=== PATIENT | female | born 1945 | race Caucasian/White ===

== ENCOUNTER → 2020-04-29 09:41 | Outpatient (BNVA) | payer MEDICARE, SELFPAY | PROVIDERS: PCP Internal Medicine; Visit Provider Internal Medicine Cardiovascular Disease | DX: I11.0 Hypertensive heart disease with heart failure (principal); I50.30 Unspecified diastolic (congestive) heart failure; J44.9 Chronic obstructive pulmonary disease, unspecified | CPT/HCPCS: 99212 ==

== ENCOUNTER → 2020-05-20 09:39 | Outpatient (REF) | payer MEDICARE, SELFPAY ==
--- NOTE | 2020-05-20 09:42 | CA_ITS ---
Transthoracic Echocardiogram Patient (Last, First, Middle): Mary Miramontes, Gender: Female Date of : 1945 Age: 74 Procedure Date: 05/20/2020 Procedure Type: Transthoracic Echocardiogram Location: OP Height: 160.02 cm Weight: 95.26 kg BSA: 1.97 m2 Heart Rate: bpm BP: 198 / 90 mmHg Supervisor Crack Off: Referring MD: Asher Amezquita MD Symptoms: I50.30 - Unspecified diastolic (congestive) heart failure Study Quality: Good ECG Rhythm: Sinus, PACs Conclusions: - The left ventricular systolic function is low normal. The visually estimated ejection fraction is between 50-55%. - No obvious valvular pathology seen on this study. Findings Left Ventricle Normal left ventricular cavity size. There is mildly increased left ventricular wall thickness. The left ventricular systolic function is low normal. The visually estimated ejection fraction is between 50-55%. E/E prime ratio is between 8 and 15 consistent with indeterminate filling pressures. Evidence suggests grade I (mild) diastolic dysfunction. Right Ventricle Normal right ventricular cavity size and systolic function. Atria Both atria are normal in size. Aortic Valve There is a normal trileaflet aortic valve. There is no aortic valve stenosis. There is no aortic valve regurgitation. Mitral Valve The mitral valve appears normal. There is trace mitral valve regurgitation. There is no mitral valve stenosis. Pulmonic Valve The pulmonic valve was not well visualized. Tricuspid Valve Normal tricuspid valve structure. There is trace tricuspid valve regurgitation. The pulmonary artery systolic pressure is normal. Great Vessels The aortic annulus, sinuses of valsalva, asc aorta, and aortic arch are normal in size. Venous The inferior vena cava is normal in size and collapses greater than 50% with inspiration. Pericardium/Pleural There is no evidence of pericardial effusion. Prior Study Comparison No significant change compared to prior study dated: 03/28/2017. Recommendations, Care & Conclusions No obvious valvular pathology seen on this study. Measurements 2D Linear Measurements RVIDd: 3.24 RVIDd Index: 1.64 IVSd: 1.15 0.6-0.9/0.6-1.0 cm LVIDd: 4.67 3.9-5.3/4.2-5.9 cm LVIDd Index: 2.37 2.4-3.2/2.2-3.1 cm/m2 LVIDs: 3.18 2.0-3.6 cm LVPWd: 1.09 0.7-1.1 cm Ao Root: 3.00 2.1-3.5 cm LA Diam: 3.90 2.7-3.8/3.0-4.0 cm LAIDs Index: 1.98 1.5-2.3 cm/m2 LV Mass: 237.22 67-162/88-224 g LV Mass Index: 120.41 43-95/49-115 g/m2 LVOT Diam: 2.00 3.0+(-)1.3 cm 2D Systolic Function EF 4C: 50.50 >55% EF 2C: 67.10 >55% Mitral Valve MV Pk E: 0.68 MV PK A: 1.02 MV Decel Time: 328.00 E/A: 0.70 E'Lateral: 7.29 E'Medial: 4.68 E/E' Med: 14.50 E/E' Lat: 9.30 Aortic Valve AoV Pk Bernardo: 1.81 AoV Mn Bernardo: 1.31 AoV VTI: 0.36 AoV Pk Grad: 13.00 Aov Mn Grad: 8.00 TRINH Cont.VTI: 2.37 LVOT LVOT Pk Bernardo: 1.22 LVOT Mn Bernardo: 0.90 LVOT VTI: 0.27 LVOT Pk Grad: 6.00 LVOT Mn Grad: 4.00 LVOT Diam: 2.00 LVOT Area: 3.14 Diastolic Function MV Pk E: 0.68 MV Pk A: 1.02 E/A: 0.70 E'Medial: 4.68 E/E' Med: 14.50 E' Laterial: 7.29 E/E' Lat: 9.30 Tricuspid Valve TR Pk Bernardo: 2.50 TR Pk Grad: 25.00 RA Press: 3.00 RVSP: 28.00 Great Vessels Aorta Ao Root-2D: 3.00 2.0-3.7 cm Ao Asc: 3.60 2.1-3.4 cm Ao Arch: 2.40 Updated in Other Vendor System with Status of Final Hernando Mari MD electronically signed on 05/22/2020 11:15:41 AM with status of Final
== END ==
LOC: HO.CARD 09:39
PROVIDERS: Visit Provider Internal Medicine Cardiovascular Disease
DX: I50.30 Unspecified diastolic (congestive) heart failure (principal); I11.0 Hypertensive heart disease with heart failure
CPT/HCPCS: 93306

== ENCOUNTER 2020-06-21 13:20 | Emergency (ER) | payer MEDICARE, SELFPAY ==
[2020-06-21 13:35] VITALS: BP 116/88; PULSE 80; RESP 16; TEMP 36.3; O2SAT 96; BMI 34.3
--- NOTE | 2020-06-21 15:01 | XR_ITS ---
EXAMINATION: XR CHEST CLINICAL INFORMATION: Patient with history of CHF and lower extremity swelling COMPARISON: Chest radiograph from 05/30/2016 TECHNIQUE: 2 views of the chest were obtained. FINDINGS: There is no focal consolidation. There is no pneumothorax. The trachea is midline. The cardiac mediastinal silhouette is stable. The aorta is tortuous with atherosclerotic calcifications. There is no pleural effusion. Osseous structures are intact. Soft tissues are unremarkable. XR/XR chest 2V IMPRESSION: No acute cardiopulmonary process.
--- NOTE | 2020-06-21 17:09 | ED_ITS ---
HPI - Extremity Problem General Chief complaint: Extremity Problem Stated complaint: swollen leg and foot lt Time Seen by Provider: 06/21/20 15:01 Source: patient Mode of arrival: ambulatory History of Present Illness HPI Narrative: 74-year-old female with a past medical history of COPD, diabetes, hyperlipidemia, hypertension, CHF w/EF of 50-55% presenting to the ED complaining of exertional SOB and worsening lower extremity edema >LLE x3 days. Admits to recent admission at [facility] for CHF exacerbation. Admits chronic erythema to the left lower extremity. Also reports incomplete bladder emptying times today. Denies fever, chills, travel, chest pain, abdominal pain, nausea/vomiting. Reports compliance with home medications MD Complaint: extremity pain and extremity swelling Related Data Home Medications Medication Instructions Recorded Confirmed atorvastatin 10 mg tablet 10 mg PO DAILY 04/17/20 04/29/20 cholecalciferol (vitamin D3) 25 25 mcg PO DAILY 04/17/20 04/29/20 mcg (1,000 unit) chewable tablet metformin 500 mg tablet,extended 500 mg PO DAILY 04/17/20 04/29/20 release 24 hr tjqrzrcw-vbkeztj-taxx-lutein tablet tab PO 04/17/20 04/29/20 omega-3 fatty acids-fish oil 360 1 cap PO DAILY 04/17/20 04/29/20 mg-1,200 mg capsule Previous Rx's Medication Instructions Recorded fluticasone 250 mcg-salmeterol 50 1 ea PO BID #180 cap 03/31/20 mcg/dose blistr powdr for inhalation furosemide 20 mg tablet 20 mg PO DAILY #90 tab 04/23/20 losartan 100 mg tablet 100 mg PO DAILY #90 tab 05/29/20 cephalexin [Keflex] 500 mg PO Q6H 7 Days #28 cap 06/21/20 Allergies Allergy/AdvReac Type Severity Reaction Status Date / Time Sulfa (Sulfonamide Allergy Unknown itching Verified 04/29/20 09:55 Antibiotics) sulfamethoxazole AdvReac Severe PT STATES Verified 04/29/20 09:55 [From BACTRIM] WHOLE BODY SHUT DOWN trimethoprim [From BACTRIM] AdvReac Severe PT STATES Verified 04/29/20 09:55 WHOLE BODY SHUT DOWN Review of Systems Review of Systems: Constitutional: No Weight loss, No Fever, No Chills Cardiovascular: No Chest Pain, + SOB, +Dyspnea on Exertion, No Orthopnea, +Edema, No Palpitations Respiratory: No Cough, No Sputum Gastrointestinal: No Nausea, No Vomiting, No Diarrhea, No Constipation, No Abdominal pain Genitourinary: No Dysuria, +urinary hesitancy, No Hematuria Musculoskeletal: No joint pain, No Myalgias, No Joint Swelling Skin: No Skin Lesions, +LLE redness Neuro: No Weakness, No Numbness, No Paresthesias Yes all other systems are reviewed and are negative [facility] Past Medical History Attestation statement: The following information was validated with the patient. Medical History (HFpEF) heart failure with preserved ejection fraction COPD (chronic obstructive pulmonary disease) Diabetes mellitus with microalbuminuria, without long-term current use of insulin Dyslipidemia Essential hypertension Menopause Surgical History History of cerebral aneurysm repair History of lumpectomy of right breast Family History Family History Father Myocardial infarction CVD (cardiovascular disease) Mother Diabetes mellitus Brother HTN (hypertension) Brother HTN (hypertension) Brother No problems noted. Son No problems noted. Social History Social History Alcohol intake: never Smoking Status: Former smoker Advance Directives: No Advance Directives Information Provided: No Physical Exam Vital Signs: Vital Signs: Last Vital Signs Temp 97.8 F 06/21/20 17:30 Pulse 62 06/21/20 17:30 Resp 19 06/21/20 17:30 BP 178/71 H 06/21/20 17:30 Pulse Ox 95 06/21/20 17:30 Body Mass Index 34.3 Const: General: cooperative and no acute distress Orientation/consciousness: patient oriented x3 Limitations: no limitations HENMT: Head: Yes normal to inspection Ears: hearing grossly normal bilaterally General nose exam: Normal external nose present Face and sinus: Yes normal facial exam Eyes: General: appearance normal, both eyes and all related structures EOM: EOMs intact bilaterally Neck: Neck: Yes normal visual inspection Resp: Effort & Inspection: normal respiratory effort Auscultation: clear to auscultation bilaterally, no crackles, no rhonchi and no wheezes Cardio: Rate: regular rate Heart sounds: S1 normal heart sound present and S2 normal heart sound present GI: Inspection: Yes normal to inspection Palpation (GI): Soft to palpation, nontender, no guarding and not rigid Skin: General skin exam: erythema (Noted to left lower extremity with warmth) Neuro: General: patient oriented x3 Extrem: Other: + bilateral lower extremity pitting edema Course Course Course Narrative: * CXR unremarkable Obtained records from [facility] patient was admitted on 03/25 for ACS rule out and noted to be in COPD exacerbation, hypoxic requiring oxygen, discharged with Medrol pack, with COVID-19 negative. Had negative ultrasound Dopplers of her legs and negative CTA. * Labs unremarkable, BNP 54, lactic negative >given 1st dose Keflex in the ED for LLE cellulitis * UA infected >> Keflex should cover Results discussed with patient including worrisome signs and symptoms and strict return precautions. She verbalized understanding and feels safe for discharge home. Discussion she needs to follow-up with her PCP in 2 days. She is agreeable with plan MDM - Extremity (Nontraumatic) MDM Narrative Medical decision making narrative: 74-year-old female with a past medical history of COPD, diabetes, hyperlipidemia, hypertension, CHF w/EF of 50-55% presenting to the ED complaining of exertional SOB and worsening lower extremity edema >LLE x3 days. On exam VSS, NAD/nontoxic appearing, lungs CTA, bilateral lower extremity pitting edema noted with left lower extremity cellulitis/warmt to touch. Concern for CHF exacerbation vs cellulitis vs ?DVT. Low concern for PE. No wheezing on exam low concern for COPD exacerbation at this time Plan: EKG, labs, CXR, venous duplex, reassess Lab Data Result diagrams: 06/21/20 17:46 06/21/20 17:46 Labs: Lab Results 06/21/20 06/21/20 06/21/20 Range/Units 17:46 17:46 17:46 WBC 9.1 (4.8-10.8) X10*3/uL RBC 4.77 (4.20-5.50) X10*6/uL Hgb 15.0 (12.0-16.0) g/dl Hct 46.8 (37-47) % MCV 98.1 H (80-98) fL MCH 31.4 (27.0-33.0) pg MCHC 32.1 (31.0-35.0) g/dl RDW 12.6 (11.0-16.0) % Plt Count 227 (160-400) X10*3/uL MPV 11.2 (9.4-12.3) fL Immature Gran % (Auto) 0.3 (0.0-0.4) % Neut % (Auto) 67.3 (45-73) % Lymph % (Auto) 22.8 (20-40) % [place] % (Auto) 7.0 (2-11) % Eos % (Auto) 2.3 (0-4) % Baso % (Auto) 0.3 (0-2) % Lymph # (Auto) 2.1 (1.2-4.9) X10*3/uL [place] # (Auto) 0.6 (0.1-1.2) X10*3/uL Eos # (Auto) 0.2 (0.0-0.4) X10*3/uL Baso # (Auto) 0.0 (0.0-0.2) X10*3/uL Abs Immat Gran (auto) 0.03 (0.00-0.03) X10*3/uL Absolute Neuts (auto) 6.1 (2.0-8.3) X10*3/uL Absolute Nucleated RBC 0.000 (0.0-0.012) X10*3/uL Nucleated RBC % (auto) 0.0 (0.0-0.2) /100WBC Sodium 145 (135-145) mmol/L Potassium 4.1 (3.3-5.1) mmol/l Chloride 104 (96-108) mmol/L Carbon Dioxide 31 H (22-29) mmol/L Anion Gap 14 (12-20) BUN 18 H (9-16) mg/dL Creatinine 0.77 (0.5-1.4) mg/dL Estim Creat Clear Calc 67.7 Estimated GFR > 60 Random Glucose 103 (60-115) mg/dL Lactic Acid (0.5-2.0) mmol/L Calcium 9.4 (8.4-10.2) mg/dL Magnesium 2.4 (1.6-2.6) mg/dL Total Bilirubin 0.6 (0.0-1.0) mg/dL Direct Bilirubin 0.3 (0.0-0.5) mg/dL AST 20 (5-31) U/L ALT 21 (0-31) U/L Alkaline Phosphatase 103 (39-117) U/L B-Natriuretic Peptide 54 (<100) pg/mL Total Protein 6.9 (6.5-8.0) g/dL Albumin 4.2 (3.5-5.0) g/dL Urine Color Urine Appearance Urine pH (5.0-8.0) Ur Specific [place] (1.005-1.025) Urine Protein (NEG-TRACE) MG/DL Urine Glucose (UA) (NEG) MG/DL Urine Ketones (NEG) MG/DL Urine Blood (NEG) Urine Nitrite (NEG) Ur Leukocyte Esterase (NEG) Urine RBC (0) /HPF Urine WBC (0-4) /HPF Ur Squamous Epith Cells /LPF Urine Bacteria /LPF 06/21/20 06/21/20 Range/Units 17:46 19:53 WBC (4.8-10.8) X10*3/uL RBC (4.20-5.50) X10*6/uL Hgb (12.0-16.0) g/dl Hct (37-47) % MCV (80-98) fL MCH (27.0-33.0) pg MCHC (31.0-35.0) g/dl RDW (11.0-16.0) % Plt Count (160-400) X10*3/uL MPV (9.4-12.3) fL Immature Gran % (Auto) (0.0-0.4) % Neut % (Auto) (45-73) % Lymph % (Auto) (20-40) % [place] % (Auto) (2-11) % Eos % (Auto) (0-4) % Baso % (Auto) (0-2) % Lymph # (Auto) (1.2-4.9) X10*3/uL [place] # (Auto) (0.1-1.2) X10*3/uL Eos # (Auto) (0.0-0.4) X10*3/uL Baso # (Auto) (0.0-0.2) X10*3/uL Abs Immat Gran (auto) (0.00-0.03) X10*3/uL Absolute Neuts (auto) (2.0-8.3) X10*3/uL Absolute Nucleated RBC (0.0-0.012) X10*3/uL Nucleated RBC % (auto) (0.0-0.2) /100WBC Sodium (135-145) mmol/L Potassium (3.3-5.1) mmol/l Chloride (96-108) mmol/L Carbon Dioxide (22-29) mmol/L Anion Gap (12-20) BUN (9-16) mg/dL Creatinine (0.5-1.4) mg/dL Estim Creat Clear Calc Estimated GFR Random Glucose (60-115) mg/dL Lactic Acid 1.3 (0.5-2.0) mmol/L Calcium (8.4-10.2) mg/dL Magnesium (1.6-2.6) mg/dL Total Bilirubin (0.0-1.0) mg/dL Direct Bilirubin (0.0-0.5) mg/dL AST (5-31) U/L ALT (0-31) U/L Alkaline Phosphatase (39-117) U/L B-Natriuretic Peptide (<100) pg/mL Total Protein (6.5-8.0) g/dL Albumin (3.5-5.0) g/dL Urine Color YELLOW Urine Appearance HAZY Urine pH 7.0 (5.0-8.0) Ur Specific [place] 1.015 (1.005-1.025) Urine Protein NEG (NEG-TRACE) MG/DL Urine Glucose (UA) NEG (NEG) MG/DL Urine Ketones NEG (NEG) MG/DL Urine Blood NEG (NEG) Urine Nitrite POS H (NEG) Ur Leukocyte Esterase TRACE H (NEG) Urine RBC 0 (0) /HPF Urine WBC 0-2 (0-4) /HPF Ur Squamous Epith Cells 2+ /LPF Urine Bacteria 3+ /LPF Discharge Plan Discharge Clinical Impression: Acute UTI Cellulitis Qualifiers: Site of cellulitis: extremity Site of cellulitis of extremity: lower extremity Laterality: left Qualified Code(s): L03.116 - Cellulitis of left lower limb Patient Disposition: Home, Self-Care Instructions: Cellulitis (ED), Urinary Tract Infection in Older Adults (ED) Additional Instructions: YOU HAVE A SKIN INFECTION/CELLULITIS OF YOUR LEFT LOWER LEG YOU ALSO HAVE A URINARY TRACT INFECTION KEFLEX AN ANTIBIOTIC WHICH SHOULD TAKE CARE BOTH OF THESE INFECTIONS YOU NEED TO FOLLOW-UP WITH HER PRIMARY CARE DOCTOR IN 2 DAYS FOR RE-EVALUATION IF THE REDNESS IN HER LEG IS PASSING THE LINE CREATED IN THE ED RETURN TO THE ED SOONER IF YOU HAVE FEVER, RED STREAKING, BLOOD IN YOUR URINE, ABDOMINAL PAIN, VOMITING, OR UNABLE TO EAT OR DRINK RETURN TO THE ED Prescriptions: New cephalexin [Keflex] 500 mg capsule 500 mg PO Q6H 7 Days Qty: 28 RF: 0 No Action fluticasone propion-salmeterol [Wixela Inhub] 250-50 mcg/dose blister with device 1 ea PO BID Qty: 180 RF: 1 furosemide 20 mg tablet 20 mg PO DAILY Qty: 90 RF: 1 losartan 100 mg tablet 100 mg PO DAILY Qty: 90 RF: 1 atorvastatin 10 mg tablet 10 mg PO DAILY RF: 0 metformin 500 mg tablet extended release 24 hr 500 mg PO DAILY RF: 0 omega-3 fatty acids-fish oil [Fish Oil] 360-1,200 mg capsule 1 cap PO DAILY RF: 0 zsejaywx-hdapcyy-nqrb-lutein Tablet PO RF: 0 cholecalciferol (vitamin D3) 25 mcg (1,000 unit) tablet,chewable 25 mcg PO DAILY RF: 0 Referrals: Kaitlyn Soto MD [Primary Care Provider] - 2 days
--- NOTE | 2020-06-21 17:18 | ECG_ITS ---
Test Reason : SWOLLEN LEGS Blood Pressure : / mmHG Vent. Rate : 064 BPM Atrial Rate : 064 BPM P-R Int : 168 ms QRS Dur : 126 ms QT Int : 448 ms P-R-T Axes : 064 -57 046 degrees QTc Int : 462 ms Sinus rhythm with Premature atrial complexes Left anterior fascicular block Abnormal ECG When compared with ECG of 30-MAY-2016 19:56, Premature atrial complexes are now Present Referred By: Lanny Erazo Electronically Signed By:HAROLDO VOGT MD
[2020-06-21 17:30] VITALS: BP 178/71; PULSE 62; RESP 19; TEMP 36.6; O2SAT 95
--- NOTE | 2020-06-21 17:44 | US_ITS ---
EXAMINATION: US VENOUS ULTRASOUND WITH DOPPLER LOWER EXTREMITY, BILATERAL CLINICAL INFORMATION: Rule out DVT. Leg swelling. COMPARISON: None TECHNIQUE: Ultrasound of the deep veins is performed from the hip to the calf with compression sonography and color and pulse Doppler assessment. Spectral analysis with color-flow imaging is performed. FINDINGS: RIGHT: There is normal venous compression and respiratory variation and augmented flow. The visualized common femoral vein, superficial femoral vein, profunda femoral vein, popliteal vein, and the trifurcation region shows no evidence of deep venous thrombosis. There is no significant popliteal fossa cyst. LEFT: There is normal venous compression and respiratory variation and augmented flow. The visualized common femoral vein, superficial femoral vein, profunda femoral vein, popliteal vein, and the trifurcation region shows no evidence of deep venous thrombosis. There is no significant popliteal fossa cyst. If the patient's symptoms persist, followup ultrasound in 5 days 7 days might be of value to exclude proximal propagation from a non-visualized calf vein. US/US venous duplex LE BI IMPRESSION: No DVT demonstrated in the bilateral lower extremity.
[2020-06-21 17:54] LABS: Basophils Percent Auto 0.3 % (0-2); Eosinophils Absolute Auto 0.2 X10*3/uL (0.0-0.4); Eosinophils Percent Auto 2.3 % (0-4); Hematocrit 46.8 % (37-47); Imm Gran Abs Auto 0.03 X10*3/uL (0.00-0.03); Imm Gran Pct Auto 0.3 % (0.0-0.4); Lymphocytes Absolute Auto 2.1 X10*3/uL (1.2-4.9); Lymphocytes Percent Auto 22.8 % (20-40); MANUAL DIFF FLAG NO; Mean Corpuscular HGB Conc 32.1 g/dl (31.0-35.0); Mean Corpuscular Hemoglobin 31.4 pg (27.0-33.0); Mean Corpuscular Volume 98.1 fL (80-98); Mean Platelet Volume 11.2 fL (9.4-12.3); Monocytes Absolute Auto 0.6 X10*3/uL (0.1-1.2); Neutrophils Absolute Auto 6.1 X10*3/uL (2.0-8.3); Neutrophils Percent Auto 67.3 % (45-73); Platelet Count 227 X10*3/uL (160-400); Red Blood Count 4.77 X10*6/uL (4.20-5.50); Red Cell Distribution Width 12.6 % (11.0-16.0); White Blood Count 9.1 X10*3/uL (4.8-10.8)
[2020-06-21 18:36] LABS: Lactic Acid 1.3 mmol/L (0.5-2.0)
[2020-06-21 18:42] LABS: Alanine Aminotransferase 21 U/L (0-31); Albumin Level 4.2 g/dL (3.5-5.0); Alkaline Phosphatase 103 U/L (39-117); Anion Gap 14 (12-20); Aspartate Amino Transferase 20 U/L (5-31); Bilirubin Direct 0.3 mg/dL (0.0-0.5); Bilirubin Total 0.6 mg/dL (0.0-1.0); Blood Urea Nitrogen 18 mg/dL (9-16); Calcium 9.4 mg/dL (8.4-10.2); Carbon Dioxide 31 mmol/L (22-29); Chloride 104 mmol/L (96-108); Creatinine Clr Calc Pharmacy 67.7; Estimated Glomerular Filt Rate > 60; Glucose Random 103 mg/dL (60-115); Magnesium 2.4 mg/dL (1.6-2.6); Potassium 4.1 mmol/l (3.3-5.1); Sodium 145 mmol/L (135-145); Total Protein 6.9 g/dL (6.5-8.0)
[2020-06-21 18:47] LABS: B Type Natriuretic Peptide 54 pg/mL (<100)
[2020-06-21 19:59] LABS: Glucose Urine UA NEG (NEG); Leukocyte Esterase Urine TRACE (NEG); Nitrite Urine POS (NEG); Specific Gravity - Urine 1.015 (1.005-1.025); Urine Blood NEG (NEG); Urine Ketones NEG (NEG); Urine Protein NEG (NEG-TRACE)
[2020-06-21 20:00] LABS: Appearance Urine HAZY; Color Urine YELLOW
[2020-06-21 20:10] LABS: Bacteria Urine 3+ /LPF; RBC Urine 0 /HPF (0); Squamous Epithelial Cell Urine 2+ /LPF; WBC Urine 0-2 /HPF (0-4)
[2020-06-21] MEDS: cephALEXin 500 MG CAPSULE PO (20:50)
== END 2020-06-21 20:56 | disposition home or self-care (01) ==
PROVIDERS: Physician Assistant; Emergency Provider Emergency Medicine; PCP Internal Medicine
DX: L03.116 Cellulitis of left lower limb (principal); R60.0 Localized edema; N39.0 Urinary tract infection, site not specified; Z79.899 Other long term (current) drug therapy
CPT/HCPCS: 36415; 51798; 71046; 80048; 80076; 81001; 83605; 83735; 83880; 85025; 87040; 87086; 87088; 87186; 93005; 93970; 99284

== ENCOUNTER 2020-07-15 10:26 | Outpatient (REF) | payer MEDICARE, SELFPAY ==
--- NOTE | 2020-07-15 10:31 | MM_ITS ---
EXAMINATION: MM SCREENING DIGITAL BREAST TOMOSYNTHESIS, BILATERAL CLINICAL INFORMATION: Screening. Asymptomatic. Status post right lumpectomy. COMPARISON: Mammography: November 19, 2018 and studies dating back to April 18, 2011 TECHNIQUE: Digital breast tomosynthesis is performed in both the craniocaudal and mediolateral oblique views along with computer-aided detection (CAD). Synthesized 2D images are generated from the tomosynthesis. FINDINGS: There are scattered areas of fibroglandular density (ACR BI-RADS breast composition Category b). There is right breast architecture distortion related to previous lumpectomy. There is multiplicity and bilaterality of stable calcifications. No new abnormal dominant mass or suspicious grouping of microcalcifications identified. MM/MM tomosynthesis screening BI IMPRESSION: There are no significant changes from prior study. ASSESSMENT: BI-RADS 2: Benign RECOMMENDATION: Routine annual mammography screening. This patient's information was entered into a reminder system with a target due date for their next mammogram.
== END 2020-07-15 10:27 | disposition home or self-care (01) ==
LOC: HO.MAMMO 10:26
PROVIDERS: PCP Internal Medicine; Visit Provider Internal Medicine
DX: Z12.31 Encounter for screening mammogram for malignant neoplasm of breast (principal)
CPT/HCPCS: 77063; 77067

== ENCOUNTER 2020-07-16 08:14 | Outpatient (REF) | payer MEDICARE, SELFPAY ==
[2020-07-16 11:10] LABS: MANUAL DIFF FLAG NO
[2020-07-16 11:17] LABS: Basophils Percent Auto 0.3 % (0-2); Eosinophils Absolute Auto 0.3 X10*3/uL (0.0-0.4); Eosinophils Percent Auto 2.9 % (0-4); Hemoglobin 15.4 g/dl (12.0-16.0); Imm Gran Abs Auto 0.03 X10*3/uL (0.00-0.03); Imm Gran Pct Auto 0.3 % (0.0-0.4); Lymphocytes Absolute Auto 2.5 X10*3/uL (1.2-4.9); Mean Corpuscular HGB Conc 30.8 g/dl (31.0-35.0); Mean Corpuscular Hemoglobin 30.9 pg (27.0-33.0); Mean Corpuscular Volume 100.4 fL (80-98); Mean Platelet Volume 11.7 fL (9.4-12.3); Monocytes Absolute Auto 0.8 X10*3/uL (0.1-1.2); Monocytes Percent Auto 8.7 % (2-11); Neutrophils Absolute Auto 5.2 X10*3/uL (2.0-8.3); Neutrophils Percent Auto 58.8 % (45-73); Platelet Count 220 X10*3/uL (160-400); Red Blood Count 4.98 X10*6/uL (4.20-5.50); Red Cell Distribution Width 12.5 % (11.0-16.0); White Blood Count 8.8 X10*3/uL (4.8-10.8)
[2020-07-16 11:40] LABS: Alanine Aminotransferase 16 U/L (0-31); Anion Gap 11 (12-20); Aspartate Amino Transferase 21 U/L (5-31); Blood Urea Nitrogen 23 mg/dL (9-16); Carbon Dioxide 33 mmol/L (22-29); Chloride 106 mmol/L (96-108); Cholesterol 139 mg/dL; Estimated Glomerular Filt Rate > 60; Glucose Fasting 118 mg/dL (60-99); HDL Cholesterol 61 mg/dL; LDL Cholesterol Calculated 61 mg/dl; Potassium 4.3 mmol/L (3.3-5.1); Sodium 146 mmol/L (135-145); Triglycerides 87 mg/dL
[2020-07-16 11:50] LABS: Estimated Average Glucose 134 mg/dL; Hemoglobin A1c % 6.3 %
[2020-07-16 11:58] LABS: Creatinine Urine 15.14 mg/dL
[2020-07-16 12:02] LABS: Vitamin D 25-OH Total 45.6 ng/mL (>30)
== END 2020-07-16 08:15 | disposition home or self-care (01) ==
LOC: HO.HMGCLDS 08:14
PROVIDERS: PCP Internal Medicine; Visit Provider Internal Medicine
DX: E78.5 Hyperlipidemia, unspecified (principal); I10 Essential (primary) hypertension; J44.9 Chronic obstructive pulmonary disease, unspecified; E11.29 Type 2 diabetes mellitus with other diabetic kidney complication; R80.9 Proteinuria, unspecified; Z78.0 Asymptomatic menopausal state
CPT/HCPCS: 36415; 80048; 80061; 82043; 82306; 83036; 84450; 84460; 85025

== ENCOUNTER 2020-10-20 10:21 | Outpatient (REF) | payer MEDICARE, SELFPAY ==
[2020-10-20 11:38] LABS: Estimated Average Glucose 146 mg/dL; Hemoglobin A1c % 6.7 %
[2020-10-20 11:47] LABS: Alanine Aminotransferase 18 U/L (0-31); Albumin Level 4.2 g/dL (3.5-5.0); Alkaline Phosphatase 94 U/L (39-117); Anion Gap 14 (12-20); Aspartate Amino Transferase 20 U/L (5-31); Bilirubin Total 1.4 mg/dL (0.0-1.0); Blood Urea Nitrogen 19 mg/dL (9-16); Calcium 9.6 mg/dL (8.4-10.2); Carbon Dioxide 30 mmol/L (22-29); Chloride 104 mmol/L (96-108); Cholesterol 142 mg/dL; Creatinine Clr Calc Pharmacy 67.1; Estimated Glomerular Filt Rate > 60; Glucose Fasting 118 mg/dL (60-99); HDL Cholesterol 58 mg/dL; LDL Cholesterol Calculated 62 mg/dl; Potassium 4.1 mmol/L (3.3-5.1); Sodium 144 mmol/L (135-145); Total Protein 6.8 g/dL (6.5-8.0); Triglycerides 113 mg/dL
[2020-10-20 12:10] LABS: Vitamin D 25-OH Total 40.3 ng/mL (>30)
[2020-10-20 12:27] LABS: Folate > 20.0 ng/mL (> or = 4.0); Vitamin B12 523 pg/mL (200-900)
== END 2020-10-20 10:22 | disposition home or self-care (01) ==
LOC: HO.HMGCLDS 10:21
PROVIDERS: PCP Internal Medicine; Visit Provider Internal Medicine
DX: I10 Essential (primary) hypertension (principal); E78.5 Hyperlipidemia, unspecified; E11.29 Type 2 diabetes mellitus with other diabetic kidney complication; R80.9 Proteinuria, unspecified; Z78.0 Asymptomatic menopausal state; Z12.11 Encounter for screening for malignant neoplasm of colon; Z12.12 Encounter for screening for malignant neoplasm of rectum
CPT/HCPCS: 36415; 80053; 80061; 82306; 82607; 82746; 83036

== ENCOUNTER → 2020-11-12 14:11 | Outpatient (BNVA) | payer MEDICARE, SELFPAY | PROVIDERS: PCP Internal Medicine; Referring Provider Internal Medicine; Visit Provider Internal Medicine Cardiovascular Disease | DX: I11.0 Hypertensive heart disease with heart failure (principal); I50.30 Unspecified diastolic (congestive) heart failure | CPT/HCPCS: 99212 ==

== ENCOUNTER 2020-11-13 14:22 | Outpatient (REF) | payer MEDICARE, SELFPAY ==
[2020-11-13 15:15] LABS: FIT1 NEGATIVE (NEGATIVE)
[2020-11-13 15:16] LABS: FIT Int Ctl YES; FIT2 POSITIVE (NEGATIVE)
== END 2020-11-13 14:23 | disposition home or self-care (01) ==
LOC: HO.LNP 14:22
PROVIDERS: Visit Provider Internal Medicine
DX: Z12.11 Encounter for screening for malignant neoplasm of colon (principal)
CPT/HCPCS: 82274

== ENCOUNTER 2021-04-26 08:18 | Outpatient (REF) | payer MEDICARE, SELFPAY ==
--- NOTE | ~2021-04-26 | US_ITS ---
EXAMINATION: US ABDOMEN COMPLETE CLINICAL INFORMATION: Epigastric pain. COMPARISON: CT abdomen and pelvis with intravenous contrast only dated 07/11/2015. TECHNIQUE: Real-time imaging of the abdominal viscera. FINDINGS: PANCREAS: The head and body the pancreas are normal. The tail is not well visualized due to bowel gas. ABDOMINAL AORTA: The proximal, mid, and distal segments are normal in caliber. INFERIOR VENA CAVA: Visualized portions are normal. LIVER: Liver echotexture is increased. There are 2 hypoechoic lesions in the left lobe of the liver, question representing complex cysts. These measure 1.8 x 1.7 x 2 cm and 0.8 x 0.5 x 0.7 cm. These are not appreciated on previous CT from 2015. No other liver lesion is seen. There is no intrahepatic biliary duct dilatation seen. GALLBLADDER: Normal. The gallbladder is physiologically distended without evidence of stones, sludge, polyps, wall thickening or pericholecystic fluid. COMMON BILE DUCT: Normal in caliber measuring 0.23 cm in diameter. RIGHT KIDNEY: Normal. No hydronephrosis. No renal calculi or focal parenchymal lesions. The kidney measures 10.7 cm in maximum dimension. LEFT KIDNEY: Normal. No hydronephrosis. No renal calculi or focal parenchymal lesions. The kidney measures 10.4 cm in maximum dimension. SPLEEN: Normal. The spleen measures 8.0 cm in maximum dimension. FREE FLUID: None. US/US abdomen complete IMPRESSION: Echogenic liver probably representing fatty infiltration. 2 hypoechoic lesions in the left lobe of the liver, question representing complex cysts. These are not seen on previous CT June 2015. Depending on level of clinical concern, this could be further evaluated with liver MRI with contrast. Limited visualization of the tail the pancreas. Otherwise unremarkable exam.
== END 2021-04-26 08:19 | disposition home or self-care (01) ==
LOC: HO.HMGCX 08:18
PROVIDERS: PCP Internal Medicine; Visit Provider Internal Medicine
DX: R10.13 Epigastric pain (principal)
CPT/HCPCS: 76700

== ENCOUNTER 2021-05-12 13:13 | Outpatient (REF) | payer MEDICARE, SELFPAY ==
--- NOTE | ~2021-05-12 | MR_ITS ---
EXAMINATION: MR ABDOMEN WITHOUT AND WITH CONTRAST CLINICAL INFORMATION: Liver cyst and pain COMPARISON: Previous ultrasound of the abdomen April [address] of the abdomen and pelvis June 2015 TECHNIQUE: MR abdomen was performed without and with use of 10 mL intravenous Gadavist gadolinium contrast. Postcontrast images are performed in multiphase dynamic sequences. Imaging was performed in 3 planes. FINDINGS: LUNG BASES: The visualized lung bases are unremarkable. LIVER, GALLBLADDER, AND BILIARY TREE: There is fatty infiltration of the liver. There are 2 lesions seen. These are slightly low signal on T1 weighted sequences and high signal on T2-weighted sequences. These demonstrate peripheral enhancement. These measure 1 x 1.3 cm high in the dome of the right lobe for example axial image 17 post contrast and 0.8 x 1.3 cm in the right lobe axial image 41 post contrast. These do not demonstrate early arterial phase enhancement, these are worrisome for metastatic disease. There is question of a third smaller peripheral lesion in the right lobe measuring 5 mm axial image 41 post contrast. There is question of adenomyomatosis of the gallbladder fundus. The gallbladder is otherwise unremarkable. There is no biliary duct dilatation. PANCREAS: There is a 3 x 3.7 cm mass in the tail of the pancreas. This is low signal on T1 and T2-weighted sequences and demonstrates homogeneous enhancement following contrast. There is a duodenal diverticulum adjacent to the head of the pancreas. The pancreas is otherwise unremarkable. The main pancreatic duct does not appear dilated. SPLEEN: Normal. ADRENAL GLANDS: Normal. KIDNEYS AND URETERS: There is a 1 cm cyst in the upper pole of the left kidney. Kidneys are otherwise unremarkable. GASTROINTESTINAL TRACT: No bowel obstruction. No ascites or fluid collection. ABDOMINAL WALL: No significant hernia is appreciated. LYMPH NODES: No lymphadenopathy. VASCULAR: Unremarkable. OSSEOUS STRUCTURES: Marrow signal normal. There are degenerative changes of the spine. MR/MR abdomen wo/w con IMPRESSION: 3 x 3.7 cm enhancing mass in the tail the pancreas. 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 Liver lesions in the right lobe of the liver suggestive of metastatic disease. 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 Fatty liver. Small left renal cyst.
[2021-05-12 13:19] LABS: Blood Urea Nitrogen 19 mg/dL (9-16); Estimated Glomerular Filt Rate > 60
[2021-05-14 12:57] LABS: Alpha Fetoprotein 3.3 ng/mL
== END 2021-05-12 13:14 | disposition home or self-care (01) ==
LOC: HO.MRI 13:13
PROVIDERS: PCP Internal Medicine; Visit Provider Internal Medicine
DX: R93.2 Abnormal findings on diagnostic imaging of liver and biliary tract (principal); K76.89 Other specified diseases of liver
CPT/HCPCS: 36415; 74183; 82105; 82378; 82565; 84520

== ENCOUNTER 2021-05-17 07:14 | Day surgery (SDC) | payer MEDICARE, SELFPAY ==
[2021-05-10 13:29] VITALS: BMI 32.5
--- NOTE | 2021-05-14 10:42 | P.CONAN_ITS ---
Documented by User: Melissa Abdullahi NP 05/14/21 10:45 HPI - Anesthesia Eval Consult details Narrative: 75yo F for Upper Endoscopy and Colonoscopy Stable at routine cardiac visit 11/2020 [facility] Active Problems Active Problems: All Active Problems (Updated 05/10/21 @ 13:29 by Michelle Fabian RN) Dyspepsia (Acute) Irritable bowel syndrome with constipation (Acute) Positive FIT (fecal immunochemical test) (Acute) Class 1 obesity due to excess calories with body mass index (BMI) of 33.0 to 33.9 in adult (Acute) Chronic obstructive pulmonary disease, unspecified (Acute) (HFpEF) heart failure with preserved ejection fraction (Acute) Essential hypertension (Acute) Menopause (Acute) Dyslipidemia (Acute) Diabetes mellitus with microalbuminuria, without long-term current use of insulin (Acute) Past Medical History Medical History (Updated 05/10/21 @ 13:29 by Michelle Fabian RN) (HFpEF) heart failure with preserved ejection fraction Chronic obstructive pulmonary disease, unspecified Class 1 obesity due to excess calories with body mass index (BMI) of 33.0 to 33.9 in adult COVID-19 vaccine series completed Diabetes mellitus with microalbuminuria, without long-term current use of insulin Dyslipidemia Dyspepsia Essential hypertension Irritable bowel syndrome with constipation Menopause Positive FIT (fecal immunochemical test) Family History Family History Father Myocardial infarction CVD (cardiovascular disease) Mother Diabetes mellitus Brother HTN (hypertension) Brother HTN (hypertension) Brother No problems noted. Son No problems noted. Surgical History Surgical History (Updated 05/10/21 @ 13:13 by Michelle Fabian RN) History of cerebral aneurysm repair History of lumpectomy of right breast Hx of tubal ligation Social History Social History Household Members Other:: son Housing: House Are you a primary palliative care specialist to a significant other at home: No Do you presently have visiting nurse or other home services: No Alcohol intake: never Patient Tobacco Use Status: Former Tobacco user Quit Date: 2006 Tobacco use type: Cigarette Years Smoked: 50 yrs e-Cigarette/Vaping Use: Never Used Use of substances other than those prescribed or required for medical reasons: No Have you been hit, kicked, punched, or otherwise hurt by someone within the past year? If so, by whom?: No Are you DNR?: No Advance Directives Information Provided: Yes (informational brochure mailed) Advance Directives on File: No Recently lost weight without trying: No Eating poorly because of decreased appetite: No Nutrition Risks: Surgical patient >75years service: No Current occupational status: disabled Meds Allergies Allergy/AdvReac Type Severity Reaction Status Date / Time Sulfa (Sulfonamide Allergy Intermediate itching Verified 05/10/21 13:32 Antibiotics) sulfamethoxazole Allergy Intermediate Stomach Verified 05/17/21 08:18 [From Bactrim] Upset trimethoprim [From Bactrim] Allergy Intermediate Stomach Verified 05/17/21 08:18 Upset Home Medications Medication Instructions Recorded Confirmed Last Taken Type cholecalciferol (vitamin D3) 25 25 mcg PO DAILY 04/17/20 05/10/21 Unknown History mcg (1,000 unit) chewable tablet gojrruvr-qrudtkj-upqk-lutein tablet 1 tab PO DAILY 04/17/20 05/10/21 Unknown History omega-3 fatty acids-fish oil 360 1 cap PO DAILY 04/17/20 05/10/21 Unknown History mg-1,200 mg capsule (Fish Oil) ibuprofen 200 mg tablet 200 mg PO Q6H PRN 07/24/20 05/10/21 Unknown History Exam Exam Date and Time: May 14, 2021 1042 Height,Weight and Vital Signs: Height 5 ft 4 in Weight 86.183 kg Pertinent Lab Results Pertinent Lab Results: Laboratory Tests 07/16/20 10/20/20 05/12/21 08:20 10:34 12:52 WBC 8.8 Hgb 15.4 Hct 50.0 H Plt Count 220 Sodium 144 Potassium 4.1 Chloride 104 Carbon Dioxide 30 H BUN 19 H Creatinine 0.83 Narrative Narrative: EKG 06/2020 Vent. Rate : 064 BPM ? ? Atrial Rate : 064 BPM ?? P-R Int : 168 ms? QRS Dur : 126 ms ? ? QT Int : 448 ms ? ? ? P-R-T Axes : 064 -57 046 degrees ?? QTc Int : 462 ms ? Sinus rhythm with Premature atrial complexes Left anterior fascicular block Abnormal ECG When compared with ECG of 30-MAY-2016 19:56, Premature atrial complexes are now Present ECHO 11/2020 Conclusions: - The left ventricular systolic function is low normal.? The ? ? visually estimated ejection fraction is between 50-55%.? - No obvious valvular pathology seen on this study.? Assessment and Plan Assessment Anesthesia Assessment: Chart Reviewed Documented by User: Kartik Del Rio 05/17/21 08:45 PMFSH Past Medical History Medical History (Updated 05/10/21 @ 13:29 by Michelle Fabian RN) (HFpEF) heart failure with preserved ejection fraction Chronic obstructive pulmonary disease, unspecified Class 1 obesity due to excess calories with body mass index (BMI) of 33.0 to 33.9 in adult COVID-19 vaccine series completed Diabetes mellitus with microalbuminuria, without long-term current use of insulin Dyslipidemia Dyspepsia Essential hypertension Irritable bowel syndrome with constipation Menopause Positive FIT (fecal immunochemical test) Family History Family History Father Myocardial infarction CVD (cardiovascular disease) Mother Diabetes mellitus Brother HTN (hypertension) Brother HTN (hypertension) Brother No problems noted. Son No problems noted. Family history of problems with anesthesia: No Surgical History Surgical History (Updated 05/10/21 @ 13:13 by Michelle Fabian RN) History of cerebral aneurysm repair History of lumpectomy of right breast Hx of tubal ligation History of Problems with Anesthesia: No Social History Social History Household Members Other:: son Housing: House Are you a primary palliative care specialist to a significant other at home: No Do you presently have visiting nurse or other home services: No Alcohol intake: never Patient Tobacco Use Status: Former Tobacco user Quit Date: 2006 Tobacco use type: Cigarette Years Smoked: 50 yrs e-Cigarette/Vaping Use: Never Used Use of substances other than those prescribed or required for medical reasons: No Have you been hit, kicked, punched, or otherwise hurt by someone within the past year? If so, by whom?: No Are you DNR?: No Advance Directives Information Provided: Yes (informational brochure mailed) Advance Directives on File: No Recently lost weight without trying: No Eating poorly because of decreased appetite: No Nutrition Risks: Surgical patient >75years service: No Current occupational status: disabled Meds Allergies Allergy/AdvReac Type Severity Reaction Status Date / Time Sulfa (Sulfonamide Allergy Intermediate itching Verified 05/10/21 13:32 Antibiotics) sulfamethoxazole Allergy Intermediate Stomach Verified 05/17/21 08:18 [From Bactrim] Upset trimethoprim [From Bactrim] Allergy Intermediate Stomach Verified 05/17/21 08:18 Upset Home Medications Medication Instructions Recorded Confirmed Last Taken Type cholecalciferol (vitamin D3) 25 25 mcg PO DAILY 04/17/20 05/10/21 Unknown History mcg (1,000 unit) chewable tablet anwyulzh-dtzfwjm-pina-lutein tablet 1 tab PO DAILY 04/17/20 05/10/21 Unknown History omega-3 fatty acids-fish oil 360 1 cap PO DAILY 04/17/20 05/10/21 Unknown History mg-1,200 mg capsule (Fish Oil) ibuprofen 200 mg tablet 200 mg PO Q6H PRN 07/24/20 05/10/21 Unknown History Exam Airway Mallampati Class: II Denture: Upper and Lower Loose/Missing/Broken Teeth: Yes Heart: rrr Lungs: bl breath sounds Assessment and Plan Final Anesthetic Review Family History of Problems with Anesthesia: No History of Problems with Anesthesia: No NPO: Yes ASA Class: III Final Preanesthetic Review: Meds/Allgs Chart Reviewed and Anes Risks/Benef Reviewed Patient Risk: Intermediate Procedure Risk: Intermediate Anesthetic Plan Anesthetic Plan: MAC: Disposition: Standard PACU
[2021-05-17 08:16] VITALS: BP 160/75; PULSE 54; RESP 18; TEMP 36.1; O2SAT 94
[2021-05-17] MEDS: Lactated Ringers 1,000 ML 50 ML IVCONT (08:17)
[2021-05-17 08:22] LABS: Glucose, Whole Blood 131 mg/dL (60-115)
[2021-05-17 09:49] VITALS: BP 113/57; PULSE 55; RESP 15; TEMP 36.1; O2SAT 98
--- NOTE | 2021-05-17 09:53 | P.BOP_ITS ---
Brief Operative Note Date of Service: 05/17/21 Pre-op diagnosis: Abd pain, Heme + stool Post-op diagnosis: other (Gastric and Duodenal ulcers, Esophagitis, Gastritis/Duodenitis, Colon polyp) Procedure: EGD with bx's, Colonoscopy to cecum with biopsy Surgeon: Tayo Kitchen Anesthesia: MAC Was an Storage Battery [employer] And Tester used for this Procedure?: No Estimated blood loss (mL): 2.0 Pathology: other (A. Gastric antral ulcer B. Gastric antrum C. EG Junction at 38cm D. Cecal polyp) Condition: stable Disposition: PACU
[2021-05-17 10:04] VITALS: BP 125/59; PULSE 56; RESP 18; TEMP 36.2; O2SAT 94
--- NOTE | 2021-05-17 11:24 | OP_ITS ---
SURGEON: Tayo Kitchen MD INDICATIONS: The patient presents for evaluation of abdominal pain and heme-positive stool. Full consent was obtained from her for this, including risks of bleeding and perforation. PREOPERATIVE DIAGNOSIS: POSTOPERATIVE DIAGNOSIS: PROCEDURE PERFORMED: Esophagogastroduodenoscopy with biopsies, and colonoscopy to the cecum with biopsy and removal of polyp. ESTIMATED BLOOD LOSS: COMPLICATIONS: ANESTHESIA: Monitored anesthesia care. ASSISTANTS: SPECIMENS: PREOPERATIVE DIAGNOSES: Abdominal pain and heme-positive stool. POSTOPERATIVE DIAGNOSES: Abdominal pain and heme-positive stool, esophagitis, hiatal hernia, gastric ulcer and gastritis, duodenal ulcers and duodenitis, colon polyp, diverticulosis and internal hemorrhoids. DESCRIPTION OF PROCEDURE: The patient was placed in the left lateral decubitus position. The Olympus video gastroscope was passed in the posterior oropharynx and upper esophagus under direct vision. The scope was passed slowly into the distal esophagus. The gastroesophageal junction appeared at 38 cm. There was evidence of some esophagitis at this level, but no definitive evidence of Collado's mucosa. There was no mass. The scope entered into the stomach and was advanced to the pylorus. The duodenum was cannulated to the descending portion. The second and third portions of duodenum appeared normal. The duodenal bulb was notable for multiple shallow ulcers between 5 and 10 mm as well as some surrounding duodenitis. There was no sign of any visible vessel nor bleeding. The scope was withdrawn back to the stomach. The gastric antrum was notable for erosive gastritis as well as an approximately 10 mm ulcer on the posterior gastric wall. There was no sign of bleeding and it appeared benign. There was good peristalsis. Biopsies were obtained from the margins of the ulcer as well as from the gastric antrum. The scope was retroflexed visualizing the proximal stomach carefully, which appeared normal, without any sign of mass or ulceration. The scope was straightened and withdrawn back to the esophagus. Biopsies were obtained at the EG junction at 38 cm. Proximal to that, the esophageal mucosa appeared normal. The scope was withdrawn from the patient. She was turned around for the colonoscopy. The digital rectal exam revealed no abnormalities. The Olympus video pediatric colonoscope was entered into the rectum and advanced easily to the cecum. Once in the cecum, I did identify cecal pouch with appendiceal orifice. There was transillumination of light deep in the right lower quadrant. There was some residual vegetable debris in the cecum, which was moved away as best as possible. In the vicinity of the appendiceal orifice, there was an approximately 5 mm probable hyperplastic polyp, which was biopsied and completely removed with a cold biopsy forceps. The remainder of the cecum appeared normal. The scope was then slowly withdrawn assessing all mucosal surfaces carefully. Preparation was excellent other than the sigmoid colon, which had some residual liquid and food matter, which was all irrigated and washed away as best as possible. I did not visualize any other polyps, colitis, nor angiodysplasia. There was a mild amount of sigmoid diverticulosis. In the rectum, scope was retroflexed visualizing internal hemorrhoids, but no other pathology. The rectal mucosa appeared normal. The scope was straightened out and withdrawn from the patient. She tolerated the procedures well and was returned to recovery area in stable condition. IMPRESSION: 1. Gastric and duodenal ulcers. 2. Gastritis. 3. Duodenitis. 4. Esophagitis. 5. Small hiatal hernia. 6. Colon polyp. 7. Diverticulosis. 8. Internal hemorrhoids. PLAN: The results of biopsies will be checked. I do not think she will need any further screening colonoscopies. I shall make sure she is on omeprazole and she has again been advised to avoid all aspirin and NSAIDs. She does have a pending MRI that will need to be checked in regard to some questionable lesions on a liver ultrasound. She will see me in several months for a followup office visit as well. MD GINI Christensen/TOSHA / [id number] MTDD
== END 2021-05-17 10:52 | disposition home or self-care (01) ==
PROVIDERS: PCP Internal Medicine; Visit Provider Internal Medicine
PROC: (CPT 45380; principal; 2021-05-17 08:20)
DX: R19.5 Other fecal abnormalities (principal); K63.5 Polyp of colon; K57.30 Diverticulosis of large intestine without perforation or abscess without bleeding; K64.8 Other hemorrhoids; Z80.0 Family history of malignant neoplasm of digestive organs; K25.9 Gastric ulcer, unspecified as acute or chronic, without hemorrhage or perforation; K26.9 Duodenal ulcer, unspecified as acute or chronic, without hemorrhage or perforation; K29.50 Unspecified chronic gastritis without bleeding; K29.80 Duodenitis without bleeding; K20.90 Esophagitis, unspecified without bleeding; K44.9 Diaphragmatic hernia without obstruction or gangrene; E11.9 Type 2 diabetes mellitus without complications; I11.0 Hypertensive heart disease with heart failure; I50.9 Heart failure, unspecified; E78.5 Hyperlipidemia, unspecified; J44.9 Chronic obstructive pulmonary disease, unspecified; Z79.51 Long term (current) use of inhaled steroids; Z79.84 Long term (current) use of oral hypoglycemic drugs; Z79.899 Other long term (current) drug therapy; Z85.3 Personal history of malignant neoplasm of breast; Z87.891 Personal history of nicotine dependence
CPT/HCPCS: 45380; 43239; 82947; 88305; 88342; J2370

== ENCOUNTER 2021-05-26 15:04 | Outpatient (REF) | payer MEDICARE, SELFPAY ==
[2021-05-26 16:38] LABS: MANUAL DIFF FLAG NO
[2021-05-26 16:42] LABS: Basophils Percent Auto 0.4 % (0-2); Eosinophils Absolute Auto 0.3 X10*3/uL (0.0-0.4); Eosinophils Percent Auto 2.7 % (0-4); Hematocrit 45.9 % (37.0-47.0); Hemoglobin 14.9 g/dl (12.0-16.0); Imm Gran Abs Auto 0.04 X10*3/uL (0.00-0.03); Imm Gran Pct Auto 0.4 % (0.0-0.4); Lymphocytes Absolute Auto 2.2 X10*3/uL (1.2-4.9); Lymphocytes Percent Auto 22.3 % (20-40); Mean Corpuscular HGB Conc 32.5 g/dl (31.0-35.0); Mean Corpuscular Hemoglobin 31.2 pg (27.0-33.0); Mean Corpuscular Volume 96.2 fL (80.0-98.0); Mean Platelet Volume 11.5 fL (9.4-12.3); Monocytes Absolute Auto 0.8 X10*3/uL (0.1-1.2); Monocytes Percent Auto 7.8 % (2-11); Neutrophils Absolute Auto 6.5 x10*3/uL (2.0-8.3); Neutrophils Percent Auto 66.4 % (45-73); Platelet Count 226 X10*3/uL (160-400); Red Blood Count 4.77 X10*6/uL (4.20-5.50); Red Cell Distribution Width 12.1 % (11.0-16.0); White Blood Count 9.7 X10*3/uL (4.8-10.8)
[2021-05-26 16:53] LABS: Partial Thromboplastin Time 32.5 SEC (24.1-38.0)
[2021-06-01 09:05] LABS: Carbohydrate Antigen 19-9 3 U/mL (<34)
== END 2021-05-26 15:05 | disposition home or self-care (01) ==
LOC: HO.HMGCLDS 15:04
PROVIDERS: PCP Internal Medicine; Visit Provider Internal Medicine
DX: R16.0 Hepatomegaly, not elsewhere classified (principal); K86.89 Other specified diseases of pancreas
CPT/HCPCS: 36415; 85025; 85610; 85730; 86301

== ENCOUNTER 2021-05-31 07:10 | Day surgery (SDC) | payer MEDICARE, SELFPAY ==
[2021-05-31] VITALS (9 sets, daily range): BP systolic 151–186; BP diastolic 50–88; PULSE 48–68; RESP 16–18; TEMP 36.3–36.6; O2SAT 93–95; BMI 32.5
--- NOTE | ~2021-05-31 | US_ITS ---
EXAMINATION: ULTRASOUND-GUIDED LIVER BIOPSY CLINICAL INFORMATION: Pancreas and liver lesions. COMPARISON: Previous ultrasound April 2021 and MR of the abdomen May 2021. TECHNIQUE: Procedure and risks and benefits including bleeding and infection were discussed with the patient and informed consent was obtained. Patient was positioned in the left decubitus position. The right upper quadrant was prepped and draped in the usual sterile fashion. The skin and soft tissues were anesthetized with 1% lidocaine plain. Using ultrasound guidance and a coaxial system, access to the 1 cm complex cystic lesion in the right lobe of the liver was obtained. Six 20-gauge core biopsies were obtained. There is no complication. The patient received Versed 2 mg and fentanyl 100 mcg intravenously during the procedure. Total sedation time was 20 minutes. FINDINGS: There is a hypoechoic complex cystic lesion in the right lobe of the liver measuring 1.7 x 1.2 x 1.6 cm that was targeted for fine-needle aspiration. US/US biopsy liver IMPRESSION: Ultrasound-guided right liver lesion biopsy.
[2021-05-31 07:33] LABS: Glucose, Whole Blood 130 mg/dL (60-115)
[2021-05-31 07:38] LABS: MANUAL DIFF FLAG NO
[2021-05-31 07:56] LABS: Anion Gap 11 (12-20); Blood Urea Nitrogen 23 mg/dL (9-16); Carbon Dioxide 25 mmol/L (22-29); Chloride 113 mmol/L (96-108); INTERNATIONAL NORM RATIO 0.9 (0.9-1.1); Potassium 4.3 mmol/L (3.3-5.1); Prothrombin Time 10.7 SEC (9.9-13.0); Sodium 145 mmol/L (135-145)
[2021-05-31 07:59] LABS: Partial Thromboplastin Time 35.1 SEC (24.1-38.0)
[2021-05-31 08:43] LABS: Basophils Percent Auto 0.2 % (0-2); Eosinophils Absolute Auto 0.1 X10*3/uL (0.0-0.4); Eosinophils Percent Auto 1.7 % (0-4); Hematocrit 45.7 % (37.0-47.0); Hemoglobin 14.9 g/dl (12.0-16.0); Imm Gran Abs Auto 0.03 X10*3/uL (0.00-0.03); Imm Gran Pct Auto 0.4 % (0.0-0.4); Lymphocytes Percent Auto 24.3 % (20-40); Mean Corpuscular HGB Conc 32.6 g/dl (31.0-35.0); Mean Corpuscular Hemoglobin 31.2 pg (27.0-33.0); Mean Corpuscular Volume 95.6 fL (80.0-98.0); Mean Platelet Volume 11.7 fL (9.4-12.3); Monocytes Absolute Auto 0.7 X10*3/uL (0.1-1.2); Monocytes Percent Auto 8.7 % (2-11); Neutrophils Absolute Auto 5.4 x10*3/uL (2.0-8.3); Neutrophils Percent Auto 64.7 % (45-73); Platelet Count 231 X10*3/uL (160-400); Red Blood Count 4.78 X10*6/uL (4.20-5.50); White Blood Count 8.4 X10*3/uL (4.8-10.8)
--- NOTE | 2021-05-31 10:27 | HO.RADPN ---
RADIOLOGY Narrative Narrative: Right lobe liver biopsy using coaxial system. 6 20 g core biopsies obtained. no complication.
[2021-05-31] MEDS: Lidocaine HCl 1 % MPF 5 ML VIAL 6 ML SUBCUT (10:45)
== END 2021-05-31 13:20 | disposition home or self-care (01) ==
PROVIDERS: Radiology Diagnostic Radiology; PCP Internal Medicine; Visit Provider Internal Medicine
DX: K86.89 Other specified diseases of pancreas (principal); C7B.02 Secondary carcinoid tumors of liver; R10.10 Upper abdominal pain, unspecified; R19.5 Other fecal abnormalities; Z85.3 Personal history of malignant neoplasm of breast; Z80.0 Family history of malignant neoplasm of digestive organs; J44.9 Chronic obstructive pulmonary disease, unspecified; I11.0 Hypertensive heart disease with heart failure; I50.30 Unspecified diastolic (congestive) heart failure; E11.9 Type 2 diabetes mellitus without complications; Z79.84 Long term (current) use of oral hypoglycemic drugs; Z79.51 Long term (current) use of inhaled steroids; Z79.899 Other long term (current) drug therapy; Z87.891 Personal history of nicotine dependence
CPT/HCPCS: 36415; 47000; 76942; 80051; 82947; 84520; 85025; 85610; 85730; 88307; 88341; 88342; 88360; 99152; 99153; J2250; J3010

== ENCOUNTER 2021-06-15 08:38 | Outpatient (REF) | payer MEDICARE, SELFPAY ==
[2021-06-15 11:53] LABS: Estimated Average Glucose 137 mg/dL; Hemoglobin A1c % 6.4 %
[2021-06-15 12:16] LABS: Anion Gap 10 (12-20); Aspartate Amino Transferase 17 U/L (5-31); Blood Urea Nitrogen 18 mg/dL (9-16); Calcium 9.3 mg/dL (8.4-10.2); Carbon Dioxide 28 mmol/L (22-29); Chloride 110 mmol/L (96-108); Cholesterol 138 mg/dL; Estimated Glomerular Filt Rate > 60; Glucose Fasting 111 mg/dL (60-99); HDL Cholesterol 55 mg/dL; LDL Cholesterol Calculated 67 mg/dl; Potassium 4.4 mmol/L (3.3-5.1); Sodium 144 mmol/L (135-145); Triglycerides 84 mg/dL
[2021-06-15 12:17] LABS: Creatinine Urine 104.22 mg/dL; Microalbum/Creatinine Ratio Ur 78.6 ug/mg cr
[2021-06-15 12:24] LABS: Vitamin D 25-OH Total 41.1 ng/mL (>30)
[2021-06-19 15:46] LABS: Gastrin 21 pg/mL (<=100)
== END 2021-06-15 08:39 | disposition home or self-care (01) ==
LOC: HO.HMGCLDS 08:38
PROVIDERS: PCP Internal Medicine; Visit Provider Internal Medicine
DX: E11.29 Type 2 diabetes mellitus with other diabetic kidney complication (principal); I10 Essential (primary) hypertension; E78.5 Hyperlipidemia, unspecified; E66.09 Other obesity due to excess calories; R80.9 Proteinuria, unspecified; C7B.8 Other secondary neuroendocrine tumors; K26.9 Duodenal ulcer, unspecified as acute or chronic, without hemorrhage or perforation; K25.3 Acute gastric ulcer without hemorrhage or perforation; Z68.33 Body mass index [BMI] 33.0-33.9, adult; Z78.0 Asymptomatic menopausal state
CPT/HCPCS: 36415; 80048; 80061; 82043; 82306; 82941; 83036; 84450

== ENCOUNTER → 2021-06-17 08:38 | Outpatient (BNV) | payer MEDICARE, MEDICAID, SELFPAY | PROVIDERS: Visit Provider Internal Medicine Medical Oncology | DX: C25.2 Malignant neoplasm of tail of pancreas (principal); C78.7 Secondary malignant neoplasm of liver and intrahepatic bile duct; Z85.3 Personal history of malignant neoplasm of breast | CPT/HCPCS: 99213; 99214 ==

== ENCOUNTER 2021-12-18 19:51 | Emergency (ER) | payer MEDICARE, MEDICAID, SELFPAY ==
--- NOTE | ~2021-12-18 | US_ITS ---
EXAMINATION: US VENOUS ULTRASOUND WITH DOPPLER LOWER EXTREMITY, RIGHT CLINICAL INFORMATION: Swelling COMPARISON: 06/21/2020 TECHNIQUE: Ultrasound of the deep veins is performed from the hip to the calf with compression sonography and color and pulse Doppler assessment. Spectral analysis with color-flow imaging is performed. FINDINGS: There is normal venous compression and respiratory variation and augmented flow. The visualized common femoral vein, superficial femoral vein, profunda femoral vein, popliteal vein, and the trifurcation region shows no evidence of deep venous thrombosis. There is no significant popliteal fossa cyst. If the patient's symptoms persist, followup ultrasound in 5 days 7 days might be of value to exclude proximal propagation from a non-visualized calf vein. US/US venous duplex LE RT IMPRESSION: No DVT demonstrated in the right lower extremity.
[2021-12-18 19:56] VITALS: BP 177/84; PULSE 63; RESP 20; TEMP 36.1; O2SAT 92; BMI 36.0
[2021-12-18 20:15] LABS: MANUAL DIFF FLAG NO
[2021-12-18 20:16] LABS: Basophils Percent Auto 0.2 % (0-2); Eosinophils Absolute Auto 0.2 X10*3/uL (0.0-0.4); Eosinophils Percent Auto 1.7 % (0-4); Hematocrit 45.8 % (37.0-47.0); Hemoglobin 14.7 g/dl (12.0-16.0); Imm Gran Abs Auto 0.02 X10*3/uL (0.00-0.03); Imm Gran Pct Auto 0.2 % (0.0-0.4); Lymphocytes Absolute Auto 1.9 X10*3/uL (1.2-4.9); Lymphocytes Percent Auto 21.4 % (20-40); Mean Corpuscular HGB Conc 32.1 g/dl (31.0-35.0); Mean Corpuscular Hemoglobin 30.6 pg (27.0-33.0); Mean Corpuscular Volume 95.4 fL (80.0-98.0); Monocytes Absolute Auto 0.7 X10*3/uL (0.1-1.2); Monocytes Percent Auto 7.8 % (2-11); Neutrophils Absolute Auto 6.1 x10*3/uL (2.0-8.3); Neutrophils Percent Auto 68.7 % (45-73); Platelet Count 205 X10*3/uL (160-400); Red Cell Distribution Width 12.2 % (11.0-16.0); White Blood Count 8.9 X10*3/uL (4.8-10.8)
[2021-12-18 20:23] LABS: INTERNATIONAL NORM RATIO 0.9 (0.9-1.1); Prothrombin Time 10.3 SEC (10.0-13.1)
[2021-12-18 20:38] LABS: B Type Natriuretic Peptide 34 pg/mL (<100)
[2021-12-18 20:41] LABS: Alanine Aminotransferase 17 U/L (0-31); Albumin Level 3.9 g/dL (3.5-5.0); Alkaline Phosphatase 98 U/L (39-117); Anion Gap 12 (12-20); Aspartate Amino Transferase 16 U/L (5-31); Bilirubin Total 0.5 mg/dL (0.0-1.0); Blood Urea Nitrogen 25 mg/dL (9-16); Calcium 9.2 mg/dL (8.4-10.2); Carbon Dioxide 26 mmol/L (22-29); Chloride 112 mmol/L (96-108); Estimated Glomerular Filt Rate > 60; Glucose Random 244 mg/dL (60-115); Potassium 3.9 mmol/L (3.3-5.1); Sodium 146 mmol/L (135-145); Total Protein 6.6 g/dL (6.5-8.0)
[2021-12-18 21:02] LABS: D Dimer High Sensitivity 239 NG/ML
[2021-12-18 22:00] VITALS: RESP 16
--- NOTE | 2021-12-18 22:02 | ED_ITS ---
HPI - Extremity Problem General Chief complaint: Extremity Problem Stated complaint: right leg swollen Time Seen by Provider: 12/18/21 20:54 Source: patient Mode of arrival: ambulatory Limitations: no limitations History of Present Illness HPI Narrative: Patient presents emergency department for evaluation of swelling to the right lower extremity. Onset 2 days ago. Associated pain while weight-bearing. Denies any wounds or lesions. Reports having similar appearance on her left leg last year for which she required treatment with antibiotics. Denies fevers, chills, dizziness, lightheadedness, chest pain, palpitations, shortness of breath, difficulty breathing, nausea, vomiting, abdominal pain, numbness or tingling of the extremities, no weakness.. Related Data Home Medications Medication Instructions Recorded Confirmed cholecalciferol (vitamin D3) 25 25 mcg PO DAILY 04/17/20 10/07/21 mcg (1,000 unit) chewable tablet epbsbsys-ecopubu-lyhg-lutein tablet 1 tab PO DAILY 04/17/20 10/07/21 omega-3 fatty acids-fish oil 360 1 cap PO DAILY 04/17/20 10/07/21 mg-1,200 mg capsule (Fish Oil) Vitamin C 1 tab PO DAILY 06/17/21 10/07/21 omeprazole 20 mg capsule,delayed 1 cap PO DAILY 08/26/21 10/07/21 release Previous Rx's Medication Instructions Recorded atorvastatin 10 mg tablet 10 mg PO DAILY #90 tabs 06/15/21 famotidine 40 mg tablet 40 mg PO QAM #30 tabs 07/13/21 fluticasone 250 mcg-salmeterol 50 1 ea inhalation BID #180 caps 09/09/21 mcg/dose blistr powdr for inhalation (Wixela Inhub) dicyclomine 20 mg tablet 20 mg PO QID #360 tabs 09/16/21 losartan 100 mg tablet 100 mg PO DAILY #90 tabs 10/18/21 metformin 500 mg tablet,extended 500 mg PO BEDTIME #90 tabs 10/18/21 release 24 hr furosemide 20 mg tablet 20 mg PO DAILY #90 tabs 11/12/21 doxycycline hyclate 100 mg tablet 100 mg PO BID 7 days #14 tabs 12/18/21 Allergies Allergy/AdvReac Type Severity Reaction Status Date / Time Sulfa (Sulfonamide Allergy Intermediate itching Verified 10/07/21 14:09 Antibiotics) sulfamethoxazole Allergy Intermediate Stomach Verified 10/07/21 14:09 [From Bactrim] Upset trimethoprim [From Bactrim] Allergy Intermediate Stomach Verified 10/07/21 14:09 Upset Review of Systems Review of Systems: Constitutional: No fever, chills, weakness or fatigue. Skin: No rash or itching. Cardiovascular: No chest pain, chest pressure or chest discomfort. No palpitations Respiratory: No shortness of breath, cough or sputum production. Gastrointestinal: No nausea, vomiting or diarrhea. No abdominal pain Genitourinary: No burning micturition. No urinary frequency or incontinence. Musculoskeletal: No muscle pain, back pain, joint pain or stiffness. Positive right lower extremity swelling Psychiatric: No depression or anxiety. Yes all other systems are reviewed and are negative [facility] Past Medical History Attestation statement: The following information was validated with the patient. Source: old records reviewed Medical History (HFpEF) heart failure with preserved ejection fraction Chronic obstructive pulmonary disease, unspecified Class 1 obesity due to excess calories with body mass index (BMI) of 33.0 to 33.9 in adult COVID-19 vaccine series completed Diabetes mellitus with microalbuminuria, without long-term current use of insulin Dyslipidemia Dyspepsia Essential hypertension Irritable bowel syndrome with constipation Menopause Positive FIT (fecal immunochemical test) Surgical History History of cerebral aneurysm repair History of colonoscopy History of lumpectomy of right breast Hx of tubal ligation Family History Family History Father Myocardial infarction CVD (cardiovascular disease) Mother Diabetes mellitus Brother HTN (hypertension) Brother HTN (hypertension) Brother No problems noted. Son No problems noted. Social History Social History Household Members: None Household Members Other:: son Housing: House Are you a primary care attendant to a significant other at home: No Do you presently have visiting nurse or other home services: No Alcohol intake: never Patient Tobacco Use Status: Former Tobacco user Quit Date: 2006 Tobacco use type: Cigarette Years Smoked: 50 yrs e-Cigarette/Vaping Use: Never Used Advance Directives: No Advance Directives Information Provided: No service: No Current occupational status: disabled Physical Exam Vital Signs: Vital Signs: Last Vital Signs Temp 96.9 F 12/18/21 19:56 Pulse 63 12/18/21 19:56 Resp 20 12/18/21 19:56 BP 177/84 H 12/18/21 19:56 Pulse Ox 92 12/18/21 19:56 O2 Del Method 12/18/21 19:56 BMI result Body Mass Index 36.0 Vital signs have been reviewed as normal and appeared to be correct. Blood pressure normal.? Heart rate normal.? Respiration rate normal. Temperature normal.? Oxygen saturation normal. Appearance: Alert.?Oriented to person, place and time. No acute distress.?Normal affect. Eyes: Pupils equal, round and reactive to light.? ENT: Pharynx normal.?? Neck: Normal inspection.? Neck supple.?? CVS: Heart sounds normal. Normal heart rate and rhythm.? Pulses normal.?? Respiratory: No respiratory distress.? Lung sounds clear to auscultation bilaterally?? Abdomen: Soft and non-tender. Normoactive bowel sounds. ?? Skin: Skin warm and dry.? Normal skin color.? Extremities: No calf ttp. right lower extremity with mild swelling, superior to the ankle and below the calf, nearly circumferential, mildly warm to touch. DP/PT pulse 2 +bilaterally. No wounds or lesions noted to the right lower extremity. Neuro: Moves all extremities spontaneously. Sensation intact bilaterally. CN II- XII intact. No focal neuro deficits. Ambulates with normal steady gait. Course Course Course Narrative: Patient is a 76-year-old female with a past medical history of neuroendocrine tumor pancreas, history of breast cancer, irritable bowel syndrome, COPD, heart failure with preserved EF, hypertension, dyslipidemia, type 2 diabetes. She is being evaluated for swelling and erythema to the right lower extremity. Concern ing for cellulitis versus DVT. Ultrasound pending at this time. Neurovascularly intact distally. CBC is normal, CMP overall unremarkable. D- dimer 239, minimally above the cutoff. Reevaluation(s) Reevaluation #1: Ultrasound the right lower extremity reveals no DVT. History and physical exam most consistent with cellulitis at this time, discussed these findings with patient. She is ambulatory with a steady gait. Discussed plan of care for treatment with antibiotics, discussed worrisome signs and symptoms to return back to the emergency department for, advised outpatient follow-up with primary care provider within 3-5 days. All questions were answered, patient was discharged home in stable condition. Time: 22:38 MDM - Extremity (Nontraumatic) Medical Records Attestation: I reviewed the patient's medical records. Lab Data Attestation: I reviewed the patient's lab results. Result diagrams: 12/18/21 20:10 12/18/21 20:10 Labs: Lab Results 12/18/21 12/18/21 12/18/21 Range/Units 20:10 20:10 20:10 WBC 8.9 (4.8-10.8) X10*3/uL RBC 4.80 (4.20-5.50) X10*6/uL Hgb 14.7 (12.0-16.0) g/dl Hct 45.8 (37.0-47.0) % MCV 95.4 (80.0-98.0) fL MCH 30.6 (27.0-33.0) pg MCHC 32.1 (31.0-35.0) g/dl RDW 12.2 (11.0-16.0) % Plt Count 205 (160-400) X10*3/uL MPV 11.0 (9.4-12.3) fL Immature Gran % (Auto) 0.2 (0.0-0.4) % Neut % (Auto) 68.7 (45-73) % Lymph % (Auto) 21.4 (20-40) % [place] % (Auto) 7.8 (2-11) % Eos % (Auto) 1.7 (0-4) % Baso % (Auto) 0.2 (0-2) % Lymph # (Auto) 1.9 (1.2-4.9) X10*3/uL [place] # (Auto) 0.7 (0.1-1.2) X10*3/uL Eos # (Auto) 0.2 (0.0-0.4) X10*3/uL Baso # (Auto) 0.0 (0.0-0.2) X10*3/uL Abs Immat Gran (auto) 0.02 (0.00-0.03) X10*3/uL Absolute Neuts (auto) 6.1 (2.0-8.3) x10*3/uL Absolute Nucleated RBC 0.000 (0.0-0.012) X10*3/uL Nucleated RBC % (auto) 0.0 (0.0-0.2) /100WBC PT (10.0-13.1) SEC INR (0.9-1.1) D-Dimer High Sensitivty NG/ML Sodium 146 H (135-145) mmol/L Potassium 3.9 (3.3-5.1) mmol/L Chloride 112 H (96-108) mmol/L Carbon Dioxide 26 (22-29) mmol/L Anion Gap 12 (12-20) BUN 25 H (9-16) mg/dL Creatinine 0.85 (0.5-1.4) mg/dL Estim Creat Clear Calc 61.0 Estimated GFR > 60 Random Glucose 244 H (60-115) mg/dL Calcium 9.2 D (8.4-10.2) mg/dL Total Bilirubin 0.5 (0.0-1.0) mg/dL AST 16 (5-31) U/L ALT 17 (0-31) U/L Alkaline Phosphatase 98 (39-117) U/L B-Natriuretic Peptide 34 (<100) pg/mL Total Protein 6.6 (6.5-8.0) g/dL Albumin 3.9 (3.5-5.0) g/dL /03/03 Range/Units 20:10 WBC (4.8-10.8) X10*3/uL RBC (4.20-5.50) X10*6/uL Hgb (12.0-16.0) g/dl Hct (37.0-47.0) % MCV (80.0-98.0) fL MCH (27.0-33.0) pg MCHC (31.0-35.0) g/dl RDW (11.0-16.0) % Plt Count (160-400) X10*3/uL MPV (9.4-12.3) fL Immature Gran % (Auto) (0.0-0.4) % Neut % (Auto) (45-73) % Lymph % (Auto) (20-40) % [place] % (Auto) (2-11) % Eos % (Auto) (0-4) % Baso % (Auto) (0-2) % Lymph # (Auto) (1.2-4.9) X10*3/uL [place] # (Auto) (0.1-1.2) X10*3/uL Eos # (Auto) (0.0-0.4) X10*3/uL Baso # (Auto) (0.0-0.2) X10*3/uL Abs Immat Gran (auto) (0.00-0.03) X10*3/uL Absolute Neuts (auto) (2.0-8.3) x10*3/uL Absolute Nucleated RBC (0.0-0.012) X10*3/uL Nucleated RBC % (auto) (0.0-0.2) /100WBC PT 10.3 (10.0-13.1) SEC INR 0.9 (0.9-1.1) D-Dimer High Sensitivty 239 NG/ML Sodium (135-145) mmol/L Potassium (3.3-5.1) mmol/L Chloride (96-108) mmol/L Carbon Dioxide (22-29) mmol/L Anion Gap (12-20) BUN (9-16) mg/dL Creatinine (0.5-1.4) mg/dL Estim Creat Clear Calc Estimated GFR Random Glucose (60-115) mg/dL Calcium (8.4-10.2) mg/dL Total Bilirubin (0.0-1.0) mg/dL AST (5-31) U/L ALT (0-31) U/L Alkaline Phosphatase (39-117) U/L B-Natriuretic Peptide (<100) pg/mL Total Protein (6.5-8.0) g/dL Albumin (3.5-5.0) g/dL Imaging Data Venous US: Radiologist's impression: US/US venous duplex LE RT IMPRESSION: No DVT demonstrated in the right lower extremity. Discharge Plan Discharge Clinical Impression: Cellulitis Patient Disposition: Home, Self-Care Instructions: Cellulitis (ED) Additional Instructions: You have been given a course of antibiotics please complete this entire course. Contact your primary care provider to schedule follow-up visit within 3-5 days. Please return to the emergency department as needed for any new or worsening symptoms or concerns. Prescriptions: New doxycycline hyclate 100 mg tablet 100 mg PO BID 7 Days Qty: 14 0RF No Action atorvastatin 10 mg tablet 10 mg PO DAILY Qty: 90 2RF famotidine 40 mg tablet 40 mg PO QAM Qty: 30 1RF fluticasone propion-salmeterol [Wixela Inhub] 250-50 mcg/dose blister with device 1 ea inhalation BID Qty: 180 1RF dicyclomine 20 mg tablet 20 mg PO QID Qty: 360 1RF metformin 500 mg tablet extended release 24 hr 500 mg PO BEDTIME Qty: 90 3RF losartan 100 mg tablet 100 mg PO DAILY Qty: 90 3RF furosemide 20 mg tablet 20 mg PO DAILY Qty: 90 0RF Rx Instructions: call to schedule PCP appt for more refills Vitamin C tablet 1 tab PO DAILY omeprazole 20 mg capsule,delayed release(DR/EC) 1 cap PO DAILY omega-3 fatty acids-fish oil [Fish Oil] 360-1,200 mg capsule 1 cap PO DAILY pozlwmjk-ijahzbx-gloa-lutein Tablet 1 tab PO DAILY cholecalciferol (vitamin D3) 25 mcg (1,000 unit) tablet,chewable 25 mcg PO DAILY
--- NOTE | 2021-12-18 23:27 | PC.NURSE ---
pt ambulatory out of ER upon discharge
== END 2021-12-18 23:30 | disposition home or self-care (01) ==
PROVIDERS: Student in an Organized Health Care Education/Training Program; Emergency Provider Emergency Medicine; PCP Internal Medicine
DX: L03.115 Cellulitis of right lower limb (principal); M79.661 Pain in right lower leg; E11.9 Type 2 diabetes mellitus without complications; E78.5 Hyperlipidemia, unspecified; I10 Essential (primary) hypertension; Z79.02 Long term (current) use of antithrombotics/antiplatelets
CPT/HCPCS: 36415; 80053; 83880; 85025; 85379; 85610; 93971; 99283; 99284

== ENCOUNTER 2022-05-11 14:36 | Outpatient (REF) | payer MEDICARE, MEDICAID, SELFPAY ==
--- NOTE | ~2022-05-11 | CT_ITS ---
EXAMINATION: CT ABDOMEN AND PELVIS WITH CONTRAST CLINICAL INFORMATION: Follow up neuroendocrine tumor of the pancreas. COMPARISON: MRI abdomen 05/12/2021. CT abdomen pelvis 07/11/2015. TECHNIQUE: Multidetector volumetric images were obtained from the superior aspect of the liver through the pubic symphysis following administration 100 mL of Omnipaque 350 intravenous contrast. Sagittal and coronal reformatted images were obtained on the technologist's workstation. Oral contrast: No This CT examination was performed using dose optimization techniques as appropriate, variously including the following: *Automated exposure control *Adjustment of mA and/or kV according to patient size (this includes techniques or standardized protocols for targeted exams where dose is matched to indication/reason for exam; i.e. extremities or head) *Use of iterative reconstruction technique DLP: 539 mGy-cm FINDINGS: LUNG BASES: There are mild hyperinflated lung bases without acute process. The heart size is borderline enlarged. LIVER, GALLBLADDER, AND BILIARY TREE: The liver is normal in size, shape, and diffusely hypoattenuated. No focal hepatic lesion or biliary ductal dilatation is present. MRI visualized right hepatic lobe lesions are not seen on this contrast-enhanced CT abdomen exam. The gallbladder is unremarkable with no evidence of radiopaque gallstones, gallbladder wall thickening, or obvious pericholecystic inflammatory changes. PANCREAS: There is a moderate size mass in the distal body/tail of the pancreas which appears enlarged and measures 4.0 x 3.0 x 2.7 cm. It appears lobulated and solid on previous MRI it measured 3.0 x 3.7 cm.. The peripancreatic fat borders around the tumor and the pancreas itself appear preserved. There is adjacent normal-size pancreatic head and body. The tail is not visualized likely atrophic or small. SPLEEN: Unremarkable. ADRENAL GLANDS: Bilateral adrenal glands are symmetrical and unremarkable. KIDNEYS AND URETERS: The kidneys are normal in size, shape, and attenuation. No hydronephrosis, hydroureter, or calculi seen. No perinephric stranding. There is a 1 cm exophytic cyst upper pole left kidney. BLADDER: Unremarkable. GASTROINTESTINAL TRACT: There is scattered stool and gas seen throughout the colon without distention. Oral contrast opacified small-bowel loops are normal caliber. There is a small duodenal diverticulum along the mid C-loop. Appendix is not seen. The stomach is nondistended and appears unremarkable. ABDOMINAL WALL: No significant hernia is appreciated. LYMPH NODES: Normal. VASCULAR: There is atherosclerotic calcification of abdominal aorta without aneurysmal dilatation. PELVIC VISCERA: Unremarkable. Previous CT abdomen exam 07/01/2015 it measured 7.4 x 5.7 cm and stable. Intrauterine hypodense mass seen previously is visualized in but is normal in homogeneous and measures 2.8 x 1.7 cm on axial plane 67/3 and 68/3. Previously it measured 4.6 x 4.7 cm. OSSEOUS STRUCTURES: There is no aggressive lytic or sclerotic process. There are degenerative disc changes and spondylosis lower dorsal spine and at the L4-L5 disc level. CT/CT abdomen pelvis w IV con IMPRESSION: 1. Moderate-size solid mass in the distal body/tail of the pancreas. The size of the pancreatic mass is almost similar in size to the previous MRI abdomen exam. Rest of the pancreas appears unremarkable. 2. There is no abnormal retroperitoneal or mesenteric lymph nodes. 3. There is a large left adnexal mass, stable. 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 4. Mild constipation. 5. Diffuse hepatic steatosis without focal lesion. 6. Small exophytic cyst upper pole left kidney. Fleischner guidelines were followed.
[2022-05-11] MEDS: iohexoL 350 MG/ML 100 ML INFUS..BTL IV (17:20)
[2022-05-11] MEDS: Barium Sulfate Oral (Vanilla) 450 ML ORAL.SUSP PO (17:21)
== END 2022-05-11 14:37 | disposition home or self-care (01) ==
LOC: HO.CT 14:36
PROVIDERS: PCP Internal Medicine; Visit Provider Internal Medicine Medical Oncology
DX: D3A.8 Other benign neuroendocrine tumors (principal)
CPT/HCPCS: 74177; Q9967

== ENCOUNTER 2022-05-26 15:22 | Inpatient (IN) | payer MEDICARE, MEDICAID, SELFPAY ==
--- NOTE | ~2022-05-26 | XR_ITS ---
EXAMINATION: XR CHEST CLINICAL INFORMATION: Cough COMPARISON: 06/21/2020 TECHNIQUE: Frontal view of the chest was obtained. FINDINGS: Heart size upper limits of normal. No infiltrates, pleural effusions or lung masses are seen. XR/XR chest 1V IMPRESSION: No acute intrathoracic
[2022-05-26 15:26] VITALS: BP 211/79; PULSE 37; RESP 18; TEMP 37.1; O2SAT 94; BMI 31.1
[2022-05-26] MEDS: Nitroglycerin 2 % Oint 1 GM Packet 0.5 INCH TRANSDERMA (15:56)
--- NOTE | 2022-05-26 16:03 | ED_ITS ---
HPI - Arrhythmia/Palpitations General Chief Complaint: Arrhythmia/Palpitations Stated Complaint: sent from oncology Time Seen by Provider: 05/26/22 15:29 Source: patient Mode of arrival: ambulatory History of Present Illness HPI narrative: 76-year-old female with known neuroendocrine tumor with metastasis is sent in by Oncology for sinus bradycardia. Patient states that she has felt short of breath for the past 1-2 weeks but denies any associated chest pain, fever, chills, GI or symptoms. I spoke with Dr. Guzman and oncologist who reports that patient is on octreotide and received a dose 1 month ago for her condition. She noted prior to injection today the patient's heart rate was slower. Related Data Home Medications Medication Instructions Recorded Confirmed cholecalciferol (vitamin D3) 25 25 mcg PO DAILY 04/17/20 04/14/22 mcg (1,000 unit) chewable tablet ooytpycg-jyylkls-rien-lutein tablet 1 tab PO DAILY 04/17/20 04/14/22 omega-3 fatty acids-fish oil 360 1 cap PO DAILY 04/17/20 04/14/22 mg-1,200 mg capsule (Fish Oil) Vitamin C 1 tab PO DAILY 06/17/21 04/14/22 omeprazole 20 mg capsule,delayed 1 cap PO DAILY 08/26/21 04/14/22 release Previous Rx's Medication Instructions Recorded fluticasone 250 mcg-salmeterol 50 1 ea inhalation BID #180 caps 09/09/21 mcg/dose blistr powdr for inhalation (Belen Inhronnie) losartan 100 mg tablet 100 mg PO DAILY #90 tabs 10/18/21 metformin 500 mg tablet,extended 500 mg PO BEDTIME #90 tabs 10/18/21 release 24 hr atorvastatin 10 mg tablet 10 mg PO DAILY #90 tabs 01/17/22 dicyclomine 20 mg tablet 20 mg PO QID #360 tabs 01/17/22 furosemide 20 mg tablet 20 mg PO DAILY #90 tabs 01/17/22 famotidine 40 mg tablet 40 mg PO QAM #90 tabs 01/28/22 Allergies Allergy/AdvReac Type Severity Reaction Status Date / Time Sulfa (Sulfonamide Allergy Intermediate itching Verified 04/14/22 13:33 Antibiotics) sulfamethoxazole Allergy Intermediate Stomach Verified 04/14/22 13:33 [From Bactrim] Upset trimethoprim [From Bactrim] Allergy Intermediate Stomach Verified 04/14/22 13:33 Upset Review of Systems Review of Systems: Pertinent positives and negatives as stated in HPI 10 point review of systems otherwise negative. PMFSH Past Medical History Source: nursing notes reviewed Medical History (HFpEF) heart failure with preserved ejection fraction Chronic obstructive pulmonary disease, unspecified Class 1 obesity due to excess calories with body mass index (BMI) of 33.0 to 33.9 in adult COVID-19 vaccine series completed Diabetes mellitus with microalbuminuria, without long-term current use of insulin Dyslipidemia Dyspepsia Essential hypertension Irritable bowel syndrome with constipation Menopause Positive FIT (fecal immunochemical test) Surgical History History of cerebral aneurysm repair History of colonoscopy History of lumpectomy of right breast Hx of tubal ligation Family History Family History Father Myocardial infarction CVD (cardiovascular disease) Mother Diabetes mellitus Brother HTN (hypertension) Brother HTN (hypertension) Brother No problems noted. Son No problems noted. Social History Social History Household Members: None Household Members Other:: son Housing: House Are you a primary associate director career services to a significant other at home: No Do you presently have visiting nurse or other home services: No Alcohol intake: never Patient Tobacco Use Status: Former Tobacco user Quit Date: 2006 Tobacco use type: Cigarette Years Smoked: 50 yrs e-Cigarette/Vaping Use: Never Used Advance Directives: Yes Advance Directives Information Provided: No Advance Directives on File: No service: No Current occupational status: disabled Physical Exam Vital Signs: Vital Signs: Last Vital Signs Temp 98.8 F 05/26/22 15:26 Pulse 34 L 05/26/22 17:14 Resp 13 05/26/22 17:14 BP 228/91 H 05/26/22 17:14 Pulse Ox 94 05/26/22 17:14 O2 Del Method 05/26/22 17:14 BMI result Body Mass Index 31.1 VITAL SIGNS: Reviewed. GENERAL: Well developed, well nourished, in no acute distress. HEAD: Normocephalic/atraumatic EYES: PERRLA, EOMI EARS: Ext canals without abnormality NOSE: Nares patent bilateral OROPHARYNX: no oral lesions noted, posterior pharynx clear NECK: Supple, no adenopathy LUNGS: Good inspiratory effort, mild rales bibasilar no tachypnea and no rhonchi or crackles. SpO2<94> CARDIOVASCULAR: Regular rate and rhythm without noted murmurs, no JVD or lower extremity edema. ABDOMEN: Soft, non-tender, non-distended with bowel sounds. MUSCULOSKELETAL: No tenderness, deformities, or effusions noted on gross inspection. EXTREMITIES: No cyanosis, clubbing or edema. SKIN: Inspection of the skin reveals no rashes NEUROLOGIC: Alert and oriented x 4. Strength and sensation to light touch were grossly intact x 4. Course Course Course Narrative: 76-year-old female otherwise well appearing states that she has been having some shortness of breath, will evaluate for possible CHF, but on evaluation of EKG for the bradycardia it is sinus in nature no evidence AV block, blood pressure is significantly elevated with a systolic greater than 200 which may partially explain patient's heart rate if it is compensatory in nature. However, there is documentation of octreotide leading to bradycardia and potentially in combination with the hypertension causing a reflex bradycardia these may be acting together. Will obtain basic labs to include troponin and chest x-ray. 1/2 inch of nitropaste was placed for blood pressure control. Review of all investigations consistent with likely CHF exacerbation/pulmonary edema from hypertensive episode. Patient has received a total of 0.5 in ni tropaste, 10 mg of hydralazine as well as 20 mg of Lasix. Blood pressure and heart rate have improved there is no evidence to suggest AV lucia blockade and I discussed the case with the inpatient hospitalist who will communicate the admission of this patient. Reevaluation(s) Reevaluation #1: Discussing oncology concerns regarding sick sinus syndrome with Dr Mari who informs me that patient has low-marciano HR at baseline. Time: 17:07 Medications Administered Discontinued Medications Generic Name Dose Route Start Last Admin Trade Name Freq PRN Reason Stop Dose Admin Hydralazine HCl 10 mg 05/26/22 17:04 05/26/22 17:15 Hydralazine Hcl 20 Mg/Ml Vial IVPUSH 05/26/22 17:05 10 mg ONCE ONE Administration Protocol Nitroglycerin 0.5 inch 05/26/22 15:44 05/26/22 15:56 Nitroglycerin 2 % Oint 1 Gm Packet TRANSDERMA 05/26/22 15:45 0.5 inch ONCE ONE Administration Medical Decision Making Lab Data Result Diagrams: 05/26/22 16:37 05/26/22 16:37 Labs: Lab Results 05/26/22 05/26/22 05/26/22 Range/Units 16:37 16:37 16:37 WBC 8.2 (4.8-10.8) X10*3/uL RBC 4.57 (4.20-5.50) X10*6/uL Hgb 14.1 (12.0-16.0) g/dl Hct 44.2 (37.0-47.0) % MCV 96.7 (80.0-98.0) fL MCH 30.9 (27.0-33.0) pg MCHC 31.9 (31.0-35.0) g/dl RDW 12.7 (11.0-16.0) % Plt Count 157 L (160-400) X10*3/uL MPV 11.4 (9.4-12.3) fL Immature Gran % (Auto) 0.2 (0.0-0.4) % Neut % (Auto) 63.2 (45-73) % Lymph % (Auto) 25.1 (20-40) % [place] % (Auto) 8.2 (2-11) % Eos % (Auto) 2.9 (0-4) % Baso % (Auto) 0.4 (0-2) % Lymph # (Auto) 2.1 (1.2-4.9) X10*3/uL [place] # (Auto) 0.7 (0.1-1.2) X10*3/uL Eos # (Auto) 0.2 (0.0-0.4) X10*3/uL Baso # (Auto) 0.0 (0.0-0.2) X10*3/uL Abs Immat Gran (auto) 0.02 (0.00-0.03) X10*3/uL Absolute Neuts (auto) 5.2 (2.0-8.3) x10*3/uL Absolute Nucleated RBC 0.000 (0.0-0.012) X10*3/uL Nucleated RBC % (auto) 0.0 (0.0-0.2) /100WBC PT 11.2 (10.0-13.1) SEC INR 1.0 (0.9-1.1) Sodium (135-145) mmol/L Potassium (3.3-5.1) mmol/L Chloride (96-108) mmol/L Carbon Dioxide (22-29) mmol/L Anion Gap (12-20) BUN (9-16) mg/dL Creatinine (0.5-1.4) mg/dL Estim Creat Clear Calc Estimated GFR Random Glucose (60-115) mg/dL Calcium (8.4-10.2) mg/dL Magnesium (1.6-2.6) mg/dL Total Bilirubin (0.0-1.0) mg/dL AST (5-31) U/L ALT (0-31) U/L Alkaline Phosphatase (39-117) U/L Troponin I High Sens (<3.5-17.0) ng/L B-Natriuretic Peptide 149 H (<100) pg/mL Total Protein (6.5-8.0) g/dL Albumin (3.5-5.0) g/dL 05/26/22 05/26/22 Range/Units 16:37 16:37 WBC (4.8-10.8) X10*3/uL RBC (4.20-5.50) X10*6/uL Hgb (12.0-16.0) g/dl Hct (37.0-47.0) % MCV (80.0-98.0) fL MCH (27.0-33.0) pg MCHC (31.0-35.0) g/dl RDW (11.0-16.0) % Plt Count (160-400) X10*3/uL MPV (9.4-12.3) fL Immature Gran % (Auto) (0.0-0.4) % Neut % (Auto) (45-73) % Lymph % (Auto) (20-40) % [place] % (Auto) (2-11) % Eos % (Auto) (0-4) % Baso % (Auto) (0-2) % Lymph # (Auto) (1.2-4.9) X10*3/uL [place] # (Auto) (0.1-1.2) X10*3/uL Eos # (Auto) (0.0-0.4) X10*3/uL Baso # (Auto) (0.0-0.2) X10*3/uL Abs Immat Gran (auto) (0.00-0.03) X10*3/uL Absolute Neuts (auto) (2.0-8.3) x10*3/uL Absolute Nucleated RBC (0.0-0.012) X10*3/uL Nucleated RBC % (auto) (0.0-0.2) /100WBC PT (10.0-13.1) SEC INR (0.9-1.1) Sodium 146 H (135-145) mmol/L Potassium 4.4 (3.3-5.1) mmol/L Chloride 110 H (96-108) mmol/L Carbon Dioxide 30 H (22-29) mmol/L Anion Gap 10 L (12-20) BUN 17 H (9-16) mg/dL Creatinine 0.80 (0.5-1.4) mg/dL Estim Creat Clear Calc 66.8 Estimated GFR > 60 Random Glucose 166 H (60-115) mg/dL Calcium 8.8 (8.4-10.2) mg/dL Magnesium 2.3 (1.6-2.6) mg/dL Total Bilirubin 0.5 (0.0-1.0) mg/dL AST 18 (5-31) U/L ALT 20 (0-31) U/L Alkaline Phosphatase 98 (39-117) U/L Troponin I High Sens 8.5 (<3.5-17.0) ng/L B-Natriuretic Peptide (<100) pg/mL Total Protein 6.1 L (6.5-8.0) g/dL Albumin 3.7 (3.5-5.0) g/dL Independent Interpretation I performed an independent interpretation of an: EKG Interpretation: Sinus bradycardia, HR-39, no STEMI, AL within normal limits QTC within normal limits, QRS mildly prolonged Critical Care Time Critical Care Time Critical Care Time: Yes Total Critical Care Time: 60 Attestation: I personally attest to this time spent taking care of the patient. Discharge Plan Discharge Clinical Impression: Hypertensive crisis, Pulmonary edema, Bradycardia, sinus Patient Disposition: Admitted As Inpatient
--- NOTE | 2022-05-26 16:17 | PC.NURSE ---
patient alert, denies CP or palpitations. will continue to monitor HR and BP. able to make needs known. call alvarez within reach
[2022-05-26 16:21] VITALS: PULSE 34
[2022-05-26 16:23] VITALS: BP 197/71; PULSE 33; O2SAT 94
[2022-05-26 16:42] LABS: MANUAL DIFF FLAG NO
[2022-05-26 16:45] LABS: Basophils Percent Auto 0.4 % (0-2); Eosinophils Absolute Auto 0.2 X10*3/uL (0.0-0.4); Eosinophils Percent Auto 2.9 % (0-4); Hematocrit 44.2 % (37.0-47.0); Hemoglobin 14.1 g/dl (12.0-16.0); Imm Gran Abs Auto 0.02 X10*3/uL (0.00-0.03); Imm Gran Pct Auto 0.2 % (0.0-0.4); Lymphocytes Absolute Auto 2.1 X10*3/uL (1.2-4.9); Lymphocytes Percent Auto 25.1 % (20-40); Mean Corpuscular HGB Conc 31.9 g/dl (31.0-35.0); Mean Corpuscular Hemoglobin 30.9 pg (27.0-33.0); Mean Corpuscular Volume 96.7 fL (80.0-98.0); Mean Platelet Volume 11.4 fL (9.4-12.3); Monocytes Absolute Auto 0.7 X10*3/uL (0.1-1.2); Monocytes Percent Auto 8.2 % (2-11); Neutrophils Absolute Auto 5.2 x10*3/uL (2.0-8.3); Neutrophils Percent Auto 63.2 % (45-73); Platelet Count 157 X10*3/uL (160-400); Red Blood Count 4.57 X10*6/uL (4.20-5.50); Red Cell Distribution Width 12.7 % (11.0-16.0); White Blood Count 8.2 X10*3/uL (4.8-10.8)
[2022-05-26 16:52] LABS: Prothrombin Time 11.2 SEC (10.0-13.1)
[2022-05-26 16:59] LABS: Alanine Aminotransferase 20 U/L (0-31); Albumin Level 3.7 g/dL (3.5-5.0); Alkaline Phosphatase 98 U/L (39-117); Anion Gap 10 (12-20); Aspartate Amino Transferase 18 U/L (5-31); Bilirubin Total 0.5 mg/dL (0.0-1.0); Blood Urea Nitrogen 17 mg/dL (9-16); Calcium 8.8 mg/dL (8.4-10.2); Carbon Dioxide 30 mmol/L (22-29); Chloride 110 mmol/L (96-108); Creatinine Clr Calc Pharmacy 66.8; Estimated Glomerular Filt Rate > 60; Glucose Random 166 mg/dL (60-115); Magnesium 2.3 mg/dL (1.6-2.6); Potassium 4.4 mmol/L (3.3-5.1); Sodium 146 mmol/L (135-145); Total Protein 6.1 g/dL (6.5-8.0)
[2022-05-26 17:05] LABS: B Type Natriuretic Peptide 149 pg/mL (<100); Troponin-I High Sensitivity 8.5 ng/L (<3.5-17.0)
[2022-05-26 17:14] VITALS: BP 228/91; PULSE 34; RESP 13; O2SAT 94
[2022-05-26] MEDS: hydrALAZINE HCl 20 MG/ML VIAL 10 MG IVPUSH (17:15)
[2022-05-26] MEDS: Furosemide 20 MG/2 ML VIAL IVPUSH (18:28)
--- NOTE | 2022-05-26 18:37 | PHA.MEDREC ---
Pharmacy Consult ? Medication Reconciliation Pharmacy has completed the medication reconciliation. Patient had list with her at bedside.
[2022-05-26 19:46] VITALS: BP 193/68; PULSE 54; RESP 12; TEMP 36.6; O2SAT 93
--- NOTE | 2022-05-26 19:49 | MHC.EDTECH ---
Pt setup on [employer] system. Pericare given. Bed pads changed. Pt given warm blanket and call alvarez placed in reach
--- NOTE | 2022-05-26 20:17 | PM.IMHP ---
History of Present Illness Date of Service: 05/26/22 Chief Complaint: slow heart rate 76-year-old female with past medical history of heart failure with preserved ejection fraction, COPD, diabetes, dyslipidemia, HTN, IBS, neuroendocrine cancer, who comes into the hospital after being seen at her oncologist's office and found to have a slow heart rate. Patient herself denies any dizziness, reports chronic shortness of breath with no worsening shortness of breath, reports no palpitations, denies having any chest pain, no headache or change in vision. denies any chest pain, no abdominal pain, no nausea or vomiting, no urinary symptoms and no lower extremity edema. Denies any orthopnea or PND. On arrival to the ED patient found to have a heart rate in the 30s, blood pressure of 211/79, reports compliance with her antihypertensives Labs are significant for sodium of 146, chloride of 110, BNP of 149, troponin negative, UA negative, viral serology negative Chest x-ray shows no acute intrathoracic abnormality EKG shows sinus bradycardia Case was discussed with Cardiology, patient will be admitted for further management Review of Systems Review of Systems: Yes all other systems are reviewed and are negative [facility] Medical History (HFpEF) heart failure with preserved ejection fraction Chronic obstructive pulmonary disease, unspecified Class 1 obesity due to excess calories with body mass index (BMI) of 33.0 to 33.9 in adult COVID-19 vaccine series completed Diabetes mellitus with microalbuminuria, without long-term current use of insulin Dyslipidemia Dyspepsia Essential hypertension Irritable bowel syndrome with constipation Menopause Positive FIT (fecal immunochemical test) Family History Father Myocardial infarction CVD (cardiovascular disease) Mother Diabetes mellitus Brother HTN (hypertension) Brother HTN (hypertension) Brother No problems noted. Son No problems noted. Surgical History History of cerebral aneurysm repair History of colonoscopy History of lumpectomy of right breast Hx of tubal ligation Social History Household Members: None Household Members Other:: son visits often Housing: Apartment Are you a primary personal caregiver to a significant other at home: No Do you presently have visiting nurse or other home services: No Alcohol intake: never Patient Tobacco Use Status: Former Tobacco user Quit Date: 2006 Tobacco use type: Cigarette Years Smoked: 50 yrs e-Cigarette/Vaping Use: Former Use Use of substances other than those prescribed or required for medical reasons: No Have you been hit, kicked, punched, or otherwise hurt by someone within the past year? If so, by whom?: No Do you feel safe in your current relationship?: No Current Relationship Is there a partner from a previous relationship who is making you feel unsafe now?: No Advance Directives: Yes Advance Directives Information Provided: No Advance Directives on File: No Advance Directives Date on File: 05/27/22 Do you have thoughts of harming others: None Do you have a plan to hurt others: No Plan Recently lost weight without trying: Yes Eating poorly because of decreased appetite: No Nutrition Risks: No Nutritional Risk Patient : No : No Poor oral hygiene: No service: No Current occupational status: disabled Meds Allergies Allergy/AdvReac Type Severity Reaction Status Date / Time Sulfa (Sulfonamide Allergy Intermediate itching Verified 04/14/22 13:33 Antibiotics) sulfamethoxazole Allergy Intermediate Stomach Verified 04/14/22 13:33 [From Bactrim] Upset trimethoprim [From Bactrim] Allergy Intermediate Stomach Verified 04/14/22 13:33 Upset Home Medications Medication Instructions Recorded Confirmed Last Taken Type cholecalciferol (vitamin D3) 25 25 mcg PO DAILY 04/17/20 05/26/22 Unknown History mcg (1,000 unit) chewable tablet fzewxtmo-lkyovlj-kijb-lutein tablet 1 tab PO DAILY 04/17/20 05/26/22 Unknown History omega-3 fatty acids-fish oil 360 1 cap PO DAILY 04/17/20 05/26/22 Unknown History mg-1,200 mg capsule (Fish Oil) omeprazole 20 mg capsule,delayed 1 cap PO DAILY 08/26/21 05/26/22 Unknown History release Physical Exam Vital Signs and Narrative: Vital Signs: Last Vital Signs Temp 98 F 05/26/22 19:46 Pulse 54 05/26/22 19:46 Resp 12 05/26/22 19:46 BP 193/68 H 05/26/22 19:46 Pulse Ox 93 05/26/22 19:46 O2 Del Method 05/26/22 19:46 BMI result Body Mass Index 31.1 Const: General: cooperative and no acute distress Orientation/consciousness: patient oriented x3 Eyes: General: appearance normal, both eyes and all related structures Resp: Effort & Inspection: normal respiratory effort Auscultation: clear to auscultation bilaterally Cardio: Other: bradycardic Rhythm: regular rhythm GI: Palpation (GI): Soft to palpation Auscultation: normal bowel sounds Skin: General skin exam: no rashes or lesions noted Neuro: General: patient oriented x3 Cognition (Neuro): normal cognition Extrem: General: Yes normal to inspection and Yes no pedal edema Results Labs CBC and Chem 7: 05/26/22 16:37 05/26/22 16:37 Labs: Laboratory Results - last 24 hr 05/26/22 05/26/22 05/26/22 16:37 16:37 16:37 MCV 96.7 MCH 30.9 MCHC 31.9 RDW 12.7 Plt Count 157 L MPV 11.4 Immature Gran % (Auto) 0.2 Neut % (Auto) 63.2 Lymph % (Auto) 25.1 [place] % (Auto) 8.2 Eos % (Auto) 2.9 Baso % (Auto) 0.4 Lymph # (Auto) 2.1 [place] # (Auto) 0.7 Eos # (Auto) 0.2 Baso # (Auto) 0.0 Abs Immat Gran (auto) 0.02 Absolute Neuts (auto) 5.2 Absolute Nucleated RBC 0.000 Nucleated RBC % (auto) 0.0 PT 11.2 INR 1.0 Anion Gap Estim Creat Clear Calc Estimated GFR Random Glucose Calcium Magnesium Total Bilirubin AST ALT Alkaline Phosphatase Troponin I High Sens B-Natriuretic Peptide 149 H Total Protein Albumin 05/26/22 05/26/22 16:37 16:37 MCV MCH MCHC RDW Plt Count MPV Immature Gran % (Auto) Neut % (Auto) Lymph % (Auto) [place] % (Auto) Eos % (Auto) Baso % (Auto) Lymph # (Auto) [place] # (Auto) Eos # (Auto) Baso # (Auto) Abs Immat Gran (auto) Absolute Neuts (auto) Absolute Nucleated RBC Nucleated RBC % (auto) PT INR Anion Gap 10 L Estim Creat Clear Calc 66.8 Estimated GFR > 60 Random Glucose 166 H Calcium 8.8 Magnesium 2.3 Total Bilirubin 0.5 AST 18 ALT 20 Alkaline Phosphatase 98 Troponin I High Sens 8.5 B-Natriuretic Peptide Total Protein 6.1 L Albumin 3.7 Imaging Radiologist's Impressions: Impressions Chest X-Ray 05/26/22 16:15 IMPRESSION: No acute intrathoracic Assessment and Plan (1) Hypertensive crisis: Status: Acute (2) Bradycardia, sinus: Status: Acute Plan 76-year-old female with past medical history of neuroendocrine tumor, hypertension, CHFpEF, diabetes presents to the hospital with bradycardia # bradycardia - unclear if there is sick sinus syndrome, patient asymptomatic at this time - cardiology consulted - avoid lucia blocking agents - admit to telemetry - will obtain TSH # hypertensive crisis - blood pressure systolic in the 200s - patient asymptomatic - resume home medications - received multiple IV medications in the ED with improvement in her BP - vitals q.4 hours # diabetes - low-dose sliding scale insulin - diabetic diet # CHFpEF - no exacerbation - continue home Lasix DVT prophylaxis: Heparin subQ given patient's need for further evaluation by Cardiology patient require minimum 2 night inpatient hospital stay for further monitoring and possible pacemaker placement Time Spent With Patient Time: Total time managing care of this patient today ____ minutes. Quality Stroke Does the patient have a stroke diagnosis?: No VTE Prior VTE?: No VTE Risk Level:: Medical - moderate - high VTE Device Contraindication: Treatment Not Indicated VTE Drug Contraindication: N/A - Med Ordered
[2022-05-26 20:48] LABS: Glucose, Whole Blood 107 mg/dL (60-115)
[2022-05-26] MEDS: Losartan Potassium 50 MG TABLET 100 MG PO (20:53)
[2022-05-26] MEDS: Famotidine 20 MG TABLET 40 MG PO (20:53)
[2022-05-26] MEDS: Heparin Sodium,Porcine 5,000 UNIT/ML VIAL 5000 UNIT SUBCUT (20:54)
[2022-05-26] MEDS: Dicyclomine HCl 10 MG CAPSULE 20 MG PO (20:54)
[2022-05-26 21:16] LABS: Influenza A PCR NEGATIVE (Negative); Influenza B PCR NEGATIVE (Negative); Resp Syncy Virus RNA Qual PCR NEGATIVE (Negative); SARS COV2 PCR INHOUSE NEGATIVE (Negative)
[2022-05-26 21:45] VITALS: BP 190/74; PULSE 49; RESP 22; TEMP 36.5; O2SAT 94
[2022-05-26 22:06] LABS: Thyroid Stimulating Hormone 0.64 uIU/mL (0.32-4.0)
[2022-05-26] MEDS: 0.9 % Sodium Chloride Flush 3 ML SYRINGE IVFLUSH (23:55)
[2022-05-27] VITALS (12 sets, daily range): BP systolic 160–210; BP diastolic 70–105; PULSE 54–76; RESP 16–18; TEMP 36.3–36.6; O2SAT 92–95
--- NOTE | 2022-05-27 00:14 | PC.NURSE ---
Atempted to call report at 00:15. RN will call back.
[2022-05-27 00:49] LABS: Appearance Urine Clear; Color Urine Yellow; Glucose Urine UA Negative (Negative); Leukocyte Esterase Urine Negative (Negative); Nitrite Urine Negative (Negative); Urine Blood Negative (Negative); Urine Ketones Negative (Negative); Urine Protein Negative (Neg-Trace)
[2022-05-27 01:14] LABS: Glucose, Whole Blood 175 mg/dL (60-115)
[2022-05-27] MEDS: hydrALAZINE HCl 20 MG/ML VIAL 10 MG IVPUSH (04:49)
[2022-05-27 06:54] LABS: MANUAL DIFF FLAG NO
[2022-05-27 06:59] LABS: Basophils Percent Auto 0.3 % (0-2); Eosinophils Absolute Auto 0.2 X10*3/uL (0.0-0.4); Eosinophils Percent Auto 2.5 % (0-4); Hematocrit 48.6 % (37.0-47.0); Hemoglobin 15.6 g/dl (12.0-16.0); Imm Gran Abs Auto 0.03 X10*3/uL (0.00-0.03); Imm Gran Pct Auto 0.3 % (0.0-0.4); Lymphocytes Absolute Auto 2.2 X10*3/uL (1.2-4.9); Mean Corpuscular HGB Conc 32.1 g/dl (31.0-35.0); Mean Corpuscular Hemoglobin 30.8 pg (27.0-33.0); Mean Corpuscular Volume 95.9 fL (80.0-98.0); Mean Platelet Volume 11.6 fL (9.4-12.3); Monocytes Absolute Auto 0.8 X10*3/uL (0.1-1.2); Monocytes Percent Auto 8.8 % (2-11); Neutrophils Absolute Auto 5.5 x10*3/uL (2.0-8.3); Neutrophils Percent Auto 63.1 % (45-73); Platelet Count 169 X10*3/uL (160-400); Red Blood Count 5.07 X10*6/uL (4.20-5.50); Red Cell Distribution Width 12.9 % (11.0-16.0); White Blood Count 8.7 X10*3/uL (4.8-10.8)
[2022-05-27 07:13] LABS: Anion Gap 12 (12-20); Blood Urea Nitrogen 15 mg/dL (9-16); Calcium 9.4 mg/dL (8.4-10.2); Carbon Dioxide 31 mmol/L (22-29); Chloride 106 mmol/L (96-108); Creatinine Clr Calc Pharmacy 74.2; Estimated Glomerular Filt Rate > 60; Glucose Random 128 mg/dL (60-115); Potassium 4.2 mmol/L (3.3-5.1); Sodium 145 mmol/L (135-145)
[2022-05-27 07:37] LABS: Glucose, Whole Blood 131 mg/dL (60-115)
[2022-05-27] MEDS: Losartan Potassium 50 MG TABLET 100 MG PO (07:37)
[2022-05-27] MEDS: Omeprazole 20 MG CAPSULE.DR PO (08:07)
[2022-05-27] MEDS: Famotidine 20 MG TABLET 40 MG PO (08:07)
[2022-05-27] MEDS: Furosemide 20 MG TABLET PO (08:08)
[2022-05-27] MEDS: Cholecalciferol (Vitamin D3) 25 MCG TABLET PO (08:08)
[2022-05-27] MEDS: Dicyclomine HCl 10 MG CAPSULE 20 MG PO ×4 (08:08→20:30)
[2022-05-27] MEDS: Multivitamin TABLET 1 TAB PO (08:08)
[2022-05-27] MEDS: Atorvastatin Calcium 10 MG TABLET PO (08:09)
[2022-05-27] MEDS: Heparin Sodium,Porcine 5,000 UNIT/ML VIAL 5000 UNIT SUBCUT ×2 (08:09→20:30)
[2022-05-27] MEDS: 0.9 % Sodium Chloride Flush 3 ML SYRINGE IVFLUSH ×3 (08:09→20:30)
[2022-05-27] MEDS: amLODIPine Besylate 5 MG TABLET PO ×2 (08:42→10:26)
--- NOTE | 2022-05-27 09:39 | MHC.CM.PN ---
pt lives with son,had no services does not expect to need services when dcd pt is covid vax x 5 has own ride home
--- NOTE | 2022-05-27 09:57 | PM.CNCAR ---
History of Present Illness History of Present Illness Date of Service: 05/27/22 Chief complaint: hypertensive crisis, bradycardia Narrative: This is a cardiology consultation regarding slow heart rate and high blood pressure. Patient was apparently sent from the oncology office due to slow heart rate. Also blood pressures in the 200s. Multiple medical comorbidities including heart failure preserved ejection fraction, COPD, diabetes, hypertension, IBS, neuroendocrine cancer, sent to ER with abnormal vitals of slow heart rate in high blood pressure. Patient herself has absolutely no symptoms. She denies any clear-cut symptoms like palpitations, chest pain or dizziness/syncope type symptoms. Some shortness of breath at baseline probably from her COPD and heart failure and preserved ejection fraction. Otherwise, she has seems to be doing okay. Review of Systems Review of Systems: Yes all other systems are reviewed and are negative Constitutional: Constitutional: Reports as per HPI Eyes: Eyes: Reports as per HPI ENT: Reports as per HPI Cardiovascular: Cardiovascular: Reports as per HPI, Denies acrocyanosis, Denies cool extremities, Denies chest pain, Denies leg edema, Denies lightheadedness, Denies palpitations and Denies dyspnea Respiratory: Respiratory: Reports as per HPI, Reports no additional respiratory complaints and Denies dyspnea Gastrointestinal: Gastrointestinal: Reports as per HPI and Reports no additional gastrointestinal complaints Genitourinary: Genitourinary: Reports as per HPI Musculoskeletal: Musculoskeletal: Reports no additional musculoskeletal complaints and Reports as per HPI Integumentary/Breasts: Skin/Breast: Reports system reviewed and no additional complaints, except as docu Neurologic: Reports system reviewed and no additional complaints, except as documented and Reports as per HPI Psychiatric: Psychiatric: Reports no additional psychiatric complaints and Reports as per HPI Endocrine: Endocrine: Reports no additional endocrine complaints, Reports as per HPI and Denies palpitations Hematologic/Lymphatic: Hematologic/Lymphatic: Reports no additional hematologic/lymphatic complaints and Reports as per HPI Allergic/Immunologic: Allergic/Immunologic: Reports no additional allergic/immunologic complaints and Reports as per HPI PMFSH Past Medical History Medical History (HFpEF) heart failure with preserved ejection fraction Chronic obstructive pulmonary disease, unspecified Class 1 obesity due to excess calories with body mass index (BMI) of 33.0 to 33.9 in adult COVID-19 vaccine series completed Diabetes mellitus with microalbuminuria, without long-term current use of insulin Dyslipidemia Dyspepsia Essential hypertension Irritable bowel syndrome with constipation Menopause Positive FIT (fecal immunochemical test) Family History Family History Father Myocardial infarction CVD (cardiovascular disease) Mother Diabetes mellitus Brother HTN (hypertension) Brother HTN (hypertension) Brother No problems noted. Son No problems noted. Surgical History Surgical History History of cerebral aneurysm repair History of colonoscopy History of lumpectomy of right breast Hx of tubal ligation Social History Social History Household Members: None Household Members Other:: son visits often Housing: Apartment Are you a primary director of career services to a significant other at home: No Do you presently have visiting nurse or other home services: No Alcohol intake: never Patient Tobacco Use Status: Former Tobacco user Quit Date: 2006 Tobacco use type: Cigarette Years Smoked: 50 yrs e-Cigarette/Vaping Use: Former Use Use of substances other than those prescribed or required for medical reasons: No Currently Displaying Signs/Symptoms of Drug Intoxication Withdrawal: No Have you been hit, kicked, punched, or otherwise hurt by someone within the past year? If so, by whom?: No Do you feel safe in your current relationship?: No Current Relationship Is there a partner from a previous relationship who is making you feel unsafe now?: No Advance Directives: Yes Advance Directives Information Provided: No Advance Directives on File: No Advance Directives Date on File: 05/27/22 Do you have thoughts of harming others: None Do you have a plan to hurt others: No Plan Recently lost weight without trying: Yes Eating poorly because of decreased appetite: No Nutrition Risks: No Nutritional Risk Patient : No : No Poor oral hygiene: No service: No Current occupational status: disabled Meds Allergies Allergy/AdvReac Type Severity Reaction Status Date / Time Sulfa (Sulfonamide Allergy Intermediate itching Verified 04/14/22 13:33 Antibiotics) sulfamethoxazole Allergy Intermediate Stomach Verified 04/14/22 13:33 [From Bactrim] Upset trimethoprim [From Bactrim] Allergy Intermediate Stomach Verified 04/14/22 13:33 Upset Active Medications: Current Medications Acetaminophen (Acetaminophen 325 Mg Tablet) 650 mg PO Q6H PRN PRN Reason: Pain, Mild (Pain Scale 1-3) Albuterol/Ipratropium (Albuterol/Iprat 2.5/0.5mg 3 Ml Ampul.Neb) 3 ml INHALE RQ6H PRN PRN Reason: shortness of breath/wheezing Amlodipine Besylate (Amlodipine Besylate 5 Mg Tablet) 5 mg PO DAILY [facility]; Protocol Last Admin: 05/27/22 08:42 Dose: 5 mg Atorvastatin Calcium (Atorvastatin Calcium 10 Mg Tablet) 10 mg PO DAILY [facility] Last Admin: 05/27/22 08:09 Dose: 10 mg Dextrose (Dextrose 50 % 25 Gm/50 Ml Syringe) 25 gm IVPUSH Q15M PRN; Protocol PRN Reason: per Hypoglycemia Standing Ord. Dicyclomine HCl (Dicyclomine Hcl 10 Mg Capsule) 20 mg PO QID [facility] Last Admin: 05/27/22 08:08 Dose: 20 mg Docusate Sodium (Docusate Sodium 100 Mg Capsule) 100 mg PO DAILY PRN PRN Reason: Constipation Famotidine (Famotidine 20 Mg Tablet) 40 mg PO DAILY [facility] Last Admin: 05/27/22 08:07 Dose: 40 mg Furosemide (Furosemide 20 Mg Tablet) 20 mg PO DAILY [facility]; Protocol Last Admin: 05/27/22 08:08 Dose: 20 mg Glucose (Glucose Gel 15 Gm Gel..Gram.) 15 gm PO Q15M PRN; Protocol PRN Reason: per Hypoglycemia Standing Ord. Heparin Sodium (Porcine) (Heparin Sodium,Porcine 5,000 Unit/Ml Vial) 5,000 unit SUBCUT Q12H [facility] Last Admin: 05/27/22 08:09 Dose: 5,000 unit Insulin Human Lispro (Insulin Lispro 100 Unit/Ml 3 Ml Vial) 0 unit SUBCUT QIDACHS [facility]; Protocol Last Admin: 05/27/22 07:43 Dose: Not Given Losartan Potassium (Losartan Potassium 50 Mg Tablet) 100 mg PO DAILY [facility]; Protocol Last Admin: 05/27/22 07:37 Dose: 100 mg Multivitamins/Vitamin C (Multivitamin Tablet) 1 tab PO DAILY [facility] Last Admin: 05/27/22 08:08 Dose: 1 tab Omeprazole (Omeprazole 20 Mg Capsule.Dr) 20 mg PO DAILY@0630 [facility] Last Admin: 05/27/22 08:07 Dose: 20 mg Ondansetron HCl (Ondansetron Hcl 4 Mg/2 Ml Vial) 4 mg IVPUSH Q8H PRN PRN Reason: Nausea and Vomiting Sodium Chloride (0.9 % Sodium Chloride Flush 3 Ml Syringe) 3 ml IVFLUSH QSHIFT [facility] Last Admin: 05/27/22 08:09 Dose: 3 ml Vitamin D (Cholecalciferol (Vitamin D3) 25 Mcg Tablet) 25 mcg PO DAILY [facility] Last Admin: 05/27/22 08:08 Dose: 25 mcg Home Medications Medication Instructions Recorded Confirmed Last Taken Type cholecalciferol (vitamin D3) 25 25 mcg PO DAILY 04/17/20 05/26/22 Unknown History mcg (1,000 unit) chewable tablet ytvgdrog-tvbxrnv-albp-lutein tablet 1 tab PO DAILY 04/17/20 05/26/22 Unknown History omega-3 fatty acids-fish oil 360 1 cap PO DAILY 04/17/20 05/26/22 Unknown History mg-1,200 mg capsule (Fish Oil) omeprazole 20 mg capsule,delayed 1 cap PO DAILY 08/26/21 05/26/22 Unknown History release Physical Exam Vital Signs: Vital Signs: Last Vital Signs Temp 97.6 F 05/27/22 07:19 Pulse 76 05/27/22 07:19 Resp 18 05/27/22 07:19 BP 193/98 H 05/27/22 08:18 Pulse Ox 92 05/27/22 07:19 O2 Del Method 05/27/22 07:19 BMI result Body Mass Index 31.1 Const: General: comfortable and no acute distress Orientation/consciousness: patient oriented x3 HEENT: Other: Unremarkable Head: Yes normal to inspection Neck: Neck: Yes normal visual inspection Chest: Chest palpation & inspection: normal inspection of the chest Resp: Auscultation: wheezes Cardio: Palpation: normal PMI Heart sounds: S1 normal heart sound present, S2 normal heart sound present, no gallops, no murmurs and no rubs GI: Palpation (GI): Soft to palpation Back/Spine/Pelvis: Other: unremarkable Skin: General skin exam: no rashes or lesions noted Neuro: General: patient oriented x3 Extrem: General: Yes normal to inspection Psych: Mental Status: mental status grossly normal Objective Labs and Meds Result diagrams: 05/27/22 06:27 05/27/22 06:27 Lab results: Laboratory Results - last 24 hr 05/26/22 05/26/22 05/26/22 16:37 16:37 16:37 WBC 8.2 RBC 4.57 Hgb 14.1 Hct 44.2 MCV 96.7 MCH 30.9 MCHC 31.9 RDW 12.7 Plt Count 157 L MPV 11.4 Immature Gran % (Auto) 0.2 Neut % (Auto) 63.2 Lymph % (Auto) 25.1 [place] % (Auto) 8.2 Eos % (Auto) 2.9 Baso % (Auto) 0.4 Lymph # (Auto) 2.1 [place] # (Auto) 0.7 Eos # (Auto) 0.2 Baso # (Auto) 0.0 Abs Immat Gran (auto) 0.02 Absolute Neuts (auto) 5.2 Absolute Nucleated RBC 0.000 Nucleated RBC % (auto) 0.0 PT 11.2 INR 1.0 Sodium Potassium Chloride Carbon Dioxide Anion Gap BUN Creatinine Estim Creat Clear Calc Estimated GFR POC Glucose Random Glucose Calcium Magnesium Total Bilirubin AST ALT Alkaline Phosphatase Troponin I High Sens B-Natriuretic Peptide 149 H Total Protein Albumin TSH Urine Color Urine Appearance Urine pH Ur Specific [place] Urine Protein Urine Glucose (UA) Urine Ketones Urine Blood Urine Nitrite Ur Leukocyte Esterase Influenza Type A (PCR) Influenza Type B (PCR) RSV RNA Qual (PCR) SARS-CoV-2 RNA (RT-PCR) 05/26/22 05/26/22 05/26/22 16:37 16:37 20:17 WBC RBC Hgb Hct MCV MCH MCHC RDW Plt Count MPV Immature Gran % (Auto) Neut % (Auto) Lymph % (Auto) [place] % (Auto) Eos % (Auto) Baso % (Auto) Lymph # (Auto) [place] # (Auto) Eos # (Auto) Baso # (Auto) Abs Immat Gran (auto) Absolute Neuts (auto) Absolute Nucleated RBC Nucleated RBC % (auto) PT INR Sodium 146 H Potassium 4.4 Chloride 110 H Carbon Dioxide 30 H Anion Gap 10 L BUN 17 H Creatinine 0.80 Estim Creat Clear Calc 66.8 Estimated GFR > 60 POC Glucose Random Glucose 166 H Calcium 8.8 Magnesium 2.3 Total Bilirubin 0.5 AST 18 ALT 20 Alkaline Phosphatase 98 Troponin I High Sens 8.5 B-Natriuretic Peptide Total Protein 6.1 L Albumin 3.7 TSH 0.64 Urine Color Urine Appearance Urine pH Ur Specific [place] Urine Protein Urine Glucose (UA) Urine Ketones Urine Blood Urine Nitrite Ur Leukocyte Esterase Influenza Type A (PCR) NEGATIVE Influenza Type B (PCR) NEGATIVE RSV RNA Qual (PCR) NEGATIVE SARS-CoV-2 RNA (RT-PCR) NEGATIVE 05/26/22 05/27/22 05/27/22 20:41 00:41 00:57 WBC RBC Hgb Hct MCV MCH MCHC RDW Plt Count MPV Immature Gran % (Auto) Neut % (Auto) Lymph % (Auto) [place] % (Auto) Eos % (Auto) Baso % (Auto) Lymph # (Auto) [place] # (Auto) Eos # (Auto) Baso # (Auto) Abs Immat Gran (auto) Absolute Neuts (auto) Absolute Nucleated RBC Nucleated RBC % (auto) PT INR Sodium Potassium Chloride Carbon Dioxide Anion Gap BUN Creatinine Estim Creat Clear Calc Estimated GFR POC Glucose 107 175 H Random Glucose Calcium Magnesium Total Bilirubin AST ALT Alkaline Phosphatase Troponin I High Sens B-Natriuretic Peptide Total Protein Albumin TSH Urine Color Yellow Urine Appearance Clear Urine pH 7.0 Ur Specific [place] 1.010 Urine Protein Negative Urine Glucose (UA) Negative Urine Ketones Negative Urine Blood Negative Urine Nitrite Negative Ur Leukocyte Esterase Negative Influenza Type A (PCR) Influenza Type B (PCR) RSV RNA Qual (PCR) SARS-CoV-2 RNA (RT-PCR) 05/27/22 05/27/22 05/27/22 06:27 06:27 07:17 WBC 8.7 RBC 5.07 Hgb 15.6 Hct 48.6 H MCV 95.9 MCH 30.8 MCHC 32.1 RDW 12.9 Plt Count 169 MPV 11.6 Immature Gran % (Auto) 0.3 Neut % (Auto) 63.1 Lymph % (Auto) 25.0 [place] % (Auto) 8.8 Eos % (Auto) 2.5 Baso % (Auto) 0.3 Lymph # (Auto) 2.2 [place] # (Auto) 0.8 Eos # (Auto) 0.2 Baso # (Auto) 0.0 Abs Immat Gran (auto) 0.03 Absolute Neuts (auto) 5.5 Absolute Nucleated RBC 0.000 Nucleated RBC % (auto) 0.0 PT INR Sodium 145 Potassium 4.2 Chloride 106 Carbon Dioxide 31 H Anion Gap 12 BUN 15 Creatinine 0.72 Estim Creat Clear Calc 74.2 Estimated GFR > 60 POC Glucose 131 H Random Glucose 128 H Calcium 9.4 D Magnesium Total Bilirubin AST ALT Alkaline Phosphatase Troponin I High Sens B-Natriuretic Peptide Total Protein Albumin TSH Urine Color Urine Appearance Urine pH Ur Specific [place] Urine Protein Urine Glucose (UA) Urine Ketones Urine Blood Urine Nitrite Ur Leukocyte Esterase Influenza Type A (PCR) Influenza Type B (PCR) RSV RNA Qual (PCR) SARS-CoV-2 RNA (RT-PCR) ECG Interpretation: EKG with sinus bradycardia, 39/Min; nonspecific interventricular conduction defect; what is ready for LVH; T wave changes likely from LVH unless likely ischemia. Compared to prior EKG, heart rate is slightly slower but otherwise unchanged. Telemetry with heart rates in the 60s. Imaging Radiologist's impression: Impressions Chest X-Ray 05/26/22 16:15 IMPRESSION: No acute intrathoracic Assessment and Plan (1) Bradycardia, sinus: Status: Acute She had sinus bradycardia upon arrival but currently heart rate in the 60s. She has got absolutely no symptoms like dizziness or presyncope. Hence no specific management for this. No indication for pacemaker in this setting. In the future, if any profound, symptomatic bradycardia, then will need reassessment for pacemaker. (2) Hypertensive urgency: Status: Acute Blood pressures seem uncontrolled. When she 1st arrived it was as much as 228/91 mm Hg. Currently still 193/90 8 mm Hg. Several blood pressures in the last few weeks overall high. Such high blood pressures and uncontrolled can lead to myocardial infarction or stroke and several other cardiovascular issues. Home meds listed to be only losartan 100 mg daily. Now on amlodipine 5 mg daily and we can go up to 10 mg daily. Can't add beta-blockers due to low heart rates. Next choice could be spironolactone or hydralazine in some combination. (3) (HFpEF) heart failure with preserved ejection fraction: Status: Acute Continue Lasix. Plan Discussed with hospitalist. Time Spent With Patient Time: Total time managing care of this patient today 70 minutes. Procedures Date of Service Date of Service: 05/27/22
[2022-05-27] MEDS: Spironolactone 25 MG TABLET PO (10:27)
[2022-05-27 11:40] LABS: Glucose, Whole Blood 165 mg/dL (60-115)
--- NOTE | 2022-05-27 11:58 | P.PNIM_ITS ---
Subjective Subjective Date of Service: 05/27/22 Interval History: seen and examined this morning follow up for elevated blood pressure blood pressure remains elevated, the patient denies chest pain, palpitations she reports intermittent shortness of breath with exertion, denies orthopnea, PND Review of Systems Review of Systems: Yes all other systems are reviewed and are negative Constitutional Constitutional: Denies chills and Denies fever(s) Cardiovascular Cardiovascular: Denies chest pain, Denies palpitations and Denies dyspnea Respiratory Respiratory: Denies cough and Denies dyspnea Gastrointestinal Gastrointestinal: Denies abdominal pain, Denies nausea and Denies vomiting Endocrine Endocrine: Denies palpitations Physical Exam Vital Signs: Vital Signs: Last Vital Signs Temp 97.4 F 05/27/22 11:40 Pulse 60 05/27/22 11:40 Resp 18 05/27/22 11:40 BP 185/94 H 05/27/22 11:40 Pulse Ox 94 05/27/22 11:40 O2 Del Method 05/27/22 11:40 BMI result Body Mass Index 31.1 Const: General: cooperative, comfortable, alert and awake Nutritional Appearance: overweight Orientation/consciousness: patient oriented x3 Resp: Other: expiratory wheezing Effort & Inspection: normal respiratory effort and able to speak in complete sentences Cardio: Rate: regular rate Heart sounds: S1 normal heart sound present and S2 normal heart sound present GI: Inspection: No distended Palpation (GI): Soft to palpation and nontender Neuro: General: patient oriented x3 and CN's II-XI intact bilaterally Extrem: General: Yes no pedal edema Objective Data Active Medications Acetaminophen (Acetaminophen 325 Mg Tablet) 650 mg PO Q6H PRN PRN Reason: Pain, Mild (Pain Scale 1-3) Albuterol/Ipratropium (Albuterol/Iprat 2.5/0.5mg 3 Ml Ampul.Neb) 3 ml INHALE RQ6H PRN PRN Reason: shortness of breath/wheezing Amlodipine Besylate (Amlodipine Besylate 5 Mg Tablet) 5 mg PO DAILY [facility]; Protocol Last Admin: 05/27/22 08:42 Dose: 5 mg Documented By: WARD Atorvastatin Calcium (Atorvastatin Calcium 10 Mg Tablet) 10 mg PO DAILY [facility] Last Admin: 05/27/22 08:09 Dose: 10 mg Documented By: WARD Dextrose (Dextrose 50 % 25 Gm/50 Ml Syringe) 25 gm IVPUSH Q15M PRN; Protocol PRN Reason: per Hypoglycemia Standing Ord. Dicyclomine HCl (Dicyclomine Hcl 10 Mg Capsule) 20 mg PO QID [facility] Last Admin: 05/27/22 08:08 Dose: 20 mg Documented By: WARD Docusate Sodium (Docusate Sodium 100 Mg Capsule) 100 mg PO DAILY PRN PRN Reason: Constipation Famotidine (Famotidine 20 Mg Tablet) 40 mg PO DAILY [facility] Last Admin: 05/27/22 08:07 Dose: 40 mg Documented By: WARD Furosemide (Furosemide 20 Mg Tablet) 20 mg PO DAILY [facility]; Protocol Last Admin: 05/27/22 08:08 Dose: 20 mg Documented By: WARD Glucose (Glucose Gel 15 Gm Gel..Gram.) 15 gm PO Q15M PRN; Protocol PRN Reason: per Hypoglycemia Standing Ord. Heparin Sodium (Porcine) (Heparin Sodium,Porcine 5,000 Unit/Ml Vial) 5,000 unit SUBCUT Q12H [facility] Last Admin: 05/27/22 08:09 Dose: 5,000 unit Documented By: WARD Insulin Human Lispro (Insulin Lispro 100 Unit/Ml 3 Ml Vial) 0 unit SUBCUT QIDACHS [facility]; Protocol Last Admin: 05/27/22 07:43 Dose: Not Given Documented By: WARD Non-Admin Reason: No Insulin Coverage Losartan Potassium (Losartan Potassium 50 Mg Tablet) 100 mg PO DAILY [facility]; Protocol Last Admin: 05/27/22 07:37 Dose: 100 mg Documented By: WARD Multivitamins/Vitamin C (Multivitamin Tablet) 1 tab PO DAILY [facility] Last Admin: 05/27/22 08:08 Dose: 1 tab Documented By: WARD Omeprazole (Omeprazole 20 Mg Capsule.) 20 mg PO DAILY@0630 [facility] Last Admin: 05/27/22 08:07 Dose: 20 mg Documented By: WARD Ondansetron HCl (Ondansetron Hcl 4 Mg/2 Ml Vial) 4 mg IVPUSH Q8H PRN PRN Reason: Nausea and Vomiting Sodium Chloride (0.9 % Sodium Chloride Flush 3 Ml Syringe) 3 ml IVFLUSH QSHIFT [facility] Last Admin: 05/27/22 08:09 Dose: 3 ml Documented By: WARD Spironolactone (Spironolactone 25 Mg Tablet) 25 mg PO DAILY [facility]; Protocol Last Admin: 05/27/22 10:27 Dose: 25 mg Documented By: WARD Vitamin D (Cholecalciferol (Vitamin D3) 25 Mcg Tablet) 25 mcg PO DAILY [facility] Last Admin: 05/27/22 08:08 Dose: 25 mcg Documented By: WARD Labs CBC & Chem 7: 05/27/22 06:27 05/27/22 06:27 Labs: Laboratory Results - last 24 hr 05/26/22 05/26/22 05/26/22 16:37 16:37 16:37 MCV 96.7 MCH 30.9 MCHC 31.9 RDW 12.7 Plt Count 157 L MPV 11.4 Immature Gran % (Auto) 0.2 Neut % (Auto) 63.2 Lymph % (Auto) 25.1 Mchenry % (Auto) 8.2 Eos % (Auto) 2.9 Baso % (Auto) 0.4 Lymph # (Auto) 2.1 Mchenry # (Auto) 0.7 Eos # (Auto) 0.2 Baso # (Auto) 0.0 Abs Immat Gran (auto) 0.02 Absolute Neuts (auto) 5.2 Absolute Nucleated RBC 0.000 Nucleated RBC % (auto) 0.0 PT 11.2 INR 1.0 Anion Gap Estim Creat Clear Calc Estimated GFR POC Glucose Random Glucose Calcium Magnesium Total Bilirubin AST ALT Alkaline Phosphatase Troponin I High Sens B-Natriuretic Peptide 149 H Total Protein Albumin TSH Urine Color Urine Appearance Urine pH Ur Specific Humble Urine Protein Urine Glucose (UA) Urine Ketones Urine Blood Urine Nitrite Ur Leukocyte Esterase Influenza Type A (PCR) Influenza Type B (PCR) RSV RNA Qual (PCR) SARS-CoV-2 RNA (RT-PCR) 05/26/22 05/26/22 05/26/22 16:37 16:37 20:17 MCV MCH MCHC RDW Plt Count MPV Immature Gran % (Auto) Neut % (Auto) Lymph % (Auto) Mchenry % (Auto) Eos % (Auto) Baso % (Auto) Lymph # (Auto) Mchenry # (Auto) Eos # (Auto) Baso # (Auto) Abs Immat Gran (auto) Absolute Neuts (auto) Absolute Nucleated RBC Nucleated RBC % (auto) PT INR Anion Gap 10 L Estim Creat Clear Calc 66.8 Estimated GFR > 60 POC Glucose Random Glucose 166 H Calcium 8.8 Magnesium 2.3 Total Bilirubin 0.5 AST 18 ALT 20 Alkaline Phosphatase 98 Troponin I High Sens 8.5 B-Natriuretic Peptide Total Protein 6.1 L Albumin 3.7 TSH 0.64 Urine Color Urine Appearance Urine pH Ur Specific Humble Urine Protein Urine Glucose (UA) Urine Ketones Urine Blood Urine Nitrite Ur Leukocyte Esterase Influenza Type A (PCR) NEGATIVE Influenza Type B (PCR) NEGATIVE RSV RNA Qual (PCR) NEGATIVE SARS-CoV-2 RNA (RT-PCR) NEGATIVE 05/26/22 05/27/22 05/27/22 20:41 00:41 00:57 MCV MCH MCHC RDW Plt Count MPV Immature Gran % (Auto) Neut % (Auto) Lymph % (Auto) Mchenry % (Auto) Eos % (Auto) Baso % (Auto) Lymph # (Auto) Mchenry # (Auto) Eos # (Auto) Baso # (Auto) Abs Immat Gran (auto) Absolute Neuts (auto) Absolute Nucleated RBC Nucleated RBC % (auto) PT INR Anion Gap Estim Creat Clear Calc Estimated GFR POC Glucose 107 175 H Random Glucose Calcium Magnesium Total Bilirubin AST ALT Alkaline Phosphatase Troponin I High Sens B-Natriuretic Peptide Total Protein Albumin TSH Urine Color Yellow Urine Appearance Clear Urine pH 7.0 Ur Specific Humble 1.010 Urine Protein Negative Urine Glucose (UA) Negative Urine Ketones Negative Urine Blood Negative Urine Nitrite Negative Ur Leukocyte Esterase Negative Influenza Type A (PCR) Influenza Type B (PCR) RSV RNA Qual (PCR) SARS-CoV-2 RNA (RT-PCR) 05/27/22 05/27/22 05/27/22 06:27 06:27 07:17 MCV 95.9 MCH 30.8 MCHC 32.1 RDW 12.9 Plt Count 169 MPV 11.6 Immature Gran % (Auto) 0.3 Neut % (Auto) 63.1 Lymph % (Auto) 25.0 Mchenry % (Auto) 8.8 Eos % (Auto) 2.5 Baso % (Auto) 0.3 Lymph # (Auto) 2.2 Mchenry # (Auto) 0.8 Eos # (Auto) 0.2 Baso # (Auto) 0.0 Abs Immat Gran (auto) 0.03 Absolute Neuts (auto) 5.5 Absolute Nucleated RBC 0.000 Nucleated RBC % (auto) 0.0 PT INR Anion Gap 12 Estim Creat Clear Calc 74.2 Estimated GFR > 60 POC Glucose 131 H Random Glucose 128 H Calcium 9.4 D Magnesium Total Bilirubin AST ALT Alkaline Phosphatase Troponin I High Sens B-Natriuretic Peptide Total Protein Albumin TSH Urine Color Urine Appearance Urine pH Ur Specific Humble Urine Protein Urine Glucose (UA) Urine Ketones Urine Blood Urine Nitrite Ur Leukocyte Esterase Influenza Type A (PCR) Influenza Type B (PCR) RSV RNA Qual (PCR) SARS-CoV-2 RNA (RT-PCR) 05/27/22 11:37 MCV MCH MCHC RDW Plt Count MPV Immature Gran % (Auto) Neut % (Auto) Lymph % (Auto) Mchenry % (Auto) Eos % (Auto) Baso % (Auto) Lymph # (Auto) Mchenry # (Auto) Eos # (Auto) Baso # (Auto) Abs Immat Gran (auto) Absolute Neuts (auto) Absolute Nucleated RBC Nucleated RBC % (auto) PT INR Anion Gap Estim Creat Clear Calc Estimated GFR POC Glucose 165 H Random Glucose Calcium Magnesium Total Bilirubin AST ALT Alkaline Phosphatase Troponin I High Sens B-Natriuretic Peptide Total Protein Albumin TSH Urine Color Urine Appearance Urine pH Ur Specific Humble Urine Protein Urine Glucose (UA) Urine Ketones Urine Blood Urine Nitrite Ur Leukocyte Esterase Influenza Type A (PCR) Influenza Type B (PCR) RSV RNA Qual (PCR) SARS-CoV-2 RNA (RT-PCR) Assessment and Plan (1) Hypertensive urgency: Status: Acute (2) Bradycardia, sinus: Status: Acute Plan 76-year-old female with past medical history of neuroendocrine tumor, hypertension, CHFpEF, diabetes presents to the hospital with bradycardia bradycardia asymptomatic HR improved. seen by cardiology - no specific treatment at this time avoid rate lowering medications hypertensive urgency no evidence of end organ damage, asymptomatic home losartan resumed will add norvasc 10 mg and aldactone 25 mg monitor BP closely diabetes sliding scale insulin diabetic diet CHFpEF no exacerbation continue home Lasix HLD continue statin neuroendorine pancreatic cancer with liver mets followed by dr. walker DVT prophylaxis: Heparin subQ attending - dr. raymundo requires ongoing inpatient hospitalization for management of uncontrolled hype rtension Time Spent With Patient Time: Total time managing care of this patient today ____ minutes. Quality Stroke Does the patient have a stroke diagnosis?: No VTE Prior VTE?: No VTE Risk Level:: Medical - moderate - high VTE Device Contraindication: Treatment Not Indicated VTE Drug Contraindication: N/A - Med Ordered
[2022-05-27] MEDS: Insulin Lispro 100 UNIT/ML 3 ML VIAL SUBCUT (12:10)
[2022-05-27 16:27] LABS: Glucose, Whole Blood 119 mg/dL (60-115)
[2022-05-27 19:23] LABS: Glucose, Whole Blood 127 mg/dL (60-115)
[2022-05-28] VITALS: BP 192/80; PULSE 71; RESP 18; TEMP 36.2; O2SAT 91
[2022-05-28 02:27] LABS: Anion Gap 15 (12-20); Blood Urea Nitrogen 15 mg/dL (9-16); Calcium 9.1 mg/dL (8.4-10.2); Carbon Dioxide 26 mmol/L (22-29); Chloride 106 mmol/L (96-108); Estimated Glomerular Filt Rate > 60; Glucose Random 154 mg/dL (60-115); Magnesium 2.1 mg/dL (1.6-2.6); Sodium 143 mmol/L (135-145)
[2022-05-28 04:00] VITALS: BP 196/91; PULSE 72; RESP 18; TEMP 36.1; O2SAT 97
[2022-05-28] MEDS: Omeprazole 20 MG CAPSULE.DR PO (06:02)
[2022-05-28 07:22] VITALS: BP 182/88; PULSE 61; RESP 20; TEMP 36.3; O2SAT 92
[2022-05-28 07:22] LABS: Glucose, Whole Blood 152 mg/dL (60-115)
[2022-05-28] MEDS: amLODIPine Besylate 10 MG TABLET PO (07:45)
[2022-05-28] MEDS: Famotidine 20 MG TABLET 40 MG PO (07:45)
[2022-05-28] MEDS: Cholecalciferol (Vitamin D3) 25 MCG TABLET PO (07:45)
[2022-05-28] MEDS: 0.9 % Sodium Chloride Flush 3 ML SYRINGE IVFLUSH ×3 (07:45→21:06)
[2022-05-28] MEDS: Spironolactone 25 MG TABLET PO (07:45)
[2022-05-28] MEDS: Insulin Lispro 100 UNIT/ML 3 ML VIAL SUBCUT ×3 (07:45→21:02)
[2022-05-28] MEDS: Atorvastatin Calcium 10 MG TABLET PO (07:46)
[2022-05-28] MEDS: Dicyclomine HCl 10 MG CAPSULE 20 MG PO ×4 (07:46→20:57)
[2022-05-28] MEDS: Multivitamin TABLET 1 TAB PO (07:46)
[2022-05-28] MEDS: Losartan Potassium 50 MG TABLET 100 MG PO (07:46)
[2022-05-28] MEDS: Heparin Sodium,Porcine 5,000 UNIT/ML VIAL 5000 UNIT SUBCUT ×2 (07:46→21:02)
[2022-05-28] MEDS: Furosemide 20 MG TABLET PO (07:47)
[2022-05-28 11:00] VITALS: BP 160/72; PULSE 54; RESP 20; TEMP 36.9; O2SAT 91
[2022-05-28 11:01] LABS: Glucose, Whole Blood 189 mg/dL (60-115)
--- NOTE | 2022-05-28 14:21 | P.PNIM_ITS ---
Subjective Subjective Date of Service: 05/28/22 Interval History: seen and examined this morning Follow-up for hypertension Blood pressure still elevated but improving No chest pain, shortness of breath Review of Systems Review of Systems: Yes all other systems are reviewed and are negative Constitutional Constitutional: Denies chills and Denies fever(s) ENT Ears, Nose, Mouth, and Throat: Denies dizziness Cardiovascular Cardiovascular: Denies chest pain, Denies palpitations and Denies dyspnea Respiratory Respiratory: Denies cough and Denies dyspnea Gastrointestinal Gastrointestinal: Denies abdominal pain, Denies nausea and Denies vomiting Neurologic Neurologic: Denies dizziness Endocrine Endocrine: Denies palpitations Physical Exam Vital Signs: Vital Signs: Last Vital Signs Temp 98.4 F 05/28/22 11:00 Pulse 54 05/28/22 11:00 Resp 20 05/28/22 11:00 BP 160/72 H 05/28/22 11:00 Pulse Ox 91 L 05/28/22 11:00 O2 Del Method 05/28/22 11:00 BMI result Body Mass Index 31.1 Const: General: cooperative, comfortable, alert and awake Nutritional Appearance: overweight Orientation/consciousness: patient oriented x3 Resp: Other: scattered expiratory wheezing Effort & Inspection: normal respiratory effort and able to speak in complete sentences Cardio: Rate: regular rate Heart sounds: S1 normal heart sound present and S2 normal heart sound present GI: Inspection: No distended Palpation (GI): Soft to palpation and nontender Neuro: General: patient oriented x3 and CN's II-XI intact bilaterally Extrem: General: Yes no pedal edema Objective Data Active Medications Acetaminophen (Acetaminophen 325 Mg Tablet) 650 mg PO Q6H PRN PRN Reason: Pain, Mild (Pain Scale 1-3) Albuterol/Ipratropium (Albuterol/Iprat 2.5/0.5mg 3 Ml Ampul.Neb) 3 ml INHALE RQ6H PRN PRN Reason: shortness of breath/wheezing Amlodipine Besylate (Amlodipine Besylate 10 Mg Tablet) 10 mg PO DAILY [facility]; Protocol Last Admin: 05/28/22 07:45 Dose: 10 mg Documented By: TAYLER Atorvastatin Calcium (Atorvastatin Calcium 10 Mg Tablet) 10 mg PO DAILY [facility] Last Admin: 05/28/22 07:46 Dose: 10 mg Documented By: TAYLER Dextrose (Dextrose 50 % 25 Gm/50 Ml Syringe) 25 gm IVPUSH Q15M PRN; Protocol PRN Reason: per Hypoglycemia Standing Ord. Dicyclomine HCl (Dicyclomine Hcl 10 Mg Capsule) 20 mg PO QID [facility] Last Admin: 05/28/22 11:55 Dose: 20 mg Documented By: TAYLER Docusate Sodium (Docusate Sodium 100 Mg Capsule) 100 mg PO DAILY PRN PRN Reason: Constipation Famotidine (Famotidine 20 Mg Tablet) 40 mg PO DAILY [facility] Last Admin: 05/28/22 07:45 Dose: 40 mg Documented By: TAYLER Furosemide (Furosemide 20 Mg Tablet) 20 mg PO DAILY [facility]; Protocol Last Admin: 05/28/22 07:47 Dose: 20 mg Documented By: TAYLER Glucose (Glucose Gel 15 Gm Gel..Gram.) 15 gm PO Q15M PRN; Protocol PRN Reason: per Hypoglycemia Standing Ord. Heparin Sodium (Porcine) (Heparin Sodium,Porcine 5,000 Unit/Ml Vial) 5,000 unit SUBCUT Q12H [facility] Last Admin: 05/28/22 07:46 Dose: 5,000 unit Documented By: TAYLER Insulin Human Lispro (Insulin Lispro 100 Unit/Ml 3 Ml Vial) 0 unit SUBCUT QIDACHS [facility]; Protocol Last Admin: 05/28/22 11:55 Dose: 2 unit Documented By: TAYLER Losartan Potassium (Losartan Potassium 50 Mg Tablet) 100 mg PO DAILY [facility]; Protocol Last Admin: 05/28/22 07:46 Dose: 100 mg Documented By: TAYLER Multivitamins/Vitamin C (Multivitamin Tablet) 1 tab PO DAILY [facility] Last Admin: 05/28/22 07:46 Dose: 1 tab Documented By: TAYLER Omeprazole (Omeprazole 20 Mg Capsule.Dr) 20 mg PO DAILY@0630 [facility] Last Admin: 05/28/22 06:02 Dose: 20 mg Documented By: ABELARDO Ondansetron HCl (Ondansetron Hcl 4 Mg/2 Ml Vial) 4 mg IVPUSH Q8H PRN PRN Reason: Nausea and Vomiting Sodium Chloride (0.9 % Sodium Chloride Flush 3 Ml Syringe) 3 ml IVFLUSH QSHIFT [facility] Last Admin: 05/28/22 07:45 Dose: 3 ml Documented By: TAYLER Spironolactone (Spironolactone 25 Mg Tablet) 25 mg PO DAILY [facility]; Protocol Last Admin: 05/28/22 07:45 Dose: 25 mg Documented By: TAYLER Vitamin D (Cholecalciferol (Vitamin D3) 25 Mcg Tablet) 25 mcg PO DAILY [facility] Last Admin: 05/28/22 07:45 Dose: 25 mcg Documented By: TAYLER Labs CBC & Chem 7: 05/27/22 06:27 05/28/22 01:33 Labs: Laboratory Results - last 24 hr 05/27/22 05/27/22 05/28/22 16:20 19:12 01:33 Anion Gap 15 Estim Creat Clear Calc 66.0 Estimated GFR > 60 POC Glucose 119 H 127 H Random Glucose 154 H Calcium 9.1 Magnesium 2.1 05/28/22 05/28/22 07:14 10:56 Anion Gap Estim Creat Clear Calc Estimated GFR POC Glucose 152 H 189 H Random Glucose Calcium Magnesium Assessment and Plan (1) Hypertensive urgency: Status: Acute Plan 76-year-old female with past medical history of neuroendocrine tumor, hypertension, CHFpEF, diabetes presents to the hospital with bradycardia bradycardia asymptomatic HR improved. seen by cardiology - no specific treatment at this time avoid rate lowering medications hypertensive urgency. improving no evidence of end organ damage, asymptomatic home losartan resumed continue norvasc 10 mg, aldactone 25 mg added on this admission monitor BP closely diabetes sliding scale insulin diabetic diet CHFpEF no exacerbation continue home Lasix HLD continue statin neuroendorine pancreatic cancer with liver mets followed by dr. walker COPD prn randi DVT prophylaxis: Heparin subQ attending - dr. bojorquez requires ongoing inpatient hospitalization for management of uncontrolled hypertension Time Spent With Patient Time: Total time managing care of this patient today ____ minutes. Quality Stroke Does the patient have a stroke diagnosis?: No VTE Prior VTE?: No VTE Risk Level:: Medical - moderate - high VTE Device Contraindication: Treatment Not Indicated VTE Drug Contraindication: N/A - Med Ordered
[2022-05-28 15:17] VITALS: BP 133/66; PULSE 61; RESP 16; TEMP 36.2; O2SAT 92
[2022-05-28 16:06] LABS: Glucose, Whole Blood 129 mg/dL (60-115)
[2022-05-28 18:54] VITALS: BP 140/65; PULSE 86; RESP 16; TEMP 36.8; O2SAT 91
[2022-05-28 20:40] LABS: Glucose, Whole Blood 201 mg/dL (60-115)
[2022-05-29] VITALS: BP 138/64; PULSE 43; RESP 20; TEMP 36.8; O2SAT 92
[2022-05-29 04:00] VITALS: BP 140/68; PULSE 45; RESP 18; TEMP 36.8; O2SAT 92
[2022-05-29] MEDS: Omeprazole 20 MG CAPSULE.DR PO (06:17)
[2022-05-29 07:28] LABS: Glucose, Whole Blood 148 mg/dL (60-115)
[2022-05-29 07:36] VITALS: BP 176/80; PULSE 48; RESP 20; TEMP 36.8; O2SAT 91
[2022-05-29] MEDS: Famotidine 20 MG TABLET 40 MG PO (08:09)
[2022-05-29] MEDS: amLODIPine Besylate 10 MG TABLET PO (08:09)
[2022-05-29] MEDS: Furosemide 20 MG TABLET PO (08:09)
[2022-05-29] MEDS: Atorvastatin Calcium 10 MG TABLET PO (08:09)
[2022-05-29] MEDS: Heparin Sodium,Porcine 5,000 UNIT/ML VIAL 5000 UNIT SUBCUT ×3 (08:09→20:30)
[2022-05-29] MEDS: Losartan Potassium 50 MG TABLET 100 MG PO (08:09)
[2022-05-29] MEDS: Dicyclomine HCl 10 MG CAPSULE 20 MG PO ×5 (08:09→20:30)
[2022-05-29] MEDS: Cholecalciferol (Vitamin D3) 25 MCG TABLET PO (08:09)
[2022-05-29] MEDS: Multivitamin TABLET 1 TAB PO (08:09)
[2022-05-29] MEDS: Spironolactone 25 MG TABLET PO (08:09)
[2022-05-29] MEDS: 0.9 % Sodium Chloride Flush 3 ML SYRINGE IVFLUSH ×2 (08:10→16:05)
--- NOTE | 2022-05-29 08:22 | P.PNIM_ITS ---
Subjective Subjective Date of Service: 05/29/22 Interval History: seen and examined this morning Follow-up for hypertension Blood pressure still elevated No chest pain, shortness of breath Review of Systems no chest pain, no sob Physical Exam Vital Signs: Vital Signs: Last Vital Signs Temp 98.3 F 05/29/22 07:36 Pulse 48 L 05/29/22 07:36 Resp 20 05/29/22 07:36 BP 176/80 H 05/29/22 07:36 Pulse Ox 91 L 05/29/22 07:36 O2 Del Method 05/29/22 07:36 BMI result Body Mass Index 31.1 Const: Other: General: AO X 3, no acute distress Resp: CTA bilateral CVS: S1,S2,RRR GI: +BS, NT, no distention Skin: No rash Neuro: motor grossly intact Psych: appropriate affect Objective Data Active Medications Acetaminophen (Acetaminophen 325 Mg Tablet) 650 mg PO Q6H PRN PRN Reason: Pain, Mild (Pain Scale 1-3) Albuterol/Ipratropium (Albuterol/Iprat 2.5/0.5mg 3 Ml Ampul.Neb) 3 ml INHALE RQ6H PRN PRN Reason: shortness of breath/wheezing Amlodipine Besylate (Amlodipine Besylate 10 Mg Tablet) 10 mg PO DAILY [facility]; Protocol Last Admin: 05/29/22 08:09 Dose: 10 mg Documented By: TAYLER Atorvastatin Calcium (Atorvastatin Calcium 10 Mg Tablet) 10 mg PO DAILY [facility] Last Admin: 05/29/22 08:09 Dose: 10 mg Documented By: TAYLER Dextrose (Dextrose 50 % 25 Gm/50 Ml Syringe) 25 gm IVPUSH Q15M PRN; Protocol PRN Reason: per Hypoglycemia Standing Ord. Dicyclomine HCl (Dicyclomine Hcl 10 Mg Capsule) 20 mg PO QID [facility] Last Admin: 05/29/22 08:09 Dose: 20 mg Documented By: TAYLER Docusate Sodium (Docusate Sodium 100 Mg Capsule) 100 mg PO DAILY PRN PRN Reason: Constipation Famotidine (Famotidine 20 Mg Tablet) 40 mg PO DAILY [facility] Last Admin: 05/29/22 08:09 Dose: 40 mg Documented By: TAYLER Furosemide (Furosemide 20 Mg Tablet) 20 mg PO DAILY [facility]; Protocol Last Admin: 05/29/22 08:09 Dose: 20 mg Documented By: TAYLER Glucose (Glucose Gel 15 Gm Gel..Gram.) 15 gm PO Q15M PRN; Protocol PRN Reason: per Hypoglycemia Standing Ord. Heparin Sodium (Porcine) (Heparin Sodium,Porcine 5,000 Unit/Ml Vial) 5,000 unit SUBCUT Q12H [facility] Last Admin: 05/29/22 08:09 Dose: 5,000 unit Documented By: TAYLER Insulin Human Lispro (Insulin Lispro 100 Unit/Ml 3 Ml Vial) 0 unit SUBCUT QIDACHS [facility]; Protocol Last Admin: 05/29/22 07:32 Dose: Not Given Documented By: TAYLER Non-Admin Reason: No Insulin Coverage Losartan Potassium (Losartan Potassium 50 Mg Tablet) 100 mg PO DAILY [facility]; Protocol Last Admin: 05/29/22 08:09 Dose: 100 mg Documented By: TAYLER Multivitamins/Vitamin C (Multivitamin Tablet) 1 tab PO DAILY [facility] Last Admin: 05/29/22 08:09 Dose: 1 tab Documented By: TAYLER Omeprazole (Omeprazole 20 Mg Capsule.Dr) 20 mg PO DAILY@0630 [facility] Last Admin: 05/29/22 06:17 Dose: 20 mg Documented By: ABELARDO Ondansetron HCl (Ondansetron Hcl 4 Mg/2 Ml Vial) 4 mg IVPUSH Q8H PRN PRN Reason: Nausea and Vomiting Sodium Chloride (0.9 % Sodium Chloride Flush 3 Ml Syringe) 3 ml IVFLUSH QSHIFT [facility] Last Admin: 05/29/22 08:10 Dose: 3 ml Documented By: TAYLER Spironolactone (Spironolactone 25 Mg Tablet) 25 mg PO DAILY [facility]; Protocol Last Admin: 05/29/22 08:09 Dose: 25 mg Documented By: TAYLER Vitamin D (Cholecalciferol (Vitamin D3) 25 Mcg Tablet) 25 mcg PO DAILY [facility] Last Admin: 05/29/22 08:09 Dose: 25 mcg Documented By: TAYLER Labs CBC & Chem 7: 05/27/22 06:27 05/28/22 01:33 Labs: Laboratory Results - last 24 hr 05/28/22 05/28/22 05/28/22 10:56 15:20 18:57 POC Glucose 189 H 129 H 201 H 05/29/22 07:22 POC Glucose 148 H Assessment and Plan (1) Hypertensive urgency: Status: Acute (2) Bradycardia, sinus: Status: Acute Plan 76-year-old female with past medical history of neuroendocrine tumor, hypertension, CHFpEF, diabetes presents to the hospital with bradycardia bradycardia asymptomatic HR improved to 60 to 80 even and now back in40s seen by cardiology - no specific treatment at this time avoid rate lowering medications hypertensive urgency. improving no evidence of end organ damage, asymptomatic home losartan resumed continue norvasc 10 mg, aldactone 25 mg added on this admission , adding Hydralazine 25 tid today monitor BP closely diabetes sliding scale insulin diabetic diet CHFpEF no exacerbation continue home Lasix HLD continue statin neuroendorine pancreatic cancer with liver mets followed by dr. walker COPD prn randi DVT prophylaxis: Heparin subQ requires ongoing inpatient hospitalization for management of uncontrolled hypertension Time Spent With Patient Time: Total time managing care of this patient today ____ minutes. Quality Stroke Does the patient have a stroke diagnosis?: No VTE Prior VTE?: No VTE Risk Level:: Medical - moderate - high VTE Device Contraindication: Treatment Not Indicated VTE Drug Contraindication: N/A - Med Ordered
--- NOTE | 2022-05-29 10:29 | PM.PNCARD ---
Subjective Subjective Date of Service: 05/29/22 Interval history: She states she feels okay. No specific cardiac complaints. Review of Systems Review of Systems Yes all other systems are reviewed and are negative Constitutional: Reports as per HPI Eyes: Reports as per HPI Reports as per HPI Cardiovascular: Reports as per HPI, Denies acrocyanosis, Denies cool extremities, Denies chest pain, Denies leg edema, Denies lightheadedness, Denies palpitations and Denies dyspnea Respiratory: Reports as per HPI, Reports no additional respiratory complaints and Denies dyspnea Gastrointestinal: Reports as per HPI and Reports no additional gastrointestinal complaints Genitourinary: Reports as per HPI Musculoskeletal: Reports no additional musculoskeletal complaints and Reports as per HPI Skin/Breast: Reports system reviewed and no additional complaints, except as docu Reports system reviewed and no additional complaints, except as documented and Reports as per HPI Psychiatric: Reports no additional psychiatric complaints and Reports as per HPI Endocrine: Reports no additional endocrine complaints, Reports as per HPI and Denies palpitations Hematologic/Lymphatic: Reports no additional hematologic/lymphatic complaints and Reports as per HPI Allergic/Immunologic: Reports no additional allergic/immunologic complaints and Reports as per HPI Physical Exam Vital Signs: Last Vital Signs Temp 98.3 F 05/29/22 07:36 Pulse 48 L 05/29/22 07:36 Resp 20 05/29/22 07:36 BP 176/80 H 05/29/22 07:36 Pulse Ox 91 L 05/29/22 07:36 O2 Del Method 05/29/22 07:36 BMI result Body Mass Index 31.1 Const General: comfortable and no acute distress Orientation/consciousness: patient oriented x3 HEENT Other: Unremarkable Head: Yes normal to inspection Neck Neck: Yes normal visual inspection Chest Chest palpation & inspection: normal inspection of the chest Resp Other: Scattered wheeze. Cardio Palpation: normal PMI Heart sounds: S1 normal heart sound present, S2 normal heart sound present, no gallops, no murmurs and no rubs GI Palpation (GI): Soft to palpation Back/Spine/Pelvis Other: unremarkable Skin General skin exam: no rashes or lesions noted Neuro General: patient oriented x3 Extrem General: Yes normal to inspection Psych Mental Status: mental status grossly normal Objective Labs and Meds Result diagrams: 05/27/22 06:27 05/28/22 01:33 Lab results: Laboratory Results - last 24 hr 1205/28/22 05/28/22 10:56 15:20 18:57 POC Glucose 189 H 129 H 201 H 05/29/22 07:22 POC Glucose 148 H Progress Note: A&P Assessment and plan (1) Bradycardia, sinus: Status: Acute Assessment and Plan: Mild sinus bradycardia with heart rate in the upper 40s on telemetry. During nighttime, somewhat slower. She has no dizziness or presyncopal type symptoms. Not on any rate slowing agents. Can be monitored as an outpatient but no need for pacemaker at this time. (2) Hypertensive urgency: Status: Acute Assessment and Plan: Blood pressures are still high. S today's pressures are in the 160s, 180s, someone 90s. Overnight, seem improved. Today it is again the 170s. Currently on amlodipine, losartan at full dose. Also was started on spironolactone. Next step would be to add hydralazine. (3) (HFpEF) heart failure with preserved ejection fraction: Status: Acute Assessment and Plan: No clinical volume overload. Continue Lasix. Plan Discussed with Dr. Farley. Time Spent With Patient Time: Total time managing care of this patient today 35 minutes. Progress Note: Quality Stroke Does the patient have a stroke diagnosis?: No Procedures Date of Service Date of Service: 05/29/22
[2022-05-29 11:09] LABS: Glucose, Whole Blood 254 mg/dL (60-115)
[2022-05-29] MEDS: Insulin Lispro 100 UNIT/ML 3 ML VIAL SUBCUT ×2 (11:15→20:41)
[2022-05-29 11:56] VITALS: BP 154/78; PULSE 52; RESP 20; TEMP 37.1; O2SAT 93
[2022-05-29] MEDS: hydrALAZINE HCl 25 MG TABLET PO ×3 (12:06→20:30)
[2022-05-29 15:49] VITALS: BP 137/70; PULSE 60; RESP 16; TEMP 36.2; O2SAT 92
[2022-05-29 15:56] LABS: Glucose, Whole Blood 121 mg/dL (60-115)
[2022-05-29 20:00] VITALS: BP 148/62; PULSE 39; RESP 18; TEMP 36.3; O2SAT 92
[2022-05-29 20:44] LABS: Glucose, Whole Blood 243 mg/dL (60-115)
[2022-05-30] VITALS (7 sets, daily range): BP systolic 122–174; BP diastolic 58–85; PULSE 43–69; RESP 16–20; TEMP 36.3–37.1; O2SAT 90–95
[2022-05-30] MEDS: 0.9 % Sodium Chloride Flush 3 ML SYRINGE IVFLUSH ×4 (02:10→20:32)
[2022-05-30] MEDS: Omeprazole 20 MG CAPSULE.DR PO (05:12)
[2022-05-30 07:46] LABS: Glucose, Whole Blood 112 mg/dL (60-115)
[2022-05-30] MEDS: Famotidine 20 MG TABLET 40 MG PO (07:58)
[2022-05-30] MEDS: Losartan Potassium 50 MG TABLET 100 MG PO (07:58)
[2022-05-30] MEDS: Furosemide 20 MG TABLET PO (07:58)
[2022-05-30] MEDS: amLODIPine Besylate 10 MG TABLET PO (07:58)
[2022-05-30] MEDS: Cholecalciferol (Vitamin D3) 25 MCG TABLET PO (07:58)
[2022-05-30] MEDS: Dicyclomine HCl 10 MG CAPSULE 20 MG PO ×4 (07:58→20:31)
[2022-05-30] MEDS: hydrALAZINE HCl 25 MG TABLET PO ×3 (07:58→20:30)
[2022-05-30] MEDS: Spironolactone 25 MG TABLET PO (07:59)
[2022-05-30] MEDS: Atorvastatin Calcium 10 MG TABLET PO (07:59)
[2022-05-30] MEDS: Multivitamin TABLET 1 TAB PO (07:59)
[2022-05-30] MEDS: Heparin Sodium,Porcine 5,000 UNIT/ML VIAL 5000 UNIT SUBCUT ×2 (08:03→20:31)
--- NOTE | 2022-05-30 08:40 | HO.PM.IMPN ---
Subjective Subjective Date of Service: 05/30/22 Interval History: seen and examined this morning Follow-up for hypertension Blood pressure still elevated No chest pain, shortness of breath Review of Systems no chest pain, no sob Physical Exam Vital Signs: Vital Signs: Last Vital Signs Temp 98.4 F 05/30/22 07:51 Pulse 48 L 05/30/22 07:51 Resp 18 05/30/22 07:51 BP 174/85 H 05/30/22 07:51 Pulse Ox 93 05/30/22 07:51 O2 Del Method 05/30/22 07:51 BMI result Body Mass Index 31.1 Const: Other: General: AO X 3, no acute distress Resp: CTA bilateral CVS: S1,S2,RRR GI: +BS, NT, no distention Skin: No rash Neuro: motor grossly intact Psych: appropriate affect Objective Data Active Medications Acetaminophen (Acetaminophen 325 Mg Tablet) 650 mg PO Q6H PRN PRN Reason: Pain, Mild (Pain Scale 1-3) Albuterol/Ipratropium (Albuterol/Iprat 2.5/0.5mg 3 Ml Ampul.Neb) 3 ml INHALE RQ6H PRN PRN Reason: shortness of breath/wheezing Amlodipine Besylate (Amlodipine Besylate 10 Mg Tablet) 10 mg PO DAILY [facility]; Protocol Last Admin: 05/30/22 07:58 Dose: 10 mg Documented By: TAYLER Atorvastatin Calcium (Atorvastatin Calcium 10 Mg Tablet) 10 mg PO DAILY [facility] Last Admin: 05/30/22 07:59 Dose: 10 mg Documented By: TAYLER Dextrose (Dextrose 50 % 25 Gm/50 Ml Syringe) 25 gm IVPUSH Q15M PRN; Protocol PRN Reason: per Hypoglycemia Standing Ord. Dicyclomine HCl (Dicyclomine Hcl 10 Mg Capsule) 20 mg PO QID [facility] Last Admin: 05/30/22 07:58 Dose: 20 mg Documented By: TAYLER Docusate Sodium (Docusate Sodium 100 Mg Capsule) 100 mg PO DAILY PRN PRN Reason: Constipation Famotidine (Famotidine 20 Mg Tablet) 40 mg PO DAILY [facility] Last Admin: 05/30/22 07:58 Dose: 40 mg Documented By: TAYLER Furosemide (Furosemide 20 Mg Tablet) 20 mg PO DAILY [facility]; Protocol Last Admin: 05/30/22 07:58 Dose: 20 mg Documented By: TAYLER Glucose (Glucose Gel 15 Gm Gel..Gram.) 15 gm PO Q15M PRN; Protocol PRN Reason: per Hypoglycemia Standing Ord. Heparin Sodium (Porcine) (Heparin Sodium,Porcine 5,000 Unit/Ml Vial) 5,000 unit SUBCUT Q12H [facility] Last Admin: 05/30/22 08:03 Dose: 5,000 unit Documented By: TAYLER Hydralazine HCl (Hydralazine Hcl 25 Mg Tablet) 25 mg PO TID [facility]; Protocol Last Admin: 05/30/22 07:58 Dose: 25 mg Documented By: TAYLER Insulin Human Lispro (Insulin Lispro 100 Unit/Ml 3 Ml Vial) 0 unit SUBCUT QIDACHS [facility]; Protocol Last Admin: 05/30/22 07:46 Dose: Not Given Documented By: TAYLER Non-Admin Reason: No Insulin Coverage Losartan Potassium (Losartan Potassium 50 Mg Tablet) 100 mg PO DAILY [facility]; Protocol Last Admin: 05/30/22 07:58 Dose: 100 mg Documented By: TAYLER Multivitamins/Vitamin C (Multivitamin Tablet) 1 tab PO DAILY [facility] Last Admin: 05/30/22 07:59 Dose: 1 tab Documented By: TAYLER Omeprazole (Omeprazole 20 Mg Capsule.Dr) 20 mg PO DAILY@0630 [facility] Last Admin: 05/30/22 05:12 Dose: 20 mg Documented By: JANIA Ondansetron HCl (Ondansetron Hcl 4 Mg/2 Ml Vial) 4 mg IVPUSH Q8H PRN PRN Reason: Nausea and Vomiting Sodium Chloride (0.9 % Sodium Chloride Flush 3 Ml Syringe) 3 ml IVFLUSH QSHIFT [facility] Last Admin: 05/30/22 07:58 Dose: 3 ml Documented By: TAYLER Spironolactone (Spironolactone 25 Mg Tablet) 25 mg PO DAILY [facility]; Protocol Last Admin: 05/30/22 07:59 Dose: 25 mg Documented By: TAYLER Vitamin D (Cholecalciferol (Vitamin D3) 25 Mcg Tablet) 25 mcg PO DAILY [facility] Last Admin: 05/30/22 07:58 Dose: 25 mcg Documented By: TAYLER Labs CBC & Chem 7: 05/27/22 06:27 05/28/22 01:33 Labs: Laboratory Results - last 24 hr 05/29/22 05/29/22 05/29/22 11:04 15:52 20:39 POC Glucose 254 H 121 H 243 H 05/30/22 07:38 POC Glucose 112 Assessment and Plan (1) Hypertensive urgency: Status: Acute (2) Bradycardia, sinus: Status: Acute Plan 76-year-old female with past medical history of neuroendocrine tumor, hypertension, CHFpEF, diabetes presents to the hospital with bradycardia bradycardia asymptomatic HR improved to 60 to 80 even and now back in40s seen by cardiology - no indication for pacemaker at this time avoid rate lowering medications hypertensive urgency. improving no evidence of end organ damage, asymptomatic home losartan resumed continue norvasc 10 mg, aldactone 25 mg added on this admission , adding Hydralazine 25 tid today, if persitently high increase hydralazine monitor BP closely diabetes sliding scale insulin diabetic diet CHFpEF no exacerbation continue home Lasix HLD continue statin neuroendorine pancreatic cancer with liver mets followed by dr. walker COPD prn randi DVT prophylaxis: Heparin subQ requires ongoing inpatient hospitalization for management of uncontrolled hypertension Time Spent With Patient Time: Total time managing care of this patient today ____ minutes. Quality Stroke Does the patient have a stroke diagnosis?: No VTE Prior VTE?: No VTE Risk Level:: Medical - moderate - high VTE Device Contraindication: Treatment Not Indicated VTE Drug Contraindication: N/A - Med Ordered
[2022-05-30 12:18] LABS: Glucose, Whole Blood 187 mg/dL (60-115)
[2022-05-30] MEDS: Insulin Lispro 100 UNIT/ML 3 ML VIAL SUBCUT ×2 (12:54→20:40)
--- NOTE | 2022-05-30 15:05 | PM.PNCARD ---
Subjective Subjective Date of Service: 05/30/22 Interval history: Seen and examined at bedside. Continues to have bradycardia but she is asymptomatic. Blood pressure has been elevated and she was started on hydralazine today with improvement in blood pressure. She has been wheezing. Physical Exam Vital Signs: Last Vital Signs Temp 97.3 F 05/30/22 11:43 Pulse 52 05/30/22 11:43 Resp 16 05/30/22 11:43 BP 132/68 05/30/22 12:18 Pulse Ox 90 L 05/30/22 11:43 O2 Del Method 05/30/22 11:43 BMI result Body Mass Index 31.1 GENERAL APPEARANCE: in no acute distress, pleasant. NECK: no carotid bruit, no jugular venous distention. SKIN: no suspicious lesions, warm and dry. HEART: no murmurs, regular rate and rhythm. LUNGS: Bilateral expiratory wheezes. ABDOMEN: soft, nontender. EXTREMITIES: no edema. PERIPHERAL PULSES: equal. NEUROLOGIC: No gross deficits, AAO X 3 Objective Labs and Meds Result diagrams: 05/27/22 06:27 05/28/22 01:33 Lab results: Laboratory Results - last 24 hr 05/29/22 05/29/22 05/30/22 15:52 20:39 07:38 POC Glucose 121 H 243 H 112 05/30/22 11:26 POC Glucose 187 H Progress Note: A&P Assessment and plan (1) Bradycardia, sinus: Status: Acute (2) Essential hypertension: Status: Acute Plan 76-year-old female presenting with asymptomatic sinus bradycardia. Heart rates between 40s to 50s. At time transiently has been noticed to be in 30s. Completely asymptomatic. Blood pressure is elevated and we have been titrating medications. She has been started on hydralazine 25 mg 3 times a day and overall blood pressure control today is better than before. Stop the famotidine. H2 blockers can sometimes lead to bradycardia. Omeprazole can be use alternatively. She is wheezing on examination. Difficult to say whether this is heart failure versus COPD/asthma. Does not look significantly volume overloaded. Consider chest x-ray to see if there is any changes consistent with CHF. Please walk the hallways with RN or PCT to see how the heart rate response to exercise. If with activity heart rate improves and goes up then that is a great sign and she does not require any further inpatient workup. Thank you for allowing me to participate in the care of your patient. Please feel free to contact me if you have any questions. Time Spent With Patient Time: Total time managing care of this patient today ____ minutes. Progress Note: Quality Stroke Does the patient have a stroke diagnosis?: No Procedures Date of Service Date of Service: 05/30/22
[2022-05-30 16:28] LABS: Glucose, Whole Blood 91 mg/dL (60-115)
--- NOTE | 2022-05-30 19:23 | PC.NURSE ---
Pt ambulated in hallway with this RN, heart rate went up to 75 upon ambulation. Prior to ambulation heart rate in the 50s.
[2022-05-30 20:41] LABS: Glucose, Whole Blood 196 mg/dL (60-115)
[2022-05-31] VITALS: BP 180/82; PULSE 35; RESP 16; TEMP 35.9; O2SAT 93
[2022-05-31 03:18] VITALS: BP 170/76; PULSE 31; RESP 20; TEMP 36.1; O2SAT 92
[2022-05-31] MEDS: Omeprazole 20 MG CAPSULE.DR PO (05:35)
[2022-05-31 07:29] VITALS: BP 202/78; PULSE 45; RESP 20; TEMP 36.2; O2SAT 95
[2022-05-31] MEDS: 0.9 % Sodium Chloride Flush 3 ML SYRINGE IVFLUSH (07:55)
[2022-05-31] MEDS: Spironolactone 25 MG TABLET PO (07:56)
[2022-05-31] MEDS: Cholecalciferol (Vitamin D3) 25 MCG TABLET PO (07:56)
[2022-05-31] MEDS: Losartan Potassium 50 MG TABLET 100 MG PO (07:56)
[2022-05-31] MEDS: amLODIPine Besylate 10 MG TABLET PO (07:56)
[2022-05-31] MEDS: Furosemide 20 MG TABLET PO (07:56)
[2022-05-31] MEDS: Multivitamin TABLET 1 TAB PO (07:56)
[2022-05-31] MEDS: Dicyclomine HCl 10 MG CAPSULE 20 MG PO ×2 (07:57→14:38)
[2022-05-31] MEDS: hydrALAZINE HCl 25 MG TABLET PO (07:57)
[2022-05-31] MEDS: Atorvastatin Calcium 10 MG TABLET PO (07:57)
[2022-05-31] MEDS: Heparin Sodium,Porcine 5,000 UNIT/ML VIAL 5000 UNIT SUBCUT (07:57)
[2022-05-31 07:58] LABS: Glucose, Whole Blood 144 mg/dL (60-115)
[2022-05-31 10:00] VITALS: BP 150/60; PULSE 47; RESP 16
--- NOTE | 2022-05-31 10:10 | PC.NURSE ---
IVP HYDRALAZINE ORDERED FOR SBP > 200, REASSESSED MANUALLY - 150/60. DR DEJESUS MADE AWARE - HYDRALAZINE HELD.
--- NOTE | 2022-05-31 11:15 | HO.PM.IMPN ---
Subjective Subjective Date of Service: 05/31/22 Interval History: seen and examined this morning Follow-up for hypertension Blood pressure still elevated No chest pain, shortness of breath Review of Systems no chest pain, no sob Physical Exam Vital Signs: Vital Signs: Last Vital Signs Temp 97.1 F 05/31/22 07:29 Pulse 47 L 05/31/22 10:00 Resp 16 05/31/22 10:00 BP 150/60 H 05/31/22 10:00 Pulse Ox 95 05/31/22 07:29 O2 Del Method 05/31/22 07:29 BMI result Body Mass Index 31.1 Const: Other: General: AO X 3, no acute distress Resp: CTA bilateral CVS: S1,S2,RRR GI: +BS, NT, no distention Skin: No rash Neuro: motor grossly intact Psych: appropriate affect Objective Data Active Medications Acetaminophen (Acetaminophen 325 Mg Tablet) 650 mg PO Q6H PRN PRN Reason: Pain, Mild (Pain Scale 1-3) Albuterol/Ipratropium (Albuterol/Iprat 2.5/0.5mg 3 Ml Ampul.Neb) 3 ml INHALE RQ6H PRN PRN Reason: shortness of breath/wheezing Amlodipine Besylate (Amlodipine Besylate 10 Mg Tablet) 10 mg PO DAILY [facility]; Protocol Last Admin: 05/31/22 07:56 Dose: 10 mg Documented By: KIARA Atorvastatin Calcium (Atorvastatin Calcium 10 Mg Tablet) 10 mg PO DAILY [facility] Last Admin: 05/31/22 07:57 Dose: 10 mg Documented By: KIARA Dextrose (Dextrose 50 % 25 Gm/50 Ml Syringe) 25 gm IVPUSH Q15M PRN; Protocol PRN Reason: per Hypoglycemia Standing Ord. Dicyclomine HCl (Dicyclomine Hcl 10 Mg Capsule) 20 mg PO QID [facility] Last Admin: 05/31/22 07:57 Dose: 20 mg Documented By: KIARA Docusate Sodium (Docusate Sodium 100 Mg Capsule) 100 mg PO DAILY PRN PRN Reason: Constipation Furosemide (Furosemide 20 Mg Tablet) 20 mg PO DAILY [facility]; Protocol Last Admin: 05/31/22 07:56 Dose: 20 mg Documented By: KIARA Glucose (Glucose Gel 15 Gm Gel..Gram.) 15 gm PO Q15M PRN; Protocol PRN Reason: per Hypoglycemia Standing Ord. Heparin Sodium (Porcine) (Heparin Sodium,Porcine 5,000 Unit/Ml Vial) 5,000 unit SUBCUT Q12H [facility] Last Admin: 05/31/22 07:57 Dose: 5,000 unit Documented By: KAIRA Hydralazine HCl (Hydralazine Hcl 25 Mg Tablet) 25 mg PO TID [facility]; Protocol Last Admin: 05/31/22 07:57 Dose: 25 mg Documented By: KIARA Insulin Human Lispro (Insulin Lispro 100 Unit/Ml 3 Ml Vial) 0 unit SUBCUT QIDACHS [facility]; Protocol Last Admin: 05/31/22 08:09 Dose: Not Given Documented By: KIARA Non-Admin Reason: No Insulin Coverage Losartan Potassium (Losartan Potassium 50 Mg Tablet) 100 mg PO DAILY [facility]; Protocol Last Admin: 05/31/22 07:56 Dose: 100 mg Documented By: KIARA Multivitamins/Vitamin C (Multivitamin Tablet) 1 tab PO DAILY [facility] Last Admin: 05/31/22 07:56 Dose: 1 tab Documented By: KIARA Omeprazole (Omeprazole 20 Mg Capsule.Dr) 20 mg PO DAILY@0630 [facility] Last Admin: 05/31/22 05:35 Dose: 20 mg Documented By: JANIA Ondansetron HCl (Ondansetron Hcl 4 Mg/2 Ml Vial) 4 mg IVPUSH Q8H PRN PRN Reason: Nausea and Vomiting Sodium Chloride (0.9 % Sodium Chloride Flush 3 Ml Syringe) 3 ml IVFLUSH QSHIFT [facility] Last Admin: 05/31/22 07:55 Dose: 3 ml Documented By: KIARA Spironolactone (Spironolactone 25 Mg Tablet) 25 mg PO DAILY [facility]; Protocol Last Admin: 05/31/22 07:56 Dose: 25 mg Documented By: KIARA Vitamin D (Cholecalciferol (Vitamin D3) 25 Mcg Tablet) 25 mcg PO DAILY [facility] Last Admin: 05/31/22 07:56 Dose: 25 mcg Documented By: KIARA Labs CBC & Chem 7: 05/27/22 06:27 05/28/22 01:33 Labs: Laboratory Results - last 24 hr 05/30/22 05/30/22 05/30/22 11:26 15:22 20:37 POC Glucose 187 H 91 196 H 05/31/22 07:30 POC Glucose 144 H Assessment and Plan (1) Hypertensive urgency: Status: Acute (2) Bradycardia, sinus: Status: Acute Plan 76-year-old female with past medical history of neuroendocrine tumor, hypertension, CHFpEF, diabetes presents to the hospital with bradycardia bradycardia asymptomatic HR improved to 60 to 80 even and now back in40s, definately goes up with ambulation into 70s seen by cardiology - no indication for pacemaker at this time avoid rate lowering medications hypertensive urgency, improved BP 150/60 accepatable no evidence of end organ damage, asymptomatic home losartan resumed continue norvasc 10 mg, aldactone 25 mg added on this admission , adding Hydralazine 25 tid today, if persitently high increase hydralazine monitor BP closely diabetes sliding scale insulin diabetic diet CHFpEF no exacerbation continue home Lasix HLD continue statin neuroendorine pancreatic cancer with liver mets followed by dr. walker COPD prn randi DVT prophylaxis: Heparin subQ requires ongoing inpatient hospitalization for management of uncontrolled hypertension possibly home today Time Spent With Patient Time: Total time managing care of this patient today ____ minutes. Quality Stroke Does the patient have a stroke diagnosis?: No VTE Prior VTE?: No VTE Risk Level:: Medical - moderate - high VTE Device Contraindication: Treatment Not Indicated VTE Drug Contraindication: N/A - Med Ordered
[2022-05-31 11:30] VITALS: BP 129/76; PULSE 45; RESP 20; TEMP 36.2; O2SAT 91
[2022-05-31 11:45] LABS: Glucose, Whole Blood 144 mg/dL (60-115)
--- NOTE | 2022-05-31 14:26 | P.DS_ITS ---
DS: Providers Provider Date of Service: 05/31/22 Date of admission: 05/26/22 20:13 Primary care physician: Kaitlyn Soto MD Consults: 05/26/22 20:12 Consult to Cardiology Routine Consulting Provider: Hernando Mari Reason for consultation: bradycardia Has provider been notified: Yes DS: Diagnosis Discharge Diagnosis (1) Hypertensive urgency: Status: Resolved (2) Bradycardia, sinus: Status: Acute DS: Summary Hospital Course Hospital Course: Chief Complaint:? slow heart rate ?76-year-old female with past medical history of heart failure with preserved ejection fraction, COPD, diabetes, dyslipidemia, HTN, IBS, neuroendocrine cancer, who comes into the hospital after being seen at her oncologist's office and found to have a slow heart rate.? Patient herself denies any dizziness, reports chronic shortness of breath with no worsening shortness of breath, reports no palpitations, denies having any chest pain, no headache or change in vision.? denies any chest pain, no abdominal pain,? no nausea or vomiting, no urinary symptoms and no lower extremity edema.? Denies any orthopnea or PND.? On arrival to the ED patient found to have a heart rate in the 30s, blood pressure of 211/79, reports compliance with her antihypertensives Labs are significant for? sodium of 146, chloride of 110, BNP of 149, troponin negative, UA negative, viral? serology negative Chest x-ray shows no acute intrathoracic abnormality ?EKG shows sinus bradycardia Case was discussed with Cardiology, patient will be admitted for further m anagement Hospital course: Patient was seen in oncology follow up and found to have slow HR but assymptomatic and was sent to the ED and also noted to have accelerated HTN with BP 210 over 95. She has no sinus pause, upon admission was on continous cardiac monitoring with persistent bradycardia but no pauses HR usually in 40s and goes up to 70s upon activity. She has been evluated by cardiology and given no symptoms and no pauses and good respond with exertion no pace maker selin be inserted at this time and will likely need more monitoring on outpatient basis. Cardiology will arrange this. As for blood pressure, she was on Losartan 100 mg daily and additional meds have been added to finally achieve good BP control. We added Aldactone 25 mg daily, Norvasc 10 mg daily and Hydralazine 25 mg 3 times a day and also to continue usual dose of lasix. to continue all other home meds. Final diagnoses Hypertensive crisis Sinus bradycardia Chronic diastolic heart failure Diabetes HLD Time Spent with Patient Time attestation: Total time managing care of this patient today ____ minutes. Discharge coordination time: Greater than 30 minutes Quality: Safe Use of Opioids Does Pt have an Active Cancer Diagnosis on the Problem List?: Yes Opioid Measure Date for [facility] Report: 06/01/22 Opioid Measure Time for [facility] Report: 08:12 Quality: Stroke Does the patient have a stroke diagnosis?: No Physical Exam Vital Signs: Vital Signs: Last Vital Signs Temp 97.1 F 05/31/22 11:30 Pulse 45 L 05/31/22 11:30 Resp 20 05/31/22 11:30 BP 129/76 05/31/22 11:30 Pulse Ox 91 L 05/31/22 11:30 O2 Del Method 05/31/22 11:30 BMI result Body Mass Index 31.1 Const: Other: General: AO X 3, no acute distress Resp: CTA bilateral CVS: S1,S2,RRR GI: +BS, NT, no distention Skin: No rash Neuro: motor grossly intact Psych: appropriate affect DS: Data Data Completed and Pending Labs on day of discharge: Laboratory Results - last 24 hr 05/30/22 05/30/22 05/31/22 15:22 20:37 07:30 POC Glucose 91 196 H 144 H 05/31/22 11:33 POC Glucose 144 H Discharge Plan Discharge Anticipated Discharge Date/Time: 05/31/22 14:14 Patient Disposition: Home Health Service Discharge Diagnosis: Hypertension crisis, Bradycardia, Referrals: marcie [Other] - 1 Week Kaitlyn Soto MD [Primary Care Provider] - 1 Week Discharge Medications: New spironolactone 25 mg Tablet 25 mg PO DAILY Qty: 30 0RF Protocol: Hold for SBP< HOLD for SBP < : 90 Continued omeprazole 20 mg capsule,delayed release(DR/EC) 1 cap PO DAILY omega-3 fatty acids-fish oil [Fish Oil] 360-1,200 mg capsule 1 cap PO DAILY [id number] Tablet 1 tab PO DAILY cholecalciferol (vitamin D3) 25 mcg (1,000 unit) tablet,chewable 25 mcg PO DAILY No Action furosemide 20 mg tablet 20 mg PO DAILY Qty: 30 0RF hydralazine 25 mg tablet 25 mg PO TID Qty: 90 0RF Protocol: Hold for SBP< HOLD for SBP < : 90 amlodipine 10 mg tablet 10 mg PO DAILY Qty: 30 0RF Protocol: Hold for SBP< HOLD for SBP < : 90 fluticasone propion-salmeterol [Wixela Inhub] 250-50 mcg/dose blister with device 1 inh inhalation BID Qty: 60 5RF Discharge Orders: Discharge Order (Routine); Ordered 05/31/22 Ordered By: Mil Farley Diet: Advance to usual diet Activity on Discharge: As tolerated Stand Alone Forms: Patient Portal Discharge page Care Plan Goals: Control of blood pressure and heart rate Health Concerns: Uncontrolled blood pressure low Heart rate Plan of Treatment: Take all medication as prescribed New medication include: Norvasc 10 mg daily, Hydralazine 25 mg 3 times day,Aldactone 25 mg daily and continue Losartan and Lasix Visiting nurse will assess you at home go see your own Doctor in 1 week Assessment: As above Discharge Date/Time: 05/31/22 17:10
--- NOTE | 2022-05-31 14:40 | W.MHC.F2F ---
Service Date Service Date: 05/31/22 Encounter Date of encounter: 05/31/22 Reasons for Services Signs and symptoms assessed: Bradycardia Reason for custodial: medication management, medication treatment and teach disease management Homebound: Leaving the home is medically contraindicated at this time without the asist of a device and/or another person due th the listed conditions above and below. Reason homebound: fall risk related to blood pressure changes Certification: Based on the above findings, I certify that this patient is confined to the home and needs intermittent custodial care, physical therapy and/or speech therapy, or continues to need occupational therapy. The patient is under my care, and I have initiated the establishment of the plan of care. The patient will be followed by a physician who will periodically review the plan of care. Time Spent With Patient Time: Total time managing care of this patient today ____ minutes.
--- NOTE | 2022-05-31 14:52 | PM.PNCARD ---
Subjective Subjective Date of Service: 05/31/22 Interval history: Seen examined at bedside. Doing well. Blood pressure was high in the morning since she received her medication blood pressure is improving. Continues to be bradycardic but with ambulation heart rate increased to 70s yesterday. No dizziness or syncope. Physical Exam Vital Signs: Last Vital Signs Temp 97.1 F 05/31/22 11:30 Pulse 45 L 05/31/22 11:30 Resp 20 05/31/22 11:30 BP 129/76 05/31/22 11:30 Pulse Ox 91 L 05/31/22 11:30 O2 Del Method 05/31/22 11:30 BMI result Body Mass Index 31.1 GENERAL APPEARANCE: in no acute distress, pleasant. NECK: no carotid bruit, no jugular venous distention. SKIN: no suspicious lesions, warm and dry. HEART: no murmurs, regular rate and rhythm. LUNGS: Mild end expiratory wheezes. ABDOMEN: soft, nontender. EXTREMITIES: no edema. PERIPHERAL PULSES: equal. NEUROLOGIC: No gross deficits, AAO X 3 Objective Labs and Meds Result diagrams: 05/27/22 06:27 05/28/22 01:33 Lab results: Laboratory Results - last 24 hr 05/30/22 05/30/22 05/31/22 15:22 20:37 07:30 POC Glucose 91 196 H 144 H 05/31/22 11:33 POC Glucose 144 H Progress Note: A&P Assessment and plan (1) Essential hypertension: Status: Acute (2) Bradycardia, sinus: Status: Acute Plan 76-year-old female who has sinus bradycardia and is asymptomatic. She has high blood pressure and with titration medication blood pressure is improving. Overall no obvious indication for pacemaker has been identified. Also with ambulation her heart rate rises and even ambulating in the hallways her heart rate was in 70s. I think she does not require pacemaker currently. We will continue to monitor as outpatient and will arrange a Holter monitor for her. Otherwise clinically improving and can go home. She will follow-up with Dr. Amezquita. Thank you for allowing me to participate in the care of your patient. Please feel free to contact me if you have any questions. Time Spent With Patient Time: Total time managing care of this patient today ____ minutes. Progress Note: Quality Stroke Does the patient have a stroke diagnosis?: No Procedures Date of Service Date of Service: 05/31/22
== END 2022-05-31 17:10 | disposition home health service (06) | DRG 305 ==
LOC: HO.ED 18:00 → HO.EDOVER 20:28 → HO.IMC 05-27 00:05
PROVIDERS: Physician Assistant Medical; Admitting Provider Internal Medicine; Emergency Provider Student in an Organized Health Care Education/Training Program; PCP Internal Medicine; Visit Provider Internal Medicine
DX: I16.9 Hypertensive crisis, unspecified (principal); I50.32 Chronic diastolic (congestive) heart failure; C7A.8 Other malignant neuroendocrine tumors; C7B.8 Other secondary neuroendocrine tumors; J81.1 Chronic pulmonary edema; I11.0 Hypertensive heart disease with heart failure; J44.9 Chronic obstructive pulmonary disease, unspecified; E11.9 Type 2 diabetes mellitus without complications; R00.1 Bradycardia, unspecified; E78.5 Hyperlipidemia, unspecified; T47.0X5A Adverse effect of histamine H2-receptor blockers, initial encounter; Z20.822 Contact with and (suspected) exposure to COVID-19; Z87.891 Personal history of nicotine dependence; Z88.2 Allergy status to sulfonamides; Z79.84 Long term (current) use of oral hypoglycemic drugs; Z79.899 Other long term (current) drug therapy
CPT/HCPCS: 0241U; 36415; 71045; 80048; 80053; 81003; 82947; 83735; 83880; 84443; 84484; 85025; 85610; 99285; J1940

== ENCOUNTER → 2022-06-23 11:54 | Outpatient (REF) | payer MEDICARE, MEDICAID, SELFPAY ==
--- NOTE | 2022-06-23 13:39 | HM_ITS ---
Conclusion: 1. Patient was hooked up to monitoring for 7 days but only 13 hours of data could be analyzed due to artifact 2. During the observed. Patient's underlying rhythm is sinus rhythm with frequent sinus bradycardia 56% of time with heart rate below 60 beats per minute 3. Significant pauses during sleep hours with multiple pauses with longest pause greater than 3 seconds at 01:48 4. Frequent PACs accounting for 1.4% of total beats 5. Patient reported symptoms correlated with artifact MTDD
== END ==
LOC: HO.CARD 11:54
PROVIDERS: PCP Internal Medicine; Visit Provider Internal Medicine
DX: R00.1 Bradycardia, unspecified (principal)
CPT/HCPCS: 93242

== ENCOUNTER 2022-07-02 10:01 | Outpatient (REF) | payer MEDICARE, SELFPAY ==
[2022-07-02 13:57] LABS: Appearance Urine Turbid; Color Urine Yellow; Glucose Urine UA Negative (Negative); Leukocyte Esterase Urine Moderate (2+) (Negative); Nitrite Urine Negative (Negative); Specific Gravity - Urine 1.015 (1.005-1.025); UMIC TRIGGER UACC YES; Urine Blood Negative (Negative); Urine Ketones Trace mg/dL (Negative); Urine Protein Negative (Neg-Trace)
[2022-07-02 14:22] LABS: Bacteria Urine None Seen (None Seen); Calcium Oxalate Crystals Urine Present; Other Crystals Urine Present; RBC Urine 0-2 /HPF (0-2); UACC Culture Trigger YES
== END 2022-07-02 10:02 | disposition home or self-care (01) ==
LOC: HO.LAB 10:01
PROVIDERS: Visit Provider Nurse Practitioner Acute Care
DX: R10.31 Right lower quadrant pain (principal)
CPT/HCPCS: 81001; 87086

== ENCOUNTER 2022-07-11 08:54 | Outpatient (AMB) | payer MEDICARE, MEDICAID, SELFPAY ==
--- NOTE | 2022-07-11 09:12 | A.OFFPC_ITS ---
Vital Signs 07/11/22 09:14 Height 5 ft 4 in Weight 173 lb BMI 29.7 BP 112/60 Blood Pressure Location Lt brachial Position Sitting Pulse 45 L Pulse Source Pulse Oximeter Pulse Oximetry (%) 95 Oxygen Delivery Method Room Air Intake Visit Reasons: f/u low HDL Intake Note: Pt is here today to f/u low HDL Allergies Sulfa (Sulfonamide Antibiotics) Allergy (Intermediate, Verified 10/04/23 00:09) itching sulfamethoxazole [From Bactrim] Allergy (Intermediate, Verified 10/04/23 00:09) Stomach Upset trimethoprim [From Bactrim] Allergy (Intermediate, Verified 10/04/23 00:09) Stomach Upset Medication List - Last Reconciled 10/04/23 by Kaitlyn Soto MD Advair HFA 115-21 mcg/actuation (fluticasone propion-salmeterol) 2 puffs inhalation Q12H NS amlodipine 10 mg See Protocol PO DAILY apixaban (Eliquis) 5 mg PO BID cholecalciferol (vitamin D3) 25 mcg PO DAILY hydralazine 25 mg See Protocol PO TID losartan 100 mg PO DAILY metformin ER 500 mg PO BEDTIME metoprolol succinate ER 25 mg PO DAILY whpyedel-fdrwlza-xaus-lutein 1 tab PO DAILY omega-3 fatty acids-vitamin E 1,000 mg 1,000 caps PO DAILY omeprazole 1 cap PO DAILY tramadol 50 mg PO Q8H PRN Tobacco use date assessed: 07/11/22 Fall risk assessment: No Falls in past year Last assessed Fall Risk: 07/11/22 HPI f/u low HDL HPI Details 78-year-old lady with history of hyperte nsion, hyperlipidemia, diabetes mellitus, IBS, and neuroendocrine tumor pancreas currently controlled, here today follow-up. She was noted to be severely bradycardic but was asymptomatic on recent admission. Seven day Holter month her ordered showed the following: underlying rhythm is sinus rhythm with frequent sinus bradycardia 56% of time with heart rate below 60 beats per minute 3. Significant pauses during sleep hours with multiple pauses with longest pause greater than 3 seconds at 01:48 4. Frequent PACs accounting for 1.4% of total beats 5. Patient reported symptoms correlated with artifact She has no chest pain, no lightheadedness but does get short of breath on exertion. [facility] Medical History History of esophagitis Bradycardia, sinus History of breast cancer in female (~2013) Neuroendocrine tumor of pancreas COVID-19 vaccine series completed Irritable bowel syndrome with constipation Positive FIT (fecal immunochemical test) Chronic obstructive pulmonary disease, unspecified (HFpEF) heart failure with preserved ejection fraction Menopause Dyslipidemia Essential hypertension Diabetes mellitus with microalbuminuria, without long-term current use of insulin Surgical History History of pacemaker History of breast biopsy History of tubal ligation History of colonoscopy History of cerebral aneurysm repair History of lumpectomy of right breast Family History Father Myocardial infarction CVD (cardiovascular disease) Mother Diabetes mellitus Brother HTN (hypertension) Brother HTN (hypertension) Brother No problems noted. Son No problems noted. Social History Household Members: Family Household Members Other:: son visits often Housing: Apartment Are you a primary care tech to a significant other at home: No Do you presently have visiting nurse or other home services: Yes Alcohol intake: never Patient Tobacco Use Status: Former Tobacco user Quit Date: 2006 Tobacco use type: Cigarette Years Smoked: 50 yrs e-Cigarette/Vaping Use: Former Use Advance Directives Date on File: 07/11/22 service: No Current occupational status: disabled Cognitive needs: No Hearing needs: No Vision needs: Yes Questionnaire PHQ-9 Over the last 2 weeks, how often have you been bothered by any of the following problems? 1. Little interest or pleasure in doing things: not at all 2. Feeling down, depressed, or hopeless: not at all 3. Trouble falling or staying asleep, or sleeping too much: not at all 4. Feeling tired or having little energy: not at all 5. Poor appetite or overeating: not at all 6. Feeling bad about yourself - or that you are a failure or have let yourself or your family down: not at all 7. Trouble concentrating on things, such as reading the newspaper or watching television: not at all 8. Moving or speaking so slowly that other people could have noticed. Or the opposite - being so fidgety or restless that you have been moving around a lot more than usual: not at all 9. Thoughts that you would be better off or of hurting yourself in some way: not at all Total score: 0 Depression Screening Interpretation: Negative 45344 - PHQ-9 Billing: Yes Source: Developed by Drs. Tayo Calle, Shefali Hwang, Jerrod Barros and colleagues, with an educational karsten from [employer]. Thrive Questionnaire Date Thrive assessed: 07/11/22 I am a: Patient What is your living situation today?: I have a steady place to live Within the past 12 months, did the food you bought not last and you didn't have the money to get more?: Never true Within the past 12 months, did you worry whether your food would run out before you got money to buy more?: Never true Do you have trouble paying for medicines?: No Do you have trouble getting transportation to medical appointments?: No Do you have trouble paying your heating and electricity bill?: No Do you have trouble taking care of your child, family member or friend?: No Do you have trouble with day-to-day activities such as bathing, preparing meals, shopping, managing finances, etc.?: No Are you currently unemployed and looking for a job?: No Are you interested in more education?: No PAM-7 AMB Questionnaire PAM-7 Date PAM - 7 assessed: 07/11/22 Feeling nervous, anxious, or on edge: 0 = Not at all Not being able to stop or control worryin = Not at all Worrying too much about different things: 0 = Not at all Trouble relaxin = Several days Being so restless that it is hard to sit still: 1 = Several days Becoming easily annoyed or irritable: 1 = Several days Feeling afraid as if something awful might happen: 0 = Not at all Total PAM-7 score (0-4 normal; 5-9 mild; 10-14 moderate; 15-21 severe): 3 Source: Developed by Drs. Tayo Calle, Shefali Hwang, Jerrod Barros and colleagues, with an educational karsten from [employer]. PAM-7 Assessment Billing PAM-7 Assessment Tool: PAM-7 Assessment 95401 Review of Systems Const Reports as per HPI Eyes Denies change in vision ENT Denies dizziness Card Denies chest pain, Denies chest pain with activity, Denies rapid heart rate, Denies pedal edema, Denies lightheadedness and Denies palpitations Resp Reports as per HPI and Denies cough GI Denies change in stool character Reports no additional complaints Musc Denies abnormal gait, Denies limited range of motion, Denies muscle cramps, Denies muscle weakness, Denies numbness, Denies radiating pain into limb, Reports stiffness and Denies tingling Neuro Denies abnormal gait, Denies dizziness, Denies numbness and Denies tingling Psych Reports no additional complaints Endo Denies palpitations Jasson/Lymph Denies easy bleeding and Denies easy bruising Aller/Immun Reports no additional complaints Physical exam (Primary Care) Vital Signs: Last Vital Signs Pulse 45 L 07/11/22 09:14 BP 112/60 07/11/22 09:14 Pulse Ox 95 07/11/22 09:14 Oxygen Delivery Method Room Air 07/11/22 09:14 BMI result Body Mass Index 29.7 Tobacco/Smoking Status: Tobacco use Status Tobacco use date assessed 07/11/22 07/11/22 09:22 Patient Tobacco Use Status Former Tobacco user 07/11/22 09:22 Tobacco use type Cigarette 07/11/22 09:22 e-Cigarette/Vaping Use Former Use 07/11/22 09:22 PHQ-9: PHQ-9 Score PHQ-9: Total score 0 10/04/23 00:10 Depression Screening Interpretation: Negative Thrive Assessment: Date of Thrive Assessment Date Thrive assessed 07/11/22 07/11/22 09:53 Const General: cooperative, comfortable and no acute distress Orientation/consciousness: patient oriented x3 Limitations: no limitations Eyes General: appearance normal, both eyes and all related structures Neck Neck: Yes full ROM, Yes no lymphadenopathy and Yes supple Resp Effort & Inspection: normal respiratory effort and able to speak in complete sentences Auscultation: clear to auscultation bilaterally Cardio Rate: bradycardic Heart sounds: S1 normal heart sound present and S2 normal heart sound present GI Inspection: Yes normal to inspection Palpation (GI): Soft to palpation, nontender and no masses Auscultation: normal bowel sounds Neuro General: patient oriented x3 Extrem General: Yes no pedal edema Results AMB Hemoglobin A1c AMB Hemoglobin A1c 6.4 % Last Edit by Willa Fitzpatrick CMA on 07/11/22 09:59 Results Reviewed Results Reviewed: Laboratory Last Values Hgb A1c (Clinic) 6.4 % (4.0-6.0) H 07/11/22 09:46 ENTERED: 06/23/[address] [facility] [address]: Kaitlyn Soto MD ORDERED: CBC Auto Diff Test Result Flag Reference Site WBC 8.4 4.8-10.8 X10*3/uL RBC 4.46 4.20-5.50 X10*6/uL HGB 13.9 12.0-16.0 g/dl HCT 43.0 37.0-47.0 % MCV 96.4 80.0-98.0 fL MCH 31.2 27.0-33.0 pg MCHC 32.3 31.0-35.0 g/dl RDW 13.1 11.0-16.0 % PLT 215 # 160-400 X10*3/uL ENTERED: 06/23/[address] [facility] [address]: Kaitlyn Soto MD ORDERED: CMP Test Result Flag Reference Site Sodium 141 135-145 mmol/L Potassium 4.9 # 3.3-5.1 mmol/L CL 111 H 96-108 mmol/L CO2 22 22-29 mmol/L Gap 13 12-20 BUN 39 H 9-16 mg/dL Creat 1.14 0.5-1.4 mg/dL Estimated CrCl 42.2 Provided height and weight: 162.56 cm, 82.6 kg. eGFR (calculated from the MDRD study equation) and eCr Cl (calculated from the Cockcroft-Gault equation) are based on different parameters and may not yield comparable results. If eCrCl result is absurd, please check patient's height/weight. EGFR 46 NOTE: For -[place] individuals, multiply the result by 1.210. Chronic Kidney Disease: Estimated GFR < 60 mL/min/1.73m2 Severe Kidney Disease: Estimated GFR < 15 mL/min/1.73m2 Glucose, Random 141 H 60-115 mg/dL CA 9.5 8.4-10.2 mg/dL Total Bili 1.4 H 0.0-1.0 mg/dL AST (GOT) 21 5-31 U/L ALT (GPT) 19 0-31 U/L Protein, Total 7.0 6.5-8.0 g/dL Alb 4.3 3.5-5.0 g/dL Alk Phos 90 39-117 U/L Assessment and Plan Assessment & Plan (1) Bradycardia, sinus: Code(s): R00.1 - Bradycardia, unspecified Plan: Holter monitor showed underlying rhythm is sinus rhythm with frequent sinus bradycardia 56% of time with heart rate below 60 beats per minute, with significant pauses during sleep hours with multiple pauses with longest pause greater than 3 seconds at 01:48. Referred to cardiology for further evaluation management as patient has been having dyspnea on exertion but no chest pain (2) Diabetes mellitus with microalbuminuria, without long-term current use of insulin: Code(s): E11.29 - Type 2 diabetes mellitus with other diabetic kidney complication; R80.9 - Proteinuria, unspecified Qualifiers: Diabetes mellitus type: type 2 Qualified Code(s): E11.29 - Type 2 diabetes mellitus with other diabetic kidney complication; R80.9 - Proteinuria, unspecified Plan: Continued on metformin ER 500 mg at night with supper (3) Advanced directives, counseling/discussion: Code(s): Z71.89 - Other specified counseling Plan: Initiated the conversation about Advanced Directives. Advanced Directives help patients prepare for current and future decisions about their medical treatment and place of care. Discussed with patient that it is a process where a patients current condition and prognosis are reviewed, their wishes for information regarding their illness are elicited, and likely medical dilemmas are presented and options discussed. Healthcare proxy form and MOLST forms were completed today. These forms can be amended as needed, reviewed yearly and make changes as needed Orders: Orders AMB Hemoglobin A1c 07/11/22 Z13.9 - Encounter for screening, unspecified Lipid Panel 11/10/22 E78.5 - Hyperlipidemia, unspecified, E11.29 - Type 2 diabetes mellitus with other diabetic kidney complication, R80.9 - Proteinuria, unspecified, I10 - Essential (primary) hypertension Vitamin D 25-OH Total 11/10/22 E78.5 - Hyperlipidemia, unspecified, E11.29 - Type 2 diabetes mellitus with other diabetic kidney complication, R80.9 - Proteinuria, unspecified, I10 - Essential (primary) hypertension Aspartate Amino Transferase 11/10/22 E78.5 - Hyperlipidemia, unspecified, E11.29 - Type 2 diabetes mellitus with other diabetic kidney complication, R80.9 - Proteinuria, unspecified, I10 - Essential (primary) hypertension Alanine Aminotransferase 11/10/22 E78.5 - Hyperlipidemia, unspecified, E11.29 - Type 2 diabetes mellitus with other diabetic kidney complication, R80.9 - Proteinuria, unspecified, I10 - Essential (primary) hypertension Hemoglobin A1c 11/10/22 E78.5 - Hyperlipidemia, unspecified, E11.29 - Type 2 diabetes mellitus with other diabetic kidney complication, R80.9 - Proteinuria, unspecified, I10 - Essential (primary) hypertension Basic Metabolic Panel Fasting 11/10/22 E78.5 - Hyperlipidemia, unspecified, E11.29 - Type 2 diabetes mellitus with other diabetic kidney complication, R80.9 - Proteinuria, unspecified, I10 - Essential (primary) hypertension Coding Level of Care Code Est Pt Level 4 (38125) Diagnoses Bradycardia, sinus R00.1 Type 2 diabetes mellitus with microalbuminuria, without long-term current use of insulin E11.29; R80.9 Diabetes mellitus type: type 2 Advanced directives, counseling/discussion Z71.89 Additional Codes PAM-7 Assessment Billing - PAM-7 Assessment Tool: PAM-7 Assessment 17241 ([id number])
[2022-07-11 09:14] VITALS: BP 112/60; PULSE 45; O2SAT 95; BMI 29.7
== END 2022-07-11 10:48 | disposition home or self-care (01) ==
LOC: HO.HMGC 08:54
PROVIDERS: PCP Internal Medicine; Visit Provider Internal Medicine
DX: R00.1 Bradycardia, unspecified (principal); E11.29 Type 2 diabetes mellitus with other diabetic kidney complication; R80.9 Proteinuria, unspecified; Z71.89 Other specified counseling
CPT/HCPCS: 83036; 99499

== ENCOUNTER → 2022-07-21 13:31 | Outpatient (BNVA) | payer MEDICARE, MEDICAID, SELFPAY | PROVIDERS: PCP Internal Medicine; Visit Provider Internal Medicine Cardiovascular Disease | DX: I11.0 Hypertensive heart disease with heart failure (principal); I50.30 Unspecified diastolic (congestive) heart failure; I49.5 Sick sinus syndrome | CPT/HCPCS: 93005; 99212 ==

== ENCOUNTER → 2022-07-22 09:57 | Outpatient (BNVA) | payer MEDICARE, MEDICAID, SELFPAY | PROVIDERS: PCP Internal Medicine; Visit Provider Surgery | DX: I49.5 Sick sinus syndrome (principal); I11.0 Hypertensive heart disease with heart failure; I50.30 Unspecified diastolic (congestive) heart failure; E11.9 Type 2 diabetes mellitus without complications; R80.9 Proteinuria, unspecified; Z79.4 Long term (current) use of insulin | CPT/HCPCS: 99202 ==

== ENCOUNTER 2022-07-27 09:03 | Inpatient (IN) | payer MEDICARE, SELFPAY ==
[2022-07-27] VITALS (16 sets, daily range): BP systolic 148–182; BP diastolic 56–83; PULSE 36–67; RESP 17–18; TEMP 36.2–36.8; O2SAT 93–97; BMI 30.9
--- NOTE | ~2022-07-27 | FL_ITS ---
EXAMINATION: XR FLUOROSCOPY WITH IMAGES CLINICAL INFORMATION: Insertion of dual chamber pacemaker. COMPARISON: None. TECHNIQUE: Fluoroscopy Supervised By: Dr. Tiffany Jackson. Fluoroscopy Time: 239.3 seconds. Cumulative Dose: 62.27 mGy-cm Images: 0. FINDINGS: No imaging for review. FL/FL guidance in OR IMPRESSION: Fluoroscopy for intraoperative procedure.
--- NOTE | ~2022-07-27 | XR_ITS ---
EXAMINATION: XR CHEST CLINICAL INFORMATION: Pacemaker COMPARISON: 05/26/2022 TECHNIQUE: Frontal view of the chest was obtained. FINDINGS: Since the prior study, a left chest wall dual-lead pacemaker has been placed with its leads in good position. There is mild cardiac enlargement. Minimal bibasilar atelectasis is seen. No pleural effusions or consolidations. There is no evidence of CHF. No pneumothorax. XR/XR chest 1V IMPRESSION: New left chest wall pacemaker in good position. No acute intrathoracic disease.
[2022-07-27 06:50] LABS: COVID-19 Test Negative (Negative); IDNOW Serial# BCCEAD1C
--- NOTE | 2022-07-27 06:54 | PC.NURSE ---
pt took no meds today. unsure of meds and no med list phone number for dr. siegel obtained and call placed with request for med list. and contact number of [facility] who adminsters meds @ [phone]
--- NOTE | 2022-07-27 07:16 | P.CONAN_ITS ---
HPI - Anesthesia Eval Consult details Narrative: Dual chamber pm placement for bradycardia PMFSH Active Problems Active Problems: All Active Problems (Updated 07/25/22 @ 13:29 by Sabiha Haynes [facility]) Neuroendocrine cancer (Acute) Neuroendocrine tumor of pancreas (Acute) History of breast cancer in female (Acute ~2013) Sick sinus syndrome (Acute) Bradycardia, sinus (Acute) (HFpEF) heart failure with preserved ejection fraction (Acute) Essential hypertension (Acute) Dyslipidemia (Acute) Diabetes mellitus with microalbuminuria, without long-term current use of insulin (Acute) Chronic obstructive pulmonary disease, unspecified (Acute) Irritable bowel syndrome with constipation (Acute) Positive FIT (fecal immunochemical test) (Acute) RLQ abdominal pain (Acute) Dyspepsia (Acute) Pain of muscle of abdomen (Acute) Menopause (Acute) Past Medical History Medical History (HFpEF) heart failure with preserved ejection fraction Bradycardia, sinus Chronic obstructive pulmonary disease, unspecified COVID-19 vaccine series completed Diabetes mellitus with microalbuminuria, without long-term current use of insulin Dyslipidemia Dyspepsia Essential hypertension Essential hypertension History of breast cancer in female (~2012) History of Holter monitoring Irritable bowel syndrome with constipation Menopause Neuroendocrine tumor of pancreas Positive FIT (fecal immunochemical test) Family History Family History Father Myocardial infarction CVD (cardiovascular disease) Mother Diabetes mellitus Brother HTN (hypertension) Brother HTN (hypertension) Brother No problems noted. Son No problems noted. Family history of problems with anesthesia: No Surgical History Surgical History History of breast biopsy History of cerebral aneurysm repair History of colonoscopy History of lumpectomy of right breast History of tubal ligation History of Problems with Anesthesia: No Social History Social History Household Members: None Household Members Other:: son visits often Housing: Apartment Are you a primary menagerie caretaker to a significant other at home: No Do you presently have visiting nurse or other home services: No Alcohol intake: never Patient Tobacco Use Status: Former Tobacco user Quit Date: 2006 Tobacco use type: Cigarette Years Smoked: 50 yrs e-Cigarette/Vaping Use: Former Use Use of substances other than those prescribed or required for medical reasons: No Advance Directives: Yes Advance Directives on File: Yes Advance Directives Date on File: 05/27/22 service: No Current occupational status: disabled Cognitive needs: No Hearing needs: No Vision needs: Yes Meds Allergies Allergy/AdvReac Type Severity Reaction Status Date / Time Sulfa (Sulfonamide Allergy Intermediate itching Verified 07/22/22 09:59 Antibiotics) sulfamethoxazole Allergy Intermediate Stomach Verified 07/22/22 09:59 [From Bactrim] Upset trimethoprim [From Bactrim] Allergy Intermediate Stomach Verified 07/22/22 09:59 Upset Home Medications Medication Instructions Recorded Confirmed Last Taken Type cholecalciferol (vitamin D3) 25 25 mcg PO DAILY 04/17/20 07/22/22 Unknown History mcg (1,000 unit) chewable tablet enazmwds-etmnsxn-qsyu-lutein tablet 1 tab PO DAILY 04/17/20 07/22/22 Unknown History omega-3 fatty acids-fish oil 360 1 cap PO DAILY 04/17/20 07/22/22 Unknown History mg-1,200 mg capsule (Fish Oil) omeprazole 20 mg capsule,delayed 1 cap PO DAILY 08/26/21 07/22/22 Unknown History release apixaban 2.5 mg tablet (Eliquis) 2.5 mg PO BID 07/21/22 07/22/22 Unknown History losartan 100 mg tablet 100 mg PO DAILY 07/21/22 07/22/22 Unknown History metformin 500 mg tablet,extended 500 mg PO BEDTIME 07/21/22 07/22/22 Unknown History release 24 hr Exam Exam Date and Time: July 27, 2022 0716 Height,Weight and Vital Signs: Height 5 ft 4 in Weight 81.647 kg Last Vital Signs Temp 97.2 F 07/27/22 06:31 Pulse 36 L 07/27/22 06:31 Resp 18 07/27/22 06:31 BP 148/56 H 07/27/22 06:31 Pulse Ox 96 07/27/22 06:31 O2 Del Method 07/27/22 06:31 Pertinent Lab Results Pertinent Lab Results: Laboratory Tests 07/27/22 06:20 COVID-19 (IFEOMA) Negative COVID-19 Clin Com See Note Airway Mallampati Class: II TM Dist: >3cm Neck ROM: Limited Heart: rrr esperanza Lungs: cta Assessment and Plan Assessment Anesthesia Assessment: Anesthesia Plan Discussed and Chart Reviewed Final Anesthetic Review Family History of Problems with Anesthesia: No History of Problems with Anesthesia: No NPO: No ASA Class: IV Final Preanesthetic Review: No Changes in Pt Med Stat, Meds/Allgs Chart Review ed, Consent Obtained/Reviewed and Anes Risks/Benef Reviewed Patient Risk: High Procedure Risk: Intermediate Anesthetic Plan Anesthetic Plan: MAC: and Agree w/ Assess. and Plan Disposition: Standard PACU
--- NOTE | 2022-07-27 07:25 | P.HPSUR_ITS ---
Pre-Procedural Eval Section A Date of Service: 07/27/22 The patient is an INPATIENT: No The History & Physical has been completed within 30 days and I have reviewed it.: Yes Section B Chief Complaint: Sick sinus syndrome, Bradycardia, unspecified Allergies: Allergies Allergy/AdvReac Type Severity Reaction Status Date / Time Sulfa (Sulfonamide Allergy Intermediate itching Verified 07/22/22 09:59 Antibiotics) sulfamethoxazole Allergy Intermediate Stomach Verified 07/22/22 09:59 [From Bactrim] Upset trimethoprim [From Bactrim] Allergy Intermediate Stomach Verified 07/22/22 09:59 Upset Plan I have reviewed the history and physical and performed a pertinent physical examination on my patient. No changes have occurred unless specified.76-year-old woman with sinus bradycardia and left fascicular block and nighttime pauses of about 3 seconds that are somewhat frequent based on the Holter monitor. I do agree with dual-chamber permanent pacemaker as a modality of treatment for this. I discussed with her the procedure of pacemaker placement which she seemed understand. I also discussed the risks, benefits, and alterna tives which she understood and agreed to proceed. The risks discussed include but are not limited to infection, bleeding, collapsed lung, arrhythmia, and . Plan will be for dual-chamber permanent pacemakerToday. Time Spent With Patient Time: Total time managing care of this patient today ____ minutes.
[2022-07-27] MEDS: ceFAZolin Sodium/Dextrose,Iso 2 GM/50 ML PIGGYBACK IV (07:47)
[2022-07-27 08:51] LABS: Glucose, Whole Blood 136 mg/dL (60-115)
--- NOTE | 2022-07-27 09:01 | W.PM.OPN ---
Operative Note Operative Note Date of Service: 07/27/22 Narrative: Preoperative diagnosis: Sick sinus syndrome Postoperative diagnosis: Same Operation: Placement of dual-chamber permanent pacemaker with fluoroscopic guidance Surgeon: Tiffany Jackson MD Specimens: None EBL: 5 cc Operative findings: The pacemaker placed was a Medtronic serial [id number]. The atrial lead was a Medtronic serial [id number]. The ventricular lead was a Medtronic serial [id number]. Parameters in the right atrial lead threshold was 0.5 at 0.4 milliseconds, impedance is 513 Ohms, and P-wave was 2.8 mV. In the ventricular lead threshold was 0.75 at 0.4 milliseconds, impedance 589 Ohms, and R-wave was 4.9 mV. Patient tolerated procedure well. Operation in detail: The patient was brought to the operating room, placed supine on the operating room table, anesthesia moderate of ices were placed, and the patient was gently sedated. A time-out was performed confirming the correct patient site and procedure. After injection of local anesthetic, a 3 cm incision was made in the left infraclavicular region and carried down to the pectoralis fascia with electrocautery. The patient was then placed in Trendelenburg and an 18 gauge needle was used to access subclavian vein on the 1st take. And a wire was placed into the right atrium under fluoroscopic guidance. A 2nd 18 gauge needle was then used to access the subclavian vein again on the ache and a wire was placed under fluoroscopic guidance and parked in the right atrium. The patient was then taken out of Trendelenburg and a pocket was formed using blunt and electrocautery dissection. The 1st 6 Salvadorean sheath was then placed over wire and the wire and dilator were removed. The ventricular lead was then placed through the sheath and parked in the right atrium and the peel-away sheath was removed. After several attempts using a curved stylet we were eventually able to access the right ventricle and the tip of the lead was positioned at the right ventricular apex. The endocardial screw was deployed and the lead was tested with excellent parameters above. This lead was then secured with silk sutures to the pectoralis fascia. The 2nd 6 Salvadorean sheath was then placed over the 2nd wire and a wire dilator removed. The atrial lead was then placed and parked in the right atrium. AJ stylet was used to position this in the right atrial appendage. The endocardial screws deployed and the lead was tested with excellent parameters above. This lead was also secured with silk sutures to the pectoralis fascia. The pocket was then copiously irrigated with antibiotic solution. The leads were then placed in their appropriate receptacles and the pacemaker was tested again with excellent parameters. The generator and excess lead was then placed into the pocket. The wound was then closed with a deep running 3-0 Vicryl suture followed by running 3-0 Vicryl suture and Dermabond glue in the skin. The patient was then brought back to the PACU in stable condition.
--- OUTSIDE RECORDS SUMMARY | 2022-07-27 09:19 | XMS_ITS ---
:1945 Author Organization [facility] Address [address] [place] [address] Care Team Providers Name Role Phone Tyao Kitchen Unavailable Unavailable PROBLEMS Type Condition ICD9-CM [id number] Onset Condition SNOMED Cod e Code Code Dates Status Problem Preprocedural Z01.818 Active 732546 [id number] examination Problem Long-term use of Z79.899 Active 710 585340 high-risk medication Problem Epigastric pain R10.13 Active 7992 2009 Problem Duodenal ulcer K26.9 Active 14123 009 Problem Diverticulosis of K57.30 Active 73 8799522 colon Problem Acute gastric K25.3 Active 463685 08 ulcer without hemorrhage or perforation Problem Heme + stool R19.5 Active 1057596 07 Problem Metastatic C7B.8 Active 462296640 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 Problem Encounter for Z12.11 Active 689040 004 screening for malignant neoplasm of colon Problem Liver cyst K76.89 Active 35031831 Problem Abnormal liver R93.2 Active 82170 7008 ultrasound Problem Mass of pancreas K86.89 Active 425 740527 Problem Liver mass R16.0 Active 352088309 ALLERGIES Substance Reaction Event Type Date Status Bactrim Unknown Drug Allergy October, Active ENCOUNTERS Encounter Location Date Diagnosis [address] October, [facility] [address] [place] [address] [address] Aug, [facility] [address] [place] [address] May, [facility] [address] [place] [address] liver C7B.8 ; Du odenal ulcer K26.9 and Acute gastric ulcer wi thout hemorrhage or pe rforation K25.[address] [place] [address] May, Liver balwinder ss R16.0 [facility] [place] [facility] [address] [place] of pancrea s K86.89 [address] [facility] May, Colon polyp K63 .5 ; [place] [id number] Diverticul osis of colon K57.30 ; Interna l hemorrhoids K64. 8 ; Heme + stool R19.5 ; Du odenal ulcer K26.9 and Esophagitis K20.[address] [place] [address] Apr, Abnormal liver ultrasound [facility] [address] [place] R93.2 and Liver cyst K76.89 [address] [place] [address] Apr, [facility] [address] [place] [address] [place] [address] Apr, Epigastr ic pain R10.13 and [facility] [address] [place] Heme + sto ol R19.5 [address] [place] [address] Mar, [facility] [address] [place] [address] [place] [address] Jan, [facility] [address] [place] [address] [place] [address] October, Long-ter m use of high-risk [facility] [address] [place] medication Z79.899 ; [address] Encounter for sc reening for malignant neopla sm of colon Z12.11 and Prepr ocedural examination Z01. 818 IMMUNIZATIONS Vaccine Route Administration Date Status Influenza Unknown Mar 12, 2021 Administered Influenza Unknown Mar 12, 2021 Administered Influenza Unknown Apr 12, 2017 Administered SOCIAL HISTORY Qualifiers Date Former Smoker REASON FOR REFERRAL FUNCTIONAL STATUS PLAN OF CARE Activity Details Follow Up prn Reason: Pending Test Gastrin Pending Test CBC w DIFF Pending Test PROTHROMBIN TIME (PT, INR) Pending Test PARTIAL THROMBOPLASTIN TIME (PTT) Pending Test CA 19-9 Pending Test US BIOPSY NEEDLE GUIDE Pending Test BUN Pending Test CREATININE Pending Test CEA Pending Test ALPHA-FETOPROTEIN,TUMOR MARVIN ER Pending Test MRI ABD W&WO CONTRAST Pending Test LIVER PROFILE Pending Test AMYLASE Pending Test LIPASE Pending Test CBC w DIFF Pending Test US ABD Future/Pending Procedure COLONOSCOPY 20210414 Future/Pending Procedure UPPER GI ENDOSCOPY 20210414 Future/Pending Procedure COLONOSCOPY [id number] VITAL SIGNS Weight 195 lbs 2021-10-12 Weight 191 lbs 2021-04-14 Weight 206 lbs 2017-11-02 Height 64 in 2021-10-12 Height 64 in 2021-04-14 Height 64 in 2017-11-02 BMI 33.47 kg/m2 2021-10-12 BMI 32.78 kg/m2 2021-04-14 BMI 35.36 kg/m2 2017-11-02 Heart Rate 72 /min 2017-11-02 Temperature 97.7 degrees Fahrenheit 2021-10-12 Temperature 98.2 degrees Fahrenheit 2021-04-14 Blood pressure systolic 000 mm Hg 2021-10-12 Blood pressure diastolic 00 mm Hg 2021-10-12 MEDICATIONS Medication Instructions Dosage Frequency Start End Duration Statu s Date Date Meloxicam 15 MG TAKE 1 30 Active TABLET BY MOUTH ONCE A DAY NEEDED Losartan TAKE 1 90 Active Potassium 50 MG TABLET BY MOUTH EVERY DAY Centrum Silver - Active Omeprazole 20 MG TAKE 1 90 Active CAPSULE BY MOUTH EVERY DAY IN THE MORNING Symbicort TAKE 2 28 Active 160-4.5 MCG/ACT PUFFS BY MOUTH TWICE A DAY Omeprazole Active Furosemide 20 MG TAKE 1 90 Active TABLET BY MOUTH EVERY MORNING Atorvastatin TAKE 1 90 Active Calcium 10 MG TABLET BY MOUTH EVERY DAY Wixela Inhub Active Fish Oil 1000 MG Orally Once a 1 capsule 24h Active day Famotidine 40 MG Orally Once a 1 tablet at 24h 30 da y(s) Active day bedtime Dicyclomine HCl Orally Three 1 tablet 8h 30 day(s) Active 20 MG times a day metFORMIN HCl ER TAKE 1 90 Active 500 MG TABLET BY MOUTH EVERY DAY WITH THE EVENING MEAL PROCEDURES Procedure Date Ordered Result Body Site BP SCR NOT PRFRM REC REASON NOS Apr 14, 2021 TOBACCO NON-USER Apr 14, 2021 BP SCR NOT PRFRM REC REASON NOS October 12, 2021 TOBACCO NON-USER October 12, 2021 UPPER GI ENDOSCOPY, BIOPSY May 17, 2021 DOC MEDS VERIFIED W/PT OR RE Apr 14, 2021 DOC MEDS VERIFIED W/PT OR RE October 12, 2021 COLONOSCOPY AND BIOPSY May 17, 2021 RESULTS Name Result Date Reference Range Basic Metabolic Panel Fasting 2021-06-15 Sodium 144 135-145 Potassium 4.4 3.3-5.1 Chloride 110 96-108 Carbon Dioxide 28 22-29 Anion Gap 10 12-20 Blood Urea Nitrogen 18 9-16 Creatinine 0.78 0.5-1.4 Estimated Glomerular Filt Rate > 60 Glucose Fasting 111 60-99 Calcium 9.3 8.4-10.2 Aspartate Amino Transferase 2021-06-15 Aspartate Amino Transferase 17 5-31 Lipid Panel 2021-06-15 Triglycerides 84 Cholesterol 138 LDL Cholesterol Calculated 67 HDL Cholesterol 55 Vitamin D 25-OH Total 2021-06-15 Vitamin D 25-OH Total 41.1 >30 Gastrin 2021-06-15 Gastrin 21 <=100 Microalbumin, Random 2021-06-15 Creatinine Urine 104.22 Microalbumin Urine 82.0 Microalbum Creatinine Ratio Ur 78.6 Hemoglobin A1c 2021-06-15 Hemoglobin A1c % 6.4 Estimated Average Glucose 137 Glucose, Whole Blood 2021-05-31 Glucose, Whole Blood 130 60-115 US biopsy liver 2021-05-31 Complete Blood Count Auto Diff 2021-05-26 White Blood Count 9.7 4.8-10.8 Red Blood Count 4.77 4.20-5.50 Hemoglobin 14.9 12.0-16.0 Hematocrit 45.9 37.0-47.0 Mean Corpuscular Volume 96.2 80.0-98. 0 Mean Corpuscular Hemoglobin 31.2 27.0 -33.0 Mean Corpuscular HGB Conc 32.5 31.0-3 5.0 Red Cell Distribution Width 12.1 11.0 -16.0 Platelet Count 226 160-400 Mean Platelet Volume 11.5 9.4-12.3 Neutrophils Percent Auto 66.4 45-73 Imm Gran Pct Auto 0.4 0.0-0.4 Lymphocytes Percent Auto 22.3 20-40 Monocytes Percent Auto 7.8 2-11 Eosinophils Percent Auto 2.7 0-4 Basophils Percent Auto 0.4 0-2 NRBC Pct Auto 0.0 0.0-0.2 Neutrophils Absolute Auto 6.5 2.0-8. 3 Imm Gran Abs Auto 0.04 0.00-0.03 Lymphocytes Absolute Auto 2.2 1.2-4. 9 Monocytes Absolute Auto 0.8 0.1-1.2 Eosinophils Absolute Auto 0.3 0.0-0. 4 Basophils Absolute Auto 0.0 0.0-0.2 NRBC Abs Auto 0.000 0.0-0.012 Prothrombin Time INR 2021-05-26 Prothrombin Time 11.0 9.9-13.0 INTERNATIONAL NORM RATIO 1.0 0.9-1.1 Partial Thromboplastin Time 2021-05-26 Partial Thromboplastin Time 32.5 24.1 -38.0 Carbohydrate Antigen 19-9 2021-05-26 Carbohydrate Antigen 19-9 3 <34 Glucose, Whole Blood 2021-05-17 Glucose, Whole Blood 131 60-115 Pathology 2021-05-17 Blood Urea Nitrogen 2021-05-12 Blood Urea Nitrogen 19 9-16 Creatinine 2021-05-12 Creatinine 0.83 0.5-1.4 Estimated Glomerular Filt Rate > 60 Carcinoembryonic Antigen 2021-05-12 Carcinoembryonic Antigen 3.30 Alpha Fetoprotein 2021-05-12 Alpha Fetoprotein 3.3 MR abdomen wo/w con 2021-05-12 US abdomen complete 2021-04-26 REASON FOR VISIT Patient presents today for f/u from liver cancer, Patient presents today for liver cancer, Consult, MRI results, heme postive stools,epigastric pain, , screening colonoscopy, cancelling procedure 04/09, colon screening, screening colonoscopy, r/s procedure february 05, screening colonoscopy Insurance Providers [facility]ly [facility] Health Member Patient Patient Patient Patient Patient Subscriber Subscriber Subscriber Group Insurance Plan Plan Plan Plan ID Relationship Address Phone Name Date of ID Name Date of No Type Insurance Insurance Insurance Coverage to Subscriber Address Phone Name Dates HEALTH NEW ONE [phone] HEALTH NEW self [place] [id number] [address] [address] [place] [address] MEDICAID [id number] MEDICAID self [place] [id number] [id number] [facility] [address]
[2022-07-27] MEDS: hydrALAZINE HCl 25 MG TABLET PO ×2 (15:13→20:25)
[2022-07-27] MEDS: 0.9 % Sodium Chloride Flush 3 ML SYRINGE IVFLUSH (15:13)
[2022-07-27] MEDS: Heparin Sodium,Porcine 5,000 UNIT/ML VIAL 5000 UNIT SUBCUT (15:13)
--- NOTE | 2022-07-27 15:17 | MHC.CM.PN ---
CM met with Patient at bedside and addressed IMM with her, providing her with the original and placing a copy on the chart. Patient lives in an apartment with her Son and she uses both a cane and a walker to assist with mobility. Patient receives MOWs from [facility] and is active with [facility]. Home/resume said services is the goal and CM has initiated and will follow for dc planning. Patient has received Pfizer/Covid vax x4 and her PCP is Dr. Kaitlyn Soto.
[2022-07-27 15:39] LABS: Glucose, Whole Blood 145 mg/dL (60-115)
[2022-07-27 19:51] LABS: Glucose, Whole Blood 119 mg/dL (60-115)
[2022-07-27] MEDS: Docusate Sodium 100 MG CAPSULE PO (20:25)
[2022-07-27] MEDS: metFORMIN HCl ER 500 MG TAB.ER.24H PO (20:25)
[2022-07-28] MEDS: Heparin Sodium,Porcine 5,000 UNIT/ML VIAL 5000 UNIT SUBCUT ×2 (00:47→09:24)
[2022-07-28] MEDS: 0.9 % Sodium Chloride Flush 3 ML SYRINGE IVFLUSH ×2 (00:48→09:25)
[2022-07-28 04:00] VITALS: BP 152/72; PULSE 61; RESP 18; TEMP 37.1; O2SAT 98
[2022-07-28 06:00] VITALS: BMI 30.4
[2022-07-28 06:43] LABS: Basophils Percent Auto 0.3 % (0-2); Eosinophils Absolute Auto 0.2 X10*3/uL (0.0-0.4); Eosinophils Percent Auto 2.4 % (0-4); Hematocrit 44.7 % (37.0-47.0); Hemoglobin 14.5 g/dl (12.0-16.0); Imm Gran Abs Auto 0.02 X10*3/uL (0.00-0.03); Imm Gran Pct Auto 0.3 % (0.0-0.4); Lymphocytes Absolute Auto 1.5 X10*3/uL (1.2-4.9); Lymphocytes Percent Auto 20.9 % (20-40); MANUAL DIFF FLAG SCAN; Mean Corpuscular HGB Conc 32.4 g/dl (31.0-35.0); Mean Corpuscular Volume 95.7 fL (80.0-98.0); Monocytes Absolute Auto 0.7 X10*3/uL (0.1-1.2); Monocytes Percent Auto 9.6 % (2-11); Neutrophils Absolute Auto 4.6 x10*3/uL (2.0-8.3); Neutrophils Percent Auto 66.5 % (45-73); PLT CLUMP 1; Red Blood Count 4.67 X10*6/uL (4.20-5.50); Red Cell Distribution Width 12.9 % (11.0-16.0); SCAN SMEAR FLAG 1
[2022-07-28 07:05] LABS: Anion Gap 15 (12-20); Blood Urea Nitrogen 16 mg/dL (9-16); Carbon Dioxide 19 mmol/L (22-29); Chloride 114 mmol/L (96-108); Creatinine Clr Calc Pharmacy 65.1; Estimated Glomerular Filt Rate > 60; Glucose Random 132 mg/dL (60-115); Magnesium 1.9 mg/dL (1.6-2.6); Potassium 4.2 mmol/L (3.3-5.1); Sodium 144 mmol/L (135-145)
[2022-07-28 07:11] LABS: Glucose, Whole Blood 128 mg/dL (60-115)
[2022-07-28 07:30] VITALS: BP 142/80; PULSE 62; RESP 16; TEMP 36.7; O2SAT 94
[2022-07-28 07:33] LABS: Platelet Count 85 X10*3/uL (160-400); SLIDE REVIEW VERIFIED
[2022-07-28] MEDS: Fluticasone/Vilanterol 100/25 BLST.W.DEV 1 PUFF INHALE (07:40)
[2022-07-28 07:41] VITALS: PULSE 81; RESP 18; O2SAT 94
[2022-07-28 08:37] VITALS: BP 140/60; PULSE 54; RESP 12; TEMP 36.5; O2SAT 93
[2022-07-28] MEDS: Docusate Sodium 100 MG CAPSULE PO (09:24)
[2022-07-28] MEDS: Losartan Potassium 50 MG TABLET 100 MG PO (09:24)
[2022-07-28] MEDS: Multivitamin TABLET 1 TAB PO (09:24)
[2022-07-28] MEDS: amLODIPine Besylate 10 MG TABLET PO (09:24)
[2022-07-28] MEDS: Cholecalciferol (Vitamin D3) 25 MCG TABLET PO (09:24)
[2022-07-28] MEDS: Omeprazole 20 MG CAPSULE.DR PO (09:24)
[2022-07-28] MEDS: hydrALAZINE HCl 25 MG TABLET PO ×2 (09:24→14:45)
[2022-07-28] MEDS: Furosemide 20 MG TABLET PO (09:25)
[2022-07-28 11:21] LABS: Glucose, Whole Blood 99 mg/dL (60-115)
[2022-07-28 11:34] VITALS: BP 145/65; PULSE 60; RESP 20; TEMP 36.3; O2SAT 96
--- NOTE | 2022-07-28 13:57 | MHC.CM.PN ---
Patient has been medically cleared for dc to home today. Patient was active with [facility], who has been notified of today's dc. IMM was addressed yesterday.
--- NOTE | 2022-07-28 14:34 | PM.DS ---
DS: Providers Provider Date of Service: 07/27/22 Date of admission: 07/27/22 09:03 Date of discharge: 07/28/22 Primary care physician: Kaitlyn Soto MD Admitting clinician: Tiffany Jackson DS: Diagnosis Discharge Diagnosis (1) Sick sinus syndrome: Status: Acute DS: Summary Hospital Course Hospital Course: Per Dr. Jackson's note Patient is a 76-year-old woman with sinus bradycardia and left fascicular block and nighttime pauses of about 3 seconds that are somewhat frequent based on the Holter monitor. I do agree with dual-chamber permanent pacemaker as a modality of treatment for this. I discussed with her the procedure of pacemaker placement which she seemed understand.. Plan will be for dual-chamber permanent pacemakerToday. Patient had tolerated the procedure well and was extubated in the OR. She was transferred to PACU where she continued to do well and was then [place] [facility] [place] In the morning her dual-chamber permanent pacemaker was interrogated and shown to be working properly. She denies any concerning symptoms such as shortness of breath at rest or with exertion, dizziness, lightheadedness and her left arm remains in a sling. Her surgical incision is clean dry and intact with no evidence of infection such as drainage, erythema or increased temp to palpation. She was discharged back to her assisted living facility with instructions to follow-up in the thoracic surgical department for postop appointment in 2 weeks. Review of Systems Constitutional: Denies: Chills, Fatigue, Fever Eyes: Denies: Blurred Vision, Diplopia Head and Neck: Denies: Headache Cardiovascular: Denies: Chest Pain, Edema, Palpitations Respiratory: Denies: Cough, SOB or Hemoptysis Gastrointestinal: Denies: Abdominal Distention, Abdominal Pain, Constipation, Diarrhea Genitourinary: Voiding Freely Neurological: Denies: Focal Weakness, Numbness, Paresthesia Physical Exam: General: Awake, alert and oriented x 3, Head : normocephalic with no signs of trauma. Eyes: PERRL, extra ocular movements intact. Ears: Normal shape and symmetry with no signs of trauma. Nose: Neg for epistaxis and non traumatic Throat: Trachea midline with no subcutaneous air present. Cardiac: RRR with normal S1 S2 and no rubs murmurs or gallops Thoracic: Left mid clavicular incision is clean dry and intact. Respiratory: Breath sounds clear with equal chest rise, no adventitious sounds such as wheezes or rhonchi. GI: abdomen non distended, soft and non-tender, Musculoskeletal: neg muscle weakness, or peripheral edema . Lymphatic: Neg cervical or clavicular lymphadenopathy. Time Spent with Patient Time attestation: Total time managing care of this patient today ____ minutes. Discharge coordination time: Less than 30 minutes Quality: Safe Use of Opioids Does Pt have an Active Cancer Diagnosis on the Problem List?: No Quality: Stroke Does the patient have a stroke diagnosis?: No Physical Exam Vital Signs: Vital Signs: Last Vital Signs Temp 97.3 F 07/28/22 11:34 Pulse 60 07/28/22 11:34 Resp 20 07/28/22 11:34 BP 145/65 H 07/28/22 11:34 Pulse Ox 96 07/28/22 11:34 O2 Del Method 07/28/22 11:34 BMI result Body Mass Index 30.4 DS: Data Data Completed and Pending Labs on day of discharge: Laboratory Results - last 24 hr 07/27/22 07/27/22 07/28/22 15:01 19:35 06:34 WBC 7.0 RBC 4.67 Hgb 14.5 Hct 44.7 MCV 95.7 MCH 31.0 MCHC 32.4 RDW 12.9 Plt Count 85 L D MPV Not Reportable Immature Gran % (Auto) 0.3 Neut % (Auto) 66.5 Lymph % (Auto) 20.9 [place] % (Auto) 9.6 Eos % (Auto) 2.4 Baso % (Auto) 0.3 Lymph # (Auto) 1.5 [place] # (Auto) 0.7 Eos # (Auto) 0.2 Baso # (Auto) 0.0 Abs Immat Gran (auto) 0.02 Absolute Neuts (auto) 4.6 Absolute Nucleated RBC 0.000 Nucleated RBC % (auto) 0.0 Smear Tech's Comments VERIFIED Sodium Potassium Chloride Carbon Dioxide Anion Gap BUN Creatinine Estim Creat Clear Calc Estimated GFR POC Glucose 145 H 119 H Random Glucose Calcium Magnesium 07/28/22 07/28/22 07/28/22 06:34 06:34 07:08 WBC RBC Hgb Hct MCV MCH MCHC RDW Plt Count MPV Immature Gran % (Auto) Neut % (Auto) Lymph % (Auto) [place] % (Auto) Eos % (Auto) Baso % (Auto) Lymph # (Auto) [place] # (Auto) Eos # (Auto) Baso # (Auto) Abs Immat Gran (auto) Absolute Neuts (auto) Absolute Nucleated RBC Nucleated RBC % (auto) Smear Tech's Comments Sodium Cancelled 144 Potassium Cancelled 4.2 Chloride Cancelled 114 H Carbon Dioxide Cancelled 19 L Anion Gap Cancelled 15 BUN Cancelled 16 Creatinine Cancelled 0.73 Estim Creat Clear Calc Cancelled 65.1 Estimated GFR Cancelled > 60 POC Glucose 128 H Random Glucose Cancelled 132 H Calcium Cancelled 9.0 Magnesium 1.9 07/28/22 11:12 WBC RBC Hgb Hct MCV MCH MCHC RDW Plt Count MPV Immature Gran % (Auto) Neut % (Auto) Lymph % (Auto) [place] % (Auto) Eos % (Auto) Baso % (Auto) Lymph # (Auto) [place] # (Auto) Eos # (Auto) Baso # (Auto) Abs Immat Gran (auto) Absolute Neuts (auto) Absolute Nucleated RBC Nucleated RBC % (auto) Smear Tech's Comments Sodium Potassium Chloride Carbon Dioxide Anion Gap BUN Creatinine Estim Creat Clear Calc Estimated GFR POC Glucose 99 Random Glucose Calcium Magnesium Discharge Plan Discharge Anticipated Discharge Date/Time: 07/28/22 13:38 Patient Disposition: Home Health Service Discharge Diagnosis: sick sinus syndrome Referrals: Marine Santos [Outside] - 1 Week Kaitlyn Soto MD [Primary Care Provider] - 1 Week Discharge Medications: Continued furosemide 20 mg tablet 20 mg PO DAILY Qty: 30 0RF hydralazine 25 mg tablet 25 mg PO TID Qty: 90 1RF Protocol: Hold for SBP< HOLD for SBP < : 90 amlodipine 10 mg tablet 10 mg PO DAILY Qty: 90 0RF Protocol: Hold for SBP< HOLD for SBP < : 90 omeprazole 20 mg capsule,delayed release(DR/EC) 1 cap PO DAILY rcjbkowb-hygfodf-zglq-lutein Tablet 1 tab PO DAILY cholecalciferol (vitamin D3) 25 mcg (1,000 unit) tablet,chewable 25 mcg PO DAILY fluticasone propion-salmeterol [Wixela Inhub] 250-50 mcg/dose blister with device 1 inh inhalation BID Qty: 60 5RF ibuprofen 600 mg tablet 600 mg PO Q8H PRN (Reason: pain) Qty: 14 0RF metformin 500 mg tablet extended release 24 hr 500 mg PO BEDTIME losartan 100 mg tablet 100 mg PO DAILY Discharge Orders: Discharge Order (Routine); Ordered 07/28/22 Ordered By: Bari Martinez Diet: Diabetic diet Activity on Discharge: As tolerated Stand Alone Forms: Patient Portal Discharge page Activity Restrictions/Additional Instructions: ACTIVITY: ARM MOVEMENT RESTRICTIONS: No lifting your left arm over your head or behind your back, no pushing/pulling/lifting anything >10lb with your left arm for 6-8 weeks. This ensures the pacemaker wires stay in place and do not get pulled out accidentally. Make sure you are doing gentle range of motion exercises with the left arm (such as pendulum exercise) to make sure your elbow and shoulder do not get frozen up. ARM SLING: Keep the sling on until tomorrow. You may then take the sling off and leave it off. HOWEVER, if you are noticing a difficulty limiting your left arm movement (as outline above) then wear your sling during the day to make sure you are adhering to the restrictions above. Ask your doctor when you can expect to return to work. You can still exercise. It is good for your body and your heart. Talk with your doctor about an exercise plan. INCISION CARE: You may shower starting on 07/29/2022 tomorrow,. Sponge bathe only until then. Do not submerge yourself in water (baths, pools, etc.) for 2 weeks. Monitor the incision for increased redness, swelling, bruising, pain, open area, or drainage. OTHER PRECAUTIONS: Before you receive any treatment, tell all healthcare providers (including your dentist) that you have a pacemaker. You will be given an ID card that contains information about your pacemaker. Always carry this card with you. You can show this card if your pacemaker sets off a metal detector. You should also show it to avoid screening with a hand-held security wand. Keep your cell phone away from your pacemaker. Do not carry the phone in your shirt pocket, even it if is turned off. Avoid strong magnets. Examples are those used in MRI's or in hand-held security wands. Avoid strong electrical alvarez. Examples are those made by radio transmitting towers, [employer]deem radios, and heavy-duty electrical equipment. Avoid leaning over the open renae of a running car. A running engine creates an electrical field. Most household and yard appliances will not cause any problems. If you use any large power tools, such as an industrial research methods instructor, talk with your doctor. WHEN TO CALL YOUR DOCTOR: Call your doctor immediately if you have any of the following: ? Dizziness ? Chest pain ? Lack of energy ? Fainting spells ? Twitching chest muscles ? Rapid pule or pounding heartbeat ? Shortness of breath ? Pain around your pacemaker ? Fever above 100.4 F (38 C) or other signs of infection (redness, swelling, drainage, or warmth at the incision site). ? Hiccups that will not stop FOLLOWUP APPOINTMENTS: Call Dr. Jackson's office (Thoracic Surgery) as soon as you get home to schedule a followup appointment for 2 weeks from now. The office number is . Call your appliance counselor to make an appointment for the next couple weeks. Make regular follow-up appointments with your doctor. He or she will check the pacemaker to make sure it is working properly. Care Plan Goals: Return to previous function Health Concerns: None Plan of Treatment: Patient to follow up with thoracic surgery in 2 weeks for post op follow up and also she follow up with her cardioloogist Assessment: Per Dr. Jackson's note Patient is a 76-year-old woman with sinus bradycardia and left fascicular block and nighttime pauses of about 3 seconds that are somewhat frequent based on the Holter monitor. I do agree with dual-chamber permanent pacemaker as a modality of treatment for this. I discussed with her the procedure of pacemaker placement which she seemed understand.. Plan will be for dual-chamber permanent pacemakerToday. Patient had tolerated the procedure well and was extubated in the OR. She was transferred to PACU where she continued to do well and was then [place] [facility] [place]. In the morning her dual-chamber permanent pacemaker was interrogated and shown to be working properly. She denies any concerning symptoms such as shortness of breath at rest or with exertion, dizziness, lightheadedness and her left arm remains in a sling. Her surgical incision is clean dry and intact with no evidence of infection such as drainage, erythema or increased temp to palpation. She was discharged home to self-care with instructions to follow-up in the thoracic surgical department for postop appointment in 2 weeks. Review of Systems Constitutional: Denies: Chills, Fatigue, Fever Eyes: Denies: Blurred Vision, Diplopia Head and Neck: Denies: Headache Cardiovascular: Denies: Chest Pain, Edema, Palpitations Respiratory: Denies: Cough, SOB or Hemoptysis Gastrointestinal: Denies: Abdominal Distention, Abdominal Pain, Constipation, Diarrhea Genitourinary: Voiding Freely Neurological: Denies: Focal Weakness, Numbness, Paresthesia Physical Exam: General: Awake, alert and oriented x 3, Head : normocephalic with no signs of trauma. Eyes: PERRL, extra ocular movements intact. Ears: Normal shape and symmetry with no signs of trauma. Nose: Neg for epistaxis and non traumatic Throat: Trachea midline with no subcutaneous air present. Cardiac: RRR with normal S1 S2 and no rubs murmurs or gallops Thoracic: Left mid clavicular incision is clean dry and intact. Respiratory: Breath sounds clear with equal chest rise, no adventitious sounds such as wheezes or rhonchi. GI: abdomen non distended, soft and non-tender, Musculoskeletal: neg muscle weakness, or peripheral edema . Lymphatic: Neg cervical or clavicular lymphadenopathy.
--- NOTE | 2022-07-28 15:24 | HO.POSTANES ---
Post Anesthesia Evaluation Post Anesthesia Evaluation Vital Signs: Vital Signs Temp Pulse Resp BP Pulse Ox O2 Del Method 07/28/22 11:34 97.3 F 60 20 145/65 H 96 Room Air 07/28/22 08:37 97.7 F 54 12 140/60 H 93 Room Air 07/28/22 07:41 81 18 07/28/22 07:30 98.1 F 62 16 142/80 H 94 Room Air 07/28/22 04:00 98.7 F 61 18 152/72 H 98 Room Air Anesthesia: Monitored Mental Status: Awake Pain Control: Satisfactory Nausea/Vomiting: None Hydration: Adequate Anesthesia-Related Issues: No Anes. Related Issues
== END 2022-07-28 15:37 | disposition home health service (06) | DRG 244 ==
LOC: HO.SSSA 09:18 → HO.IMC 14:11
PROVIDERS: Physician Assistant; Admitting Provider Surgery; PCP Internal Medicine; Visit Provider Surgery
PROC: 0JH606Z Insertion of Pacemaker, Dual Chamber into Chest Subcutaneous Tissue and Fascia, Open Approach (ICD-10-PCS; principal; 2022-07-27 07:30)
DX: I49.5 Sick sinus syndrome (principal); E78.5 Hyperlipidemia, unspecified; Z20.822 Contact with and (suspected) exposure to COVID-19; Z87.891 Personal history of nicotine dependence; Z88.2 Allergy status to sulfonamides; Z79.51 Long term (current) use of inhaled steroids; Z79.84 Long term (current) use of oral hypoglycemic drugs; Z79.899 Other long term (current) drug therapy
CPT/HCPCS: 36415; 71045; 80048; 82947; 83735; 85025; 86850; 86900; 86901; 87635; 94640; 96372; C1785; C1892; C1898; J0690; J1643; J2795; J3010; J3370

== ENCOUNTER → 2022-08-19 11:07 | Outpatient (BNVA) | payer MEDICARE, SELFPAY | PROVIDERS: PCP Internal Medicine; Visit Provider Surgery | DX: Z95.0 Presence of cardiac pacemaker (principal) ==

== ENCOUNTER 2022-09-22 13:35 | Outpatient (REF) | payer MEDICARE, MEDICAID, SELFPAY ==
--- NOTE | ~2022-09-22 | MM_ITS ---
EXAMINATION: MM SCREENING DIGITAL BREAST TOMOSYNTHESIS, BILATERAL CLINICAL INFORMATION: Screening. Asymptomatic. Remote right lumpectomy for breast cancer, 2012. COMPARISON: Mammography: 07/15/2020, 11/19/2018, 09/14/2017 TECHNIQUE: Digital breast tomosynthesis is performed in both the craniocaudal and mediolateral oblique views along with computer-aided detection (CAD). Synthesized 2D images are generated from the tomosynthesis. Additional left CC and left MLO views are provided. FINDINGS: There are scattered areas of fibroglandular density (ACR BI-RADS breast composition Category b). Post therapy changes right breast are similar to prior studies with reduced breast size and stable scarring, right breast surgical clips, and some benign dystrophic calcification. Biopsy clip markers again seen central and anterior left breast. Bilateral parenchymal pattern is similar to prior studies. No significant mass or interval architectural abnormality or developing density. No abnormal calcifications. Pacemaker generator partially overlying posterior upper left axilla on MLO view. MM/MM tomosynthesis screening BI IMPRESSION: -No mammographic evidence of malignancy. -Post therapy changes right breast. ASSESSMENT: BI-RADS 2: Benign RECOMMENDATION: Routine annual mammography screening. This patient's information was entered into a reminder system with a target due date for their next mammogram.
== END 2022-09-22 13:36 | disposition home or self-care (01) ==
LOC: HO.MAMMO 13:35
PROVIDERS: PCP Internal Medicine; Visit Provider Internal Medicine
DX: Z12.31 Encounter for screening mammogram for malignant neoplasm of breast (principal); Z85.3 Personal history of malignant neoplasm of breast; I50.30 Unspecified diastolic (congestive) heart failure; Z86.79 Personal history of other diseases of the circulatory system; Z45.018 Encounter for adjustment and management of other part of cardiac pacemaker
CPT/HCPCS: 77063; 77067; 93280; 99212

== ENCOUNTER 2022-10-11 13:09 | Outpatient (REF) | payer MEDICARE, MEDICAID, SELFPAY ==
--- NOTE | ~2022-10-11 | CT_ITS ---
EXAMINATION: CT ABDOMEN AND PELVIS WITH CONTRAST CLINICAL INFORMATION: Neuroendocrine tumor of the pancreas. COMPARISON: CT abdomen and pelvis 05/11/2022. TECHNIQUE: Multidetector volumetric images were obtained from the superior aspect of the liver through the pubic symphysis following administration 85 mL of Omnipaque 350 intravenous contrast. Sagittal and coronal reformatted images were obtained on the technologist's workstation. Oral contrast: No This CT examination was performed using dose optimization techniques as appropriate, variously including the following: *Automated exposure control *Adjustment of mA and/or kV according to patient size (this includes techniques or standardized protocols for targeted exams where dose is matched to indication/reason for exam; i.e. extremities or head) *Use of iterative reconstruction technique DLP: 501 mGy-cm FINDINGS: LUNG BASES: The visualized lung bases are unremarkable. LIVER, GALLBLADDER, AND BILIARY TREE: The liver is normal in size, shape, and attenuation. There are several new hypodense lesions largest in the left hepatic lobe measures 2.5 cm, right hepatic lobe measuring 1.7 cm in the anterior and posterior segments on axial image 18/3 and 10/3. There are several additional smaller hypodense lesions in the right hepatic lobe. No intrahepatic ductal dilatation. The gallbladder is unremarkable with no evidence of radiopaque gallstones, gallbladder wall thickening, or obvious pericholecystic inflammatory changes. PANCREAS: Again visualized is a moderate size mass in the distal body/tail of pancreas measuring 4.3 x 3.4 cm on axial image 19/3. Previously it measured 4.0 x 3.0 x 2.7 cm. There is minimal increase in the size. Rest of the pancreas unremarkable. SPLEEN: Unremarkable. ADRENAL GLANDS: Bilateral adrenal glands are unremarkable. KIDNEYS AND URETERS: The kidneys are normal in size, shape, and attenuation. No hydronephrosis, hydroureter, or calculi seen. No perinephric stranding. There is 1.1 cm exophytic cyst upper pole left kidney. BLADDER: Unremarkable. GASTROINTESTINAL TRACT: There is scattered stool and gas seen throughout the colon without significant distention. There is oral contrast opacified small bowel loops and proximal colon, which appears unremarkable. Appendix is not visualized. There is trace diverticulum in the second segment of duodenum as noted before. The stomach is nondistended. ABDOMINAL WALL: No significant hernia is appreciated. LYMPH NODES: Normal. VASCULAR: There is atherosclerotic calcification of abdominal aorta and common iliac arteries without any aneurysmal dilatation. PELVIC VISCERA: There is triangular shaped solid mass in the left adnexa measuring 6.5 x 5.3 cm and adherent to the left uterus. Previously it measured almost same size. Intrauterine necrotic mass seen previously 1.1 x 1.0 x 1.4 cm. . It has significantly improved when compared to 07/11/2015 exam. OSSEOUS STRUCTURES: There are degenerative disc changes at T11-T12, T12/L1 and L1-L2 disc levels with mild ventral spondylosis. No aggressive lytic or sclerotic process seen. CT/CT abdomen pelvis w IV con IMPRESSION: 1. Multiple new liver lesions suspicious for metastatic disease. 2. The mass in the distal body/tail of pancreas is minimally larger. 3. Left adnexal mass is stable. The intrauterine necrotic mass has significantly decreased in size from 2016. 4. No abnormal retroperitoneal or mesenteric lymph nodes seen. 5. Small exophytic cyst upper pole left kidney. Fleischner guidelines were followed.
[2022-10-11] MEDS: iohexoL 350 MG/ML 100 ML INFUS..BTL IV (16:29)
[2022-10-11] MEDS: Barium Sulfate Oral (Berry) 450 ML ORAL.SUSP 900 ML PO (16:30)
== END 2022-10-11 13:10 | disposition home or self-care (01) ==
LOC: HO.CT 13:09
PROVIDERS: PCP Internal Medicine; Visit Provider Internal Medicine Medical Oncology
DX: D3A.8 Other benign neuroendocrine tumors (principal)
CPT/HCPCS: 74177; Q9967

== ENCOUNTER 2022-11-30 12:12 | Day surgery (SDC) | payer MEDICARE, MEDICAID, SELFPAY ==
--- NOTE | ~2022-11-30 | US_ITS ---
EXAMINATION: Ultrasound-guided liver biopsy CLINICAL INFORMATION: Liver lesions. History of neuroendocrine pancreas and breast cancer COMPARISON: Previous CT of the abdomen and pelvis October 2022 TECHNIQUE: Procedure and risks and benefits including bleeding, and infection were discussed with the patient and informed consent was obtained. Patient was positioned in the supine position. The upper midline abdomen was prepped and draped in the usual sterile fashion. The skin and soft tissues were anesthetized with 1% lidocaine plain. Using a coaxial system, access to the proximally 2 cm heterogeneous lesion high in the lateral segment of the left lobe was obtained. 3 22-gauge FNA specimens were obtained there is no complication. The patient received Versed 1 mg and fentanyl 50 mcg intravenously during the procedure. Total sedation time was 20 minutes. Conscious sedation was provided by registered nurse under my direct supervision with continuous hemodynamic monitoring. Total dvxy-ro-pard contact patient time was 20 minutes. FINDINGS: There is a 2.3 x 1.7 x 2.5 cm heterogeneous partially hyperechoic partially hypoechoic lesion high in the lateral segment of the left lobe of the liver that was targeted for fine-needle aspiration. Lesions in the right lobe of the liver seen by CT could not be well identified by ultrasound. FNA was performed as opposed to core biopsy due to proximity of the heart. US/US guided fine needle asp IMPRESSION: Ultrasound guided liver fine needle aspiration.
--- NOTE | ~2022-11-30 | US_ITS ---
EXAMINATION: Ultrasound-guided liver biopsy CLINICAL INFORMATION: Liver lesions. History of neuroendocrine pancreas and breast cancer COMPARISON: Previous CT of the abdomen and pelvis October 2022 TECHNIQUE: Procedure and risks and benefits including bleeding, and infection were discussed with the patient and informed consent was obtained. Patient was positioned in the supine position. The upper midline abdomen was prepped and draped in the usual sterile fashion. The skin and soft tissues were anesthetized with 1% lidocaine plain. Using a coaxial system, access to the proximally 2 cm heterogeneous lesion high in the lateral segment of the left lobe was obtained. 3 22-gauge FNA specimens were obtained there is no complication. The patient received Versed 1 mg and fentanyl 50 mcg intravenously during the procedure. Total sedation time was 20 minutes. Conscious sedation was provided by registered nurse under my direct supervision with continuous hemodynamic monitoring. Total adza-dz-fsld contact patient time was 20 minutes. FINDINGS: There is a 2.3 x 1.7 x 2.5 cm heterogeneous partially hyperechoic partially hypoechoic lesion high in the lateral segment of the left lobe of the liver that was targeted for fine-needle aspiration. Lesions in the right lobe of the liver seen by CT could not be well identified by ultrasound. FNA was performed as opposed to core biopsy due to proximity of the heart. US/US biopsy liver IMPRESSION: Ultrasound guided liver fine needle aspiration.
[2022-11-30 12:26] VITALS: BMI 28.8
[2022-11-30 12:48] LABS: Glucose, Whole Blood 115 mg/dL (60-115)
[2022-11-30 12:48] LABS: MANUAL DIFF FLAG NO
[2022-11-30 12:53] LABS: Basophils Percent Auto 0.5 % (0-2); Eosinophils Absolute Auto 0.2 X10*3/uL (0.0-0.4); Eosinophils Percent Auto 2.1 % (0-4); Hematocrit 44.9 % (37.0-47.0); Hemoglobin 14.5 g/dl (12.0-16.0); Imm Gran Abs Auto 0.01 X10*3/uL (0.00-0.03); Imm Gran Pct Auto 0.1 % (0.0-0.4); Lymphocytes Percent Auto 23.8 % (20-40); Mean Corpuscular HGB Conc 32.3 g/dl (31.0-35.0); Mean Corpuscular Hemoglobin 30.5 pg (27.0-33.0); Mean Corpuscular Volume 94.5 fL (80.0-98.0); Mean Platelet Volume 11.5 fL (9.4-12.3); Monocytes Absolute Auto 0.6 X10*3/uL (0.1-1.2); Monocytes Percent Auto 7.1 % (2-11); Neutrophils Absolute Auto 5.7 x10*3/uL (2.0-8.3); Neutrophils Percent Auto 66.4 % (45-73); Platelet Count 175 X10*3/uL (160-400); Red Blood Count 4.75 X10*6/uL (4.20-5.50); Red Cell Distribution Width 13.2 % (11.0-16.0); White Blood Count 8.6 X10*3/uL (4.8-10.8)
[2022-11-30 13:01] LABS: INTERNATIONAL NORM RATIO 0.9 (0.9-1.1); Prothrombin Time 10.4 SEC (10.0-13.1)
[2022-11-30 13:04] LABS: Partial Thromboplastin Time 31.2 SEC (26.0-36.4)
[2022-11-30] MEDS: Lidocaine HCl 1 % MPF 5 ML VIAL SUBCUT (14:45)
[2022-11-30 14:53] VITALS: BP 140/74; PULSE 60; RESP 16; TEMP 36.6; O2SAT 93
[2022-11-30 15:08] VITALS: BP 155/77; PULSE 60; RESP 16; O2SAT 95
[2022-11-30 15:23] VITALS: BP 146/77; PULSE 60; RESP 16; O2SAT 95
[2022-11-30 15:38] VITALS: BP 123/84; PULSE 60; RESP 16; O2SAT 95
[2022-11-30 15:53] VITALS: BP 134/80; PULSE 60; RESP 16; O2SAT 95
[2022-11-30 16:23] VITALS: BP 130/79; PULSE 60; RESP 16; TEMP 36.5; O2SAT 95
== END 2022-11-30 17:05 | disposition home or self-care (01) ==
PROVIDERS: Radiology Diagnostic Radiology; PCP Internal Medicine; Visit Provider Internal Medicine Medical Oncology
DX: C78.7 Secondary malignant neoplasm of liver and intrahepatic bile duct (principal); C7A.8 Other malignant neuroendocrine tumors; Z85.07 Personal history of malignant neoplasm of pancreas; Z85.3 Personal history of malignant neoplasm of breast; I10 Essential (primary) hypertension; E11.9 Type 2 diabetes mellitus without complications; R80.9 Proteinuria, unspecified; Z88.2 Allergy status to sulfonamides; Z87.891 Personal history of nicotine dependence; Z79.51 Long term (current) use of inhaled steroids; Z79.84 Long term (current) use of oral hypoglycemic drugs; Z79.899 Other long term (current) drug therapy
CPT/HCPCS: 10005; 36415; 47000; 76942; 82947; 85025; 85610; 85730; 88173; 88305; 88341; 88342; 88360; 99152; 99153; J2250; J3010

== ENCOUNTER → 2022-11-30 13:01 | Outpatient (BNV) | payer MEDICARE, MEDICAID, SELFPAY | PROVIDERS: PCP Internal Medicine; Visit Provider Radiology Diagnostic Radiology | DX: C7A.8 Other malignant neuroendocrine tumors (principal) | CPT/HCPCS: 10005 ==

== ENCOUNTER 2022-12-02 20:27 | Emergency (ER) | payer MEDICARE, MEDICAID, SELFPAY ==
[2022-12-02 20:40] VITALS: BP 170/69; PULSE 62; RESP 18; TEMP 36.8; O2SAT 93; BMI 28.0
--- NOTE | 2022-12-02 20:43 | ED.GENADULT ---
HPI - General Adult General Chief complaint: General Medical Stated complaint: ?Wart on R knuckle Time Seen by Provider: 12/02/22 20:45 Source: patient Mode of arrival: ambulatory Limitations: no limitations History of Present Illness HPI narrative: Patient is a 77 year old assigned female at with a history of HTN and COPD presenting to the emergency department today with a right hand wart. Patient states that a wart has been growing on her right index knuckle for 6 months and she would like it to be removed. Patient denies any dizziness, lightheadedness, abdominal pain, nausea, vomiting, fever, chills, blurry vision, double vision, loss of vision, chest pain, difficulty breathing, shortness of breath, back pain, night sweats, pain with urination, increased urinary frequency, increased urinary urgency, blood in her urine or stool, syncope or a near syncopal episode, recent trauma or falls, bowel incontinence, bladder incontinence, bowel retention, bladder retention, or any other complaints at this time. Onset (ago): month(s) (6) Location: right and upper extremity Radiation: non-radiation Severity: mild Severity scale (1-10): 3 Relieving factors: none Exacerbating factors: none Associated symptoms: denies other symptoms Treatments prior to arrival: none Related Data Home Medications Medication Instructions Recorded Confirmed cholecalciferol (vitamin D3) 25 25 mcg PO DAILY 04/17/20 10/14/22 mcg (1,000 unit) chewable tablet vkgplyav-ohigysk-nekm-lutein tablet 1 tab PO DAILY 04/17/20 10/14/22 omeprazole 20 mg capsule,delayed 1 cap PO DAILY 08/26/21 10/14/22 release omega-3 fatty acids-vitamin E 1,000 cap PO DAILY 09/16/22 10/14/22 1,000 mg capsule Previous Rx's Medication Instructions Recorded fluticasone 250 mcg-salmeterol 50 1 inh inhalation BID #60 ea 06/16/22 mcg/dose blistr powdr for inhalation (Wixela Inhub) ibuprofen 600 mg tablet 600 mg PO Q8H PRN pain #14 tabs 07/02/22 furosemide 20 mg tablet 20 mg PO DAILY #30 tabs 07/19/22 amlodipine 10 mg tablet 10 mg PO DAILY #90 tabs 08/31/22 hydralazine 25 mg tablet 25 mg PO TID #90 tabs 09/23/22 losartan 100 mg tablet 100 mg PO DAILY #90 tabs 10/12/22 metformin 500 mg tablet,extended 500 mg PO BEDTIME #90 tabs 10/12/22 release 24 hr Allergies Allergy/AdvReac Type Severity Reaction Status Date / Time Sulfa (Sulfonamide Allergy Intermediate itching Verified 11/30/22 12:36 Antibiotics) sulfamethoxazole Allergy Intermediate Stomach Verified 11/30/22 12:36 [From Bactrim] Upset trimethoprim [From Bactrim] Allergy Intermediate Stomach Verified 11/30/22 12:36 Upset Review of Systems Constitutional: Constitutional: Reports no additional constitutional complaints, Denies chills, Denies fever(s) and Denies night sweats Eyes: Eyes: Reports no additional eye complaints, Denies blurry vision, Denies change in vision, Denies diplopia, Denies eye discharge, Denies loss of vision and Denies eye pain ENT: Denies dizziness Cardiovascular: Cardiovascular: Reports no additional cardiovascular complaints, Denies chest pain, Denies lightheadedness, Denies Loss of Consciousness and Denies dyspnea Respiratory: Respiratory: Reports no additional respiratory complaints and Denies dyspnea Gastrointestinal: Gastrointestinal: Reports no additional gastrointestinal complaints, Denies abdominal pain, Denies melena, Denies hematochezia, Denies change in bowel habits and Denies change in stool character Genitourinary: Genitourinary: Denies hematuria, Denies urinary frequency, Denies dysuria, Denies urinary incontinence, Denies urinary hesitancy and Denies urinary urgency Musculoskeletal: Musculoskeletal: Reports no additional musculoskeletal complaints, Denies numbness and Denies tingling Comments: wart on the right index knuckle Neurologic: Denies dizziness, Denies loss of vision, Denies numbness and Denies tingling Psychiatric: Psychiatric: Reports no additional psychiatric complaints Endocrine: Endocrine: Reports no additional endocrine complaints Hematologic/Lymphatic: Hematologic/Lymphatic: Reports no additional hematologic/lymphatic complaints Allergic/Immunologic: Allergic/Immunologic: Reports no additional allergic/immunologic complaints PMFSH Past Medical History Attestation statement: The following information was validated with the patient. Source: old records reviewed and nursing notes reviewed Medical History (HFpEF) heart failure with preserved ejection fraction Bradycardia, sinus Chronic obstructive pulmonary disease, unspecified COVID-19 vaccine series completed Diabetes mellitus with microalbuminuria, without long-term current use of insulin Dyslipidemia Dyspepsia Essential hypertension History of breast cancer in female (~2012) Irritable bowel syndrome with constipation Menopause Neuroendocrine tumor of pancreas Positive FIT (fecal immunochemical test) Surgical History History of breast biopsy History of cerebral aneurysm repair History of colonoscopy History of lumpectomy of right breast History of pacemaker History of tubal ligation Family History Family History Father Myocardial infarction CVD (cardiovascular disease) Mother Diabetes mellitus Brother HTN (hypertension) Brother HTN (hypertension) Brother No problems noted. Son No problems noted. Social History Social History Household Members: Family Household Members Other:: son visits often Housing: Apartment Are you a primary child daycare worker to a significant other at home: No Do you presently have visiting nurse or other home services: Yes Alcohol intake: never Patient Tobacco Use Status: Former Tobacco user Quit Date: 2006 Tobacco use type: Cigarette Years Smoked: 50 yrs e-Cigarette/Vaping Use: Former Use Advance Directives Date on File: 07/11/22 service: No Current occupational status: disabled Cognitive needs: No Hearing needs: No Vision needs: Yes Physical Exam ED Vital Signs: Vital Signs - 24 hr 12/02/22 20:40 Temperature 98.2 F Pulse Rate 62 Respiratory Rate 18 Blood Pressure 170/69 H Pulse Oximetry 93 Oxygen Delivery Method Room Air BMI result Body Mass Index 28.0 Const General: cooperative, no acute distress, alert and awake Nutritional Appearance: well nourished Orientation/consciousness: patient oriented x3 Limitations: no limitations HENMT Head: Yes normal to inspection and Yes atraumatic Ears: hearing grossly normal bilaterally and external ears normal General nose exam: Normal external nose present, no nasal discharge noted and no epistaxis Face and sinus: Yes normal facial exam, No abrasion and No laceration Mouth: Normal oral and palatal mucosa present, no drooling and no muffled voice Eyes General: appearance normal, both eyes and all related structures Periorbital: periorbital findings normal Eyelids: Yes eyelids normal Conjunctivae: conjunctivae normal Pupils: Equal, round and reactive pupils present EOM: EOMs intact bilaterally Neck Neck: Yes normal visual inspection, Yes full ROM and Yes no lymphadenopathy Chest Chest palpation & inspection: normal inspection of the chest Resp Effort & Inspection: normal respiratory effort and able to speak in complete sentences GI Inspection: Yes normal to inspection Neuro General: patient oriented x3 and moves all extremities Cranial nerves: Yes Equal, round and reactive pupils present Cognition (Neuro): normal cognition Motor exam (neuro): 5/5 motor strength present throughout Sensory Exam: Normal double simultaneous stimulation for sensation Coordination: vrslii-qj-nufk test normal Extrem General: Yes full ROM and Yes capillary refill normal Hand/finger images: 1. small wart Psych Appearance: grossly normal Mental Status: mental status grossly normal Affect: normal affect Attitude: cooperative Thought process: Normal thought process present Thought content: Normal thought content present Insight: Good insight present (Psych) Medical Decision Making Medical Decision Making MDM Narrative: Patient is a 77 year old assigned female at with a history of HTN and COPD presenting to the emergency department today with a wart on her right index knuckle. Patient's physical exam was as noted in the physical exam portion of this chart. I explained my physical exam findings to the patient. I answered all questions asked by the patient. I explained to the patient that removing a wart in the emergency department is inappropriate. I stressed the importance of the patient taking her medication as prescribed. I stressed the importance of the patient following up with her primary care provider and a pre sales technical engineer. I stressed the importance of the patient returning to the emergency department immediately if her symptoms were to worsen or if she were to develop any dizziness, shortness of breath, difficulty breathing, chest pain, blurry vision, loss of vision, nausea, vomiting, abdominal pain, fever, chills, back pain, or any other complaints. Patient verbalized agreement and understanding with this treatment plan and discharge. Differential Diagnosis Differential Diagnoses: The differential diagnosis associated with the presentation includes wart, skin lesion, skin growth Chronic Conditions Patient?s care impacted by: Hypertension Discharge Plan Discharge Clinical Impression: Wart of hand Patient Disposition: Home, Self-Care Instructions: Common Wart (ED) Additional Instructions: Follow up with your primary care provider and a pre sales technical engineer. Return to the emergency department immediately if your symptoms worsen or if you develop any dizziness, shortness of breath, difficulty breathing, chest pain, blurry vision, loss of vision, nausea, vomiting, abdominal pain, fever, chills, back pain, or any other complaints. Prescriptions: No Action furosemide 20 mg tablet 20 mg PO DAILY Qty: 30 0RF amlodipine 10 mg tablet 10 mg PO DAILY Qty: 90 1RF Protocol: Hold for SBP< HOLD for SBP < : 90 hydralazine 25 mg tablet 25 mg PO TID Qty: 90 5RF Protocol: Hold for SBP< HOLD for SBP < : 90 metformin 500 mg tablet extended release 24 hr 500 mg PO BEDTIME Qty: 90 1RF losartan 100 mg tablet 100 mg PO DAILY Qty: 90 3RF omeprazole 20 mg capsule,delayed release(DR/EC) 1 cap PO DAILY Fish Oil 1,000 mg Capsule 1,000 cap PO DAILY qdolxgzo-jkfpeow-grrp-lutein Tablet 1 tab PO DAILY cholecalciferol (vitamin D3) 25 mcg (1,000 unit) tablet,chewable 25 mcg PO DAILY fluticasone propion-salmeterol [Wixela Inhub] 250-50 mcg/dose blister with device 1 inh inhalation BID Qty: 60 5RF ibuprofen 600 mg tablet 600 mg PO Q8H PRN (Reason: pain) Qty: 14 0RF Referrals: [facility] [Provider Group] (Call to establish and follow up with a pre sales technical engineer (asset recovery specialist).) Kaitlyn Soto MD [Primary Care Provider] - Print Language: Yoruba
== END 2022-12-02 20:57 | disposition home or self-care (01) ==
PROVIDERS: Emergency Provider Internal Medicine; PCP Internal Medicine
DX: B07.9 Viral wart, unspecified (principal)
CPT/HCPCS: 99282

== ENCOUNTER → 2023-01-03 23:59 | Outpatient (BNV) | payer MEDICARE, MEDICAID, SELFPAY ==
--- NOTE | 2023-01-11 14:48 | A.OFFVIS_ITS ---
Intake Intake Visit Reasons: Remote Device Check- [employer] Allergies Sulfa (Sulfonamide Antibiotics) Allergy (Intermediate, Verified 01/06/23 14:03) itching sulfamethoxazole [From Bactrim] Allergy (Intermediate, Verified 01/06/23 14:03) Stomach Upset trimethoprim [From Bactrim] Allergy (Intermediate, Verified 01/06/23 14:03) Stomach Upset PFSH Medical History (HFpEF) heart failure with preserved ejection fraction Bradycardia, sinus Chronic obstructive pulmonary disease, unspecified COVID-19 vaccine series completed Diabetes mellitus with microalbuminuria, without long-term current use of insulin Dyslipidemia Dyspepsia Essential hypertension History of breast cancer in female (~2012) Irritable bowel syndrome with constipation Menopause Neuroendocrine tumor of pancreas Positive FIT (fecal immunochemical test) Surgical History History of breast biopsy History of cerebral aneurysm repair History of colonoscopy History of lumpectomy of right breast History of pacemaker History of tubal ligation Family History Father Myocardial infarction CVD (cardiovascular disease) Mother Diabetes mellitus Brother HTN (hypertension) Brother HTN (hypertension) Brother No problems noted. Son No problems noted. Social History Household Members: Family Household Members Other:: son visits often Housing: Apartment Are you a primary family day care worker to a significant other at home: No Do you presently have visiting nurse or other home services: Yes Alcohol intake: never Patient Tobacco Use Status: Former Tobacco user Quit Date: 2006 Tobacco use type: Cigarette Years Smoked: 50 yrs e-Cigarette/Vaping Use: Former Use Use of substances other than those prescribed or required for medical reasons: No Have you been hit, kicked, punched, or otherwise hurt by someone within the past year? If so, by whom?: No Advance Directives Date on File: 07/11/22 Do you have thoughts of harming others: None Do you have a plan to hurt others: No Plan Do you have the means to hurt others: No Recently lost weight without trying: No Patient : No service: No Current occupational status: disabled Cognitive needs: No Hearing needs: No Vision needs: Yes Office Procedures Cardiac Device Check Cardiac Device Check Details: Remote pacemaker report generated 01/03/2023. Pacemaker function is adequate. [id number] Cardiac Device Interrogation, pacemaker Procedure code (CPT) selection complete Coding Level of Care Code Procedure Only Diagnoses CPT Codes Cardiac Device Check - Cardiac Device 12: [id number] Cardiac Device Interrogation, pacemaker ([id number])
== END ==
PROVIDERS: PCP Internal Medicine; Visit Provider Internal Medicine Cardiovascular Disease
DX: I49.5 Sick sinus syndrome (principal); Z95.0 Presence of cardiac pacemaker
CPT/HCPCS: 93294

== ENCOUNTER 2023-01-12 13:41 | Outpatient (AMB) | payer MEDICARE, MEDICAID, SELFPAY ==
--- NOTE | 2023-01-12 13:44 | MHC.PC.OV ---
Vital Signs 01/12/23 13:46 Height 5 ft 4 in Weight 159 lb BMI 27.3 BP 132/66 Blood Pressure Location Rt brachial Position Sitting Pulse 68 Pulse Source Pulse Oximeter Pulse Oximetry (%) 95 Oxygen Delivery Method Room Air Intake Visit Reasons: follow up labs Intake Note: Pt is here today to f/u labs Allergies Sulfa (Sulfonamide Antibiotics) Allergy (Intermediate, Verified 01/12/23 14:34) itching sulfamethoxazole [From Bactrim] Allergy (Intermediate, Verified 01/12/23 14:34) Stomach Upset trimethoprim [From Bactrim] Allergy (Intermediate, Verified 01/12/23 14:34) Stomach Upset Medication List - Last Reconciled 01/12/23 by Kaitlyn Soto MD amlodipine 10 mg See Protocol PO DAILY apixaban (Eliquis) 5 mg PO BID cholecalciferol (vitamin D3) 25 mcg PO DAILY fluticasone propion-salmeterol 250-50 mcg/dose (Wixela Inhub) 1 inh inhalation BID hydralazine 25 mg See Protocol PO TID losartan 100 mg PO DAILY metformin ER 500 mg PO BEDTIME jvqgrtos-naqfdmu-vbqv-lutein 1 tab PO DAILY omega-3 fatty acids-vitamin E 1,000 mg 1,000 caps PO DAILY omeprazole 1 cap PO DAILY Tobacco use date assessed: 01/12/23 Last assessed Fall Risk: 01/12/23 Dental Screening Dental Screen Date: 01/12/23 Did you have a dental visit in the last 12 months?: No Was dental information given to patient?: Patient declined HPI follow up labs HPI Details 77-year-old lady with hypertension, diabetes mellitus, dyslipidemia, with history of heart failure with preserved ejection fraction underwent dual-chamber pacemaker placement for sick sinus syndrome, and 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 Diabetes is well controlled with hemoglobin A1c at 5.8%, her renal function electrolytes, liver enzymes are all within normal limits. Patient has been feeling well, with no complaints of any headache, no lightheadedness, no chest pain or shortness of breath. [facility] Medical History (HFpEF) heart failure with preserved ejection fraction Bradycardia, sinus Chronic obstructive pulmonary disease, unspecified COVID-19 vaccine series completed Diabetes mellitus with microalbuminuria, without long-term current use of insulin Dyslipidemia Dyspepsia Essential hypertension History of breast cancer in female (~2012) Irritable bowel syndrome with constipation Menopause Neuroendocrine tumor of pancreas Positive FIT (fecal immunochemical test) Surgical History History of breast biopsy History of cerebral aneurysm repair History of colonoscopy History of lumpectomy of right breast History of pacemaker History of tubal ligation Family History Father Myocardial infarction CVD (cardiovascular disease) Mother Diabetes mellitus Brother HTN (hypertension) Brother HTN (hypertension) Brother No problems noted. Son No problems noted. Social History Household Members: Family Household Members Other:: son visits often Housing: Apartment Are you a primary pediatric critical care nurse to a significant other at home: No Do you presently have visiting nurse or other home services: Yes Alcohol intake: never Patient Tobacco Use Status: Former Tobacco user Quit Date: 2006 Tobacco use type: Cigarette Years Smoked: 50 yrs e-Cigarette/Vaping Use: Former Use Advance Directives Date on File: 07/11/22 service: No Current occupational status: disabled Cognitive needs: No Hearing needs: No Vision needs: Yes Questionnaire Thrive Questionnaire Date Thrive assessed: 07/11/22 PAM-7 AMB Questionnaire PAM-7 Date PAM - 7 assessed: 07/11/22 Source: Developed by Drs. Tayo Calle, Shefali Hwang, Jerrod Barros and colleagues, with an educational karsten from [employer]. Review of Systems Const Denies body aches, Denies chills, Denies fatigue, Denies fever(s), Denies frequent falls, Denies headache(s), Denies lethargy and Denies weakness Eyes Denies change in vision ENT Denies dizziness, Denies headache(s) and Denies disequilibrium Card Denies chest pain, Denies leg edema, Denies lightheadedness, Denies palpitations, Denies dyspnea, Denies dyspnea on exertion and Denies orthopnea Resp Denies cough, Denies dyspnea and Denies dyspnea on exertion GI Denies hematochezia and Denies change in stool character Reports no additional complaints Musc Denies abnormal gait, Denies muscle weakness, Denies numbness, Denies radiating pain into limb and Denies tingling Skin/Breast Denies breast swelling, Denies breast skin changes, Denies breast pain and Denies breast mass Neuro Denies abnormal gait, Denies dizziness, Denies frequent falls, Denies headache(s), Denies focal weakness, Denies numbness, Denies tingling, Denies paresthesias, Denies disequilibrium and Denies weakness Psych Reports no additional complaints Endo Denies fatigue, Denies polyphagia, Denies polydipsia and Denies palpitations Jasson/Lymph Denies easy bleeding and Denies easy bruising Aller/Immun Reports no additional complaints Physical exam (Primary Care) Vital Signs: Last Vital Signs Pulse 68 01/12/23 13:46 BP 132/66 01/12/23 13:46 Pulse Ox 95 01/12/23 13:46 Oxygen Delivery Method Room Air 01/12/23 13:46 BMI result Body Mass Index 27.3 Tobacco/Smoking Status: Tobacco use Status Tobacco use date assessed 01/12/23 01/12/23 13:53 Patient Tobacco Use Status Former Tobacco user 01/12/23 13:53 Tobacco use type Cigarette 01/12/23 13:53 e-Cigarette/Vaping Use Former Use 01/12/23 13:53 Thrive Assessment: Date of Thrive Assessment Date Thrive assessed 07/11/22 01/12/23 13:53 Const General: cooperative, comfortable and no acute distress Orientation/consciousness: patient oriented x3 Limitations: no limitations [facility] Head: Yes normocephalic Ears: external ears normal, TM's normal bilaterally and EAC's normal General nose exam: Normal external nose present Face and sinus: Yes face symmetric Mouth: Normal oral and palatal mucosa present, oropharynx normal and moist mucous membranes Teeth and gingiva: edentulous Eyes General: appearance normal, both eyes and all related structures Neck Neck: Yes full ROM, Yes no lymphadenopathy and Yes supple Resp Effort & Inspection: normal respiratory effort and able to speak in complete sentences Auscultation: clear to auscultation bilaterally Cardio Rate: bradycardic Heart sounds: S1 normal heart sound present and S2 normal heart sound present GI Inspection: Yes normal to inspection Palpation (GI): Soft to palpation, nontender and no masses Auscultation: normal bowel sounds General: Yes no CVA tenderness Back/Spine/Pelvis Back: no CVA tenderness and No back tenderness Skin General skin exam: no rashes or lesions noted Neuro General: patient oriented x3 Extrem General: Yes no pedal edema Results AMB Hemoglobin A1c AMB Hemoglobin A1c 5.8 % Last Edit by Willa Fitzpatrick CMA on 01/12/23 14:55 Results Reviewed Results Reviewed: Laboratory Last Values Hgb A1c (Clinic) 5.8 % (4.0-6.0) 01/12/23 14:50 ENTERED: 01/06/[address] [facility] [address]: Kaitlyn Soto MD ORDERED: CBC Auto Diff Test Result Flag Reference Site WBC 8.2 4.8-10.8 X10*3/uL RBC 4.47 4.20-5.50 X10*6/uL HGB 13.8 12.0-16.0 g/dl HCT 43.4 37.0-47.0 % MCV 97.1 80.0-98.0 fL MCH 30.9 27.0-33.0 pg MCHC 31.8 31.0-35.0 g/dl RDW 13.2 11.0-16.0 % PLT 191 160-400 X10*3/uL ENTERED: 01/06/[address] [facility] [address]: Kaitlyn Soto MD ORDERED: CMP Test Result Flag Reference Site Sodium 142 135-145 mmol/L Potassium 4.5 3.3-5.1 mmol/L CL 111 H 96-108 mmol/L CO2 20 L 22-29 mmol/L Gap 16 12-20 BUN 22 H 9-16 mg/dL Creat 0.74 0.5-1.4 mg/dL Estimated CrCl 59.8 Provided height and weight: 162.56 cm, 71.8 kg. eGFR (calculated from the MDRD study equation) and eCrCl (calculated from the Cockcroft-Gault equation) are based on different parameters and may not yield comparable results. If eCrCl result is absurd, please check patient's height/weight. EGFR > 60 NOTE: For -[place]iqu[place] individuals, multiply the result by 1.210. Chronic Kidney Disease: Estimated GFR < 60 mL/min/1.73m2 Severe Kidney Disease: Estimated GFR < 15 mL/min/1.73m2 Glucose, Random 103 60-115 mg/dL CA 9.3 8.4-10.2 mg/dL Total Bili 0.8 0.0-1.0 mg/dL AST (GOT) 16 5-31 U/L ALT (GPT) 15 0-31 U/L Protein, Total 6.9 6.5-8.0 g/dL Alb 4.0 3.5-5.0 g/dL Alk Phos 91 39-117 U/L Laboratory Tests 01/12/23 14:50 Hgb A1c (Clinic) 5.8 Assessment and Plan Assessment & Plan (1) Neuroendocrine tumor of pancreas: Code(s): D3A.8 - Other benign neuroendocrine tumors Plan: Currently being followed by Dr. Guzman, and referred to [facility] (2) Essential hypertension: Code(s): I10 - Essential (primary) hypertension Plan: Blood pressure at goal of less than 130/80. Continue with amlodipine 10 mg daily and hydralazine 25 mg daily, losartan 100 mg daily. Reinforced importance of following a low sodium diet, getting regular exercise, and lowering stress levels. (3) Diabetes mellitus with microalbuminuria, without long-term current use of insulin: Code(s): E11.29 - Type 2 diabetes mellitus with other diabetic kidney complication; R80.9 - Proteinuria, unspecified Qualifiers: Diabetes mellitus type: type 2 Qualified Code(s): E11.29 - Type 2 diabetes mellitus with other diabetic kidney complication; R80.9 - Proteinuria, unspecified Plan: Recent lab results reviewed with patient, with sugar and hemoglobin A1c stable and at goal . Continue with metformin ER 500 mg 1 tablet at night with supper. Reinforced diabetic diet and regular exercise with patient. Counseled regarding importance of yearly diabetes retinopathy screening. Patient advised to inspect feet daily, for any signs of injury, callus or infection. Compliance with diet and regular exercise again stressed. Blood pressure goal is less than 130/80, goal LDL is less than 100 and goal hemoglobin A1c is less than 7% follow-up appointment made in--3-months, after fasting labs done. (4) Chronic obstructive pulmonary disease, unspecified: Code(s): J44.9 - Chronic obstructive pulmonary disease, unspecified Qualifiers: COPD type: unspecified COPD Qualified Code(s): J44.9 - Chronic obstructive pulmonary disease, unspecified Plan: COPD stable controlled on Wixela 1 inhalation twice a day, currently up-to-date with her pneumococcal vaccinations, advised to get yearly flu shot and reminded to get her COVID booster. Orders: Orders Alanine Aminotransferase 3 Months . - Type 2 diabetes mellitus with other diabetic kidney complication, E78.5 - Hyperlipidemia, unspecified, I10 - Essential (primary) hypertension, R80.9 - Proteinuria, unspecified, Z78.0 - Asymptomatic menopausal state Aspartate Amino Transferase 3 Months . - Type 2 diabetes mellitus with other diabetic kidney complication, E78.5 - Hyperlipidemia, unspecified, I10 - Essential (primary) hypertension, R80.9 - Proteinuria, unspecified, Z78.0 - Asymptomatic menopausal state Basic Metabolic Panel Fasting 3 Months . - Type 2 diabetes mellitus with other diabetic kidney complication, E78.5 - Hyperlipidemia, unspecified, I10 - Essential (primary) hypertension, R80.9 - Proteinuria, unspecified, Z78.0 - Asymptomatic menopausal state Hemoglobin A1c 3 Months . - Type 2 diabetes mellitus with other diabetic kidney complication, E78.5 - Hyperlipidemia, unspecified, I10 - Essential (primary) hypertension, R80.9 - Proteinuria, unspecified, Z78.0 - Asymptomatic menopausal state Lipid Panel 3 Months . - Type 2 diabetes mellitus with other diabetic kidney complication, E78.5 - Hyperlipidemia, unspecified, I10 - Essential (primary) hypertension, R80.9 - Proteinuria, unspecified, Z78.0 - Asymptomatic menopausal state Microalbumin, Random (w Creat) 3 Months . - Type 2 diabetes mellitus with other diabetic kidney complication, E78.5 - Hyperlipidemia, unspecified, I10 - Essential (primary) hypertension, R80.9 - Proteinuria, unspecified, Z78.0 - Asymptomatic menopausal state AMB Hemoglobin A1c 01/12/23. - Type 2 diabetes mellitus with other diabetic kidney complication, R80.9 - Proteinuria, unspecified Coding Level of Care Code Est Pt Level 4 (54330) Diagnoses Neuroendocrine tumor of pancreas D3A.8 Essential hypertension I10 Diabetes mellitus with microalbuminuria, without long-term current use of insulin ; R80.9 Diabetes mellitus type: type 2 Chronic obstructive pulmonary disease, unspecified J44.9 COPD type: unspecified COPD
[2023-01-12 13:46] VITALS: BP 132/66; PULSE 68; O2SAT 95; BMI 27.3
== END 2023-01-12 15:11 | disposition home or self-care (01) ==
PROVIDERS: PCP Internal Medicine; Visit Provider Internal Medicine
DX: I10 Essential (primary) hypertension (principal); E11.29 Type 2 diabetes mellitus with other diabetic kidney complication; J44.9 Chronic obstructive pulmonary disease, unspecified; D3A.8 Other benign neuroendocrine tumors; R80.9 Proteinuria, unspecified
CPT/HCPCS: 83036; 99214

== ENCOUNTER → 2023-02-21 23:59 | Outpatient (BNV) | payer MEDICARE, MEDICAID, SELFPAY ==
--- NOTE | 2023-02-22 12:50 | A.OFFVIS_ITS ---
Intake Intake Visit Reasons: Remote Device Check- Medtronic Allergies Sulfa (Sulfonamide Antibiotics) Allergy (Intermediate, Verified 02/10/23 13:08) itching sulfamethoxazole [From Bactrim] Allergy (Intermediate, Verified 02/10/23 13:08) Stomach Upset trimethoprim [From Bactrim] Allergy (Intermediate, Verified 02/10/23 13:08) Stomach Upset PFSH Medical History (HFpEF) heart failure with preserved ejection fraction Bradycardia, sinus Chronic obstructive pulmonary disease, unspecified COVID-19 vaccine series completed Diabetes mellitus with microalbuminuria, without long-term current use of insulin Dyslipidemia Dyspepsia Essential hypertension History of breast cancer in female (~2012) Irritable bowel syndrome with constipation Menopause Neuroendocrine tumor of pancreas Positive FIT (fecal immunochemical test) Surgical History History of breast biopsy History of cerebral aneurysm repair History of colonoscopy History of lumpectomy of right breast History of pacemaker History of tubal ligation Family History Father Myocardial infarction CVD (cardiovascular disease) Mother Diabetes mellitus Brother HTN (hypertension) Brother HTN (hypertension) Brother No problems noted. Son No problems noted. Social History Household Members: Family Household Members Other:: son visits often Housing: Apartment Are you a primary healthcare account manager to a significant other at home: No Do you presently have visiting nurse or other home services: Yes Alcohol intake: never Patient Tobacco Use Status: Former Tobacco user Quit Date: 2006 Tobacco use type: Cigarette Years Smoked: 50 yrs e-Cigarette/Vaping Use: Former Use Use of substances other than those prescribed or required for medical reasons: No Have you been hit, kicked, punched, or otherwise hurt by someone within the past year? If so, by whom?: No Advance Directives Date on File: 07/11/22 Do you have thoughts of harming others: None Do you have a plan to hurt others: No Plan Do you have the means to hurt others: No Recently lost weight without trying: No Patient : No service: No Current occupational status: disabled Cognitive needs: No Hearing needs: No Vision needs: Yes Office Procedures Cardiac Device Check Cardiac Device Check Details: Remote pacemaker report generated 02/21/2023. Pacemaker function is adequate [id number] Cardiac Device Interrogation, pacemaker Procedure code (CPT) selection complete Coding Level of Care Code Procedure Only CPT Codes Cardiac Device Check - Cardiac Device 12: [id number] Cardiac Device Interrogation, pacemaker ([id number])
== END ==
PROVIDERS: PCP Internal Medicine; Visit Provider Internal Medicine Cardiovascular Disease
DX: I49.5 Sick sinus syndrome (principal); Z95.0 Presence of cardiac pacemaker
CPT/HCPCS: 93294

== ENCOUNTER 2023-05-22 13:21 | Outpatient (AMB) | payer MEDICARE, MEDICAID, SELFPAY ==
[2023-05-22 13:42] VITALS: BP 132/74; PULSE 66; BMI 26.3
--- NOTE | 2023-05-22 13:42 | A.OFFVIS_ITS ---
Intake Vital Signs 05/22/23 13:42 Height 5 ft 4 in Weight 153 lb 0.013 oz BMI 26.3 BP 132/74 Blood Pressure Location Lt brachial Position Sitting Pulse 66 Pulse Source Pulse Oximeter Intake Visit Reasons: f/u device check Allergies Sulfa (Sulfonamide Antibiotics) Allergy (Intermediate, Verified 05/22/23 13:42) itching sulfamethoxazole [From Bactrim] Allergy (Intermediate, Verified 05/22/23 13:42) Stomach Upset trimethoprim [From Bactrim] Allergy (Intermediate, Verified 05/22/23 13:42) Stomach Upset Medication List - Last Reconciled 05/22/23 by Ana Landeros, ORTHODONTIST VICE PRESIDENT-C amlodipine 10 mg See Protocol PO DAILY apixaban (Eliquis) 5 mg PO BID cholecalciferol (vitamin D3) 25 mcg PO DAILY fluticasone propion-salmeterol 250-50 mcg/dose (Wixela Inhub) 1 inh inhalation BID hydralazine 25 mg See Protocol PO TID metformin ER 500 mg PO BEDTIME odbwzsdk-tnsowpx-htza-lutein 1 tab PO DAILY omega-3 fatty acids-vitamin E 1,000 mg 1,000 caps PO DAILY omeprazole 1 cap PO DAILY HPI f/u device check HPI Details Mary is a 77-year-old female with past medical history of hyperlipidemia, hypertension, diabetes, heart failure with preserved EF, sick sinus syndrome status post pacemaker placement, newer paroxysmal AFib who presents for follow-up. Today she reports that she is being treated with radiation for pancreatic and liver cancer. She follows with Dr. Guzman. Overall she is feeling well with no significant symptoms. She denies any concerning shortness of breath, chest discomfort, palpitations, presyncope, syncope, PND, orthopnea or edema. She does exercises at the [employer] to times a week which she says she tolerates well. She is spending lots of time cooking and enjoying her grandchildren. She is taking her medications as directed. No bleeding issues with Eliquis. [facility] Medical History Bradycardia, sinus History of breast cancer in female (~2012) Neuroendocrine tumor of pancreas COVID-19 vaccine series completed Dyspepsia Irritable bowel syndrome with constipation Positive FIT (fecal immunochemical test) Chronic obstructive pulmonary disease, unspecified (HFpEF) heart failure with preserved ejection fraction Menopause Dyslipidemia Essential hypertension Diabetes mellitus with microalbuminuria, without long-term current use of insulin Surgical History History of pacemaker History of breast biopsy History of tubal ligation History of colonoscopy History of cerebral aneurysm repair History of lumpectomy of right breast Family History Father Myocardial infarction CVD (cardiovascular disease) Mother Diabetes mellitus Brother HTN (hypertension) Brother HTN (hypertension) Brother No problems noted. Son No problems noted. Social History Household Members: Family Household Members Other:: son visits often Housing: Apartment Are you a primary child care center administrator to a significant other at home: No Do you presently have visiting nurse or other home services: Yes Alcohol intake: never Patient Tobacco Use Status: Former Tobacco user Quit Date: 2006 Tobacco use type: Cigarette Years Smoked: 50 yrs e-Cigarette/Vaping Use: Former Use Advance Directives Date on File: 07/11/22 service: No Current occupational status: disabled Cognitive needs: No Hearing needs: No Vision needs: Yes Review of Systems Const All systems reviewed & are unremarkable except as noted in HPI and below ENT Denies dizziness Card Denies chest pain, Denies chest pain at rest, Denies chest pain with activity, Denies rapid heart rate, Denies pedal edema, Denies edema, Denies leg edema, Denies lightheadedness, Denies palpitations, Denies dyspnea, Denies dyspnea on exertion and Denies orthopnea Resp Denies cough, Denies dyspnea and Denies dyspnea on exertion GI Denies hematochezia and Denies change in stool character Musc Denies abnormal gait, Denies limited range of motion, Denies muscle cramps, Denies muscle weakness, Denies numbness, Denies radiating pain into limb, Denies stiffness and Denies tingling Neuro Denies abnormal gait, Denies dizziness, Denies numbness and Denies tingling Endo Denies palpitations Physical Exam Vital Signs: Last Vital Signs Pulse 66 05/22/23 13:42 BP 132/74 05/22/23 13:42 BMI result Body Mass Index 26.3 Const General: cooperative, healthy appearing, comfortable and no acute distress Orientation/consciousness: patient oriented x3 Neck Neck: Yes normal visual inspection Resp Effort & Inspection: normal respiratory effort Auscultation: clear to auscultation bilaterally, no crackles, no rales, no rhonchi and no wheezes Cardio Jugular venous distension: no JVD Rate: regular rate Rhythm: regular rhythm Heart sounds: S1 normal heart sound present, S2 normal heart sound present, no murmurs and no rubs Neuro General: patient oriented x3 Extrem General: Yes normal to inspection Psych Appearance: grossly normal Mental Status: mental status grossly normal Speech and movement: Normal speech and movement present Office Procedures Cardiac Device Check Cardiac Device Check Details: Medtronic dual-chamber pacemaker interrogation today, DDDR mode, low rate 60, battery 10.5 years, a paced 98.7%, V paced 96.9%, 9 high V rates, mostly SVT, paroxysmal atrial fibrillation with longest episode 2 hours 54 minutes, on anticoagulation, right atrial threshold 0.5 volts at 0.4 milliseconds, RV threshold 0.75 volts at 0.4 milliseconds. [id number] Cardiac Device Check, pacemaker dual lead Procedure code (CPT) selection complete Assessment & Plan Assessment & Plan (1) Afib: Code(s): I48.91 - Unspecified atrial fibrillation Plan: Remote monitoring of her pacemaker shows newer finding paroxysmal atrial fibrillation. She has been started on Eliquis 5 mg b.i.d.. No reports of bleeding issues. Labs done 05/08/2023 shows normal H&H. Device interrogation today shows episodes of paroxysmal AFib with V rates over 100 up to 150 AFib bur den less than 0.1% since September 2022. Longest episode 12/07/2022 2 hours and 18 minutes. She denies feeling any heart palpitations. On remote monitoring she also is having brief runs of SVT with V rates as high as 170, longest 3 seconds. At this time she is not on any rate slowing medications. Will start on low- dose metoprolol, XL 25 mg daily. Will continue to monitor heart rates on remote monitoring and adjust medication as needed. (2) (HFpEF) heart failure with preserved ejection fraction: Code(s): I50.30 - Unspecified diastolic (congestive) heart failure Plan: History of heart failure with preserved EF. On exam today does not appear to have decompensated heart failure. She denies having concerning shortness of breath, no PND or orthopnea or edema. She is not on daily diuretics at this time. Signs and symptoms of heart failure reviewed with her. Low-salt diet reviewed. (3) Sick sinus syndrome: Code(s): I49.5 - Sick sinus syndrome Plan: History of sick sinus syndrome with placement of dual-chamber pacemaker 07/27/2022 (4) Pacemaker: Onset Date: ~2022 Comment: (Medtronic DCPP - placed 07/27/2022) Code(s): Z95.0 - Presence of cardiac pacemaker Plan: Medtronic dual chamber pacemaker interrogation today shows device is functioning normally. Battery 10.5 years. Remote monitoring in use. Next office interrogation in 6 months (5) SVT (supraventricular tachycardia): Code(s): I47.10 - Supraventricular tachycardia, unspecified Plan: SVT versus VT on remote monitoring, brief episodes, 1-3 seconds. Last echocardiogram 05/20/2020 shows EF 50-55%, no valve abnormalities. Will update echo prior to her next visit (6) Essential hypertension: Code(s): I10 - Essential (primary) hypertension Plan: In normal range at this time. Continue current med management. Plan Time spent on chart review, documentation, interview and assessed Medications: New metoprolol succinate ER 25 mg PO DAILY 30 tabs 5RF Coding Level of Care Code Est Pt Level 4 (04020) Diagnoses Afib I48.91 (HFpEF) heart failure with preserved ejection fraction I50.30 Sick sinus syndrome I49.5 Pacemaker Z95.0 SVT (supraventricular tachycardia) I47.10 Essential hypertension I10 CPT Codes Cardiac Device Check - Cardiac Device 2: [id number] Cardiac Device Check, pacemaker dual lead ([id number]) Time Spent (min) 28
== END 2023-05-22 14:13 | disposition home or self-care (01) ==
PROVIDERS: PCP Internal Medicine; Visit Provider Nurse Practitioner Family
DX: I48.91 Unspecified atrial fibrillation (principal); I50.30 Unspecified diastolic (congestive) heart failure; I49.5 Sick sinus syndrome; Z95.0 Presence of cardiac pacemaker; I47.10 Supraventricular tachycardia, unspecified; I10 Essential (primary) hypertension
CPT/HCPCS: 93280; 99214

== ENCOUNTER → 2023-05-22 13:21 | Outpatient (BNVA) | payer MEDICARE, MEDICAID, SELFPAY | PROVIDERS: PCP Internal Medicine; Visit Provider Nurse Practitioner Family | DX: Z45.018 Encounter for adjustment and management of other part of cardiac pacemaker (principal); I11.0 Hypertensive heart disease with heart failure; I50.30 Unspecified diastolic (congestive) heart failure; I49.5 Sick sinus syndrome; I47.10 Supraventricular tachycardia, unspecified | CPT/HCPCS: 93280; 99212 ==

== ENCOUNTER → 2023-05-22 23:59 | Outpatient (BNV) | payer MEDICARE, MEDICAID, SELFPAY ==
--- NOTE | 2023-06-13 08:44 | MHC.OFFVIS ---
Intake Intake Visit Reasons: Remote Device Check- [employer] Allergies Sulfa (Sulfonamide Antibiotics) Allergy (Intermediate, Verified 05/22/23 13:42) itching sulfamethoxazole [From Bactrim] Allergy (Intermediate, Verified 05/22/23 13:42) Stomach Upset trimethoprim [From Bactrim] Allergy (Intermediate, Verified 05/22/23 13:42) Stomach Upset PFSH Medical History Bradycardia, sinus History of breast cancer in female (~2012) Neuroendocrine tumor of pancreas COVID-19 vaccine series completed Dyspepsia Irritable bowel syndrome with constipation Positive FIT (fecal immunochemical test) Chronic obstructive pulmonary disease, unspecified (HFpEF) heart failure with preserved ejection fraction Menopause Dyslipidemia Essential hypertension Diabetes mellitus with microalbuminuria, without long-term current use of insulin Surgical History History of pacemaker History of breast biopsy History of tubal ligation History of colonoscopy History of cerebral aneurysm repair History of lumpectomy of right breast Family History Father Myocardial infarction CVD (cardiovascular disease) Mother Diabetes mellitus Brother HTN (hypertension) Brother HTN (hypertension) Brother No problems noted. Son No problems noted. Social History Household Members: Family Household Members Other:: son visits often Housing: Apartment Are you a primary child care counselor to a significant other at home: No Do you presently have visiting nurse or other home services: Yes Alcohol intake: never Patient Tobacco Use Status: Former Tobacco user Quit Date: 2006 Tobacco use type: Cigarette Years Smoked: 50 yrs e-Cigarette/Vaping Use: Former Use Use of substances other than those prescribed or required for medical reasons: No Have you been hit, kicked, punched, or otherwise hurt by someone within the past year? If so, by whom?: No Advance Directives Date on File: 07/11/22 Do you have thoughts of harming others: None Do you have a plan to hurt others: No Plan Do you have the means to hurt others: No Recently lost weight without trying: No Patient : No service: No Current occupational status: disabled Cognitive needs: No Hearing needs: No Vision needs: Yes Office Procedures Cardiac Device Check Cardiac Device Check Details: Remote pacemaker report generated 05/22/2023. Pacemaker function is adequate. Patient pacer dependent [id number] Cardiac Device Interrogation, pacemaker Procedure code (CPT) selection complete Assessment & Plan Assessment & Plan (1) Pacemaker: Onset Date: ~2022 Comment: (Medtronic DCPP - placed 07/27/2022) Code(s): Z95.0 - Presence of cardiac pacemaker Plan: See above Medications: Discontinued fluticasone propion-salmeterol 250-50 mcg/dose Discontinued Reason: Insurance Denied 1 inh inhalation BID 60 ea 5RF Coding Level of Care Code Procedure Only Diagnoses Pacemaker Z95.0 CPT Codes Cardiac Device Check - Cardiac Device 12: [id number] Cardiac Device Interrogation, pacemaker ([id number])
== END ==
PROVIDERS: PCP Internal Medicine; Visit Provider Internal Medicine Cardiovascular Disease
DX: R00.1 Bradycardia, unspecified (principal); Z95.0 Presence of cardiac pacemaker
CPT/HCPCS: 93294

== ENCOUNTER 2023-06-22 13:01 | Outpatient (AMB) | payer MEDICARE, MEDICAID, SELFPAY ==
--- NOTE | 2023-06-22 13:15 | A.OFFPC_ITS ---
Vital Signs 06/22/23 13:16 Height 5 ft 4 in Weight 151 lb BMI 25.9 BP 130/76 Blood Pressure Location Rt brachial Position Sitting Pulse 66 Pulse Source Pulse Oximeter Pulse Oximetry (%) 95 Oxygen Delivery Method Room Air Intake Visit Reasons: 3 Month follow up/PE Intake Note: Pt is here for her Annual PE Allergies Sulfa (Sulfonamide Antibiotics) Allergy (Intermediate, Verified 06/22/23 13:48) itching sulfamethoxazole [From Bactrim] Allergy (Intermediate, Verified 06/22/23 13:48) Stomach Upset trimethoprim [From Bactrim] Allergy (Intermediate, Verified 06/22/23 13:48) Stomach Upset Medication List - Last Reconciled 06/22/23 by Kaitlyn Soto MD amlodipine 10 mg See Protocol PO DAILY apixaban (Eliquis) 5 mg PO BID cholecalciferol (vitamin D3) 25 mcg PO DAILY hydralazine 25 mg See Protocol PO TID losartan 100 mg PO DAILY metformin ER 500 mg PO BEDTIME metoprolol succinate ER 25 mg PO DAILY ahggwyie-cyxnsaw-kydr-lutein 1 tab PO DAILY omega-3 fatty acids-vitamin E 1,000 mg 1,000 caps PO DAILY omeprazole 1 cap PO DAILY Symbicort 160-4.5 mcg/actuation (budesonide-formoterol) 2 puffs inhalation Q12H NS Tobacco use date assessed: 06/22/23 Fall risk assessment: No Falls in past year Last assessed Fall Risk: 06/22/23 Dental Screening Dental Screen Date: 06/22/23 Did you have a dental visit in the last 12 months?: No Did you have a dental problem in the last 6 months where you did not have access to dental care?: No Was dental information given to patient?: No HPI 3 Month follow up/PE HPI Details 77-year-old lady with history of breast cancer, hyperlipidemia, hypertension, diabetes mellitus , heart failure with preserved EF, sick sinus syndrome status post pacemaker placement, newer paroxysmal AFib recently diagnosed with 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 Overall she is feeling well with no significant symptoms. She denies any concerning shortness of breath, chest discomfort, palpitations, presyncope, syncope, PND, orthopnea or edema. She does exercises at the [employer] to times a week which she says she tolerates well. She is spending lots of time cooking and enjoying her grandchildren. She is taking her medications as directed. No bleeding issues with Narciso. [facility] Medical History (Updated 07/04/23 @ 22:56 by Kaitlyn Soto MD) History of esophagitis Bradycardia, sinus History of breast cancer in female (~2012) Neuroendocrine tumor of pancreas COVID-19 vaccine series completed Irritable bowel syndrome with constipation Positive FIT (fecal immunochemical test) Chronic obstructive pulmonary disease, unspecified (HFpEF) heart failure with preserved ejection fraction Menopause Dyslipidemia Essential hypertension Diabetes mellitus with microalbuminuria, without long-term current use of insulin Surgical History History of pacemaker History of breast biopsy History of tubal ligation History of colonoscopy History of cerebral aneurysm repair History of lumpectomy of right breast Family History Father Myocardial infarction CVD (cardiovascular disease) Mother Diabetes mellitus Brother HTN (hypertension) Brother HTN (hypertension) Brother No problems noted. Son No problems noted. Social History Household Members: Family Household Members Other:: son visits often Housing: Apartment Are you a primary career discovery teacher to a significant other at home: No Do you presently have visiting nurse or other home services: Yes Alcohol intake: never Patient Tobacco Use Status: Former Tobacco user Quit Date: 2006 Tobacco use type: Cigarette Years Smoked: 50 yrs e-Cigarette/Vaping Use: Former Use Use of substances other than those prescribed or required for medical reasons: No Have you been hit, kicked, punched, or otherwise hurt by someone within the past year? If so, by whom?: No Advance Directives Date on File: 07/11/22 Do you have thoughts of harming others: None Do you have a plan to hurt others: No Plan Do you have the means to hurt others: No Recently lost weight without trying: No Patient : No service: No Current occupational status: disabled Cognitive needs: No Hearing needs: No Vision needs: Yes Questionnaire PHQ-9 Over the last 2 weeks, how often have you been bothered by any of the following problems? 1. Little interest or pleasure in doing things: nearly every day 2. Feeling down, depressed, or hopeless: not at all 3. Trouble falling or staying asleep, or sleeping too much: not at all 4. Feeling tired or having little energy: not at all 5. Poor appetite or overeating: not at all 6. Feeling bad about yourself - or that you are a failure or have let yourself or your family down: not at all 7. Trouble concentrating on things, such as reading the newspaper or watching television: not at all 8. Moving or speaking so slowly that other people could have noticed. Or the opposite - being so fidgety or restless that you have been moving around a lot more than usual: not at all 9. Thoughts that you would be better off or of hurting yourself in some way: not at all Total score: 3 Depression Screening Interpretation: Negative Depression Screening Done: Yes [id number] - PHQ-9 Billing: Yes Source: Developed by Drs. Tayo Calle, Shefali Hwang, Jerrod Barros and colleagues, with an educational karsten from [employer]. Thrive Questionnaire Date Thrive assessed: 06/22/23 I am a: Patient What is your living situation today?: I have a steady place to live Within the past 12 months, did the food you bought not last and you didn't have the money to get more?: Never true Within the past 12 months, did you worry whether your food would run out before you got money to buy more?: Never true Do you have trouble paying for medicines?: No Do you have trouble getting transportation to medical appointments?: Yes Do you have trouble paying your heating and electricity bill?: No Do you have trouble taking care of your child, family member or friend?: No Do you have trouble with day-to-day activities such as bathing, preparing meals, shopping, managing finances, etc.?: No Are you currently unemployed and looking for a job?: No Are you interested in more education?: No AUDIT C Alcohol Use Questionnaire (AUDIT-C) 1. How often do you have a drink containing alcohol?: Never Total Score: 0 PAM-7 AMB Questionnaire PAM-7 Date PAM - 7 assessed: 06/22/23 Feeling nervous, anxious, or on edge: 0 = Not at all Not being able to stop or control worryin = Not at all Worrying too much about different things: 0 = Not at all Trouble relaxin = Not at all Being so restless that it is hard to sit still: 0 = Not at all Becoming easily annoyed or irritable: 0 = Not at all Feeling afraid as if something awful might happen: 0 = Not at all Total PAM-7 score (0-4 normal; 5-9 mild; 10-14 moderate; 15-21 severe): 0 Source: Developed by Drs. Tayo Calle, Shefali Hwang, Jerrod Barros and colleagues, with an educational karsten from [employer]. PAM-7 Assessment Billing PAM-7 Assessment Tool: PAM-7 Assessment 21026 Review of Systems Const Reports no additional complaints Eyes Denies change in vision ENT Denies dizziness Card Denies chest pain, Denies chest pain with activity, Denies rapid heart rate, Denies pedal edema, Denies lightheadedness, Denies palpitations and Denies dyspnea Resp Denies cough and Denies dyspnea GI Denies change in stool character Reports no additional complaints Musc Denies abnormal gait, Denies limited range of motion, Denies muscle cramps, Denies muscle weakness, Denies numbness, Denies radiating pain into limb, R eports stiffness and Denies tingling Skin/Breast Denies breast pain, Denies breast mass and Denies rash Neuro Denies abnormal gait, Denies dizziness, Denies numbness and Denies tingling Psych Reports no additional complaints Endo Denies palpitations Jasson/Lymph Denies easy bleeding and Denies easy bruising Aller/Immun Reports no additional complaints Physical exam (Primary Care) Vital Signs: Last Vital Signs Pulse 66 06/22/23 13:16 BP 130/76 06/22/23 13:16 Pulse Ox 95 06/22/23 13:16 Oxygen Delivery Method Room Air 06/22/23 13:16 BMI result Body Mass Index 25.9 Tobacco/Smoking Status: Tobacco use Status Tobacco use date assessed 06/22/23 06/22/23 13:24 Patient Tobacco Use Status Former Tobacco user 06/22/23 13:16 Tobacco use type Cigarette 06/22/23 13:16 e-Cigarette/Vaping Use Former Use 06/22/23 13:16 PHQ-9: PHQ-9 Score PHQ-9: Total score 3 07/04/23 22:49 Depression Screening Interpretation: Negative Thrive Assessment: Date of Thrive Assessment Date Thrive assessed 06/22/23 06/22/23 14:11 Const General: cooperative, comfortable and no acute distress Orientation/consciousness: patient oriented x3 Limitations: no limitations HENMT Head: Yes normocephalic Ears: external ears normal, TM's normal bilaterally and EAC's normal General nose exam: Normal external nose present Face and sinus: Yes face symmetric Mouth: Normal oral and palatal mucosa present, oropharynx normal and moist mucous membranes Teeth and gingiva: edentulous Eyes General: appearance normal, both eyes and all related structures Neck Neck: Yes full ROM, Yes no lymphadenopathy and Yes supple Resp Effort & Inspection: normal respiratory effort and able to speak in complete sentences Auscultation: clear to auscultation bilaterally Cardio Rate: regular rate Heart sounds: S1 normal heart sound present and S2 normal heart sound present GI Inspection: Yes normal to inspection Palpation (GI): Soft to palpation, nontender and no masses Auscultation: normal bowel sounds General: Yes no CVA tenderness Back/Spine/Pelvis Back: no CVA tenderness and No back tenderness Skin General skin exam: no rashes or lesions noted Neuro General: patient oriented x3 Extrem General: Yes no pedal edema Psych Appearance: grossly normal and well kempt Mental Status: mental status grossly normal Speech and movement: Normal speech and movement present Affect: normal affect Attitude: cooperative Thought process: Normal thought process present Thought content: Normal thought content present Results AMB Hemoglobin A1c 2 AMB Hemoglobin A1c 6.2 % Last Edit by Ethel Chance CMA on 06/22/23 14: 08 Results Reviewed Results Reviewed: Laboratory Last Values Hgb A1c (Clinic) 6.2 % (4.0-6.0) H 06/22/23 14:06 Name: Mary Miramontes Age/Sex: 77/F : 1945 Unit#: [id number] Attend Dr: Lisa Guzman MD Re06/07/23 Status: REG RCR Location: [facility] Disch: SPEC : [id number] KAIA: 12/27/23-1320 STATUS: COMP REQ : [id number] RECD: 06/07/[address]: Lisa Guzman MD COMP: 06/07/23 ENTERED: 06/07/[address] [facility] [address]: Kaitlyn Soto MD ORDERED: CBC Auto Diff Test Result Flag Reference Site WBC 7.4 4.8-10.8 X10*3/uL RBC 4.07 L 4.20-5.50 X10*6/uL HGB 12.9 12.0-16.0 g/dl HCT 40.2 37.0-47.0 % MCV 98.8 H 80.0-98.0 fL MCH 31.7 27.0-33.0 pg MCHC 32.1 31.0-35.0 g/dl RDW 13.5 11.0-16.0 % PLT 142 L 160-400 X10*3/uL MPV 10.9 9.4-12.3 fL Neut Pct Auto 70.9 45-73 % ImGran Pct Auto 0.4 0.0-0.4 % Lymp Pct Auto 18.2 L 20-40 % [place] Pct Auto 8.1 2-11 % Eos Pct Auto 2.0 0-4 % Baso Pct Auto 0.4 0-2 % NRBC Pct Auto 0.0 0.0-0.2 /100WBC ANC Neut Abs # 5.2 2.0-8.3 x10*3/uL ImGran Abs Auto 0.03 0.00-0.03 X10*3/uL Lymph Abs Auto 1.4 1.2-4.9 X10*3/uL [place] Abs Auto 0.6 0.1-1.2 X10*3/uL Eos Abs Auto 0.2 0.0-0.4 X10*3/uL Baso Abs Auto 0.0 0.0-0.2 X10*3/uL NRBC Abs Auto 0.000 0.0-0.012 X10*3/uL PEC : [id number] KAIA: 06/07/23 STATUS: COMP REQ : [id number] RECD: 06/07/[address]: Lisa Guzman MD COMP: 06/07/23 ENTERED: 06/07/231314 [facility] DR: Kaitlyn Soto MD ORDERED: CMP, Liver Panel Test Result Flag Reference Site Sodium 146 H 135-145 mmol/L Potassium 4.0 3.3-5.1 mmol/L CL 114 H 96-108 mmol/L CO2 26 22-29 mmol/L Gap 10 L 12-20 BUN 24 H 9-16 mg/dL Creat 0.72 0.5-1.4 mg/dL Estimated CrCl 61.5 Provided height and weight: 162.56 cm, 71.8 kg. eGFR (calculated from the MDRD study equation) and eCrCl (calculated from the Cockcroft-Gault equation) are based on different parameters and may not yield comparable results. If eCrCl result is absurd, please check patient's height/weight. EGFR > 60 NOTE: For -[place] individuals, multiply the result by 1.210. Chronic Kidney Disease: Estimated GFR < 60 mL/min/1.73m2 Severe Kidney Disease: Estimated GFR < 15 mL/min/1.73m2 Glucose, Random 117 H 60-115 mg/dL CA 9.2 8.4-10.2 mg/dL Total Bili 0.7 0.0-1.0 mg/dL Direct Bili 0.3 0.0-0.5 mg/dL AST (GOT) 17 5-31 U/L ALT (GPT) 14 0-31 U/L Protein, Total 6.6 6.5-8.0 g/dL Alb 4.0 3.5-5.0 g/dL Alk Phos 68 39-117 U/L Laboratory Tests 06/22/23 14:06 Hgb A1c (Clinic) 6.2 H Assessment and Plan Assessment & Plan (1) Dyslipidemia: Code(s): E78.5 - Hyperlipidemia, unspecified (2) Essential hypertension: Code(s): I10 - Essential (primary) hypertension Plan: Blood pressure at goal of less than 130/80. Continue with amlodipine, metopr olol succinate ER, hydralazine and losartan Reinforced importance of following a low sodium diet, getting regular exercise, and lowering stress levels. (3) Diabetes mellitus with microalbuminuria, without long-term current use of insulin: Code(s): E11.29 - Type 2 diabetes mellitus with other diabetic kidney complication; R80.9 - Proteinuria, unspecified Qualifiers: Diabetes mellitus type: type 2 Qualified Code(s): E11.29 - Type 2 diabetes mellitus with other diabetic kidney complication; R80.9 - Proteinuria, unspecified Plan: Diabetes mellitus controlled, with A1c at 6.2%, continue metformin ER 500 mg daily at night, followed by Dr. Dhaliwal for her yearly diabetes retinopathy screening. Up-to-date with vaccination (4) Chronic obstructive pulmonary disease, unspecified: Code(s): J44.9 - Chronic obstructive pulmonary disease, unspecified Qualifiers: COPD type: unspecified COPD Qualified Code(s): J44.9 - Chronic obstructive pulmonary disease, unspecified Plan: Controlled with Symbicort (5) Annual visit for general adult medical examination with abnormal findings: Code(s): Z00.01 - Encounter for general adult medical examination with abnormal findings Plan: Recent fasting labs reviewed with patient. Currently followed by Dr. Dhaliwal yearly.. Take adequate calcium in diet and vitamin-D 3 at 2000 IU per cap once a day, in addition to weight-bearing exercises to help maintain good muscle tone and weight control. Instructed to do self-breast exam, and continue with yearly mammogram. Up-to-date with vaccinations. Screening colonoscopy done [address] Kitchen with benign polyps removed . Last bone density was done in 2019 which showed presence of mild osteopenia in left femoral neck normal in spine, patient does not want to get any further testing done. (6) History of esophagitis: Comment: Seen on EGD in [address] Kitchen Code(s): Z87.19 - Personal history of other diseases of the digestive system Plan: Continue omeprazole (7) Afib: Code(s): I48.91 - Unspecified atrial fibrillation Plan: Currently on apixaban, followed by Cardio (8) Neuroendocrine tumor of pancreas: Code(s): D3A.8 - Other benign neuroendocrine tumors Plan: Followed by Dr. Guzman (9) Pacemaker: Onset Date: ~2022 Comment: (Medtronic DCPP - placed 07/27/2022) Code(s): Z95.0 - Presence of cardiac pacemaker Plan: Followed by cardiology (10) Sick sinus syndrome: Code(s): I49.5 - Sick sinus syndrome Plan: Status post pacemaker placement, followed by cardiology currently on metoprolol succinate ER 25 mg daily Orders: Orders AMB Hemoglobin A1c 06/22/23 E11.29 - Type 2 diabetes mellitus with other diabetic kidney complication, R80.9 - Proteinuria, unspecified Medications: New losartan 100 mg PO DAILY Coding Level of Care Code Est Pt Prev Care >65y(94172) Diagnoses Dyslipidemia E78.5 Essential hypertension I10 Type 2 diabetes mellitus with microalbuminuria, without long-term current use of insulin E11.29; R80.9 Diabetes mellitus type: type 2 Chronic obstructive pulmonary disease, unspecified COPD type J44.9 COPD type: unspecified COPD Annual visit for general adult medical examination with abnormal findings Z00.01 History of esophagitis Z87.19 Afib I48.91 Neuroendocrine tumor of pancreas D3A.8 Pacemaker Z95.0 Sick sinus syndrome I49.5 Additional Codes PAM-7 Assessment Billing - PAM-7 Assessment Tool: PAM-7 Assessment 95190 ([id number])
[2023-06-22 13:16] VITALS: BP 130/76; PULSE 66; O2SAT 95; BMI 25.9
== END 2023-06-22 14:17 | disposition home or self-care (01) ==
PROVIDERS: PCP Internal Medicine; Visit Provider Internal Medicine
DX: E11.29 Type 2 diabetes mellitus with other diabetic kidney complication (principal); R80.9 Proteinuria, unspecified
CPT/HCPCS: 83036; 99397

== ENCOUNTER → 2023-08-20 23:59 | Outpatient (BNV) | payer MEDICARE, MEDICAID, SELFPAY ==
--- NOTE | 2023-08-21 15:42 | A.OFFVIS_ITS ---
Intake Intake Visit Reasons: Remote Device Check- [employer] Allergies Sulfa (Sulfonamide Antibiotics) Allergy (Intermediate, Verified 06/22/23 13:48) itching sulfamethoxazole [From Bactrim] Allergy (Intermediate, Verified 06/22/23 13:48) Stomach Upset trimethoprim [From Bactrim] Allergy (Intermediate, Verified 06/22/23 13:48) Stomach Upset PFSH Medical History (Updated 08/02/23 @ 13:01 by Lisa Guzman MD) History of esophagitis Bradycardia, sinus History of breast cancer in female (~2012) Neuroendocrine tumor of pancreas COVID-19 vaccine series completed Irritable bowel syndrome with constipation Positive FIT (fecal immunochemical test) Chronic obstructive pulmonary disease, unspecified (HFpEF) heart failure with preserved ejection fraction Menopause Dyslipidemia Essential hypertension Diabetes mellitus with microalbuminuria, without long-term current use of insulin Surgical History History of pacemaker History of breast biopsy History of tubal ligation History of colonoscopy History of cerebral aneurysm repair History of lumpectomy of right breast Family History Father Myocardial infarction CVD (cardiovascular disease) Mother Diabetes mellitus Brother HTN (hypertension) Brother HTN (hypertension) Brother No problems noted. Son No problems noted. Social History Household Members: Family Household Members Other:: son visits often Housing: Apartment Are you a primary geriatric personal care aide to a significant other at home: No Do you presently have visiting nurse or other home services: Yes Alcohol intake: never Patient Tobacco Use Status: Former Tobacco user Quit Date: 2006 Tobacco use type: Cigarette Years Smoked: 50 yrs e-Cigarette/Vaping Use: Former Use Use of substances other than those prescribed or required for medical reasons: No Have you been hit, kicked, punched, or otherwise hurt by someone within the past year? If so, by whom?: No Advance Directives Date on File: 07/11/22 Do you have thoughts of harming others: None Do you have a plan to hurt others: No Plan Do you have the means to hurt others: No Recently lost weight without trying: No Patient : No service: No Current occupational status: disabled Cognitive needs: No Hearing needs: No Vision needs: Yes Office Procedures Cardiac Device Check Cardiac Device Check Details: Remote pacemaker report generated 08/20/2023. Pacemaker function is adequate. Minimal burden of atrial fibrillation [id number] Cardiac Device Interrogation, pacemaker Procedure code (CPT) selection complete Assessment & Plan Assessment & Plan (1) Pacemaker: Onset Date: ~2022 Comment: ([employer]tronic DCPP - placed 07/27/2022) Code(s): Z95.0 - Presence of cardiac pacemaker Plan: See above Coding Level of Care Code Procedure Only Diagnoses Pacemaker Z95.0 CPT Codes Cardiac Device Check - Cardiac Device 12: [id number] Cardiac Device Interrogation, pacemaker ([id number])
== END ==
PROVIDERS: PCP Internal Medicine; Visit Provider Internal Medicine Cardiovascular Disease
DX: I49.5 Sick sinus syndrome (principal); Z95.0 Presence of cardiac pacemaker
CPT/HCPCS: 93294

== ENCOUNTER 2023-10-03 13:23 | Outpatient (REF) | payer MEDICARE, MEDICAID, SELFPAY ==
--- NOTE | ~2023-10-03 | MM_ITS ---
EXAMINATION: MM SCREENING DIGITAL BREAST TOMOSYNTHESIS, BILATERAL CLINICAL INFORMATION: Screening. Asymptomatic. The patient is status post conservation therapy for right breast cancer diagnosed in 2012. COMPARISON: Mammography: This study is compared with prior exams dating back to TECHNIQUE: Digital breast tomosynthesis is performed in both the craniocaudal and mediolateral oblique views along with computer-aided detection (CAD). Synthesized 2D images are generated from the tomosynthesis. FINDINGS: There are scattered areas of fibroglandular density (ACR BI-RADS breast composition Category b). There are no significant masses, abnormal calcifications, or other abnormalities. There are postsurgical changes in the retroareolar region of the right breast. There are few, coarse, bilateral benign calcifications. There is a biopsy tissue marker in the left breast. MM/MM tomosynthesis screening BI IMPRESSION: No mammographic evidence of malignancy. ASSESSMENT: BI-RADS BI-RADS 2 - Benign Findings RECOMMENDATION: Routine annual mammography screening. 1 year F/U This examination should not preclude the clinical evaluation of a suspicious palpable abnormality. This patient's information was entered into a reminder system with a target due date for their next mammogram.
== END 2023-10-03 13:24 | disposition home or self-care (01) ==
LOC: HO.MAMMO 13:23
PROVIDERS: Absent Provider Internal Medicine Medical Oncology; PCP Internal Medicine; Visit Provider Internal Medicine
DX: Z12.31 Encounter for screening mammogram for malignant neoplasm of breast (principal)
CPT/HCPCS: 77063; 77067

== ENCOUNTER → 2023-10-03 13:30 | Outpatient (BNV) | payer MEDICARE, MEDICAID, SELFPAY | PROVIDERS: Absent Provider Internal Medicine Medical Oncology; PCP Internal Medicine; Visit Provider Radiology Diagnostic Radiology | DX: Z12.31 Encounter for screening mammogram for malignant neoplasm of breast (principal) | CPT/HCPCS: 77063; 77067 ==

== ENCOUNTER → 2023-11-19 23:59 | Outpatient (BNV) | payer MEDICARE, MEDICAID, SELFPAY ==
--- NOTE | 2023-11-22 10:25 | A.OFFVIS_ITS ---
Intake Visit Reasons: Remote Device Check- Medtronic Allergies Sulfa (Sulfonamide Antibiotics) Allergy (Intermediate, Verified 10/27/23 14:16) itching sulfamethoxazole [From Bactrim] Allergy (Intermediate, Verified 10/27/23 14:16) Stomach Upset trimethoprim [From Bactrim] Allergy (Intermediate, Verified 10/27/23 14:16) Stomach Upset PFSH Medical History History of esophagitis Bradycardia, sinus History of breast cancer in female (~2012) Neuroendocrine tumor of pancreas COVID-19 vaccine series completed Irritable bowel syndrome with constipation Positive FIT (fecal immunochemical test) Chronic obstructive pulmonary disease, unspecified (HFpEF) heart failure with preserved ejection fraction Menopause Dyslipidemia Essential hypertension Diabetes mellitus with microalbuminuria, without long-term current use of insulin Surgical History History of pacemaker History of breast biopsy History of tubal ligation History of colonoscopy History of cerebral aneurysm repair History of lumpectomy of right breast Family History Father Myocardial infarction CVD (cardiovascular disease) Mother Diabetes mellitus Brother HTN (hypertension) Brother HTN (hypertension) Brother No problems noted. Son No problems noted. Social History Household Members: Family Household Members Other:: son visits often Housing: Apartment Are you a primary client care representative to a significant other at home: No Do you presently have visiting nurse or other home services: Yes Alcohol intake: never Patient Tobacco Use Status: Former Tobacco user Tobacco use type: Cigarette Years Smoked: 50 yrs e-Cigarette/Vaping Use: Former Use Advance Directives Date on File: 07/11/22 service: No Current occupational status: disabled Cognitive needs: No Hearing needs: No Vision needs: Yes Office Procedures Cardiac Device Check Cardiac Device Check Details: Remote pacemaker report generated 11/18/2023. Pacemaker function is adequate [id number] Cardiac Device Interrogation, pacemaker Procedure code (CPT) selection complete Assessment & Plan Assessment & Plan (1) Pacemaker: Onset Date: ~2022 Comment: (Medtronic DCPP - placed 07/27/2022) Code(s): Z95.0 - Presence of cardiac pacemaker Category: Medical Plan: See above Coding Level of Care Code Procedure Only Diagnoses Pacemaker Z95.0 CPT Codes Cardiac Device Check - Cardiac Device 12: [id number] Cardiac Device Interrogation, pacemaker ([id number])
== END ==
PROVIDERS: PCP Internal Medicine; Visit Provider Internal Medicine Cardiovascular Disease
DX: Z45.018 Encounter for adjustment and management of other part of cardiac pacemaker (principal)
CPT/HCPCS: 93294

== ENCOUNTER 2023-11-20 13:44 | Outpatient (AMB) | payer MEDICARE, MEDICAID, SELFPAY ==
[2023-11-20 14:00] VITALS: BP 116/66; PULSE 62; BMI 24.1
--- NOTE | 2023-11-20 14:00 | MHC.OFFVIS ---
Vital Signs 11/20/23 14:00 Height 5 ft 4 in Weight 140 lb 3.424 oz BMI 24.1 BP 116/66 Blood Pressure Location Lt brachial Position Sitting Pulse 62 Intake Visit Reasons: 6 mth w/ med ck Intake Note: 6 month follow-up with [facility] check feeling good Speech Language Pathologist Travel Required: No Allergies Sulfa (Sulfonamide Antibiotics) Allergy (Intermediate, Verified 10/27/23 14:16) itching sulfamethoxazole [From Bactrim] Allergy (Intermediate, Verified 10/27/23 14:16) Stomach Upset trimethoprim [From Bactrim] Allergy (Intermediate, Verified 10/27/23 14:16) Stomach Upset Medication List - Last Reconciled 11/20/23 by Asher Amezquita MD Advair HFA 115-21 mcg/actuation (fluticasone propion-salmeterol) 2 puffs inhalation Q12H NS amlodipine 10 mg See Protocol PO DAILY apixaban (Eliquis) 5 mg PO BID budesonide-formoterol 160-4.5 mcg/actuation (Symbicort) 2 puffs inhalation BID cholecalciferol (vitamin D3) 25 mcg PO DAILY hydralazine 25 mg See Protocol PO TID losartan 100 mg PO DAILY metformin ER 500 mg PO BEDTIME metoprolol succinate ER 25 mg PO DAILY kzjskpwz-ccfxvpw-bmap-lutein 1 tab PO DAILY omega-3 fatty acids-vitamin E 1,000 mg 1,000 caps PO DAILY omeprazole 1 cap PO DAILY HPI Comments Details: Mary comes for follow-up. She has no new cardiac symptoms. She says she has been very active in his day-to-day life and has recently moved with her son. She goes to exercise program. She has no exertional chest pain or shortness of breath. No orthopnea, PND, leg edema. Currently not on any loop diuretics. Has had no recurrent prolonged palpitation irregular heartbeat. No exertional chest pain. No lightheadedness, syncope. No bleeding issues or neurologic events. [facility] Medical History History of esophagitis Bradycardia, sinus History of breast cancer in female (~2012) Neuroendocrine tumor of pancreas COVID-19 vaccine series completed Irritable bowel syndrome with constipation Positive FIT (fecal immunochemical test) Chronic obstructive pulmonary disease, unspecified (HFpEF) heart failure with preserved ejection fraction Menopause Dyslipidemia Essential hypertension Diabetes mellitus with microalbuminuria, without long-term current use of insulin Surgical History History of pacemaker History of breast biopsy History of tubal ligation History of colonoscopy History of cerebral aneurysm repair History of lumpectomy of right breast Family History Father Myocardial infarction CVD (cardiovascular disease) Mother Diabetes mellitus Brother HTN (hypertension) Brother HTN (hypertension) Brother No problems noted. Son No problems noted. Social History Household Members: Family Household Members Other:: son visits often Housing: Apartment Are you a primary pulmonary care nurse to a significant other at home: No Do you presently have visiting nurse or other home services: Yes Alcohol intake: never Patient Tobacco Use Status: Former Tobacco user Tobacco use type: Cigarette Years Smoked: 50 yrs e-Cigarette/Vaping Use: Former Use Advance Directives Date on File: 07/11/22 service: No Current occupational status: disabled Cognitive needs: No Hearing needs: No Vision needs: Yes Review of Systems Const Denies chills, Denies fatigue, Denies fever(s), Denies frequent falls, Denies weakness, Denies weight gain and Denies weight loss ENT Denies dizziness Card Denies chest pain, Denies leg edema, Denies lightheadedness, Denies palpitations, Denies dyspnea, Denies dyspnea on exertion, Denies orthopnea and Denies other (loss of consciousness) Resp Denies cough, Denies dyspnea and Denies dyspnea on exertion GI Denies hematochezia and Denies change in stool character Musc Denies abnormal gait, Denies muscle weakness, Denies numbness, Denies radiating pain into limb and Denies tingling Neuro Denies abnormal gait, Denies dizziness, Denies frequent falls, Denies numbness, Denies tingling and Denies weakness Endo Denies fatigue and Denies palpitations Physical Exam Vital Signs: Last Vital Signs Pulse 62 11/20/23 14:00 BP 116/66 11/20/23 14:00 BMI result Body Mass Index 24.1 Const General: cooperative, healthy appearing, comfortable and no acute distress Orientation/consciousness: patient oriented x3 Neck Neck: Yes normal visual inspection Resp Effort & Inspection: normal respiratory effort Auscultation: clear to auscultation bilaterally, no crackles, no rales, no rhonchi and no wheezes Cardio Jugular venous distension: no JVD Rate: regular rate Rhythm: regular rhythm Heart sounds: S1 normal heart sound present, S2 normal heart sound present, no murmurs and no rubs Neuro General: patient oriented x3 Extrem General: Yes normal to inspection Psych Appearance: grossly normal Mental Status: mental status grossly normal Speech and movement: Normal speech and movement present Office Procedures Cardiac Device Check Cardiac Device Check Details: Dual-chamber Medtronic pacemaker in place. Programmed in DDDR at 60 beats per minute. Atrial pacing 99.2% of time. Ventricular pacing 98% of time. Brief episodes of atrial fibrillation noted. Atrial ventricular pacing thresholds excellent. Pacing lead impedance is stable. RV sensing is adequate. Battery life is at about 10 years [id number] Cardiac Device Check, pacemaker dual lead Procedure code (CPT) selection complete EKG Details: EKG shows AV dual paced rhythm [id number], Complete Assessment & Plan Assessment & Plan (1) Afib: Code(s): I48.91 - Unspecified atrial fibrillation Category: Medical Plan: Paroxysmal atrial fibrillation without any symptoms in patient. Still having some episodes of atrial fibrillation. Continue metoprolol therapy. No indication for antiarrhythmic drug therapy at the burden is very small. Continue full oral anticoagulation, currently on Eliquis 5 mg b.i.d.. Semi annual renal function test and annual CBC should be pursued. (2) Pacemaker: Onset Date: ~2022 Comment: (Medtronic DCPP - placed 07/27/2022) Code(s): Z95.0 - Presence of cardiac pacemaker Category: Medical Plan: Cardiac pacemaker in-situ, working well. Reprogrammed for adequate function. Will follow remotely in 3 months and follow up in the clinic in 6 months (3) (HFpEF) heart failure with preserved ejection fraction: Code(s): I50.30 - Unspecified diastolic (congestive) heart failure Category: Medical Plan: Heart failure preserved ejection fraction currently not on any loop diuretics clinically appears to be euvolemic and well compensated doing well. Continue rhythm control approach. Continue aggressive blood pressure which is currently well optimized. Echocardiogram in near future. Encouraged to continue to participate in physical activity as tolerated. Will follow up in the clinic in 6 months time, sooner p.r.n.. Thank you for allowing me to partake in her care Orders: Orders CA echo transthoracic complete Today I48.91 - Unspecified atrial fibrillation Coding Level of Care Code Est Pt Level 4 (23312) Diagnoses Afib I48.91 Pacemaker Z95.0 (HFpEF) heart failure with preserved ejection fraction I50.30 CPT Codes Cardiac Device Check - Cardiac Device 2: [id number] Cardiac Device Check, pacemaker dual lead ([id number]) EKG - CPT: 76545-[id number], Complete ([id number])
== END 2023-11-20 14:24 | disposition home or self-care (01) ==
PROVIDERS: PCP Internal Medicine; Visit Provider Internal Medicine Cardiovascular Disease
DX: I48.91 Unspecified atrial fibrillation (principal); I50.30 Unspecified diastolic (congestive) heart failure; Z95.0 Presence of cardiac pacemaker
CPT/HCPCS: 93010; 93280; 99214

== ENCOUNTER → 2023-11-20 13:44 | Outpatient (BNVA) | payer MEDICARE, MEDICAID, SELFPAY | PROVIDERS: PCP Internal Medicine; Visit Provider Internal Medicine Cardiovascular Disease | DX: Z45.018 Encounter for adjustment and management of other part of cardiac pacemaker (principal); I48.91 Unspecified atrial fibrillation; I50.30 Unspecified diastolic (congestive) heart failure; R94.31 Abnormal electrocardiogram [ECG] [EKG] | CPT/HCPCS: 93005; 93280; 99212 ==

== ENCOUNTER → 2023-12-04 14:55 | Outpatient (REF) | payer MEDICARE, MEDICAID, SELFPAY ==
--- NOTE | 2023-12-04 14:58 | CA_ITS ---
Transthoracic Echocardiogram Patient (Last, First, Middle): Mary Miramontes L Gender: Female Date of : 1945 Age: 78 Procedure Date: 12/04/2023 Procedure Type: Transthoracic Echocardiogram Location: OP Height: 160.02 cm Weight: 63.96 kg BSA: 1.67 m2 Heart Rate: bpm BP: 122 / 70 mmHg [employer] Estimator: Referring MD: Asher Amezquita MD Mirror Specialist: Asher Amezquita MD Symptoms: I48.91 - Unspecified atrial fibrillation Study Quality: Good ECG Rhythm: Sinus Conclusions: - 1. Normal LV ejection fraction 55-60% with pseudonormal filling pattern 2. Mildly dilated left atrium 3. Mild mitral regurgitation [id number] tricuspid regurgitation 4. Upper limits of normal RV systolic pressure 5. Mildly dilated ascending aorta 6. No gross pericardial effusion Findings Left Ventricle Normal left ventricular size and systolic function. There is mildly increased left ventricular wall thickness. The visually estimated ejection fraction is between 55-60%. Spectral Doppler is indicative of a pseudonormal filling pattern. E/E prime ratio is between 8 and 15 consistent with indeterminate filling pressures. Right Ventricle Normal right ventricular cavity size and systolic function. Atria The left atrium is mildly dilated. There is lipomatous hypertrophy of the interatrial septum. There is no evidence of interatrial shunt. The right atrium is likely dilated. Aortic Valve Normal aortic valve structure and function. There is no aortic valve stenosis. There is no aortic valve regurgitation. Mitral Valve There is mild anterior and posterior mitral leaflet thickening. The posterior mitral leaflet has restricted mobility. There is mild mitral valve regurgitation. There is no mitral valve stenosis. Pulmonic Valve The pulmonic valve is likely normal. There is trace pulmonic valve regurgitation. Tricuspid Valve Normal tricuspid valve structure. There is mild to moderate tricuspid valve regurgitation. Normal right atrial pressure. There is no evidence of pulmonary hypertension. Great Vessels The pulmonary artery was not well visualized. There is mild dilatation of the ascending aorta measuring 3.80 cm. Venous The inferior vena cava is normal in size and collapses greater than 50% with inspiration. Pericardium/Pleural There is no evidence of pericardial effusion. Prior Study Comparison Changes noted compared to prior study dated: 05/20/2020. LV systolic function is marginally improved. Qqyr-wj-yktfxvfm tricuspid regurgitation is noted Measurements 2D Linear Measurements IVSd: 1.18 0.6-0.9/0.6-1.0 cm LVIDd: 4.34 3.9-5.3/4.2-5.9 cm LVIDd Index: 2.60 2.4-3.2/2.2-3.1 cm/m2 LVIDs: 2.83 2.0-3.6 cm LVPWd: 1.06 0.7-1.1 cm Ao Root: 3.00 2.1-3.5 cm LA Diam: 4.10 2.7-3.8/3.0-4.0 cm LAIDs Index: 2.46 1.5-2.3 cm/m2 LV Mass: 211.27 67-162/88-224 g LV Mass Index: 126.51 43-95/49-115 g/m2 LVOT Diam: 2.10 3.0+(-)1.3 cm 2D Systolic Function EF 4C: 55.70 >55% EF 2C: 59.50 >55% EF BiP: 56.90 >55% Mitral Valve MV Pk E: 0.79 MV PK A: 0.69 MV Decel Time: 212.00 E/A: 1.10 E'Lateral: 8.59 E'Medial: 4.35 E/E' Med: 18.10 E/E' Lat: 9.20 PHT: 62.00 MVA PHT: 3.55 Decel [place]: 3.71 Aortic Valve AoV Pk Bernardo: 1.38 AoV Mn Bernardo: 0.83 AoV VTI: 0.34 AoV Pk Grad: 8.00 Aov Mn Grad: 3.00 TRINH Cont.VTI: 2.49 LVOT LVOT Pk Bernardo: 0.94 LVOT Mn Bernardo: 0.60 LVOT VTI: 0.25 LVOT Pk Grad: 4.00 LVOT Mn Grad: 2.00 LVOT Diam: 2.10 LVOT Area: 3.46 Diastolic Function MV Pk E: 0.79 MV Pk A: 0.69 E/A: 1.10 E'Medial: 4.35 E/E' Med: 18.10 E' Laterial: 8.59 E/E' Lat: 9.20 Right Ventricle TAPSE (mm): 21.00 TVS' Bernardo: 11.00 Tricuspid Valve TR Pk Bernardo: 3.01 TR Pk Grad: 36.00 RA Press: 3.00 RVSP: 39.00 Great Vessels Aorta Ao Root-2D: 3.00 2.0-3.7 cm Ao Asc: 3.80 2.1-3.4 cm Pulmonary Valve PV Pk Bernardo: 0.97 Peak PV Grad: 4.00 Updated in Other Vendor System with Status of Final Asher Amezquita MD electronically signed on 12/05/2023 9:20:09 AM with status of Final
== END ==
LOC: HO.CARD 14:55
PROVIDERS: PCP Internal Medicine; Visit Provider Internal Medicine Cardiovascular Disease
DX: I48.91 Unspecified atrial fibrillation (principal)
CPT/HCPCS: 93306

== ENCOUNTER → 2023-12-04 14:58 | Outpatient (BNV) | payer MEDICARE, MEDICAID, SELFPAY | PROVIDERS: PCP Internal Medicine; Visit Provider Internal Medicine Cardiovascular Disease | DX: I36.1 Nonrheumatic tricuspid (valve) insufficiency (principal); I34.0 Nonrheumatic mitral (valve) insufficiency | CPT/HCPCS: 93306 ==

== ENCOUNTER → 2024-02-17 23:59 | Outpatient (BNV) | payer MEDICARE, MEDICAID, SELFPAY ==
--- NOTE | 2024-03-04 08:53 | MHC.OFFVIS ---
Intake Visit Reasons: Remote Device Check- Medtronic Allergies Sulfa (Sulfonamide Antibiotics) Allergy (Intermediate, Verified 02/29/24 12:22) itching sulfamethoxazole [From Bactrim] Allergy (Intermediate, Verified 02/29/24 12:22) Stomach Upset trimethoprim [From Bactrim] Allergy (Intermediate, Verified 02/29/24 12:22) Stomach Upset PFSH Medical History (Updated 02/29/24 @ 12:36 by Kaitlyn Soto MD) History of esophagitis Bradycardia, sinus History of breast cancer in female (~2012) Neuroendocrine tumor of pancreas COVID-19 vaccine series completed Irritable bowel syndrome with constipation Chronic obstructive pulmonary disease, unspecified (HFpEF) heart failure with preserved ejection fraction Menopause Dyslipidemia Essential hypertension Diabetes mellitus with microalbuminuria, without long-term current use of insulin Surgical History History of pacemaker History of breast biopsy History of tubal ligation History of colonoscopy History of cerebral aneurysm repair History of lumpectomy of right breast Family History Father Myocardial infarction CVD (cardiovascular disease) Mother Diabetes mellitus Brother HTN (hypertension) Brother HTN (hypertension) Brother No problems noted. Son No problems noted. Social History Household Members: Family Household Members Other:: son visits often Housing: Apartment Are you a primary critical care technician to a significant other at home: No Do you presently have visiting nurse or other home services: Yes Alcohol intake: never Patient Tobacco Use Status: Former Tobacco user Tobacco use type: Cigarette Years Smoked: 50 yrs e-Cigarette/Vaping Use: Former Use Advance Directives Date on File: 07/11/22 service: No Current occupational status: disabled Cognitive needs: No Hearing needs: No Vision needs: Yes Office Procedures Cardiac Device Check Cardiac Device Check Details: Remote pacemaker report generated 02/17/2024. I was requested to read this study today. Pacemaker function is adequate [id number] Cardiac Device Interrogation, pacemaker Procedure code (CPT) selection complete Assessment & Plan Assessment & Plan (1) Pacemaker: Onset Date: ~2022 Comment: (Medtronic DCPP - placed 07/27/2022) Code(s): Z95.0 - Presence of cardiac pacemaker Category: Medical Plan: See above Coding Level of Care Code Procedure Only Diagnoses Pacemaker Z95.0 CPT Codes Cardiac Device Check - Cardiac Device 12: [id number] Cardiac Device Interrogation, pacemaker ([id number])
== END ==
PROVIDERS: PCP Internal Medicine; Visit Provider Internal Medicine Cardiovascular Disease
DX: Z45.018 Encounter for adjustment and management of other part of cardiac pacemaker (principal)
CPT/HCPCS: 93294

== ENCOUNTER 2024-02-29 11:48 | Outpatient (AMB) | payer MEDICARE, MEDICAID, SELFPAY ==
--- NOTE | 2024-02-29 11:51 | A.OFFPC_ITS ---
Vital Signs 02/29/24 11:53 Height 5 ft 4 in Weight 146 lb BMI 25.1 BP 128/62 Blood Pressure Location Rt brachial Position Sitting Pulse 87 Pulse Source Pulse Oximeter Pulse Oximetry (%) 94 Oxygen Delivery Method Room Air Intake Visit Reasons: f/u labs Intake Note: Pt is here today for her f/u labs Allergies Sulfa (Sulfonamide Antibiotics) Allergy (Intermediate, Verified 02/29/24 12:22) itching sulfamethoxazole [From Bactrim] Allergy (Intermediate, Verified 02/29/24 12:22) Stomach Upset trimethoprim [From Bactrim] Allergy (Intermediate, Verified 02/29/24 12:22) Stomach Upset Medication List - Last Reconciled 02/29/24 by Kaitlyn Soto MD Advair HFA 115-21 mcg/actuation (fluticasone propion-salmeterol) 2 puffs inhalation Q12H NS amlodipine 10 mg See Protocol PO DAILY apixaban (Eliquis) 5 mg PO BID budesonide-formoterol 160-4.5 mcg/actuation (Symbicort) 2 puffs inhalation BID cholecalciferol (vitamin D3) 25 mcg PO DAILY hydralazine 25 mg See Protocol PO TID losartan 100 mg PO DAILY metformin ER 500 mg PO BEDTIME metoprolol succinate ER 25 mg PO DAILY hkbutfag-runtlol-kzqy-lutein 1 tab PO DAILY omega-3 fatty acids-vitamin E 1,000 mg 1,000 caps PO DAILY omeprazole 1 cap PO DAILY tramadol 50 mg PO Q8H PRN Tobacco use date assessed: 02/29/24 Fall risk assessment: No Falls in past year Last assessed Fall Risk: 02/29/24 Dental Screening Dental Screen Date: 02/29/24 Did you have a dental visit in the last 12 months?: No Did you have a dental problem in the last 6 months where you did not have access to dental care?: No Was dental information given to patient?: Patient declined HPI f/u labs HPI Details 78 -year-old lady with history of breast cancer, hyperlipidemia, hypertension, diabetes mellitus , heart failure with preserved EF, sick sinus syndrome status post pacemaker placement, paroxysmal AFib, recently diagnosed with 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 She lives with her son, states that she has been feeling well, has a good appetite, no new complaints at present time. Has been compliant with taking her medications, able to name them, and able to recall her appointments that are scheduled. She had recent fasting labs done which showed no anemia, mild thrombocytopenia, normal electrolytes, renal function, fasting glucose and liver function test. [facility] Medical History (Updated 02/29/24 @ 12:36 by Kaitlyn Soto MD) History of esophagitis Bradycardia, sinus History of breast cancer in female (~2012) Neuroendocrine tumor of pancreas COVID-19 vaccine series completed Irritable bowel syndrome with constipation Chronic obstructive pulmonary disease, unspecified (HFpEF) heart failure with preserved ejection fraction Menopause Dyslipidemia Essential hypertension Diabetes mellitus with microalbuminuria, without long-term current use of insulin Surgical History History of pacemaker History of breast biopsy History of tubal ligation History of colonoscopy History of cerebral aneurysm repair History of lumpectomy of right breast Family History Father Myocardial infarction CVD (cardiovascular disease) Mother Diabetes mellitus Brother HTN (hypertension) Brother HTN (hypertension) Brother No problems noted. Son No problems noted. Social History Household Members: Family Household Members Other:: son visits often Housing: Apartment Are you a primary urgent care technician to a significant other at home: No Do you presently have visiting nurse or other home services: Yes Alcohol intake: never Patient Tobacco Use Status: Former Tobacco user Tobacco use type: Cigarette Years Smoked: 50 yrs e-Cigarette/Vaping Use: Former Use Advance Directives Date on File: 07/11/22 service: No Current occupational status: disabled Cognitive needs: No Hearing needs: No Vision needs: Yes Questionnaire Thrive Questionnaire Date Thrive assessed: 06/22/23 PAM-7 AMB Questionnaire PAM-7 Date PAM - 7 assessed: 06/22/23 Source: Developed by Drs. Tayo Calle, Shefali Hwang, Jerrod Barros and colleagues, with an educational karsten from [employer]. Physical exam (Primary Care) Vital Signs: Last Vital Signs Pulse 87 02/29/24 11:53 BP 128/62 02/29/24 11:53 Pulse Ox 94 02/29/24 11:53 Oxygen Delivery Method Room Air 02/29/24 11:53 BMI result Body Mass Index 25.1 Tobacco/Smoking Status: Tobacco use Status Tobacco use date assessed 02/29/24 02/29/24 12:02 Patient Tobacco Use Status Former Tobacco user 02/29/24 11:53 Tobacco use type Cigarette 02/29/24 11:53 e-Cigarette/Vaping Use Former Use 02/29/24 11:53 Thrive Assessment: Date of Thrive Assessment Date Thrive assessed 06/22/23 02/29/24 11:53 Results Reviewed Results Reviewed: Name: Mary Miramontes Age/Sex: 78/F : 1945 Unit#: [id number] Attend Dr: Lisa Guzman MD Re02/23/24 Status: REG RCR Location: [facility] Disch: SPEC : [id number] KAIA: 02/23/24 STATUS: COMP REQ : [id number] RECD: 02/23/[address]: Lisa Guzman MD COMP: 02/23/24 ENTERED: 02/23/[address]: Kaitlyn Soto MD ORDERED: CBC Auto Diff Test Result Flag Reference WBC 5.1 4.8-10.8 X10*3/uL RBC 3.74 L 4.20-5.50 X10*6/uL HGB 12.3 12.0-16.0 g/dl HCT 37.4 37.0-47.0 % MCV 100.0 H 80.0-98.0 fL MCH 32.9 27.0-33.0 pg MCHC 32.9 31.0-35.0 g/dl RDW 13.2 11.0-16.0 % PLT 127 L 160-400 X10*3/uL MPV 9.7 9.4-12.3 fL Neut Pct Auto 68.5 45-73 % ImGran Pct Auto 0.4 0.0-0.4 % Lymp Pct Auto 18.0 L 20-40 % Cannon Pct Auto 10.4 2-11 % Eos Pct Auto 2.5 0-4 % Baso Pct Auto 0.2 0-2 % NRBC Pct Auto 0.0 0.0-0.2 /100WBC ANC Neut Abs # 3.5 2.0-8.3 x10*3/uL ImGran Abs Auto 0.02 0.00-0.03 X10*3/uL Lymph Abs Auto 0.9 L 1.2-4.9 X10*3/uL Cannon Abs Auto 0.5 0.1-1.2 X10*3/uL Eos Abs Auto 0.1 0.0-0.4 X10*3/uL Baso Abs Auto 0.0 0.0-0.2 X10*3/uL NRBC Abs Auto 0.000 0.0-0.012 X10*3/uL Name: Mary Miramontes Age/Sex: 78/F : 1945 Unit#: [id number] Attend Dr: Lisa Guzman MD Re02/23/24 Status: REG [facility] Location: [facility] Disch: SPEC : [id number] KAIA: 02/23/24 STATUS: COMP REQ : [id number] RECD: 02/23/24-[address]: Lisa Guzman MD COMP: 02/23/24-1450 ENTERED: 02/23/24-[address]: Kaitlyn Soto MD ORDERED: CMP Test Result Flag Reference Sodium 141 135-145 mmol/L Potassium 4.6 3.3-5.1 mmol/L CL 110 H 96-108 mmol/L CO2 26 22-29 mmol/L Gap 10 L 12-20 BUN 23 H 9-16 mg/dL Creat 0.74 0.5-1.4 mg/dL Estimated CrCl 57.1 Provided height and weight: 162.56 cm, 67.2 kg. eGFR (calculated from the MDRD study equation) and eCrCl (calculated from the Cockcroft-Gault equation) are based on different parameters and may not yield comparable results. If eCrCl result is absurd, please check patient's height/weight. EGFR > 60 NOTE: For -Finnish individuals, multiply the result by 1.210. Chronic Kidney Disease: Estimated GFR < 60 mL/min/1.73m2 Severe Kidney Disease: Estimated GFR < 15 mL/min/1.73m2 Glucose, Random 99 60-115 mg/dL CA 9.1 8.4-10.2 mg/dL Total Bili 0.8 0.0-1.0 mg/dL AST (GOT) 17 5-31 U/L ALT (GPT) 14 0-31 U/L Protein, Total 6.5 6.5-8.0 g/dL Alb 3.7 3.5-5.0 g/dL Alk Phos 68 39-117 U/L Assessment and Plan Assessment & Plan (1) Neuroendocrine tumor of pancreas: Code(s): D3A.8 - Other benign neuroendocrine tumors Plan: followed by Oncology (2) Pacemaker: Onset Date: ~2022 Comment: (Medtronic DCPP - placed 07/27/2022) Code(s): Z95.0 - Presence of cardiac pacemaker (3) Sick sinus syndrome: Code(s): I49.5 - Sick sinus syndrome (4) Essential hypertension: Code(s): I10 - Essential (primary) hypertension Plan: Blood pressure at goal of less than 130/80. Continue amlodipine 10 mg daily, hydralazine 25 mg 3 times a day and losartan 100 mg once a day as well as metoprolol succinate 25 mg once a day.. Reinforced importance of following a low sodium diet, getting regular exercise, and lowering stress levels. (5) Diabetes mellitus with microalbuminuria, without long-term current use of insulin: Code(s): E11.29 - Type 2 diabetes mellitus with other diabetic kidney complication; R80.9 - Proteinuria, unspecified Plan: Last hemoglobin A1c 06/22/2023 was 6.2%. Continued on metformin ER 500 mg at bedtime. Up-to-date with her diabetes retinopathy screening, goes to [facility] in [place], has an appointment for preoperative exam on 03/12/2024 for cataract surgery (6) Chronic obstructive pulmonary disease, unspecified: Code(s): J44.9 - Chronic obstructive pulmonary disease, unspecified Qualifiers: COPD type: unspecified COPD Qualified Code(s): J44.9 - Chronic obstructive pulmonary disease, unspecified Plan: Currently on Advair (7) Afib: Code(s): I48.91 - Unspecified atrial fibrillation Qualifiers: Atrial fibrillation type: unspecified Qualified Code(s): I48.91 - Unspecified atrial fibrillation Plan: On metoprolol succinate 25 mg daily and apixaban 5 mg 1 tablet twice a day, followed by cardiology Coding Level of Care Code Est Pt Level 4 (96376) Complex EM visit Add On G2211 Diagnoses Neuroendocrine tumor of pancreas D3A.8 Pacemaker Z95.0 Sick sinus syndrome I49.5 Essential hypertension I10 Diabetes mellitus with microalbuminuria, without long-term current use of insulin E11.29; R80.9 Chronic obstructive pulmonary disease, unspecified COPD type J44.9 COPD type: unspecified COPD Atrial fibrillation, unspecified type I48.91 Atrial fibrillation type: unspecified
[2024-02-29 11:53] VITALS: BP 128/62; PULSE 87; O2SAT 94; BMI 25.1
== END 2024-02-29 16:46 | disposition home or self-care (01) ==
PROVIDERS: PCP Internal Medicine; Visit Provider Internal Medicine
DX: E11.29 Type 2 diabetes mellitus with other diabetic kidney complication (principal); D3A.8 Other benign neuroendocrine tumors; I49.5 Sick sinus syndrome; J44.9 Chronic obstructive pulmonary disease, unspecified; I48.91 Unspecified atrial fibrillation; Z95.0 Presence of cardiac pacemaker; I10 Essential (primary) hypertension; R80.9 Proteinuria, unspecified

== ENCOUNTER → 2024-02-29 11:48 | Outpatient (BNVA) | payer MEDICARE, MEDICAID, SELFPAY | PROVIDERS: PCP Internal Medicine; Visit Provider Internal Medicine | DX: D3A.8 Other benign neuroendocrine tumors (principal); I49.5 Sick sinus syndrome; R80.9 Proteinuria, unspecified; E11.29 Type 2 diabetes mellitus with other diabetic kidney complication; J44.9 Chronic obstructive pulmonary disease, unspecified; I48.91 Unspecified atrial fibrillation; Z95.0 Presence of cardiac pacemaker | CPT/HCPCS: 99212 ==

== ENCOUNTER 2024-03-12 13:25 | Outpatient (AMB) | payer MEDICARE, MEDICAID, SELFPAY ==
--- NOTE | 2024-03-12 13:53 | MHC.PC.OV ---
Vital Signs 03/12/24 13:54 03/12/24 14:07 Height 5 ft 4 in Weight 145 lb BMI 24.9 BP 148/78 H 135/80 Blood Pressure Location Rt brachial Rt brachial Position Sitting Sitting Pulse 70 Pulse Source Pulse Oximeter Pulse Oximetry (%) 94 Oxygen Delivery Method Room Air Intake Visit Reasons: Lt eye cat. 03/20 Rt eye cat.04/10 [facility] Intake Note: Pt is here today for her pre-op Lt eye cataract surgery on 03/20 and Rt eye 04/10 [facility] Allergies Sulfa (Sulfonamide Antibiotics) Allergy (Intermediate, Verified 03/12/24 14:08) itching sulfamethoxazole [From Bactrim] Allergy (Intermediate, Verified 03/12/24 14:08) Stomach Upset trimethoprim [From Bactrim] Allergy (Intermediate, Verified 03/12/24 14:08) Stomach Upset Medication List - Last Reconciled 03/12/24 by Kaitlyn Soto MD Advair HFA 115-21 mcg/actuation (fluticasone propion-salmeterol) 2 puffs inhalation Q12H NS amlodipine 10 mg See Protocol PO DAILY apixaban (Eliquis) 5 mg PO BID budesonide-formoterol 160-4.5 mcg/actuation (Symbicort) 2 puffs inhalation BID cholecalciferol (vitamin D3) 25 mcg PO DAILY hydralazine 25 mg See Protocol PO TID losartan 100 mg PO DAILY metformin ER 500 mg PO BEDTIME metoprolol succinate ER 25 mg PO DAILY zrfrbcmm-sakvnkj-vhzi-lutein 1 tab PO DAILY omega-3 fatty acids-vitamin E 1,000 mg 1,000 caps PO DAILY omeprazole 1 cap PO DAILY tramadol 50 mg PO Q8H PRN Tobacco use date assessed: 03/12/24 Fall risk assessment: No Falls in past year Dental Screening Dental Screen Date: 03/12/24 Did you have a dental visit in the last 12 months?: No Did you have a dental problem in the last 6 months where you did not have access to dental care?: No Was dental information given to patient?: Patient declined HPI Lt eye cat. 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 Greenberg. She has been feeling well, no complaints at present time. [facility] Medical History (Updated 03/14/24 @ 01:36 by Kaitlyn Soto MD) History of esophagitis Bradycardia, sinus History of breast cancer in female (~2012) Neuroendocrine tumor of pancreas COVID-19 vaccine series completed Irritable bowel syndrome with constipation Chronic obstructive pulmonary disease, unspecified (HFpEF) heart failure with preserved ejection fraction Menopause Dyslipidemia Essential hypertension Diabetes mellitus with microalbuminuria, without long-term current use of insulin Surgical History History of pacemaker History of breast biopsy History of tubal ligation History of colonoscopy History of cerebral aneurysm repair History of lumpectomy of right breast Family History Father Myocardial infarction CVD (cardiovascular disease) Mother Diabetes mellitus Brother HTN (hypertension) Brother HTN (hypertension) Brother No problems noted. Son No problems noted. Social History Household Members: Family Household Members Other:: son visits often Housing: Apartment Are you a primary healthcare administrative assistant to a significant other at home: No Do you presently have visiting nurse or other home services: Yes Alcohol intake: never Patient Tobacco Use Status: Former Tobacco user Tobacco use type: Cigarette Years Smoked: 50 yrs e-Cigarette/Vaping Use: Former Use Advance Directives Date on File: 07/11/22 service: No Current occupational status: disabled Cognitive needs: No Hearing needs: No Vision needs: Yes Questionnaire PHQ-9 Over the last 2 weeks, how often have you been bothered by any of the following problems? Depression Screening Interpretation: Negative Depression Screening Done: Yes Source: Developed by Drs. Taoy Calle, Shefali Hwang, Jerrod Barros and colleagues, with an educational karsten from [employer]. Thrive Questionnaire Date Thrive assessed: 06/22/23 PAM-7 AMB Questionnaire PAM-7 Date PAM - 7 assessed: 06/22/23 Source: Developed by Drs. Tayo Calle, Shefali Hwang, Jerrod Barros and colleagues, with an educational karsten from [employer]. Review of Systems Const Denies fatigue, Denies fever(s), Denies frequent falls and Denies weakness Eyes Reports no additional complaints ENT Denies dizziness Card Denies chest pain, Denies leg edema, Denies lightheadedness, Denies palpitations, Denies dyspnea and Denies dyspnea on exertion Resp Denies cough, Denies dyspnea and Denies dyspnea on exertion GI Denies hematochezia and Denies change in stool character Reports no additional complaints Musc Denies abnormal gait, Denies muscle weakness, Denies numbness, Denies radiating pain into limb and Denies tingling Skin/Breast Denies breast swelling, Denies breast pain, Denies breast mass, Reports dry skin and Denies rash Neuro Denies abnormal gait, Denies dizziness, Denies frequent falls, Denies numbness, Denies tingling and Denies weakness Endo Denies fatigue and Denies palpitations Jasson/Lymph Reports easy bruising Aller/Immun Reports no additional complaints Physical exam (Primary Care) Vital Signs: Last Vital Signs Pulse 70 03/12/24 13:54 BP 135/80 03/12/24 14:07 Pulse Ox 94 03/12/24 13:54 Oxygen Delivery Method Room Air 03/12/24 13:54 BMI result Body Mass Index 24.9 Tobacco/Smoking Status: Tobacco use Status Tobacco use date assessed 03/12/24 03/12/24 13:59 Patient Tobacco Use Status Former Tobacco user 03/12/24 13:59 Tobacco use type Cigarette 03/12/24 13:59 e-Cigarette/Vaping Use Former Use 03/12/24 13:59 Depression Screening Interpretation: Negative Thrive Assessment: Date of Thrive Assessment Date Thrive assessed 06/22/23 03/12/24 13:59 Const General: cooperative, comfortable and no acute distress Orientation/consciousness: patient oriented x3 HENMT Other: edebtulous Head: Yes normocephalic Ears: external ears normal, TM's normal bilaterally and EAC's normal General nose exam: Normal external nose present Face and sinus: Yes face symmetric Mouth: Normal oral and palatal mucosa present, oropharynx normal and moist mucous membranes Teeth and gingiva: edentulous Eyes General: appearance normal, both eyes and all related structures Neck Neck: Yes full ROM, Yes no lymphadenopathy and Yes supple Resp Effort & Inspection: normal respiratory effort and able to speak in complete sentences Auscultation: clear to auscultation bilaterally Cardio Rate: regular rate Heart sounds: S1 normal heart sound present and S2 normal heart sound present GI Inspection: Yes normal to inspection Palpation (GI): Soft to palpation, nontender and no masses Auscultation: normal bowel sounds General: Yes no CVA tenderness Back/Spine/Pelvis Back: no CVA tenderness and No back tenderness Skin General skin exam: no rashes or lesions noted Neuro General: patient oriented x3 Extrem General: Yes no pedal edema Psych Appearance: grossly normal and well kempt Mental Status: mental status grossly normal Speech and movement: Normal speech and movement present Affect: normal affect Attitude: cooperative Thought process: Normal thought process present Thought content: Normal thought content present Results AMB Hemoglobin A1c AMB Hemoglobin A1c 6.0 % Last Edit by Willa Fitzpatrick CMA on 03/12/24 14:23 Results Reviewed Results Reviewed: Laboratory Last Values Hgb A1c (Clinic) 6.0 % (4.0-6.0) 03/12/24 14:15 Name: Mary Miramontes Age/Sex: 78/F : 1945 Unit#: [id number] Attend Dr: Lisa Guzman MD Re02/23/24 Status: REG RCR Location: .ONC Disch: SPEC : [id number] KAIA: 02/23/24 STATUS: COMP REQ : [id number] RECD: 02/23/24-[address]: Lisa Guzman MD COMP: 02/23/24 ENTERED: 02/23/24-[address]: Kaitlyn Soto MD ORDERED: CMP Test Result Flag Reference Sodium 141 135-145 mmol/L Potassium 4.6 3.3-5.1 mmol/L CL 110 H 96-108 mmol/L CO2 26 22-29 mmol/L Gap 10 L 12-20 BUN 23 H 9-16 mg/dL Creat 0.74 0.5-1.4 mg/dL Estimated CrCl 57.1 Provided height and weight: 162.56 cm, 67.2 kg. eGFR (calculated from the MDRD study equation) and eCrCl (calculated from the Cockcroft-Gault equation) are based on different parameters and may not yield comparable results. If eCrCl result is absurd, please check patient's height/weight. EGFR > 60 NOTE: For -[place] individuals, multiply the result by 1.210. Chronic Kidney Disease: Estimated GFR < 60 mL/min/1.73m2 Severe Kidney Disease: Estimated GFR < 15 mL/min/1.73m2 Glucose, Random 99 60-115 mg/dL CA 9.1 8.4-10.2 mg/dL Total Bili 0.8 0.0-1.0 mg/dL AST (GOT) 17 5-31 U/L ALT (GPT) 14 0-31 U/L Protein, Total 6.5 6.5-8.0 g/dL Alb 3.7 3.5-5.0 g/dL Alk Phos 68 39-117 U/L Name: Mary Miramontes Age/Sex: 78/F : 1945 Unit#: [id number] Attend Dr: Lisa Guzman MD Re02/23/24 Status: REG [facility] Location: [facility] Disch: SPEC : [id number] KAIA: 02/23/24 STATUS: COMP REQ : [id number] RECD: 02/23/[address]: Lisa Guzman MD COMP: 02/23/24 ENTERED: 02/23/[address]: Kaitlyn Soto MD ORDERED: CBC Auto Diff Test Result Flag Reference WBC 5.1 4.8-10.8 X10*3/uL RBC 3.74 L 4.20-5.50 X10*6/uL HGB 12.3 12.0-16.0 g/dl HCT 37.4 37.0-47.0 % MCV 100.0 H 80.0-98.0 fL MCH 32.9 27.0-33.0 pg MCHC 32.9 31.0-35.0 g/dl RDW 13.2 11.0-16.0 % PLT 127 L 160-400 X10*3/uL MPV 9.7 9.4-12.3 fL Neut Pct Auto 68.5 45-73 % ImGran Pct Auto 0.4 0.0-0.4 % Lymp Pct Auto 18.0 L 20-40 % [place] Pct Auto 10.4 2-11 % Eos Pct Auto 2.5 0-4 % Baso Pct Auto 0.2 0-2 % NRBC Pct Auto 0.0 0.0-0.2 /100WBC ANC Neut Abs # 3.5 2.0-8.3 x10*3/uL ImGran Abs Auto 0.02 0.00-0.03 X10*3/uL Lymph Abs Auto 0.9 L 1.2-4.9 X10*3/uL [place] Abs Auto 0.5 0.1-1.2 X10*3/uL Eos Abs Auto 0.1 0.0-0.4 X10*3/uL Baso Abs Auto 0.0 0.0-0.2 X10*3/uL NRBC Abs Auto 0.000 0.0-0.012 X10*3/uL Coding Level of Care Code Est Pt Level 4 (42045) Complex EM visit Add On G2211 Diagnoses Diabetes mellitus with microalbuminuria, without long-term current use of insulin E11.29; R80.9 Sick sinus syndrome I49.5 Essential hypertension I10 Dyslipidemia E78.5 Neuroendocrine tumor of pancreas D3A.8 Atrial fibrillation, unspecified type I48.91 Atrial fibrillation type: unspecified Chronic obstructive pulmonary disease, unspecified COPD type J44.9 COPD type: unspecified COPD Preoperative examination Z01.818 Assessment & Plan Assessment & Plan (1) Diabetes mellitus with microalbuminuria, without long-term current use of insulin: Code(s): E11.29 - Type 2 diabetes mellitus with other diabetic kidney complication; R80.9 - Proteinuria, unspecified Category: Medical Plan: Diabetes well controlled, with hemoglobin A1c today at 6%. Continued on metformin ER 500 mg 1 tablet at night. (2) Sick sinus syndrome: Code(s): I49.5 - Sick sinus syndrome Category: Medical Plan: Controlled with pacemaker and currently on metoprolol succinate ER 25 mg daily (3) Essential hypertension: Code(s): I10 - Essential (primary) hypertension Category: Medical Plan: Hypertension stable controlled on amlodipine, hydralazine, losartan and metoprolol succinate (4) Dyslipidemia: Code(s): E78.5 - Hyperlipidemia, unspecified Category: Medical Plan: Reviewed recent fasting lipid profile with patient with levels within normal limits . Continue adherence to low-cholesterol diet and regular exercise, at least 30 minutes 3 to 4 times a week. Advised patient to make healthy food choices, eat more fruits, vegetables, whole grains, wild caught fish and low-fat dairy. Limit amount of meat and fried or fatty food products, as well as processed foods and fast foods. Follow-up scheduled with repeat fasting lipid panel in months. (5) Neuroendocrine tumor of pancreas: Code(s): D3A.8 - Other benign neuroendocrine tumors Category: Medical Plan: Currently asymptomatic (6) Afib: Code(s): I48.91 - Unspecified atrial fibrillation Category: Medical Qualifiers: Atrial fibrillation type: unspecified Qualified Code(s): I48.91 - Unspecified atrial fibrillation Plan: Anticoagulated with Eliquis 5 mg 1 tab twice a day (7) Chronic obstructive pulmonary disease, unspecified: Code(s): J44.9 - Chronic obstructive pulmonary disease, unspecified Category: Medical Qualifiers: COPD type: unspecified COPD Qualified Code(s): J44.9 - Chronic obstructive pulmonary disease, unspecified Plan: Has been using her inhaler as directed, no acute exacerbation (8) Preoperative examination: Code(s): Z01.818 - Encounter for other preprocedural examination Plan: 78 year old here for pre-operative clearance for cataract surgery. She has history of breast cancer, hypertension, hyperlipidemia, diabetes mellitus, neuroendocrine tumor of pancreas, sick sinus syndrome currently with pacemaker in place , atrial fibrillation currently anticoagulated with Eliquis, and COPD. Her preoperative exam was unremarkable recent laboratory results were unremarkable. She has low to moderate cardiac risk index for proposed surgery Orders: Orders AMB Hemoglobin A1c 03/12/24 E11.29 - Type 2 diabetes mellitus with other diabetic kidney complication, R80.9 - Proteinuria, unspecified
[2024-03-12 13:54] VITALS: BP 148/78; PULSE 70; O2SAT 94; BMI 24.9
[2024-03-12 14:07] VITALS: BP 135/80
== END 2024-03-12 15:30 | disposition home or self-care (01) ==
PROVIDERS: PCP Internal Medicine; Visit Provider Internal Medicine
DX: E11.29 Type 2 diabetes mellitus with other diabetic kidney complication (principal); I49.5 Sick sinus syndrome; D3A.8 Other benign neuroendocrine tumors; I48.91 Unspecified atrial fibrillation; J44.9 Chronic obstructive pulmonary disease, unspecified; R80.9 Proteinuria, unspecified; I10 Essential (primary) hypertension; E78.5 Hyperlipidemia, unspecified; Z01.818 Encounter for other preprocedural examination

== ENCOUNTER → 2024-03-12 13:25 | Outpatient (BNVA) | payer MEDICARE, MEDICAID, SELFPAY | PROVIDERS: PCP Internal Medicine; Visit Provider Internal Medicine | DX: E11.29 Type 2 diabetes mellitus with other diabetic kidney complication (principal); R80.9 Proteinuria, unspecified | CPT/HCPCS: 83036; 99212 ==

== ENCOUNTER 2024-04-25 13:55 | Outpatient (AMB) | payer MEDICARE, MEDICAID, SELFPAY ==
--- NOTE | 2024-04-25 13:58 | A.OFFVIS_ITS ---
Vital Signs 04/25/24 14:06 Height 5 ft 4 in Weight 147 lb 11.355 oz BMI 25.4 BP 124/82 Blood Pressure Location Lt brachial Position Sitting Intake Visit Reasons: 6 mth f/up echo Intake Note: 6 month follow-up with [employer] [place] [employer] Administrator Required: No Allergies Sulfa (Sulfonamide Antibiotics) Allergy (Intermediate, Verified 03/22/24 14:22) itching sulfamethoxazole [From Bactrim] Allergy (Intermediate, Verified 03/22/24 14:22) Stomach Upset trimethoprim [From Bactrim] Allergy (Intermediate, Verified 03/22/24 14:22) Stomach Upset Medication List - Last Reconciled 04/25/24 by Asher Amezquita MD Advair HFA 115-21 mcg/actuation (fluticasone propion-salmeterol) 2 puffs inhalation Q12H NS amlodipine 10 mg See Protocol PO DAILY apixaban (Eliquis) 5 mg PO BID budesonide-formoterol 160-4.5 mcg/actuation (Symbicort) 2 puffs inhalation BID cholecalciferol (vitamin D3) 25 mcg PO DAILY hydralazine 25 mg See Protocol PO TID losartan 100 mg PO DAILY metformin ER 500 mg PO BEDTIME metoprolol succinate ER 25 mg PO DAILY fxplpzcr-alkzwvw-jqym-lutein 1 tab PO DAILY omeprazole 1 cap PO DAILY tramadol 50 mg PO Q8H PRN HPI Comments Details: Mary comes for follow-up. She has been doing overall well from cardiac perspective. She have 1 episode of shortness of breath with why she does not have any significant shortness of breath. No orthopnea, PND, leg edema. Taking all her medications. No prolonged palpitation irregular heartbeat. No lightheadedness, syncope. Takes all her medications. No bleeding issues or neurologic events. Her recent renal function tests are within normal limits. [facility] Medical History (Updated 04/25/24 @ 14:25 by Asher Amezquita MD) Paroxysmal atrial fibrillation Afib History of esophagitis Bradycardia, sinus History of breast cancer in female (~2012) Neuroendocrine tumor of pancreas COVID-19 vaccine series completed Irritable bowel syndrome with constipation Chronic obstructive pulmonary disease, unspecified (HFpEF) heart failure with preserved ejection fraction Menopause Dyslipidemia Essential hypertension Diabetes mellitus with microalbuminuria, without long-term current use of insulin Surgical History History of pacemaker History of breast biopsy History of tubal ligation History of colonoscopy History of cerebral aneurysm repair History of lumpectomy of right breast Family History Father Myocardial infarction CVD (cardiovascular disease) Mother Diabetes mellitus Brother HTN (hypertension) Brother HTN (hypertension) Brother No problems noted. Son No problems noted. Social History Household Members: Family Household Members Other:: son visits often Housing: Apartment Are you a primary emergency care tech to a significant other at home: No Do you presently have visiting nurse or other home services: Yes Alcohol intake: never Patient Tobacco Use Status: Former Tobacco user Tobacco use type: Cigarette Years Smoked: 50 yrs e-Cigarette/Vaping Use: Former Use Advance Directives Date on File: 07/11/22 service: No Current occupational status: disabled Cognitive needs: No Hearing needs: No Vision needs: Yes Review of Systems Const Denies chills, Denies fatigue, Denies fever(s), Denies frequent falls, Denies weakness, Denies weight gain and Denies weight loss ENT Denies dizziness Card Denies chest pain, Denies leg edema, Denies lightheadedness, Denies palpitations, Denies dyspnea, Denies dyspnea on exertion, Denies orthopnea and Denies other (loss of consciousness) Resp Denies cough, Denies dyspnea and Denies dyspnea on exertion GI Denies hematochezia and Denies change in stool character Musc Denies abnormal gait, Denies muscle weakness, Denies numbness, Denies radiating pain into limb and Denies tingling Neuro Denies abnormal gait, Denies dizziness, Denies frequent falls, Denies numbness, Denies tingling and Denies weakness Endo Denies fatigue and Denies palpitations Physical Exam Vital Signs: Last Vital Signs BP 124/82 04/25/24 14:06 BMI result Body Mass Index 25.4 Const General: cooperative, healthy appearing, comfortable and no acute distress Orientation/consciousness: patient oriented x3 Neck Neck: Yes normal visual inspection Resp Effort & Inspection: normal respiratory effort Auscultation: clear to auscultation bilaterally, no crackles, no rales, no rhonchi and no wheezes Cardio Jugular venous distension: no JVD Rate: regular rate Rhythm: regular rhythm Heart sounds: S1 normal heart sound present, S2 normal heart sound present, no murmurs and no rubs Neuro General: patient oriented x3 Extrem General: Yes normal to inspection Psych Appearance: grossly normal Mental Status: mental status grossly normal Speech and movement: Normal speech and movement present Office Procedures Cardiac Device Check Cardiac Device Check Details: Dual-chamber Medtronic pacemaker in place. Programmed in DDDR at 60 beats per minute. Atrial and ventricular pacing greater than 97% of the time. One 4 hour episodes of atrial fibrillation noted. Two episodes of nonsustained VT, each of 5 beats noted. Atrial ventricular sensing is adequate. Atrial ventricular pacing thresholds excellent, atrial thresholds were reprogrammed. Battery life is about 10 years [id number] Cardiac Device Check, pacemaker dual lead Procedure code (CPT) selection complete Assessment & Plan Assessment & Plan (1) (HFpEF) heart failure with preserved ejection fraction: Code(s): I50.30 - Unspecified diastolic (congestive) heart failure Category: Medical Plan: Heart failure preserved ejection fraction, clinically euvolemic and well compensated. Doing well on current therapy. Continue rhythm control approach. Currently not on any diuretic regimen and does not require so. Advised to call me with any heart failure symptoms. Daily weight monitoring avoidance of salt loading was discussed. Continue aggressive blood pressure control. Target goal blood pressure less than 130/84. Currently well optimized. Continue take current medications. (2) Paroxysmal atrial fibrillation: Code(s): I48.0 - Paroxysmal atrial fibrillation Category: Medical Plan: Paroxysmal atrial fibrillation, currently suppressed. One episode of atrial fibrillation with total burden less than 1%. Continue metoprolol therapy. No indication for antiarrhythmic drug therapy. Continue full oral anticoagulation, currently on Eliquis 5 mg b.i.d.. Quarterly renal function test should be pursued. (3) Pacemaker: Onset Date: ~2022 Comment: (Medtronic DCPP - placed 07/27/2022) Code(s): Z95.0 - Presence of cardiac pacemaker Category: Medical Plan: Cardiac pacemaker in-situ, pacing significantly in atrium and the ventricle. Currently having no symptoms related to it. Continue monitor remotely every 3 months. Follow up in the clinic in 6 months time, sooner p.r.n.. Thank you for allowing me to partake in her care Coding Level of Care Code Est Pt Level 4 (85569) Diagnoses (HFpEF) heart failure with preserved ejection fraction I50.30 Paroxysmal atrial fibrillation I48.0 Pacemaker Z95.0 CPT Codes Cardiac Device Check - Cardiac Device 2: [id number] Cardiac Device Check, pacemaker dual lead ([id number])
[2024-04-25 14:06] VITALS: BP 124/82; BMI 25.4
== END 2024-04-25 14:24 | disposition home or self-care (01) ==
PROVIDERS: PCP Internal Medicine; Visit Provider Internal Medicine Cardiovascular Disease
DX: I50.30 Unspecified diastolic (congestive) heart failure (principal); I48.0 Paroxysmal atrial fibrillation; Z95.0 Presence of cardiac pacemaker
CPT/HCPCS: 93280; 99214

== ENCOUNTER → 2024-04-25 13:55 | Outpatient (BNVA) | payer MEDICARE, MEDICAID, SELFPAY | PROVIDERS: PCP Internal Medicine; Visit Provider Internal Medicine Cardiovascular Disease | DX: I48.0 Paroxysmal atrial fibrillation (principal); I11.0 Hypertensive heart disease with heart failure; I50.30 Unspecified diastolic (congestive) heart failure; Z45.010 Encounter for checking and testing of cardiac pacemaker pulse generator [battery] | CPT/HCPCS: 93280; 99212 ==

== ENCOUNTER → 2024-05-20 23:59 | Outpatient (BNV) | payer MEDICARE, MEDICAID, SELFPAY ==
--- NOTE | 2024-05-22 15:20 | MHC.OFFVIS ---
Intake Visit Reasons: Remote device check- Medtronic Allergies Sulfa (Sulfonamide Antibiotics) Allergy (Intermediate, Verified 03/22/24 14:22) itching sulfamethoxazole [From Bactrim] Allergy (Intermediate, Verified 03/22/24 14:22) Stomach Upset trimethoprim [From Bactrim] Allergy (Intermediate, Verified 03/22/24 14:22) Stomach Upset PFSH Medical History (Updated 04/25/24 @ 14:25 by Asher Amezquita MD) Paroxysmal atrial fibrillation Afib History of esophagitis Bradycardia, sinus History of breast cancer in female (~2012) Neuroendocrine tumor of pancreas COVID-19 vaccine series completed Irritable bowel syndrome with constipation Chronic obstructive pulmonary disease, unspecified (HFpEF) heart failure with preserved ejection fraction Menopause Dyslipidemia Essential hypertension Diabetes mellitus with microalbuminuria, without long-term current use of insulin Surgical History History of pacemaker History of breast biopsy History of tubal ligation History of colonoscopy History of cerebral aneurysm repair History of lumpectomy of right breast Family History Father Myocardial infarction CVD (cardiovascular disease) Mother Diabetes mellitus Brother HTN (hypertension) Brother HTN (hypertension) Brother No problems noted. Son No problems noted. Social History Household Members: Family Household Members Other:: son visits often Housing: Apartment Are you a primary critical care unit manager to a significant other at home: No Do you presently have visiting nurse or other home services: Yes Alcohol intake: never Patient Tobacco Use Status: Former Tobacco user Tobacco use type: Cigarette Years Smoked: 50 yrs e-Cigarette/Vaping Use: Former Use Use of substances other than those prescribed or required for medical reasons: No Have you been hit, kicked, punched, or otherwise hurt by someone within the past year? If so, by whom?: No Advance Directives Date on File: 07/11/22 Do you have thoughts of harming others: None Do you have a plan to hurt others: No Plan Do you have the means to hurt others: No Recently lost weight without trying: No Patient : No service: No Current occupational status: disabled Cognitive needs: No Hearing needs: No Vision needs: Yes Office Procedures Cardiac Device Check Cardiac Device Check Details: Remote pacemaker report generated 05/20/2024. Pacemaker function is adequate [id number] Cardiac Device Interrogation, pacemaker Procedure code (CPT) selection complete Assessment & Plan Assessment & Plan (1) Pacemaker: Onset Date: ~2022 Comment: (Medtronic DCPP - placed 07/27/2022) Code(s): Z95.0 - Presence of cardiac pacemaker Category: Medical Plan: See above Coding Level of Care Code Procedure Only Diagnoses Pacemaker Z95.0 CPT Codes Cardiac Device Check - Cardiac Device 12: [id number] Cardiac Device Interrogation, pacemaker ([id number])
== END ==
PROVIDERS: PCP Internal Medicine; Visit Provider Internal Medicine Cardiovascular Disease
DX: Z45.018 Encounter for adjustment and management of other part of cardiac pacemaker (principal)
CPT/HCPCS: 93294

== ENCOUNTER 2024-08-14 09:20 | Outpatient (REF) | payer MEDICARE, MEDICAID, SELFPAY ==
--- NOTE | ~2024-08-14 | CT_ITS ---
CLINICAL HISTORY: Follow up for Neuro endocrine tumor of pancreas CT abdomen and pelvis with contrast Comparison: CT/SR - CT ABDOMEN PELVIS W IV CON - 10/11/22 16:18 EDT Findings: No consolidation or effusion. The enhancing lesion within the pancreatic tail measures up to 3.6 cm on image 19 of series 3, previously up to 4.1 cm. Atrophic pancreatic tail distal to the mass. The more proximal pancreas is unremarkable. Sludge layering within the gallbladder. No biliary obstruction. Multiple hepatic metastatic lesions. The largest lesion within segment 2 measures 2.6 cm in greatest dimension on image 11 of series 3, previously 2.6 cm. A lesion within segment 5/6 measures 13 mm, previously 14 mm. No new hepatic lesions. Spleen, adrenal glands and kidneys demonstrate no acute process. Unchanged upper pole left renal cysts.No radiopaque stones or hydronephrosis. Unremarkable bladder. Unchanged appearance of the uterus with a subtle filling defect within the endometrium. A left adnexal mass on image 67 of series 3 measures 6.0 x 6.4 cm, previously 6.4 x 5.8 cm. Unremarkable right ovary. No adenopathy or fluid collections. Nondilated vasculature. No acute fracture. IMPRESSION: Slight decrease in the size of the mass within the pancreatic tail. Hepatic metastatic lesions appear relatively stable in size. No new lesions identified. Left adnexal mass appears relatively stable. No new sites of metastatic disease within the abdomen or pelvis. Biliary sludge. Left renal cyst. This document has been electronically signed by: Neris Marquze MD on 08/15/2024 08:57:14
--- OUTSIDE RECORDS SUMMARY | 2024-08-14 10:24 | XMS_ITS | Patient Health Record ---
Author Organization [facility] Address [address] [place] [address] Care Team Providers Care Catering Server Name Role Phone Charles MATHIS, Kaitlyn Primary Care Provider Tayo Angeles Unavailable [phone] Allergies Allergen (clinical drug ingredient) Drug/Non Drug Allergy documented on EMR Reaction Allergy Type Onset Date Status Bactrim Unknown Drug Allergy Active Reason For Referral No Information Medications Medication SIG (Take, Route, Frequency, Duration) Notes Start Date End Date Status Omeprazole 20 MG TAKE 1 CAPSULE BY MO UTH EVERY DAY IN THE MORNING for 90 Active metFORMIN HCl ER 500 MG TAKE 1 TABLET BY MOUTH EVERY DAY WITH THE EVENING MEAL Oral for 90 Active Meloxicam 15 MG TAKE 1 TABLET BY FIFI TH ONCE A DAY NEEDED Oral for 30 Active Losartan Potassium 50 MG TAKE 1 TABLET B Y MOUTH EVERY DAY Oral for 90 Active Furosemide 20 MG TAKE 1 TABLET BY FIFI TH EVERY MORNING Oral for 90 Active Symbicort 160-4.5 MCG/ACT TAKE 2 PUFFS B Y MOUTH TWICE A DAY Inhalation for 28 Active Dicyclomine HCl 20 MG 1 tablet Orally Th ree times a day for 30 day(s) Active Famotidine 40 MG 1 tablet at bedtime Orally Once a day for 30 day(s) Active Wixela Inhub Active Omeprazole Active Fish Oil 1000 MG 1 capsule Orally Onc e a day Active Centrum Silver - Orally Act michele Atorvastatin Calcium 10 MG TAKE 1 TABLET BY MOUTH EVERY DAY Oral for 90 Active Immunizations Vaccine Route Administration Date Status Comme nts Influenza Unknown 04/12/2017 Administered Influenza Unknown 03/12/2021 Administered Influenza Unknown 03/12/2021 Administered Influenza Unknown 04/14/2021 Refused Social History Tobacco Use: Social History Observation Description Date Details (start date - stop date) Former Smoker NA - NA Tobacco Use/Smoking Question Answer Notes Patient is a former smoker How long has it been since you last smoked? 5-10 years Alcohol Screen Question Answer Notes Did you have a drink containing alcohol in the p ast year? No Points 0 Interpretation Negative Section Notes: Nonsmoker since 2010; no alc ohol Nonsmoker since 2010; no alc ohol Nonsmoker since 2010; no alc ohol Problems Problem Type SNOMED Code ICD Code Onset Dates Problem Status W/U Status Risk Notes Problem 41365507 Epigastric pain (R10.13) Active confirmed Problem 821499563 Encounter for screening for malignant neoplasm of colon (Z12.11) Active confirmed Problem 97028039 Acute gastric ulcer without hemorrhage or perforation (K25.3) Active confirmed Problem 025063917932907 Preprocedural examination (Z01.818) Active confirmed Problem 29863561 Heme + stool (R19.5) Active confirmed Problem 764679575 Liver mass (R16.0) Active confirmed Problem 88860122265837001 Abnormal liver ultrasound (R93.2) Active confirmed Problem 576601241 Long-term use of high-risk medication (Z79.899) Active confirmed Problem Duodenal ulcer (87955123) Duodenal ulcer (K26.9) Active confirmed Problem 28597194 Liver cyst (K76.89) Active confirmed Problem Diverticulosis of colon (622002311) Diverticulosis of colon (K57.30) Active confirmed Problem 33240466 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) Active confirmed Problem 931506092 Mass of pancreas (K86.89) Active confirmed Plan Of Treatment Pending Test Test Name Order Date BUN 05/01/2021 CREATININE 05/01/2021 LIVER PROFILE 04/14/2021 AMYLASE 04/14/2021 LIPASE 04/14/2021 CEA 05/01/2021 CBC w DIFF 05/17/2021 CBC w DIFF 04/14/2021 PROTHROMBIN TIME (PT, INR) 05/17/2021 PARTIAL THROMBOPLASTIN TIME (PTT) 2020 ALPHA-FETOPROTEIN,TUMOR MARKER CA 19-9 05/17/2021 MRI ABD W&WO CONTRAST 05/01/2021 US ABD 04/14/2021 US BIOPSY NEEDLE GUIDE 05/17/2021 Gastrin 06/03/2021 Future Test Test Name Order Date COLONOSCOPY 11/02/2017 UPPER GI ENDOSCOPY 04/14/2021 COLONOSCOPY 04/14/2021 Insurance Providers Payer Name Payer Address Payer Phone Subscriber Number Group Number Insured Name Patient Relationship to Insured Coverage Start Date Coverage End Date [facility] [address] [facility] [place] [phone] [id number] GLENDA BETH Self - patient is the insured Medical (General) History Medical History History ICD Code Right breast cancer in 2010--lumpectomy NIDDM 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 Biopsies were negative for H. pylori. A serum gastrin level was normal. Colonoscopy in May was negative for any polyps or angiodysplasias in regard to her previous anemia. 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 This is being followed by Dr. Guzman. As best I can tell the patient refused chemotherapy as offered to her by Dr. Guzman earlier this year. Surgical History Surgery Date(Month/Year) Tubal ligation Breast cancer as above Uterine polyp
--- OUTSIDE RECORDS SUMMARY | 2024-08-14 10:24 | XMS_ITS | Clinical Summary ---
Author Organization [facility] Address [address] [place] [address] Care Team Providers Care Research And Development Engineer Name Role Phone Unavailable Primary Care Provider Unavailabl e Social History Tobacco Use Types Packs/Day Years Used Date Smoking Tobacco: Never Assessed Sex and Gender Information Value Date Recorded Sex Assigned at Not on file Gender Identity Not on file Sexual Orientation Not on file Plan of Treatment Health Maintenance Due Date Last Done Comments DTaP/Tdap/Td Vaccines (1 - Tdap) 08/11/1962 Pneumococcal Vaccines 50+ (1 of 1 - PCV) 08/11/1993 Zoster (Shingles) Vaccine (1 of 2) 08/11/1993 RSV Vaccine 60 years and old er and Patients (1 - 1-dose 75+ series) 08/11/2018 COVID-19 Vaccine ( - 2023-2 5 season) 2024 Hepatitis B Vaccines Aged Out No long er eligible based on patient's age to complete this topic
[2024-08-14] MEDS: Barium Sulfate Oral (Berry) 450 ML ORAL.SUSP PO ×2 (11:51)
[2024-08-14] MEDS: iohexoL 350 MG/ML 100 ML INFUS..BTL IV (11:51)
== END 2024-08-14 09:21 | disposition home or self-care (01) ==
LOC: HO.CT 09:20
PROVIDERS: PCP Internal Medicine; Visit Provider Internal Medicine Medical Oncology
DX: D3A.8 Other benign neuroendocrine tumors (principal)
CPT/HCPCS: 74177; Q9967

== ENCOUNTER → 2024-08-14 09:22 | Outpatient (BNV) | payer MEDICARE, MEDICAID, SELFPAY | PROVIDERS: PCP Internal Medicine; Visit Provider Radiology Diagnostic Radiology | DX: D3A.8 Other benign neuroendocrine tumors (principal) | CPT/HCPCS: 74177 ==

== ENCOUNTER → 2024-08-17 23:59 | Outpatient (BNV) | payer MEDICARE, MEDICAID, SELFPAY ==
--- NOTE | 2024-08-20 15:15 | MHC.OFFVIS ---
Intake Visit Reasons: Remote device check- Medtronic Allergies Sulfa (Sulfonamide Antibiotics) Allergy (Intermediate, Verified 03/22/24 14:22) itching sulfamethoxazole [From Bactrim] Allergy (Intermediate, Verified 03/22/24 14:22) Stomach Upset trimethoprim [From Bactrim] Allergy (Intermediate, Verified 03/22/24 14:22) Stomach Upset PFSH Medical History (Updated 04/25/24 @ 14:25 by Asher Amezquita MD) Paroxysmal atrial fibrillation Afib History of esophagitis Bradycardia, sinus History of breast cancer in female (~2012) Neuroendocrine tumor of pancreas COVID-19 vaccine series completed Irritable bowel syndrome with constipation Chronic obstructive pulmonary disease, unspecified (HFpEF) heart failure with preserved ejection fraction Menopause Dyslipidemia Essential hypertension Diabetes mellitus with microalbuminuria, without long-term current use of insulin Surgical History History of pacemaker History of breast biopsy History of tubal ligation History of colonoscopy History of cerebral aneurysm repair History of lumpectomy of right breast Family History Father Myocardial infarction CVD (cardiovascular disease) Mother Diabetes mellitus Brother HTN (hypertension) Brother HTN (hypertension) Brother No problems noted. Son No problems noted. Social History Household Members: Family Household Members Other:: son visits often Housing: Apartment Are you a primary director of critical care to a significant other at home: No Do you presently have visiting nurse or other home services: Yes Alcohol intake: never Patient Tobacco Use Status: Former Tobacco user Tobacco use type: Cigarette Years Smoked: 50 yrs e-Cigarette/Vaping Use: Former Use Advance Directives Date on File: 07/11/22 service: No Current occupational status: disabled Cognitive needs: No Hearing needs: No Vision needs: Yes Office Procedures Cardiac Device Check Cardiac Device Check Details: Remote pacemaker report generated 08/17/2024. Pacemaker function is adequate. Few brief episodes of atrial fibrillation noted [id number] Cardiac Device Interrogation, pacemaker Procedure code (CPT) selection complete Assessment & Plan Assessment & Plan (1) Pacemaker: Onset Date: ~2022 Comment: (Medtronic DCPP - placed 07/27/2022) Code(s): Z95.0 - Presence of cardiac pacemaker Category: Medical Plan: See above Coding Level of Care Code Procedure Only Diagnoses Pacemaker Z95.0 CPT Codes Cardiac Device Check - Cardiac Device 12: [id number] Cardiac Device Interrogation, pacemaker ([id number])
== END ==
PROVIDERS: PCP Internal Medicine; Visit Provider Internal Medicine Cardiovascular Disease
DX: I48.91 Unspecified atrial fibrillation (principal); Z95.0 Presence of cardiac pacemaker
CPT/HCPCS: 93294

== ENCOUNTER 2024-10-08 11:18 | Outpatient (AMB) | payer MEDICARE, MEDICAID, SELFPAY ==
--- NOTE | 2024-10-08 11:24 | MHC.PC.OV ---
Vital Signs 10/08/24 11:28 Height 5 ft 4 in Weight 144 lb BMI 24.7 BP 130/76 Blood Pressure Location Lt brachial Position Sitting Respiration 16 Pulse 71 Pulse Source Pulse Oximeter Temp 98.0 F Temp Source Oral Pulse Oximetry (%) 93 Oxygen Delivery Method Room Air Intake Visit Reasons: 6 month follow up Intake Note: Pt is here today for her 6mo. f/u Allergies Sulfa (Sulfonamide Antibiotics) Allergy (Intermediate, Verified 10/08/24 11:25) itching sulfamethoxazole [From Bactrim] Allergy (Intermediate, Verified 10/08/24 11:25) Stomach Upset trimethoprim [From Bactrim] Allergy (Intermediate, Verified 10/08/24 11:25) Stomach Upset Tobacco use date assessed: 10/08/24 Fall risk assessment: No Falls in past year Last assessed Fall Risk: 10/08/24 Dental Screening Dental Screen Date: 10/08/24 Did you have a dental visit in the last 12 months?: No Did you have a dental problem in the last 6 months where you did not have access to dental care?: No Was dental information given to patient?: No [facility] Medical History (Updated 09/09/24 @ 14:29 by Lisa Guzman MD) Paroxysmal atrial fibrillation Afib History of esophagitis Bradycardia, sinus History of breast cancer in female (~2012) Neuroendocrine tumor of pancreas COVID-19 vaccine series completed Irritable bowel syndrome with constipation Chronic obstructive pulmonary disease, unspecified (HFpEF) heart failure with preserved ejection fraction Menopause Dyslipidemia Essential hypertension Diabetes mellitus with microalbuminuria, without long-term current use of insulin Surgical History History of pacemaker History of breast biopsy History of tubal ligation History of colonoscopy History of cerebral aneurysm repair History of lumpectomy of right breast Family History Father Myocardial infarction CVD (cardiovascular disease) Mother Diabetes mellitus Brother HTN (hypertension) Brother HTN (hypertension) Brother No problems noted. Son No problems noted. Social History Household Members: Family Household Members Other:: son visits often Housing: Apartment Are you a primary healthcare translator to a significant other at home: No Do you presently have visiting nurse or other home services: Yes Alcohol intake: never Patient Tobacco Use Status: Former Tobacco user Tobacco use type: Cigarette Years Smoked: 50 yrs e-Cigarette/Vaping Use: Former Use Advance Directives Date on File: 07/11/22 service: No Current occupational status: disabled Cognitive needs: No Hearing needs: No Vision needs: Yes Questionnaire Thrive Questionnaire Date Thrive assessed: 06/22/23 PAM-7 AMB Questionnaire PAM-7 Date PAM - 7 assessed: 06/22/23 Source: Developed by Drs. Tayo Calle, Shefali Hwang, Jerrod Barros and colleagues, with an educational karsten from [employer]. Physical exam (Primary Care) Vital Signs: Last Vital Signs Temp 98.0 F 10/08/24 11:28 Pulse 71 10/08/24 11:28 Resp 16 10/08/24 11:28 BP 130/76 10/08/24 11:28 Pulse Ox 93 10/08/24 11:28 Oxygen Delivery Method Room Air 10/08/24 11:28 BMI result Body Mass Index 24.7 Tobacco/Smoking Status: Tobacco use Status Tobacco use date assessed 10/08/24 10/08/24 11:33 Patient Tobacco Use Status Former Tobacco user 10/08/24 11:24 Tobacco use type Cigarette 10/08/24 11:24 e-Cigarette/Vaping Use Former Use 10/08/24 11:24 Thrive Assessment: Date of Thrive Assessment Date Thrive assessed 06/22/23 10/08/24 11:24 Results AMB Hemoglobin A1c AMB Hemoglobin A1c 5.7 % Last Edit by Willa Fitzpatrick CMA on 10/08/24 11:52 Results Reviewed Results Reviewed: Laboratory Last Values Hgb A1c (Clinic) 5.7 % (4.0-6.0) 10/08/24 11:44 Coding Diagnoses Diabetes mellitus with microalbuminuria, without long-term current use of insulin E11.29; R80.9 Dyslipidemia E78.5 Assessment & Plan Assessment & Plan (1) Diabetes mellitus with microalbuminuria, without long-term current use of insulin: Code(s): E11.29 - Type 2 diabetes mellitus with other diabetic kidney complication; R80.9 - Proteinuria, unspecified Category: Medical (2) Dyslipidemia: Code(s): E78.5 - Hyperlipidemia, unspecified Category: Medical Orders: Orders Basic Metabolic Panel Fasting 03/12/25. - Type 2 diabetes mellitus with other diabetic kidney complication, E78.5 - Hyperlipidemia, unspecified, R80.9 - Proteinuria, unspecified Microalbumin, Random (w Creat) 03/12/25 - Type 2 diabetes mellitus with other diabetic kidney complication, E78.5 - Hyperlipidemia, unspecified, R80.9 - Proteinuria, unspecified Vitamin D 25-OH Total 03/12/25 - Type 2 diabetes mellitus with other diabetic kidney complication, E78.5 - Hyperlipidemia, unspecified, R80.9 - Proteinuria, unspecified AMB Hemoglobin A1c Today - Type 2 diabetes mellitus with other diabetic kidney complication, R80.9 - Proteinuria, unspecified Hemoglobin A1c 03/12/25 - Type 2 diabetes mellitus with other diabetic kidney complication, E78.5 - Hyperlipidemia, unspecified, R80.9 - Proteinuria, unspecified Medications: Refilled amlodipine 10 mg See Protocol PO DAILY 90 tabs 1RF
[2024-10-08 11:28] VITALS: BP 130/76; PULSE 71; RESP 16; TEMP 36.7; O2SAT 93; BMI 24.7
--- OUTSIDE RECORDS SUMMARY | 2024-10-08 13:21 | XMS_ITS | Clinical Summary ---
Author Organization [facility] Address [address] [place] [address] Care Team Providers Care Inverter And Clipper Name Role Phone Unavailable Primary Care Provider Unavailabl e Social History Tobacco Use Types Packs/Day Years Used Date Smoking Tobacco: Never Assessed Comments Unknown Sex and Gender Information Value Date Recorded Sex Assigned at Not on file Legal Sex Female 1:27 PM EDT Gender Identity Not on file Sexual Orientation Not on file Plan of Treatment Health Maintenance Due Date Last Done Comments DTaP/Tdap/Td Vaccines (1 - Tdap) 08/11/1962 Pneumococcal Vaccines 50+ (1 of 1 - PCV) 08/11/1993 Zoster (Shingles) Vaccine (1 of 2) 08/11/1993 RSV Vaccine 60 years and old er and Patients (1 - 1-dose 75+ series) 08/11/2018 COVID-19 Vaccine (2023-2 5 season) 2024 Hepatitis B Vaccines Aged Out No long er eligible based on patient's age to complete this topic
== END 2024-10-08 12:11 | disposition home or self-care (01) ==
LOC: HO.HMCC 11:19
PROVIDERS: PCP Internal Medicine; Visit Provider Internal Medicine
DX: E11.29 Type 2 diabetes mellitus with other diabetic kidney complication (principal); R80.9 Proteinuria, unspecified

== ENCOUNTER → 2024-10-08 11:18 | Outpatient (BNVA) | payer MEDICARE, MEDICAID, SELFPAY | PROVIDERS: PCP Internal Medicine; Visit Provider Internal Medicine | DX: E11.29 Type 2 diabetes mellitus with other diabetic kidney complication (principal); R80.9 Proteinuria, unspecified; I10 Essential (primary) hypertension | CPT/HCPCS: 83036; 99212 ==

== ENCOUNTER 2024-10-23 13:49 | Outpatient (REF) | payer MEDICARE, MEDICAID, SELFPAY ==
--- OUTSIDE RECORDS SUMMARY | 2024-10-23 13:52 | XMS_ITS | Patient Health Record ---
Author Organization [facility] Address [address] [place] [address] Care Team Providers Care Cheese Tester Name Role Phone Charles MATHIS, Kaitlyn Primary Care Provider Tayo Angeles Unavailable [phone] Allergies Allergen (clinical drug ingredient) Drug/Non Drug Allergy documented on EMR Reaction Allergy Type Onset Date Status sulfamethoxazole / trimethoprim Bactrim Unknown Drug Allergy Active Reason For [...] Problem Status W/U Status Risk Notes Problem 95801655 Epigastric pain (R10.13) Active confirmed Problem 554368353 Encounter for screening for malignant neoplasm of colon (Z12.11) Active confirmed Problem 79514514 Acute gastric ulcer without hemorrhage or perforation (K25.3) Active confirmed Problem 355502300143997 Preprocedural examination (Z01.818) Active confirmed Problem 28739653 Heme + stool (R19.5) Active confirmed Problem 832652286 Liver mass (R16.0) Active confirmed Problem 54492255038802589 Abnormal liver ultrasound (R93.2) Active confirmed Problem 357129201 Long-term use of high-risk medication (Z79.899) Active confirmed Problem Duodenal ulcer (67479950) Duodenal ulcer (K26.9) Active confirmed Problem 88036760 Liver cyst (K76.89) Active confirmed Problem Diverticulosis of colon (704505598) Diverticulosis of colon (K57.30) Active confirmed Problem 79672981 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
--- OUTSIDE RECORDS SUMMARY | 2024-10-23 13:52 | XMS_ITS | Clinical Summary ---
Author Organization [facility] Address [address] [place] [address] Care Team Providers Care Orthophotography Technician Name Role Phone Unavailable Primary Care Provider [...]
== END 2024-10-23 13:50 | disposition home or self-care (01) ==
LOC: HO.MAMMO 13:49
PROVIDERS: PCP Internal Medicine; Visit Provider Internal Medicine
DX: Z12.31 Encounter for screening mammogram for malignant neoplasm of breast (principal)
CPT/HCPCS: 77063; 77067

== ENCOUNTER → 2024-10-23 14:15 | Outpatient (BNV) | payer MEDICARE, MEDICAID, SELFPAY | PROVIDERS: PCP Internal Medicine; Visit Provider Internal Medicine | DX: Z12.31 Encounter for screening mammogram for malignant neoplasm of breast (principal) | CPT/HCPCS: 77063; 77067 ==

== ENCOUNTER 2024-10-31 13:38 | Outpatient (AMB) | payer MEDICARE, MEDICAID, SELFPAY ==
[2024-10-31 13:40] VITALS: BP 120/80; PULSE 64; BMI 24.2
--- NOTE | 2024-10-31 13:40 | A.OFFVIS_ITS ---
Vital Signs 10/31/24 13:40 Height 5 ft 4 in Weight 141 lb 1.533 oz BMI 24.2 BP 120/80 Blood Pressure Location Lt brachial Position Sitting Pulse 64 Intake Visit Reasons: 6m follow up w pacer ck Intake Note: 6 month follow-up with medtronic check heart ok Allergies Sulfa (Sulfonamide Antibiotics) Allergy (Intermediate, Verified 10/14/24 04:47) itching sulfamethoxazole [From Bactrim] Allergy (Intermediate, Verified 10/14/24 04:47) Stomach Upset trimethoprim [From Bactrim] Allergy (Intermediate, Verified 10/14/24 04:47) Stomach Upset Medication List - Last Reconciled 10/31/24 by Asher Amezquita MD Advair HFA 115-21 mcg/actuation (fluticasone propion-salmeterol) 2 puffs inhalation Q12H NS amlodipine 10 mg See Protocol PO DAILY apixaban (Eliquis) 5 mg PO BID ascorbic acid (vitamin C) 1 g PO DAILY cholecalciferol (vitamin D3) 25 mcg PO DAILY hydralazine 25 mg See Protocol PO TID losartan 100 mg PO DAILY metformin ER 500 mg PO BEDTIME metoprolol succinate ER 25 mg PO DAILY bpffkuxb-nsjmurs-ovkw-lutein 1 tab PO DAILY omega 1-gtl-qqo-fish oil 1,000 (120-180) mg (Fish Oil) 1 cap PO DAILY omeprazole 1 cap PO DAILY tramadol 50 mg PO Q8H PRN HPI Comments Details: Mary comes for cardiology follow-up for pacemaker check and atrial fibrillation. She is currently getting therapy for metastatic neuroendocrine tumor. She says she is currently taking a break from it. She denies any prolonged palpitation. No worsening shortness of breath, orthopnea, PND. Takes all her medications. No bleeding issues or neurologic events. Renal function has been stable. [facility]LY [facility] Medical History Paroxysmal atrial fibrillation Afib History of esophagitis Bradycardia, sinus History of breast cancer in female (~2012) Neuroendocrine tumor of pancreas COVID-19 vaccine series completed Irritable bowel syndrome with constipation Chronic obstructive pulmonary disease, unspecified (HFpEF) heart failure with preserved ejection fraction Menopause Dyslipidemia Essential hypertension Diabetes mellitus with microalbuminuria, without long-term current use of insulin Surgical History History of pacemaker History of breast biopsy History of tubal ligation History of colonoscopy History of cerebral aneurysm repair History of lumpectomy of right breast Family History Father Myocardial infarction CVD (cardiovascular disease) Mother Diabetes mellitus Brother HTN (hypertension) Brother HTN (hypertension) Brother No problems noted. Son No problems noted. Social History Household Members: Family Household Members Other:: son visits often Housing: Apartment Are you a primary chronic care nurse to a significant other at home: No Do you presently have visiting nurse or other home services: Yes Alcohol intake: never Patient Tobacco Use Status: Former Tobacco user Tobacco use type: Cigarette Years Smoked: 50 yrs e-Cigarette/Vaping Use: Former Use Advance Directives Date on File: 07/11/22 service: No Current occupational status: disabled Cognitive needs: No Hearing needs: No Vision needs: Yes Review of Systems Const Denies chills, Denies fatigue, Denies fever(s), Denies frequent falls, Denies weakness, Denies weight gain and Denies weight loss ENT Denies dizziness Card Denies chest pain, Denies leg edema, Denies lightheadedness, Denies palpitations, Denies dyspnea, Denies dyspnea on exertion, Denies orthopnea and Denies other (loss of consciousness) Resp Denies cough, Denies dyspnea and Denies dyspnea on exertion GI Denies hematochezia and Denies change in stool character Musc Denies abnormal gait, Denies muscle weakness, Denies numbness, Denies radiating pain into limb and Denies tingling Neuro Denies abnormal gait, Denies dizziness, Denies frequent falls, Denies numbness, Denies tingling and Denies weakness Endo Denies fatigue and Denies palpitations Physical Exam Vital Signs: Last Vital Signs Pulse 64 10/31/24 13:40 BP 120/80 10/31/24 13:40 BMI result Body Mass Index 24.2 Const General: cooperative, healthy appearing, comfortable and no acute distress Orientation/consciousness: patient oriented x3 Neck Neck: Yes normal visual inspection Resp Effort & Inspection: normal respiratory effort Auscultation: clear to auscultation bilaterally, no crackles, no rales, no rhonchi and no wheezes Cardio Jugular venous distension: no JVD Rate: regular rate Rhythm: regular rhythm Heart sounds: S1 normal heart sound present, S2 normal heart sound present, no murmurs and no rubs Neuro General: patient oriented x3 Extrem General: Yes normal to inspection Psych Appearance: grossly normal Mental Status: mental status grossly normal Speech and movement: Normal speech and movement present Office Procedures Cardiac Device Check Cardiac Device Check Details: Dual-chamber Medtronic pacemaker in place. Programmed DDDR at 60 beats per mi nute. Few episodes of atrial fibrillation noted longest lasting 30 minutes. Battery life is at about 9 years. Atrial sensing could not be checked. Ventricular sensing is preserved. Atrial ventricular pacing thresholds excellent. Pacing lead impedance is stable. [id number] Cardiac Device Check, pacemaker dual lead Procedure code (CPT) selection complete Assessment & Plan Assessment & Plan (1) Pacemaker: Onset Date: ~2022 Comment: (Medtronic DCPP - placed 07/27/2022) Code(s): Z95.0 - Presence of cardiac pacemaker Category: Medical Plan: Cardiac pacemaker in-situ for sick sinus syndrome, working well. Will follow-up remotely every 3 months. Follow up in the clinic 6 months time. (2) (HFpEF) heart failure with preserved ejection fraction: Code(s): I50.30 - Unspecified diastolic (congestive) heart failure Category: Medical Plan: Heart failure preserved ejection fraction, clinically euvolemic and well compensated. Has done well with rhythm control approach. Continue pursue rhythm control approach. Currently not on any loop diuretics. Signs and symptoms of heart failure were discussed. Avoidance of salt loading was discussed. Daily weight monitoring was discussed. Advised to follow-up in 6 months. (3) Paroxysmal atrial fibrillation: Code(s): I48.0 - Paroxysmal atrial fibrillation Category: Medical Plan: Paroxysmal atrial fibrillation with persistent episodes but no significant prolonged episodes of persistent episodes noted. At this point time will continue therapy with metoprolol. No indication for antiarrhythmic drug therapy. Advise to continue full oral anticoagulation, currently on Eliquis 5 mg b.i.d.. Quarterly renal function test should be pursued. Will follow up in the clinic in 6 months time, sooner p.r.n.. Thank you for allowing me to partake in his care Coding Level of Care Code Est Pt Level 4 (02899) Complex EM visit Add On G2211 Diagnoses Pacemaker Z95.0 (HFpEF) heart failure with preserved ejection fraction I50.30 Paroxysmal atrial fibrillation I48.0 CPT Codes Cardiac Device Check - Cardiac Device 2: [id number] Cardiac Device Check, pacemaker dual lead ([id number])
--- OUTSIDE RECORDS SUMMARY | 2024-10-31 13:49 | XMS_ITS | Clinical Summary ---
Author Organization [facility] Address [address] [place] [address] Care Team Providers Care Vp Patient Name Role Phone Unavailable Primary Care Provider [...]
== END 2024-10-31 14:01 | disposition home or self-care (01) ==
LOC: HO.HCS 13:39
PROVIDERS: PCP Internal Medicine; Visit Provider Internal Medicine Cardiovascular Disease
DX: I50.30 Unspecified diastolic (congestive) heart failure (principal); Z95.0 Presence of cardiac pacemaker; I48.0 Paroxysmal atrial fibrillation
CPT/HCPCS: 93280; 99214; G2211

== ENCOUNTER → 2024-10-31 13:38 | Outpatient (BNVA) | payer MEDICARE, MEDICAID, SELFPAY | PROVIDERS: PCP Internal Medicine; Visit Provider Internal Medicine Cardiovascular Disease | DX: Z45.018 Encounter for adjustment and management of other part of cardiac pacemaker (principal); I50.30 Unspecified diastolic (congestive) heart failure; I48.0 Paroxysmal atrial fibrillation | CPT/HCPCS: 93280; 99212 ==

== ENCOUNTER → 2024-11-16 23:59 | Outpatient (BNV) | payer MEDICARE, MEDICAID, SELFPAY ==
--- NOTE | 2024-11-19 18:12 | MHC.OFFVIS ---
Intake Visit Reasons: Remote device check- Medtronic Allergies Sulfa (Sulfonamide Antibiotics) Allergy (Intermediate, Verified 10/14/24 04:47) itching sulfamethoxazole [From Bactrim] Allergy (Intermediate, Verified 10/14/24 04:47) Stomach Upset trimethoprim [From Bactrim] Allergy (Intermediate, Verified 10/14/24 04:47) Stomach Upset PFSH Medical History Paroxysmal atrial fibrillation Afib History of esophagitis Bradycardia, sinus History of breast cancer in female (~2012) Neuroendocrine tumor of pancreas COVID-19 vaccine series completed Irritable bowel syndrome with constipation Chronic obstructive pulmonary disease, unspecified (HFpEF) heart failure with preserved ejection fraction Menopause Dyslipidemia Essential hypertension Diabetes mellitus with microalbuminuria, without long-term current use of insulin Surgical History History of pacemaker History of breast biopsy History of tubal ligation History of colonoscopy History of cerebral aneurysm repair History of lumpectomy of right breast Family History Father Myocardial infarction CVD (cardiovascular disease) Mother Diabetes mellitus Brother HTN (hypertension) Brother HTN (hypertension) Brother No problems noted. Son No problems noted. Social History Household Members: Family Household Members Other:: son visits often Housing: Apartment Are you a primary nurse healthcare manager to a significant other at home: No Do you presently have visiting nurse or other home services: Yes Alcohol intake: never Patient Tobacco Use Status: Former Tobacco user Tobacco use type: Cigarette Years Smoked: 50 yrs e-Cigarette/Vaping Use: Former Use Advance Directives Date on File: 07/11/22 service: No Current occupational status: disabled Cognitive needs: No Hearing needs: No Vision needs: Yes Office Procedures Cardiac Device Check Cardiac Device Check Details: Remote pacemaker report generated 11/16/2024. Pacemaker function is adequate [id number] Cardiac Device Interrogation, pacemaker Procedure code (CPT) selection complete Assessment & Plan Assessment & Plan (1) Pacemaker: Onset Date: ~2022 Comment: (Medtronic DCPP - placed 07/27/2022) Code(s): Z95.0 - Presence of cardiac pacemaker Category: Medical Plan: See above Coding Level of Care Code Procedure Only Diagnoses Pacemaker Z95.0 CPT Codes Cardiac Device Check - Cardiac Device 12: [id number] Cardiac Device Interrogation, pacemaker ([id number])
== END ==
PROVIDERS: PCP Internal Medicine; Visit Provider Internal Medicine Cardiovascular Disease
DX: Z45.018 Encounter for adjustment and management of other part of cardiac pacemaker (principal)
CPT/HCPCS: 93294

== ENCOUNTER → 2025-02-15 23:59 | Outpatient (BNV) | payer MEDICARE, MEDICAID, SELFPAY ==
--- NOTE | 2025-02-25 16:18 | A.OFFVIS_ITS ---
Intake Visit Reasons: Remote device check- Medtronic Allergies Sulfa (Sulfonamide Antibiotics) Allergy (Intermediate, Verified 10/14/24 04:47) itching sulfamethoxazole (From Bactrim) Allergy (Intermediate, Verified 10/14/24 04:47) Stomach Upset trimethoprim (From Bactrim) Allergy (Intermediate, Verified 10/14/24 04:47) Stomach Upset PFSH Medical History Paroxysmal atrial fibrillation Afib History of esophagitis Bradycardia, sinus History of breast cancer in female (~2012) Neuroendocrine tumor of pancreas COVID-19 vaccine series completed Irritable bowel syndrome with constipation Chronic obstructive pulmonary disease, unspecified (HFpEF) heart failure with preserved ejection fraction Menopause Dyslipidemia Essential hypertension Diabetes mellitus with microalbuminuria, without long-term current use of insulin Surgical History History of pacemaker History of breast biopsy History of tubal ligation History of colonoscopy History of cerebral aneurysm repair History of lumpectomy of right breast Family History Father Myocardial infarction CVD (cardiovascular disease) Mother Diabetes mellitus Brother HTN (hypertension) Brother HTN (hypertension) Brother No problems noted. Son No problems noted. Social History Household Members: Family Household Members Other:: son visits often Housing: Apartment Are you a primary home health care worker to a significant other at home: No Do you presently have visiting nurse or other home services: Yes Alcohol intake: never Patient Tobacco Use Status: Former Tobacco user Tobacco use type: Cigarette Years Smoked: 50 yrs e-Cigarette/Vaping Use: Former Use Use of substances other than those prescribed or required for medical reasons: No Have you been hit, kicked, punched, or otherwise hurt by someone within the past year? If so, by whom?: No Advance Directives Date on File: 07/11/22 Do you have thoughts of harming others: None Do you have a plan to hurt others: No Plan Do you have the means to hurt others: No Recently lost weight without trying: No Patient : No service: No Current occupational status: disabled Cognitive needs: No Hearing needs: No Vision needs: Yes Office Procedures Cardiac Device Check Cardiac Device Check Details: Remote pacemaker report generated 02/19/2025. Pacemaker function is adequate. [id number] Cardiac Device Interrogation, pacemaker Procedure code (CPT) selection complete Assessment & Plan Assessment & Plan (1) Pacemaker: Onset Date: ~2022 Comment: (Medtronic DCPP - placed 07/27/2022) Code(s): Z95.0 - Presence of cardiac pacemaker Category: Medical Plan: See above Coding Level of Care Code Procedure Only Diagnoses Pacemaker Z95.0 CPT Codes Cardiac Device Check - Cardiac Device 12: [id number] Cardiac Device Interrogation, pacemaker ([id number])
== END ==
PROVIDERS: PCP Internal Medicine; Visit Provider Internal Medicine Cardiovascular Disease
DX: Z45.018 Encounter for adjustment and management of other part of cardiac pacemaker (principal)
CPT/HCPCS: 93294

== ENCOUNTER 2025-03-31 13:24 | Outpatient (REF) | payer MEDICARE, MEDICAID, SELFPAY ==
[2025-03-31 16:46] LABS: Anion Gap 11 (12-20); Blood Urea Nitrogen 21 mg/dL (9-16); Calcium 9.1 mg/dL (8.4-10.2); Carbon Dioxide 25 mmol/L (22-29); Chloride 112 mmol/L (96-108); Estimated Glomerular Filt Rate > 60; Potassium 4.2 mmol/L (3.3-5.1); Sodium 144 mmol/L (135-145)
[2025-04-03 08:39] LABS: Cholesterol 159 mg/dL (<200); HDL Cholesterol 64 mg/dL (>40); Triglycerides 69 mg/dL (<150)
== END 2025-03-31 13:25 | disposition home or self-care (01) ==
LOC: HO.HMGCLDS 13:24
PROVIDERS: PCP Internal Medicine; Visit Provider Internal Medicine
DX: E11.29 Type 2 diabetes mellitus with other diabetic kidney complication (principal); E78.5 Hyperlipidemia, unspecified; R80.9 Proteinuria, unspecified; Z13.21 Encounter for screening for nutritional disorder
CPT/HCPCS: 36415; 80048; 80061; 82306; 83036

== ENCOUNTER 2025-04-02 10:40 | Outpatient (AMB) | payer MEDICARE, MEDICAID, SELFPAY ==
[2025-04-02 10:41] VITALS: BP 140/70; PULSE 86; RESP 17; TEMP 36.6; O2SAT 92; BMI 24.0
--- NOTE | 2025-04-02 10:41 | A.OFFPC_ITS ---
Vital Signs 04/02/25 10:41 Height 5 ft 4 in Weight 140 lb BMI 24.0 BP 140/70 H Blood Pressure Location Rt brachial Position Sitting Respiration 17 Pulse 86 Pulse Source Pulse Oximeter Temp 97.9 F Temp Source Oral Pulse Oximetry (%) 92 Oxygen Delivery Method Room Air Intake Visit Reasons: Annual PE Intake Note: Pt is here today for her PE Allergies Sulfa (Sulfonamide Antibiotics) Allergy (Intermediate, Verified 04/02/25 10:54) itching sulfamethoxazole (From Bactrim) Allergy (Intermediate, Verified 04/02/25 10:54) Stomach Upset trimethoprim (From Bactrim) Allergy (Intermediate, Verified 04/02/25 10:54) Stomach Upset Medication List - Last Reconciled 04/02/25 by Kaitlyn Soto MD Advair HFA 115-21 mcg/actuation (fluticasone propion-salmeterol) 2 puffs inhalation Q12H NS amlodipine 10 mg See Protocol PO DAILY apixaban (Eliquis) 5 mg PO BID ascorbic acid (vitamin C) 1 g PO DAILY hydralazine 25 mg See Protocol PO TID losartan 100 mg PO DAILY metformin ER 500 mg PO BEDTIME metoprolol succinate ER 25 mg PO DAILY fapsonsl-aapanyv-owtl-lutein 1 tab PO DAILY omega 8-yxi-lla-fish oil 1,000 (120-180) mg (Fish Oil) 1 cap PO DAILY omeprazole 1 cap PO DAILY tramadol 50 mg PO Q8H PRN Tobacco use date assessed: 04/02/25 Fall risk assessment: No Falls in past year Last assessed Fall Risk: 04/02/25 Dental Screening Dental Screen Date: 04/02/25 Did you have a dental visit in the last 12 months?: No Did you have a dental problem in the last 6 months where you did not have access to dental care?: No Was dental information given to patient?: Patient declined HPI Annual PE HPI Details 79 year-old lady with past medical histo ry of breast cancer, hyperlipidemia, hypertension, diabetes mellitus , heart failure with preserved EF, sick sinus syndrome status post pacemaker placement, paroxysmal atrial fibrillation currently anticoagulated with apixaban, recently diagnosed with 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 She is up-to-date with her screening mammogram done earlier this year with benign findings. Currently being followed by Dr. Guzman for neuroendocrine tumor in her pancreas. The patient has Type 2 Diabetes Mellitus, managed with metformin, which she takes once at night before bed. Her blood glucose levels are currently well- controlled, and she denies any recent episodes of hypoglycemia. Hypertension is managed with losartan and hydrochlorothiazide, with recent issues in prescription refills being resolved. The patient reports occasional elevated blood pressure readings, attributed to stress and anxiety. The patient has a history of hyperlipidemia, with cholesterol levels being consistently within normal limits. She is not currently on any lipid-lowering medications. She is due for her second dose of the shingles vaccine, and the flu vaccine. [facility] Medical History Paroxysmal atrial fibrillation Afib History of esophagitis Bradycardia, sinus History of breast cancer in female (~2012) Neuroendocrine tumor of pancreas COVID-19 vaccine series completed Irritable bowel syndrome with constipation Chronic obstructive pulmonary disease, unspecified (HFpEF) heart failure with preserved ejection fraction Menopause Dyslipidemia Essential hypertension Diabetes mellitus with microalbuminuria, without long-term current use of insulin Surgical History History of pacemaker History of breast biopsy History of tubal ligation History of colonoscopy History of cerebral aneurysm repair History of lumpectomy of right breast Family History Father Myocardial infarction CVD (cardiovascular disease) Mother Diabetes mellitus Brother HTN (hypertension) Brother HTN (hypertension) Brother No problems noted. Son No problems noted. Social History Household Members: Family Household Members Other:: son visits often Housing: Apartment Are you a primary medicare insurance specialist to a significant other at home: No Do you presently have visiting nurse or other home services: Yes Alcohol intake: never Patient Tobacco Use Status: Former Tobacco user Tobacco use type: Cigarette Years Smoked: 50 yrs e-Cigarette/Vaping Use: Former Use Use of substances other than those prescribed or required for medical reasons: No Have you been hit, kicked, punched, or otherwise hurt by someone within the past year? If so, by whom?: No Advance Directives Date on File: 07/11/22 Do you have thoughts of harming others: None Do you have a plan to hurt others: No Plan Do you have the means to hurt others: No Recently lost weight without trying: No Patient : No service: No Current occupational status: disabled Cognitive needs: No Hearing needs: No Vision needs: Yes Questionnaire PHQ-9 Over the last 2 weeks, how often have you been bothered by any of the following problems? 1. Little interest or pleasure in doing things: not at all 2. Feeling down, depressed, or hopeless: not at all 3. Trouble falling or staying asleep, or sleeping too much: not at all 4. Feeling tired or having little energy: not at all 5. Poor appetite or overeating: not at all 6. Feeling bad about yourself - or that you are a failure or have let yourself or your family down: not at all 7. Trouble concentrating on things, such as reading the newspaper or watching television: not at all 8. Moving or speaking so slowly that other people could have noticed. Or the opposite - being so fidgety or restless that you have been moving around a lot more than usual: not at all 9. Thoughts that you would be better off or of hurting yourself in some way: not at all Total score: 0 Depression Screening Interpretation: Negative Depression Screening Done: Yes 15992 - PHQ-9 Billing: Yes Source: Developed by Drs. Tayo Calle, Shefali Hwang, Jerrod Barros and colleagues, with an educational karsten from [employer]. Thrive Questionnaire Date Thrive assessed: 04/02/25 I am a: Patient What is your living situation today?: I have a steady place to live Within the past 12 months, did the food you bought not last and you didn't have the money to get more?: Never true Within the past 12 months, did you worry whether your food would run out before you got money to buy more?: Never true Do you have trouble paying for medicines?: No Do you have trouble getting transportation to medical appointments?: No Do you have trouble paying your heating and electricity bill?: No Do you have trouble taking care of your child, family member or friend?: No Do you have trouble with day-to-day activities such as bathing, preparing meals, shopping, managing finances, etc.?: No Are you currently unemployed and looking for a job?: No Are you interested in more education?: No THRIVE Score: 0 AUDIT C Alcohol Use Questionnaire (AUDIT-C) 1. How often do you have a drink containing alcohol?: Never Total Score: 0 PAM-7 AMB Questionnaire PAM-7 Date PAM - 7 assessed: 04/02/25 Feeling nervous, anxious, or on edge: 0 = Not at all Not being able to stop or control worryin = Not at all Worrying too much about different things: 0 = Not at all Trouble relaxin = Not at all Being so restless that it is hard to sit still: 0 = Not at all Becoming easily annoyed or irritable: 0 = Not at all Feeling afraid as if something awful might happen: 0 = Not at all Total PAM-7 score (0-4 normal; 5-9 mild; 10-14 moderate; 15-21 severe): 0 Source: Developed by Drs. Tayo Calle, Shefali Hwang, Jerrod Barros and colleagues, with an educational karsten from [employer]. PAM-7 Assessment Billing PAM-7 Assessment Tool: PAM-7 Assessment 33078 Review of Systems Const Denies fatigue, Denies fever(s), Denies frequent falls and Denies weakness Eyes Denies change in vision ENT Denies dizziness Card Denies chest pain, Denies leg edema, Denies lightheadedness, Denies palpitations, Denies dyspnea and Denies dyspnea on exertion Resp Denies cough, Denies dyspnea and Denies dyspnea on exertion GI Denies abdominal pain, Denies hematochezia, Denies change in bowel habits and Denies heartburn Reports no additional complaints Musc Denies abnormal gait, Denies muscle weakness, Denies numbness, Denies radiating pain into limb and Denies tingling Skin/Breast Denies breast pain, Denies breast mass, Denies lesions and Denies rash Neuro Denies abnormal gait, Denies dizziness, Denies frequent falls, Denies numbness, Denies tingling and Denies weakness Psych Reports no additional complaints Endo Denies fatigue and Denies palpitations Jasson/Lymph Reports no additional complaints Aller/Immun Reports no additional complaints Physical exam (Primary Care) Vital Signs: Last Vital Signs Temp 97.9 F 04/02/25 10:41 Pulse 86 04/02/25 10:41 Resp 17 04/02/25 10:41 BP 140/70 H 04/02/25 10:41 Pulse Ox 92 04/02/25 10:41 Oxygen Delivery Method Room Air 04/02/25 10:41 BMI result Body Mass Index 24.0 Tobacco/Smoking Status: Tobacco use Status Tobacco use date assessed 04/02/25 04/02/25 10:48 Patient Tobacco Use Status Former Tobacco user 04/02/25 10:43 Tobacco use type Cigarette 04/02/25 10:43 e-Cigarette/Vaping Use Former Use 04/02/25 10:43 PHQ-9: PHQ-9 Score PHQ-9: Total score 0 04/11/25 04:17 Depression Screening Interpretation: Negative Thrive Assessment: Date of Thrive Assessment Date Thrive assessed 04/02/25 04/11/25 04:17 Const General: comfortable and no acute distress Orientation/consciousness: patient oriented x3 HENMT Head: Yes normocephalic Ears: external ears normal General nose exam: Normal external nose present Face and sinus: Yes face symmetric Mouth: Normal oral and palatal mucosa present and moist mucous membranes Teeth and gingiva: edentulous Eyes General: appearance normal, both eyes and all related structures Neck Neck: Yes full ROM, Yes no lymphadenopathy and Yes supple Resp Effort & Inspection: normal respiratory effort and able to speak in complete sentences Auscultation: clear to auscultation bilaterally Cardio Rate: regular rate Heart sounds: S1 normal heart sound present and S2 normal heart sound present GI Inspection: Yes normal to inspection Palpation (GI): Soft to palpation, nontender and no masses Auscultation: normal bowel sounds General: Yes no CVA tenderness Back/Spine/Pelvis Back: no CVA tenderness and No back tenderness Skin General skin exam: no rashes or lesions noted Neuro General: patient oriented x3 Extrem General: Yes no pedal edema Psych Appearance: grossly normal and well kempt Mental Status: mental status grossly normal Speech and movement: Normal speech and movement present Affect: normal affect Results Reviewed Results Reviewed: abigail: Mary Miramontes Age/Sex: 79/F : 1945 Unit#: [id number] Attend Dr: Kaitlyn Soto MD Re03/31/25 Status: DEP REF Location: [facility] Disch: SPEC : [id number] KAIA: 03/31/25 STATUS: COMP REQ : [id number] RECD: 03/31/25-[address]: Kaitlyn Soto MD COMP: 03/31/25 ENTERED: 03/31/[address] [facility] [address]: ORDERED: Met Prof Fast, Lipid Panel, Vitamin D 25-OH Test Result Flag Reference Sodium 144 135-145 mmol/L Potassium 4.2 3.3-5.1 mmol/L CL 112 H 96-108 mmol/L CO2 25 22-29 mmol/L Gap 11 L 12-20 BUN 21 H 9-16 mg/dL Creat 0.67 0.5-1.4 mg/dL eGFR > 60 Chronic Kidney Disease: Estimated GFR < 60 mL/min/1.73m2 Severe Kidney Disease: Estimated GFR < 15 mL/min/1.73m2 FBS 103 H 60-99 mg/dL A fasting glucose from 100-125 mg/dl is considered impaired (pre-diabetes). CA 9.1 8.4-10.2 mg/dL Triglyceride 69 <150 mg/dL Desirable Triglyceride: less than 150 mg/dL Borderline High Triglyceride 150-199 mg/dL High Triglyceride: 200-499 mg/dL Very High Triglyceride: greater than or equal to 5OO mg/dL Cholesterol 159 <200 mg/dL Desirable Cholesterol: less than 200 mg/dL Borderline High Cholesterol: 200-239 mg/dL High Cholesterol: greater than 239 mg/dL LDL Calculated 82 <100 mg/dL Desirable LDL: less than 100 mg/dL Near Optimal/Above Optimal LDL: 110-129 mg/dL Borderline High LDL: 130-159 mg/dL High LDL: 160-189 mg/dL Very High LDL: greater than or equal to 190 mg/dL HDL 64 >40 mg/dL Desirable HDL: greater than 40 mg/dL Note: This HDL assay may give artificially low results in patients with liver disease. Vitamin D 25-OH 45.1 >30 ng/mL Health Based Reference Values* < 20 ng/mL Deficient 20-30 ng/mL Insufficient > 30 ng/mL Sufficient Laboratory Tests 10/08/24 03/31/25 11:44 13:32 Estimat Average Glucose 126 Hgb A1c (Clinic) 5.7 Hemoglobin A1c % 6.0 RUN: 04/11/25 0419 PAGE 1 [facility] [address] [place] [id number] Tape Machine Tailer: Jerod Napoles M.D. Specimen Inquiry Name: Mary Miramontes Age/Sex: 79/F : 1945 Unit#: [id number] Attend Dr: Lisa Guzman MD Re04/08/25 Status: REG [facility] Disch: SPEC : [id number] KAIA: 03/11/25 STATUS: COMP REQ : [id number] RECD: 03/11/[address]: Lisa Guzman MD COMP: 03/11/25 ENTERED: 03/11/[address]: Kaitlyn Soto MD ORDERED: CBC Auto Diff Test Result Flag Reference WBC 6.3 4.8-10.8 X10*3/uL RBC 3.94 L 4.20-5.50 X10*6/uL HGB 12.6 12.0-16.0 g/dl HCT 38.4 37.0-47.0 % MCV 97.5 80.0-98.0 fL MCH 32.0 27.0-33.0 pg MCHC 32.8 31.0-35.0 g/dl RDW 13.5 11.0-16.0 % PLT 157 L 160-400 X10*3/uL MPV 10.5 9.4-12.3 fL Neut Pct Auto 59.2 45-73 % ImGran Pct Auto 0.3 0.0-0.4 % Lymp Pct Auto 30.7 20-40 % Harding Pct Auto 7.7 2-11 % Eos Pct Auto 1.8 0-4 % Baso Pct Auto 0.3 0-2 % NRBC Pct Auto 0.0 0.0-0.2 /100WBC ANC Neut Abs # 3.7 2.0-8.3 x10*3/uL ImGran Abs Auto 0.02 0.00-0.03 X10*3/uL Lymph Abs Auto 1.9 1.2-4.9 X10*3/uL Harding Abs Auto 0.5 0.1-1.2 X10*3/uL Eos Abs Auto 0.1 0.0-0.4 X10*3/uL Baso Abs Auto 0.0 0.0-0.2 X10*3/uL NRBC Abs Auto 0.000 0.0-0.012 X10*3/uL Coding Level of Care Code Est Pt Prev Care >65y(83822) Diagnoses Dyslipidemia E78.5 Essential hypertension I10 Sick sinus syndrome I49.5 Paroxysmal atrial fibrillation I48.0 Type 2 diabetes mellitus with microalbuminuria, without long-term current use of insulin E11.29; R80.9 Diabetes mellitus type: type 2 Neuroendocrine tumor of pancreas D3A.8 Chronic obstructive pulmonary disease, unspecified COPD type J44.9 COPD type: unspecified COPD Annual visit for general adult medical examination with abnormal findings Z00.01 Additional Codes PAM-7 Assessment Billing - PAM-7 Assessment Tool: PAM-7 Assessment 62547 ([id number]) PHQ-9 - 16038 - PHQ-9 Billing: Yes ([id number]) Assessment & Plan Assessment & Plan (1) Dyslipidemia: Code(s): E78.5 - Hyperlipidemia, unspecified Category: Medical Plan: Fasting lipid panel within normal limits, continued on Pope 3 fatty acid sup plements and healthy diet (2) Essential hypertension: Code(s): I10 - Essential (primary) hypertension Category: Medical Plan: Continued on losartan 100 mg daily , hydralazine 25 mg daily, metoprolol succinate ER 25 mg once a day as well as amlodipine 10 mg once daily (3) Sick sinus syndrome: Code(s): I49.5 - Sick sinus syndrome Category: Medical Plan: On apixaban 5 mg 1 tablet twice a day (4) Paroxysmal atrial fibrillation: Code(s): I48.0 - Paroxysmal atrial fibrillation Category: Medical Plan: On apixaban, followed by cardiology (5) Diabetes mellitus with microalbuminuria, without long-term current use of insulin: Code(s): E11.29 - Type 2 diabetes mellitus with other diabetic kidney complication; R80.9 - Proteinuria, unspecified Category: Medical Qualifiers: Diabetes mellitus type: type 2 Qualified Code(s): E11.29 - Type 2 diabetes mellitus with other diabetic kidney complication; R80.9 - Proteinuria, unspecified Plan: Hemoglobin A1c at 6%, controlled on metformin ER 500 mg at bedtime (6) Neuroendocrine tumor of pancreas: Code(s): D3A.8 - Other benign neuroendocrine tumors Category: Medical Plan: Followed by oncology (7) Chronic obstructive pulmonary disease, unspecified: Code(s): J44.9 - Chronic obstructive pulmonary disease, unspecified Category: Medical Qualifiers: COPD type: unspecified COPD Qualified Code(s): J44.9 - Chronic obstructive pulmonary disease, unspecified Plan: Currently on Advair HFA 115-21 mcg per actuation 2 puffs twice a day (8) Annual visit for general adult medical examination with abnormal findings: Code(s): Z00.01 - Encounter for general adult medical examination with abnormal findings Plan: Fasting lab results reviewed with patient. Continued on current medication. Continue current diet, reminded to get her flu vaccine the pharmacy and 2nd dose of shingles vaccine Orders: Orders Lipid Panel 04/02/25 E78.5 - Hyperlipidemia, unspecified, Z78.0 - Asymptomatic menopausal state Vitamin D 25-OH Total 04/02/25 E78.5 - Hyperlipidemia, unspecified, Z78.0 - Asymptomatic menopausal state Medications: New metformin ER 500 mg PO BEDTIME 90 tabs 2RF
--- OUTSIDE RECORDS SUMMARY | 2025-04-02 13:38 | XMS_ITS | Clinical Summary ---
Author Organization [facility] Address [address] [place] [address] Care Team Providers Care Bit Sander Name Role Phone Unavailable Primary Care Provider Unavailabl e Social History Tobacco Use Types Packs/Day Years Used Date Smoking Tobacco: Never Assessed Comments Unknown Sex and Gender Information Value Date Recorded Sex Assigned at Not on file Legal Sex Female 1:27 PM EDT Gender Identity Not on file Sexual Orientation Not on file Plan of Treatment Health Maintenance Due Date Last Done Comments Advance Care Planning 1945 DTaP/Tdap/Td Vaccines (1 - Tdap) 08/11/1962 Pneumococcal Vaccines 50+ (1 of 1 - PCV) 08/11/1993 Zoster (Shingles) Vaccine (1 of 2) 08/11/1993 RSV Vaccine 50 years and old er and Patients (1 - 1-dose 75+ series) 08/11/2018 COVID-19 Vaccine (2023-2 5 season) 2025 Hepatitis B Vaccines Aged Out No long er eligible based on patient's age to complete this topic
== END 2025-04-02 11:10 | disposition home or self-care (01) ==
LOC: HO.HMCC 10:41
PROVIDERS: PCP Internal Medicine; Visit Provider Internal Medicine
DX: Z00.01 Encounter for general adult medical examination with abnormal findings (principal); I49.5 Sick sinus syndrome; E11.29 Type 2 diabetes mellitus with other diabetic kidney complication; I48.0 Paroxysmal atrial fibrillation; D3A.8 Other benign neuroendocrine tumors; J44.9 Chronic obstructive pulmonary disease, unspecified; E78.5 Hyperlipidemia, unspecified; I10 Essential (primary) hypertension; R80.9 Proteinuria, unspecified

== ENCOUNTER → 2025-04-02 10:40 | Outpatient (BNVA) | payer MEDICARE, MEDICAID, SELFPAY | PROVIDERS: PCP Internal Medicine; Visit Provider Internal Medicine | DX: Z00.01 Encounter for general adult medical examination with abnormal findings (principal); I11.0 Hypertensive heart disease with heart failure; I50.9 Heart failure, unspecified; I48.0 Paroxysmal atrial fibrillation; I49.5 Sick sinus syndrome; E11.29 Type 2 diabetes mellitus with other diabetic kidney complication; R80.9 Proteinuria, unspecified; D3A.8 Other benign neuroendocrine tumors; J44.9 Chronic obstructive pulmonary disease, unspecified; Z79.01 Long term (current) use of anticoagulants; Z95.0 Presence of cardiac pacemaker; Z79.899 Other long term (current) drug therapy | CPT/HCPCS: 96127; 99397 ==

== ENCOUNTER 2025-05-19 14:35 | Outpatient (AMB) | payer MEDICARE, MEDICAID, SELFPAY ==
[2025-05-19 14:51] VITALS: BP 124/72; PULSE 62; BMI 23.5
--- NOTE | 2025-05-19 14:51 | A.OFFVIS_ITS ---
Vital Signs 05/19/25 14:51 Height 5 ft 4 in Weight 136 lb 10.986 oz BMI 23.5 BP 124/72 Blood Pressure Location Lt brachial Position Sitting Pulse 62 Intake Visit Reasons: 6m follow up w device ck Intake Note: 6 month follow-up with ekg and Medtronic feeling good [employer] Required: No Allergies Sulfa (Sulfonamide Antibiotics) Allergy (Intermediate, Verified 04/02/25 10:54) itching sulfamethoxazole (From Bactrim) Allergy (Intermediate, Verified 04/02/25 10:54) Stomach Upset trimethoprim (From Bactrim) Allergy (Intermediate, Verified 04/02/25 10:54) Stomach Upset Medication List - Last Reconciled 05/19/25 by Asher Amezquita MD Advair HFA 115-21 mcg/actuation (fluticasone propion-salmeterol) 2 puffs inhalation Q12H NS amlodipine 10 mg See Protocol PO DAILY apixaban (Eliquis) 5 mg PO BID ascorbic acid (vitamin C) 1 g PO DAILY hydralazine 25 mg See Protocol PO TID losartan 100 mg PO DAILY metformin ER 500 mg PO BEDTIME metoprolol succinate ER 25 mg PO DAILY iuanwmda-jjpcbcj-gayu-lutein 1 tab PO DAILY omega 0-zxg-qvf-fish oil 1,000 (120-180) mg (Fish Oil) 1 cap PO DAILY omeprazole 1 cap PO DAILY tramadol 50 mg PO Q8H PRN HPI Comments Details: Mary comes for follow-up. Overall she has been doing well from cardiac perspective. No active cardiac symptoms. She had couple of episodes on pacer telemetry of atrial fibrillation which was self-limiting. She had no symptoms related to it. She denies any shortness of breath, orthopnea, PND. Takes all her medications. Currently still getting chemotherapy and follow up with Hematology Oncology for the same. No bleeding issues or neurologic events. No orthopnea, PND, leg edema. [facility] Medical History Paroxysmal atrial fibrillation Afib History of esophagitis Bradycardia, sinus History of breast cancer in female (~2012) Neuroendocrine tumor of pancreas COVID-19 vaccine series completed Irritable bowel syndrome with constipation Chronic obstructive pulmonary disease, unspecified (HFpEF) heart failure with preserved ejection fraction Menopause Dyslipidemia Essential hypertension Diabetes mellitus with microalbuminuria, without long-term current use of insulin Surgical History History of pacemaker History of breast biopsy History of tubal ligation History of colonoscopy History of cerebral aneurysm repair History of lumpectomy of right breast Family History Father Myocardial infarction CVD (cardiovascular disease) Mother Diabetes mellitus Brother HTN (hypertension) Brother HTN (hypertension) Brother No problems noted. Son No problems noted. Social History Household Members: Family Household Members Other:: son visits often Housing: Apartment Are you a primary child adolescent care to a significant other at home: No Do you presently have visiting nurse or other home services: Yes Alcohol intake: never Patient Tobacco Use Status: Former Tobacco user Tobacco use type: Cigarette Years Smoked: 50 yrs e-Cigarette/Vaping Use: Former Use Advance Directives Date on File: 07/11/22 service: No Current occupational status: disabled Cognitive needs: No Hearing needs: No Vision needs: Yes Review of Systems Const Denies chills, Denies fatigue, Denies fever(s), Denies frequent falls, Denies weakness, Denies weight gain and Denies weight loss ENT Denies dizziness Card Denies chest pain, Denies leg edema, Denies lightheadedness, Denies palpitations, Denies dyspnea, Denies dyspnea on exertion, Denies orthopnea and Denies other (loss of consciousness) Resp Denies cough, Denies dyspnea and Denies dyspnea on exertion GI Denies hematochezia and Denies change in stool character Musc Denies abnormal gait, Denies muscle weakness, Denies numbness, Denies radiating pain into limb and Denies tingling Neuro Denies abnormal gait, Denies dizziness, Denies frequent falls, Denies numbness, Denies tingling and Denies weakness Endo Denies fatigue and Denies palpitations Physical Exam Vital Signs: Last Vital Signs Pulse 62 05/19/25 14:51 BP 124/72 05/19/25 14:51 BMI result Body Mass Index 23.5 Const General: cooperative, healthy appearing, comfortable and no acute distress Orientation/consciousness: patient oriented x3 Neck Neck: Yes normal visual inspection Resp Effort & Inspection: normal respiratory effort Auscultation: clear to auscultation bilaterally, no crackles, no rales, no rhonchi and no wheezes Cardio Jugular venous distension: no JVD Rate: regular rate Rhythm: regular rhythm Heart sounds: S1 normal heart sound present, S2 normal heart sound present, no murmurs and no rubs Neuro General: patient oriented x3 Extrem General: Yes normal to inspection Psych Appearance: grossly normal Mental Status: mental status grossly normal Speech and movement: Normal speech and movement present Office Procedures Cardiac Device Check Cardiac Device Check Details: Dual-chamber Medtronic pacemaker in place. Programmed in DDDR at 60 beats per minute. Atrial pacing 100% of time. Ventricular pacing also almost 100% of time. Episodes of atrial fibrillation noted atrial and ventricular pacing thresholds adequate. Pacing lead impedance is stable. Atrial and ventricular sensing could not be checked. Battery life is at 7.3 years [id number] Cardiac Device Check, pacemaker dual lead Procedure code (CPT) selection complete EKG Details: EKG shows AV dual paced rhythm [id number]-[id number], Complete Assessment & Plan Assessment & Plan (1) Pacemaker: Onset Date: ~2022 Comment: (Medtronic DCPP - placed 07/27/2022) Code(s): Z95.0 - Presence of cardiac pacemaker Category: Medical Plan: Cardiac pacemaker in-situ for sick sinus syndrome. Patient pacer dependent in the atrium in the ventricular. Doing overall okay. Will continue monitor remote telemetry. Continue to follow up in the clinic in 6 months time. (2) Paroxysmal atrial fibrillation: Code(s): I48.0 - Paroxysmal atrial fibrillation Category: Medical Plan: Paroxysmal atrial fibrillation with intermittent episode without any significant symptoms. At this point time no change in therapy and no indication for antiarrhythmic drug therapy. Continue current full oral anticoagulation Eliquis 5 mg b.i.d.. Quarterly renal function test should be pursued. Close attention to body weight. If her body weight drops below 130 lb should consider reducing Eliquis dose. Continue aggressive blood pressure control. Avoidance of stimulants was discussed. (3) (HFpEF) heart failure with preserved ejection fraction: Code(s): I50.30 - Unspecified diastolic (congestive) heart failure Category: Medical Plan: Heart failure preserved ejection fraction, clinically euvolemic well compensated has done well with rhythm control approach. Continue rhythm control approach. Continue aggressive blood pressure control which is currently well optimized. Clinically appears to be euvolemic and well compensated. Currently not on any loop diuretics. Signs and symptoms of heart failure were discussed. Follow up in the clinic in 6 months time, sooner PRN. Thank you for allowing me to partake in her care Coding Level of Care Code Complex visit Add On G2211 Diagnoses Pacemaker Z95.0 Paroxysmal atrial fibrillation I48.0 (HFpEF) heart failure with preserved ejection fraction I50.30 CPT Codes Cardiac Device Check - Cardiac Device 2: [id number] Cardiac Device Check, pacemaker dual lead ([id number]) EKG - CPT: 92956-Ivoxzunjiarvsudix, Complete ([id number])
--- OUTSIDE RECORDS SUMMARY | 2025-05-19 23:43 | XMS_ITS | Clinical Summary ---
Author Organization [facility] Address [address] [place] [address] Care Team Providers Care Community Association Manager Name Role Phone Unavailable Primary Care Provider [...]
== END 2025-05-19 15:09 | disposition home or self-care (01) ==
LOC: HO.HCS 14:35
PROVIDERS: PCP Internal Medicine; Visit Provider Internal Medicine Cardiovascular Disease
DX: I48.0 Paroxysmal atrial fibrillation (principal); I50.30 Unspecified diastolic (congestive) heart failure; Z95.0 Presence of cardiac pacemaker; R94.31 Abnormal electrocardiogram [ECG] [EKG]
CPT/HCPCS: 93010; 93280; 99213; G2211

== ENCOUNTER → 2025-05-19 14:35 | Outpatient (BNVA) | payer MEDICARE, MEDICAID, SELFPAY | PROVIDERS: PCP Internal Medicine; Visit Provider Internal Medicine Cardiovascular Disease | DX: Z45.010 Encounter for checking and testing of cardiac pacemaker pulse generator [battery] (principal); I48.0 Paroxysmal atrial fibrillation; I50.30 Unspecified diastolic (congestive) heart failure | CPT/HCPCS: 93005; 93280; 99212 ==

== ENCOUNTER → 2025-06-06 16:14 | Outpatient (BNV) | payer MEDICARE, MEDICAID, SELFPAY | PROVIDERS: PCP Internal Medicine; Visit Provider Internal Medicine Cardiovascular Disease | DX: Z45.018 Encounter for adjustment and management of other part of cardiac pacemaker (principal) | CPT/HCPCS: 93294 ==